=== PATIENT | female | born 1940 | race Caucasian/White ===

== ENCOUNTER 2023-09-29 16:45 | Observation (INO) ==
[2023-09-29 17:23] LABS: Basophils # (auto) 0.04 K/uL (0.00-0.20); Basophils % (auto) 0.4 %; Eosinophils # (auto) 0.04 K/uL (0.00-0.50); Eosinophils % (auto) 0.4 %; Hematocrit (blood only) 37.5 % (37.0-47.0); Hemoglobin 11.8 g/dl (12.0-16.0); Immature Granulocytes # (auto) 0.04 K/uL (0.01-0.20); Immature Granulocytes % (auto) 0.4 %; Lymphocytes % (auto) 6.5 %; Mean Corpuscular Hemoglobin 29.9 pg (25.0-34.0); Mean Corpuscular Hgb Conc 31.5 g/dL (32.0-36.0); Mean Corpuscular Volume 94.9 fL (80.0-100.0); Mean Platelet Volume 10.3 fL (9.4-12.4); Monocytes # (auto) 0.39 K/uL (0.11-0.59); Monocytes % (auto) 4.2 %; Neutrophils # (auto) 8.09 K/uL (1.40-6.50); Neutrophils % (auto) 88.1 %; Platelet Count 309 K/uL (130-400); RDW Coefficient of Variation 14.9 % (11.5-14.5); RDW Standard Deviation 50.9 fL (36.4-46.3); Red Blood Count 3.95 M/uL (4.20-5.40)
[2023-09-29 17:38] LABS: Alanine Aminotransferase 20 U/L (7-52); Albumin Globulin Ratio 0.7 (0.9-2); Albumin Level 3.3 gm/dl (3.4-5.0); Alkaline Phosphatase 75 U/L (34-104); Anion Gap 8 (3-11); Aspartate Aminotransferase 28 U/L (13-39); BUN Creatinine Ratio 29.2 (10-20); Bilirubin,Total 0.4 mg/dl (0.2-1.0); Blood Urea Nitrogen 14 mg/dl (6-23); Carbon Dioxide 27 mmol/L (21-32); Chloride 98 mmol/L (98-107); Est GFR (African American) 103.7 ml/min; Est GFR (Non-African American) 89.4 ml/min; Globulin 4.6 gm/dl (2.5-4.0); Glucose 123 mg/dl (70-99(Fasting)); Lipase 26 U/L (11-82); Sodium 133 mmol/L (136-145); Total Protein 7.9 gm/dl (6.0-8.3)
[2023-09-29 17:45] LABS: Troponin I High Sensitivity 8.4 pg/ml (0-14)
--- NOTE | 2023-09-29 18:19 | XRay Report ---
SINGLE VIEW CHEST CLINICAL HISTORY: Atypical chest pain. FINDINGS: A PA chest radiograph is compared to study dated 02/28/2019. The heart is top normal for proj ection noting atherosclerotic calcification of the thoracic aorta. Chronic interstitial/fibrotic lung disease is again noted. There are increasing airspace opacities at both lung bases. No large pleural effusion or pneumothorax is identified. The skeletal structures are osteopenic. The bony thorax is g rossly intact. Cholecystectomy clips are seen in the right upper quadrant. IMPRESSION: 1. Again seen are changes of chronic interstitial/fibrotic lung disease. 2. There are increasing airspace opacities at both lung bases. Correlate clinically for evidence of a superimposed pneumonia/aspiration pneumonitis. Radiographic follow-up to resolution is recommended. ACT 112: Negative or not required by law. Electronically signed by: Jamie Jacobs M.D. 09/29/2023 6:18 PM
[2023-09-29 19:47] LABS: Troponin I High Sensitivity 8.4 pg/ml (0-14)
--- NOTE | 2023-09-29 20:04 | CT Scan Report ---
Exam(s): CT HEAD Without Contrast EXAM: CT Head Without Intravenous Contrast CLINICAL HISTORY: Reason for exam: fall, hit back of head. TECHNIQUE: Axial computed tomography images of the head/brain without intravenous contrast. CTDI is 36.65 mGy and DLP is 624.41 mGy-cm. Automated exposure control was utilized for the study. A dose lowering technique was utilized adhering to the principles of ALARA. COMPARISON: Head CT September 17, 2022 FINDINGS: Brain: No intracranial hemorrhage. Atrophy and chronic microvascular ischemic changes. Ventricles: Unremarkable. Bones/joints: Unremarkable. No fracture. Soft tissues: Unremarkable. Sinuses: Secretions within the sphenoid sinuses. Mastoid air cells: Unremarkable as visualized. IMPRESSION: 1. No acute intracranial abnormality. Electronically signed by: Fabian Jennings MD 09/29/23 20:04 PM
[2023-09-29] MEDS: ASPIRIN CHEW 324 MG PO STA (21:29)
[2023-09-29 22:20] LABS: Partial Thromboplastin Ratio 0.9; Partial Thromboplastin Time 25 Seconds (21-31)
[2023-09-29 22:22] LABS: Magnesium 1.9 mg/dl (1.7-2.4)
--- NOTE | 2023-09-29 22:30 | Emergency Department Note ---
Impression & Plan Chest pain ED Provider Note Diagnosis: Chest pain Disposition: Admission CHIEF COMPLAINT: Chest pain HPI: Patient is an 83-year-old female presenting with complaint of chest pain. Patient states pain is substernal sharp in nature. Patient states the symptoms are intermittent in nature, go throughout the day. Patient states the pain is worse with exertion. Patient denies any associated shortness of breath. Patient states in the past 24 hours she had a mechanical fall in her garage trying to open up a cabinet that was stuck and when she pulled hard she fell backwards. Patient denies loss consciousness but did hit her head. PAST MEDICAL HISTORY: See Below PAST SURGICAL HISTORY: See Below SOCIAL HISTORY: See Below HOME MEDICATIONS: See Below ALLERGIES: See Below VITALS: See Below PHYSICAL EXAMINATION: GENERAL: Well appearing, well nourished, NAD, non-toxic. EYE EXAM: Normal conjunctiva. OROPHARYNX: Moist mucus membranes. Grossly normal dentition. NECK: Supple, nontender LUNGS: Clear to auscultation. Normal chest wall mechanics. HEART: NSR ABDOMEN: Abdomen soft, non-tender, normo-active bowel sounds, no masses, no rebound or guarding BACK: No CVA TTP. No tenderness of thoracic or lumbar spine SKIN: No rashes and no bruising. UPPER EXTREMITIES: Upper extremities are grossly normal LOWER EXTREMITIES: Grossly normal, no edema. NEURO EXAM: A&O x3,, normal speech, moves all 4 extremities PSYCH: Cooperative MEDICAL DECISION MAKING: History obtained from: Patient, daughter ER Course: Patient is an 83-year-old female presenting with complaint of intermittent episodes of chest pain. Patient states the pain is worse with exertion. Patient states a mechanical fall within the past [address] of head without intracranial hemorrhage. Once CT scan results were present aspirin was given. Patient's EKG without signs of ischemia. Patient has 2 negative troponins. Patient For chest pain observation with hospital service. Labs (independently interpreted) are significant for: Troponins negative x 2 Imaging results (independently interpreted): Chest x-ray clear EKG interpretation (independently interpreted): Normal sinus rhythm no ST segment elevation or depression Medications given: Aspirin Consultants: Hospitalist service, case discussed agree with admission to their service for further treatment evaluation Triage Nursing notes reviewed and agree them. Vital Signs: reviewed and remarkable for: no significant abnormalities Past Med/Surg History Medical History (Updated 09/29/23 @ 22:30 by Rob Matthews, DO) Rheumatoid lung disease Unintentional weight loss OVER THE PAST FEW MONTHS Age related osteoporosis Constipation REASON FOR UPCOMING PROCEDURE SOB (shortness of breath) on exertion ONGOING/NO CHANGE IN BASELINE History of recent fall LAST WEEK/[place] ED EVAL/ 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 R/T SOME CURRENT MEDICATION / EVAL CONTINUES FOR CAUSE Mitral regurgitation PT DENIES HEART MURMUR History of squamous cell carcinoma History of basal cell carcinoma Asthma WELL CONTROLLED GERD without esophagitis Hiatal hernia Hypothyroidism Surgical History History of left cataract surgery History of right cataract surgery History of colonoscopy History of endoscopy History of cholecystectomy History of cardiac catheterization PT DENIES Family History Unknown Hypertension Father Diabetes Denies family history of Ovarian cancer Breast cancer Colorectal cancer Social History Smoking Status: Never smoker Do You Dip or Chew Tobacco: No; Hx Alcohol Use: No Hx Substance Use: No Preferred Language: Turkmen Communication Ability: Effective [employer] Required: No Beliefs That Will Affect Care: None Current Living Situation: Spouse Feels Safe at Home: Yes Assistive Devices: Glasses Allergies Allergies Allergy/AdvReac Type Severity Reaction Status Date / Time No Known Allergies Allergy Verified 09/29/23 22:02 Home Meds Home Medications Medication Instructions Recorded Confirmed calcium carbonate 600 mg calcium 600 mg PO DAILY 06/15/19 09/29/23 (1,500 mg) tablet folic acid 1 mg tablet 1 mg PO QAM 06/15/19 09/29/23 hydroxychloroquine 200 mg tablet 300 mg PO QAM 06/15/19 09/29/23 levothyroxine 75 mcg tablet 75 mcg PO QAM 06/15/19 09/29/23 pantoprazole 40 mg tablet,delayed 40 mg PO QAM #90 tabs 06/15/19 09/29/23 release prednisone 5 mg tablet 5 mg PO QAM #135 tabs 01/18/20 09/29/23 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 sodium 2.5 mg tablet 20 mg PO WK #48 tabs 04/13/21 09/29/23 denosumab 60 mg/mL subcutaneous 60 mg subcut .EVERY 6 MONTHS PRN 09/24/22 09/29/23 syringe (Prolia) OSTEOPEROSIS fluticasone 100 mcg-salmeterol 50 1 inh inhalation BID 09/24/22 09/29/23 mcg/dose blistr powdr for inhalation (Wixela Inhub) atorvastatin 10 mg tablet 10 mg PO QAM 09/29/23 09/29/23 multivitamin with minerals-folic 1 tab PO DAILY 09/29/23 09/29/23 acid 0.4 mg tablet (One-A-Day Women's 50 Plus) trazodone 50 mg tablet 50 mg PO HS 09/29/23 09/29/23 Previous Rx's Medication Instructions Recorded fluocinonide 0.05 % topical 1 applic topical BID #30 grams 10/05/22 ointment aspirin 81 mg tablet,delayed 81 mg PO DAILY #90 tabs 11/08/22 release metoprolol succinate 25 mg 25 mg PO QAM #90 tabs 09/06/23 tablet,extended release 24 hr Results & Data (ED) Vital Signs Vital Signs - 24 hr 09/29/23 16:47 09/29/23 22:06 Temperature 36.6 C Temperature Source Temporal Artery Scan Pulse Rate 84 68 Respiratory Rate 18 Respiratory Effort / Characteristics Non-Labored Spontaneous Respiratory Depth Normal Respiratory Pattern Regular Blood Pressure 143/81 H Blood Pressure Mean 101 Blood Pressure Position Sitting Pulse Oximetry 95 Oxygen Delivery Method Room Air Sepsis Recent Fever Within 48 Hours No Sepsis New/Unexplained Change in Mental Status N/A Sepsis Action Taken by Nursing No Action Required Laboratory Data 09/29/23 17:02 09/29/23 17:02 Lab Results 09/29/23 09/29/23 Range/Units 17:02 19:13 WBC 9.20 (4.8-10.8) K/ul RBC 3.95 L (4.20-5.40) M/uL Hgb 11.8 L (12.0-16.0) g/dl Hct 37.5 (37.0-47.0) % MCV 94.9 (80.0-100.0) fL MCH 29.9 (25.0-34.0) pg MCHC 31.5 L (32.0-36.0) g/dL RDW Std Deviation 50.9 H (36.4-46.3) fL RDW Coeff of Chantel 14.9 H (11.5-14.5) % Plt Count 309 (130-400) K/uL MPV 10.3 (9.4-12.4) fL Immature Gran % (Auto) 0.4 % Neut % (Auto) 88.1 % Lymph % (Auto) 6.5 % [place] % (Auto) 4.2 % Eos % (Auto) 0.4 % Baso % (Auto) 0.4 % Neut # (Auto) 8.09 H (1.40-6.50) K/uL Lymph # (Auto) 0.60 L (1.20-3.40) K/uL [place] # (Auto) 0.39 (0.11-0.59) K/uL Eos # (Auto) 0.04 (0.00-0.50) K/uL Baso # (Auto) 0.04 (0.00-0.20) K/uL Immature Gran # (Auto) 0.04 (0.01-0.20) K/uL APTT 25 (21-31) Seconds PTT Ratio 0.9 Sodium 133 L (136-145) mmol/L Potassium 4.0 (3.5-5.1) mmol/L Chloride 98 (98-107) mmol/L Carbon Dioxide 27 (21-32) mmol/L Anion Gap 8 (3-11) BUN 14 (6-23) mg/dl Creatinine 0.48 L (0.6-1.2) mg/dl Est Cr Clr Drug Dosing Not Reportable Est GFR ( Amer) 103.7 ml/min Est GFR (Non-Af Amer) 89.4 ml/min BUN/Creatinine Ratio 29.2 H (10-20) Glucose 123 H (70-99(Fasting)) mg/dl Calcium 9.0 (8.6-10.3) mg/dl Magnesium 1.9 (1.7-2.4) mg/dl Total Bilirubin 0.4 (0.2-1.0) mg/dl AST 28 (13-39) U/L ALT 20 (7-52) U/L Alkaline Phosphatase 75 (34-104) U/L Troponin I High Sens 8.4 8.4 (0-14) pg/ml Total Protein 7.9 (6.0-8.3) gm/dl Albumin 3.3 L (3.4-5.0) gm/dl Globulin 4.6 H (2.5-4.0) gm/dl Albumin/Globulin Ratio 0.7 L (0.9-2) Lipase 26 (11-82) U/L Administered Medications Discontinued Medications Aspirin (Aspirin Chew 324 Mg) 324 mg PO NOW STA Stop: 09/29/23 21:18 Last Admin: 09/29/23 21:29 Dose: 324 mg Documented By: ALICIA Imaging Data Radiologist's Impression: Chest X-Ray 09/29/23 16:52 SINGLE VIEW CHEST CLINICAL HISTORY: Atypical chest pain. FINDINGS: A PA chest radiograph is compared to study dated 02/28/2019. The heart is top normal for projection noting atherosclerotic calcification of the thoracic aorta. Chronic interstitial/fibrotic lung disease is again noted. There are increasing airspace opacities at both lung bases. No large pleural effusion or pneumothorax is identified. The skeletal structures are osteopenic. The bony thorax is grossly intact. Cholecystectomy clips are seen in the right upper quadrant. IMPRESSION: 1. Again seen are changes of chronic interstitial/fibrotic lung disease. 2. There are increasing airspace opacities at both lung bases. Correlate clinically for evidence of a superimposed pneumonia/aspiration pneumonitis. Radiographic follow-up to resolution is recommended. ACT 112: Negative or not required by law. Electronically signed by: Jamie Jacobs M.D. 09/29/2023 6:[address] 09/29/23 19:12 Exam(s): CT HEAD Without Contrast EXAM: CT Head Without Intravenous Contrast CLINICAL HISTORY: Reason for exam: fall, hit back of head. TECHNIQUE: Axial computed tomography images of the head/brain without intravenous contrast. CTDI is 36.65 mGy and DLP is 624.41 mGy-cm. Automated exposure control was utilized for the study. A dose lowering technique was utilized adhering to the principles of ALARA. COMPARISON: Head CT September 17, 2022 FINDINGS: Brain: No intracranial hemorrhage. Atrophy and chronic microvascular ischemic changes. Ventricles: Unremarkable. Bones/joints: Unremarkable. No fracture. Soft tissues: Unremarkable. Sinuses: Secretions within the sphenoid sinuses. Mastoid air cells: Unremarkable as visualized. IMPRESSION: 1. No acute intracranial abnormality. Electronically signed by: Fabian Jennings MD 09/29/23 20:04 PM Discharge Plan Visit Data Chief Complaint: Chest Pain Stated Complaint: CHEST PAINS, FATIGUE ED Provider: Rob Matthews Discharge Problem: Chest pain Forms Stand Alone Forms: My [facility] [employer] Prescriptions Prescriptions: No Action metoprolol succinate 25 mg tablet extended release 24 hr 25 mg PO QAM Qty: 90 3RF fluocinonide 0.05 % ointment 1 applic topical BID Qty: 30 0RF Rx Instructions: Apply to areas of the arms twice daily x 2 weeks as needed for flaring. calcium carbonate 600 mg calcium (1,500 mg) tablet 600 mg PO DAILY folic acid 1 mg tablet 1 mg PO QAM Patient Comments: hydroxychloroquine 200 mg tablet 300 mg PO QAM levothyroxine 75 mcg tablet 75 mcg PO QAM pantoprazole 40 mg tablet,delayed release (DR/EC) 40 mg PO QAM Qty: 90 prednisone 5 mg tablet 5 mg PO QAM Qty: 135 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 sodium 2.5 mg tablet 20 mg PO WK Qty: 48 Patient Comments: on Mondays aspirin 81 mg tablet,delayed release (DR/EC) 81 mg PO DAILY Qty: 90 3RF fluticasone propion-salmeterol [Wixela Inhub] 100-50 mcg/dose Blister With Device 1 inh INHALATION BID Patient Comments: IF I REMEMBER AT NIGHT I TAKE IT Prolia 60 mg/mL Syringe 60 mg SUBCUT .EVERY 6 MONTHS PRN (Reason: OSTEOPEROSIS) Patient Comments: EVERY 6 MON/DUE SEPTEMBER 28 2022 Rx Instructions: due september trazodone 50 mg tablet 50 mg PO HS atorvastatin 10 mg tablet 10 mg PO QAM multivit with min-folic acid [One-A-Day Women's 50 Plus] 0.4 mg Tablet 1 tab PO DAILY Referrals Referrals: Troy Belle MD [Primary Care Provider] -
--- NOTE | 2023-09-29 23:14 | History & Physical Report ---
Date of Service September 29, 2023 Assessment & Plan (1) Chest pain: Plan: Atypical chest pain Rule out PE hx nonobstructive CAD HTN, stable mild MR from 2020 TTE RA interstitial lung disease, chronic cough symptoms, patient follows [facility] [place] rheumatoid arthritis on chronic steroid Rx hx Das's esophagus/GERD, stable on regimen hypothyroidism, euthyroid as of today's TSH mood disorder, patient denies suicidality New onset anemia, no overt bleed, FOBT done at the ER was negative OBS PCU CT chest PE study Follow troponin, check inflammatory markers TTE Re: Chest pain Anemia workup Further management contingent on workup results. DVT prophylaxis. Lovenox subcu DNR Patient requests for daughter to be given periodic updates regarding care. Ms. Kemi Lowe, contact #[phone]. Text document was generated using [employer] voice recognition software. It may contain grammatical or spelling errors. Kindly contact undersigned for clarification of any documentation item in question. History of Present Illness Chief Complaint: Right-sided chest pain Primary Care Provider: Troy Belle MD History obtained from patient, family, and records. Medical history significant for nonobstructive CAD, HTN, mild MR, RA interstitial lung disease, rheumatoid arthritis on chronic steroid Rx,Das's esophagus/GERD, hypothyroidism, mood disorder. Patient fell backwards in her garage yesterday while trying to open a cabinet resulting in head trauma. No LOC, no CP, no SOB. No consultations done. Patient had intermittent achy pleuritic right-sided chest pain today with some shortness of breath. No fever, no chills. Chronic cough symptoms. Denies aspiration. No abdominal pain, no black, no bloody stools. More than 15 pound involuntary weight loss since last year. PCP with depression concerns. Recent outpatient CT abdomen pelvis requested by PCP negative for abdominal pathology. Worsening constellation lung bases noted on imaging. Chest pain improved with aspirin administration at the ER. 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 Allergies Allergy/AdvReac Type Severity Reaction Status Date / Time No Known Allergies Allergy Verified 09/29/23 22:02 Home Medications Medication Instructions Recorded Confirmed Type calcium carbonate 600 mg calcium 600 mg PO QDL 06/15/19 09/29/23 History (1,500 mg) tablet folic acid 1 mg tablet 1 mg PO QAM 06/15/19 09/29/23 History hydroxychloroquine 200 mg tablet 300 mg PO QAM 06/15/19 09/29/23 History levothyroxine 75 mcg tablet 75 mcg PO QAM 06/15/19 09/29/23 History pantoprazole 40 mg tablet,delayed 40 mg PO QAM #90 tabs 06/15/19 09/29/23 History release prednisone 5 mg tablet 5 mg PO QAM #135 tabs 01/18/20 09/29/23 History 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 sodium 2.5 mg tablet 20 mg PO WK #48 tabs 04/13/21 09/29/23 History denosumab 60 mg/mL subcutaneous 60 mg subcut .EVERY 6 MONTHS PRN 09/24/22 09/29/23 History syringe (Prolia) OSTEOPEROSIS fluticasone 100 mcg-salmeterol 50 1 inh inhalation BID 09/24/22 09/29/23 History mcg/dose blistr powdr for inhalation (Wixela Inhub) fluocinonide 0.05 % topical 1 applic topical BID #30 grams 10/05/22 09/29/23 Rx ointment metoprolol succinate 25 mg 25 mg PO QAM #90 tabs 09/06/23 09/29/23 Rx tablet,extended release 24 hr aspirin 81 mg tablet,delayed 81 mg PO QDL 09/29/23 09/29/23 History release atorvastatin 10 mg tablet 10 mg PO QAM 09/29/23 09/29/23 History multivitamin with minerals-folic 1 tab PO QDL 09/29/23 09/29/23 History acid 0.4 mg tablet (One-A-Day Women's 50 Plus) trazodone 50 mg tablet 50 mg PO HS 09/29/23 09/29/23 History Past Med/Surg History Medical History (Updated 09/29/23 @ 22:30 by Rob Matthews DO) Rheumatoid lung disease Unintentional weight loss OVER THE PAST FEW MONTHS Age related osteoporosis Constipation REASON FOR UPCOMING PROCEDURE SOB (shortness of breath) on exertion ONGOING/NO CHANGE IN BASELINE History of recent fall LAST WEEK/[place] ED EVAL/ WHILE EVAL CRACKLING REPORTED TO BE HEARD...CT CHEST DONE FEB [place] (PT DOES NOT KNOW RESULTS) NO KNOWN INJURIES DENIES C/P , OCC SOB ON EXERTION (NO CHANGE IN BASELINE) History of tachycardia HX RAPID HEART BEAT YRS AGO/UNSURE FURTHER DETAILS/REASON FOR METOPROLOL/CONTROLS Hot flashes UNKNOWN ETIOLOGY / ? R/T SOME CURRENT MEDICATION / EVAL CONTINUES FOR CAUSE Mitral regurgitation PT DENIES HEART MURMUR History of squamous cell carcinoma History of basal cell carcinoma Asthma WELL CONTROLLED GERD without esophagitis Hiatal hernia Hypothyroidism Surgical History History of left cataract surgery History of right cataract surgery History of colonoscopy History of endoscopy History of cholecystectomy History of cardiac catheterization PT DENIES Family History Unknown Hypertension Father Diabetes Denies family history of Ovarian cancer Breast cancer Colorectal cancer Social History Smoking Status: Never smoker Do You Dip or Chew Tobacco: No; Hx Alcohol Use: No Hx Substance Use: No Preferred Language: Djiboutian Communication Ability: Effective Student Life Coordinator Required: No Beliefs That Will Affect Care: None Current Living Situation: Spouse Feels Safe at Home: Yes Assistive Devices: Glasses Review of Systems Review of Systems: As per HPI, all other systems reviewed and negative Physical Exam Physical Exam: GENERAL: Comfortable, slightly anxious, pleasant, no respiratory distress SKIN: Normal color, warm HEENT: Bespectacled, [place] palpebral conjunctivae, no ptosis, dry buccal mucosa NECK : Supple, no tenderness CHEST : CTA, no tenderness HEART : RRR, no obvious murmurs ABDOMEN: Some distention, nontender RECTAL : Intact sphincter, brown stool (FOBT negative) EXTREMITIES : Minimal LE swelling, no LE tenderness, no other conspicuous deformities noted NEUROLOGIC : Coherent, no facial asymmetry, no other gross focality Results & Data Results & Data Vital Signs (Past 12 Hours) Vital Signs Temp Pulse Pulse Resp BP BP Pulse Ox 09/29/23 22:52 69 18 96 09/29/23 22:52 96 09/29/23 22:06 68 09/29/23 22:00 68 16 134/63 96 09/29/23 21:00 76 18 136/69 96 09/29/23 20:00 69 18 145/85 H 97 09/29/23 19:00 79 16 146/73 H 98 09/29/23 16:47 36.6 C 84 18 143/81 H 95 O2 Del Method 09/29/23 22:52 Room Air 09/29/23 22:52 Room Air 09/29/23 22:06 09/29/23 22:00 09/29/23 21:00 Room Air 09/29/23 20:00 Room Air 09/29/23 19:00 Room Air 09/29/23 16:47 Room Air Laboratory Results Laboratory Results WBC 9.20 K/ul (4.8-10.8) 09/29/23 17:02 RBC 3.95 M/uL (4.20-5.40) L 09/29/23 17:02 Hgb 11.8 g/dl (12.0-16.0) L 09/29/23 17:02 Hct 37.5 % (37.0-47.0) 09/29/23 17:02 MCV 94.9 fL (80.0-100.0) 09/29/23 17:02 MCH 29.9 pg (25.0-34.0) 09/29/23 17:02 MCHC 31.5 g/dL (32.0-36.0) L 09/29/23 17:02 RDW Std Deviation 50.9 fL (36.4-46.3) H 09/29/23 17:02 RDW Coeff of Chantel 14.9 % (11.5-14.5) H 09/29/23 17:02 Plt Count 309 K/uL (130-400) 09/29/23 17:02 MPV 10.3 fL (9.4-12.4) 09/29/23 17:02 Immature Gran % (Auto) 0.4 % 09/29/23 17:02 Neut % (Auto) 88.1 % 09/29/23 17:02 Lymph % (Auto) 6.5 % 09/29/23 17:02 [place] % (Auto) 4.2 % 09/29/23 17:02 Eos % (Auto) 0.4 % 09/29/23 17:02 Baso % (Auto) 0.4 % 09/29/23 17:02 Neut # (Auto) 8.09 K/uL (1.40-6.50) H 09/29/23 17:02 Lymph # (Auto) 0.60 K/uL (1.20-3.40) L 09/29/23 17:02 [place] # (Auto) 0.39 K/uL (0.11-0.59) 09/29/23 17:02 Eos # (Auto) 0.04 K/uL (0.00-0.50) 09/29/23 17:02 Baso # (Auto) 0.04 K/uL (0.00-0.20) 09/29/23 17:02 Immature Gran # (Auto) 0.04 K/uL (0.01-0.20) 09/29/23 17:02 APTT 25 Seconds (21-31) 09/29/23 17:02 PTT Ratio 0.9 09/29/23 17:02 Sodium 133 mmol/L (136-145) L 09/29/23 17:02 Potassium 4.0 mmol/L (3.5-5.1) 09/29/23 17:02 Chloride 98 mmol/L (98-107) 09/29/23 17:02 Carbon Dioxide 27 mmol/L (21-32) 09/29/23 17:02 Anion Gap 8 (3-11) 09/29/23 17:02 BUN 14 mg/dl (6-23) 09/29/23 17:02 Creatinine 0.48 mg/dl (0.6-1.2) L 09/29/23 17:02 Est Cr Clr Drug Dosing Not Reportable 09/29/23 17:02 Est GFR ( Amer) 103.7 ml/min 09/29/23 17:02 Est GFR (Non-Af Amer) 89.4 ml/min 09/29/23 17:02 BUN/Creatinine Ratio 29.2 (10-20) H 09/29/23 17:02 Glucose 123 mg/dl (70-99(Fasting)) H 09/29/23 17:02 Calcium 9.0 mg/dl (8.6-10.3) 09/29/23 17:02 Magnesium 1.9 mg/dl (1.7-2.4) 09/29/23 19:13 Total Bilirubin 0.4 mg/dl (0.2-1.0) 09/29/23 17:02 AST 28 U/L (13-39) 09/29/23 17:02 ALT 20 U/L (7-52) 09/29/23 17:02 Alkaline Phosphatase 75 U/L (34-104) 09/29/23 17:02 Troponin I High Sens 8.4 pg/ml (0-14) 09/29/23 19:13 Total Protein 7.9 gm/dl (6.0-8.3) 09/29/23 17:02 Albumin 3.3 gm/dl (3.4-5.0) L 09/29/23 17:02 Globulin 4.6 gm/dl (2.5-4.0) H 09/29/23 17:02 Albumin/Globulin Ratio 0.7 (0.9-2) L 09/29/23 17:02 Lipase 26 U/L (11-82) 09/29/23 17:02 Impressions Chest X-Ray 09/29/23 16:52 SINGLE VIEW CHEST CLINICAL HISTORY: Atypical chest pain. FINDINGS: A PA chest radiograph is compared to study dated 02/28/2019. The heart is top normal for projection noting atherosclerotic calcification of the thoracic aorta. Chronic interstitial/fibrotic lung disease is again noted. There are increasing airspace opacities at both lung bases. No large pleural effusion or pneumothorax is identified. The skeletal structures are osteopenic. The bony thorax is grossly intact. Cholecystectomy clips are seen in the right upper quadrant. IMPRESSION: 1. Again seen are changes of chronic interstitial/fibrotic lung disease. 2. There are increasing airspace opacities at both lung bases. Correlate clin ically for evidence of a superimposed pneumonia/aspiration pneumonitis. Radiographic follow-up to resolution is recommended. ACT 112: Negative or not required by law. Electronically signed by: Jamie Jacobs M.D. 09/29/2023 6:[address] 09/29/23 19:12 Exam(s): CT HEAD Without Contrast EXAM: CT Head Without Intravenous Contrast CLINICAL HISTORY: Reason for exam: fall, hit back of head. TECHNIQUE: Axial computed tomography images of the head/brain without intravenous contrast. CTDI is 36.65 mGy and DLP is 624.41 mGy-cm. Automated exposure control was utilized for the study. A dose lowering technique was utilized adhering to the principles of ALARA. COMPARISON: Head CT September 17, 2022 FINDINGS: Brain: No intracranial hemorrhage. Atrophy and chronic microvascular ischemic changes. Ventricles: Unremarkable. Bones/joints: Unremarkable. No fracture. Soft tissues: Unremarkable. Sinuses: Secretions within the sphenoid sinuses. Mastoid air cells: Unremarkable as visualized. IMPRESSION: 1. No acute intracranial abnormality. Electronically signed by: Fabian Jennings MD 09/29/23 20:04 PM Diagnostic Findings EKG as per my interpretation : Rate 75, NSR, normal axis, septal infarct, no ischemia
[2023-09-29] MEDS: OPTIRAY 320 125ml IV ONE (23:25)
[2023-09-29] MEDS ORDERED: oxyCODONE HCL IR 5 MG TAB (IMMEDIATE RELEASE) PO PRN (23:35)
--- NOTE | 2023-09-30 00:14 | CT Scan Report ---
Exam(s): CTA CHEST IV Amt: 116 ml optiray 320 EXAM: CT Angiography Chest With Intravenous Contrast CLINICAL HISTORY: Reason for exam: r cp. TECHNIQUE: Axial computed tomographic angiography images of the chest with intravenous contrast. CTDI is 9.5 mGy and DLP is 154.9 mGy-cm. Automated exposure control was utilized for the study. A dose lowering technique was utilized adhering to the principles of ALARA. MIP reconstructed images were created and reviewed. COMPARISON: No relevant prior studies available. FINDINGS: Pulmonary arteries: No pulmonary embolism. Aorta: No acute findings. Normal caliber. No dissection. Lungs: Multifocal bilateral consolidative airspace opacities with areas of subpleural interstitial thickening and reticulation. Air bronchograms and peripheral bronchiectasis. Pleural space: Unremarkable. Heart: Unremarkable. Bones/joints: No acute fracture. Chronic compression deformity at T8. Soft tissues: Small hiatal hernia. Lymph nodes: Unremarkable. IMPRESSION: 1. No pulmonary embolism. 2. Findings suggestive of chronic interstitial lung disease with a possible component of multifocal pneumonia. Electronically signed by: Fabian Jennings MD 09/29/23 23:53 PM
[2023-09-30] MEDS: SODIUM CHLORIDE 0.9% 1,000 ML IV STA (00:20)
[2023-09-30 00:26] LABS: Reticulocyte % 1.26 % (0.50-2.00); Reticulocytes # 0.05 10^6/uL (0.020-0.100)
[2023-09-30 00:35] LABS: C Reactive Protein 8.36 mg/dl (0-0.5)
[2023-09-30 00:41] LABS: Troponin I High Sensitivity 10.1 pg/ml (0-14)
[2023-09-30 00:50] LABS: Thyroid Stimulating Hormone 2.236 uIu/ml (0.300-4.500)
[2023-09-30 01:00] LABS: Folate (Folic Acid),Ser orPlas > 22.30 ng/ml (>5.38)
[2023-09-30 01:01] LABS: Vitamin B12 661 pg/ml (180-914)
[2023-09-30] MEDS: traZODone HCL 50 MG TAB PO SCH (03:48)
[2023-09-30] MEDS: LEVOTHYROXINE SODIUM 75 MCG TABLET PO SCH (06:11)
[2023-09-30 07:03] LABS: Basophils # (auto) 0.04 K/uL (0.00-0.20); Basophils % (auto) 0.5 %; Eosinophils # (auto) 0.15 K/uL (0.00-0.50); Eosinophils % (auto) 1.7 %; Hematocrit (blood only) 35.1 % (37.0-47.0); Hemoglobin 11.2 g/dl (12.0-16.0); Immature Granulocytes # (auto) 0.04 K/uL (0.01-0.20); Immature Granulocytes % (auto) 0.5 %; Lymphocytes # (auto) 1.56 K/uL (1.20-3.40); Lymphocytes % (auto) 18.1 %; Mean Corpuscular Hemoglobin 29.6 pg (25.0-34.0); Mean Corpuscular Hgb Conc 31.9 g/dL (32.0-36.0); Mean Corpuscular Volume 92.9 fL (80.0-100.0); Mean Platelet Volume 10.5 fL (9.4-12.4); Monocytes # (auto) 0.51 K/uL (0.11-0.59); Monocytes % (auto) 5.9 %; Neutrophils % (auto) 73.3 %; Platelet Count 287 K/uL (130-400); RDW Coefficient of Variation 14.6 % (11.5-14.5); RDW Standard Deviation 49.2 fL (36.4-46.3); Red Blood Count 3.78 M/uL (4.20-5.40)
[2023-09-30 07:38] LABS: BUN Creatinine Ratio 26.3 (10-20); Calcium 8.4 mg/dl (8.6-10.3); Est GFR (Non-African American) 96.6 ml/min; Potassium 3.6 mmol/L (3.5-5.1)
[2023-09-30] MEDS: predniSONE 5 MG TAB PO SCH (08:08)
[2023-09-30] MEDS: ATORVASTATIN 10 MG TAB PO SCH (08:08)
[2023-09-30] MEDS: PANTOprazole 40 MG TAB PO SCH (08:08)
[2023-09-30] MEDS: FOLIC ACID 1 MG TAB PO SCH (08:09)
[2023-09-30] MEDS: METOPROLOL SUCC 25MG EXT REL TAB PO SCH (08:09)
[2023-09-30] MEDS: HYDROXYCHLOROQUINE SULFATE 200 MG TAB PO SCH (08:09)
[2023-09-30] MEDS: FLUTICASONE/VILANTEROL 100/25MCG 14 PUFFS/INHALER INH SCH (08:11)
[2023-09-30 09:06] LABS: Appearance Urine Clear (Clear); Bilirubin Urine Negative (Negative); Blood Urine Negative (Negative); Color Urine Yellow; Glucose Urine UA Negative (Negative); Ketones Urine Negative (Negative); Leukocyte Esterase Urine Negative (Negative); Nitrite Urine Negative (Negative); Protein Urine Negative (Negative); Specific Gravity Urine > 1.045 (1.000-1.030); Urobilinogen Urine Negative (Negative); pH Urine 6.5 (4.5-7.5)
--- NOTE | 2023-09-30 11:05 | Electrocardiogram Report ---
Test Reason : Blood Pressure : / mmHG Vent. Rate : 074 BPM Atrial Rate : 074 BPM P-R Int : 118 ms QRS Dur : 076 ms QT Int : 376 ms P-R-T Axes : 052 007 015 degrees QTc Int : 417 ms Sinus rhythm with Premature supraventricular complexes Poor R wave progression, consider anterior ID vs. lead placement vs. LVH Abnormal ECG No previous ECGs available Confirmed by Troy Faulkner ([id number]) on 09/30/2023 11:05:12 AM Referred By: Troy Belle Confirmed By:Troy Faulkner
--- NOTE | 2023-09-30 11:23 | XCELERA ---
[id number] \\[email or web address]\[id number]___[id number]
[2023-09-30] MEDS: ASPIRIN 81 MG ECTAB PO SCH (11:24)
[2023-09-30] MEDS ORDERED: MULTIVIT WITH MIN FOLIC ACID PO SCH (11:30)
[2023-09-30] MEDS ORDERED: [UNRECOGNIZED DRUG - OTHER] PO SCH (11:30)
--- OUTSIDE RECORDS SUMMARY | 2023-09-30 13:17 | External Medical Summary | Summary of Care ---
Author Name Unknown Organization [facility] Address [address] [place] [address] Phone [phone] Care Team Providers Care Tree Faller Name Role Phone Troy Belle MD Primary Care Provider [phone] Reason for Referral * Precert (Within 10 days (routine)) - Pending Review Specialty Diagnoses / Procedures Referred By Tae barton Referred To Contact Radiology Diagnoses Unexplained weight loss Procedures CT ABDOMEN WO IV/ORAL CONTRAST Troy Belle MD [address] [place] [id number] Referral ID Status Reason Start Date Expiration Date V isits Requested Visits Authorized [id number] Pending Review 09/13/2023 999 999 Reason for Visit * Reason Comments Nausea Loss of Appetite Pt states she feels like nothing tastes good Encounter Details Date Type Department Care Team (Late st Contact Info) Description 09/13/2023 11:40 AM EST Office Visit Family Practice [facility] [address] [place] [address] Troy Belle MD [address] [place] [id number] Unexplained weight loss* Allergies No known active allergiesdocumented as of this encounter (statuses as of 09/14/2023) Medications Medication Sig Dispensed Refills Start Date End Date Status Multiple Vitamins-Minerals (CENTRUM SILVER 50+WOMEN) TABS Take by mouth. 0 Active Calcium 600 MG Tablet Take 1 Tablet by mouth in the morning. 0 Active Denosumab 60 MG/ML Subcutaneous Solution Prefilled Syringe Inject 60 mg under the skin once. 1 Syringe 0 12/14/2018 Active metroNIDAZOLE 0.75 % External Cream (Metrocream) APPLY TOPICALLY TO THE FACE DAILY AT BEDTIME DIRECTED 0 12/28/2021 Active Fluocinonide 0.05 % External Ointment APPLY 1 APPLICATION TO AREAS OF THE ARMS TWICE DAILY X 2 WEEKS NEEDED FOR FLARING. 0 10/05/2022 Active Aspirin 81 MG Oral Tablet Chewable Take 1 Tablet by mouth in the morning. with food.. 100 Tablet 5 11/24/2022 Active Levothyroxine Sodium 75 MCG Oral Tablet (Levoxyl) TAKE 1 TABLET BY MOUTH DAILY AT LEAST 30 MINUTES PRIOR TO FIRST MEAL OF THE DAY OR OTHER MEDICATIONS 100 Tablet 3 11/30/2022 11/30/2023 Active Folic Acid 1 MG Oral Tablet Take 2 Tablets by mouth in the morning. 180 Tablet 4 04/12/2023 Active Hydroxychloroquine Sulfate 200 MG Oral Tablet (Plaquenil) TAKE ONE AND ONE HALF TABLETS BY MOUTH EVERY DAY 135 Tablet 3 06/10/2023 06/09/2024 Active Methotrexate Sodium 2.5 MG Oral TabletIndications:R heumatoid arthritis involving multiple sites with positive rheumatoid factor (HCC) TAKE 8 TABLETS BY MOUTH ONCE A WEEK 104 Tablet 1 06/29/2023 Active traZODone HCl 50 MG Oral Tablet (Desyrel) Take 1 Tablet by mouth at bedtime. 30 Tablet 5 07/01/2023 Active Atorvastatin Calcium 10 MG Oral Tablet (Lipitor) Take 1 Tablet by mouth in the morning. 0 Active Pantoprazole Sodium 40 MG Oral Tablet Delayed Release (Protonix) Take 1 tablet by mouth daily 90 Tablet 3 08/24/2023 Active predniSONE 5 MG Oral Tablet (Deltasone) TAKE ONE TABLET BY MOUTH EVERY DAY 90 Tablet 1 09/05/2023 09/04/2024 Active Atorvastatin Calcium 10 MG Oral Tablet (Lipitor) TAKE ONE TABLET BY MOUTH EVERY DAY 90 Tablet 3 09/05/2023 09/04/2024 Active Fluticasone-Salmete rol 100-50 MCG/ACT Inhalation Aerosol Powder Breath Activated (Advair Diskus)Indications: Mild persistent asthma without complication INHALE 1 PUFF BY MOUTH TWO TIMES A DAY 180 Each 1 09/06/2023 09/05/2024 Active Metoprolol Succinate ER 25 MG Oral Tablet Extended Release 24 Hour (toPROL XL) take one tablet by mouth daily in the morning 90 Tablet 3 09/06/2023 Active Hospital, Clinic, or Other Facility Administered Medication Ordered Dose Route Frequency Start Date End Date Status Albuterol Sulfate (Proventil) (2.5 MG/3ML) 0.083% inhalation solution 2.5 mgIndications:Rheumatoi d lung disease with rheumatoid arthritis (HCC) 2.5 mg NEBULIZER PRN 10/22/2022 10/22/2023 Active Albuterol Sulfate (Proventil) (5 MG/ML) 0.5% *conc* inhalation solution 2.5 mgIndications:Rheumatoi d lung disease with rheumatoid arthritis (HCC) 2.5 mg NEBULIZER PRN 10/22/2022 10/22/2023 Active documented as of this encounter (statuses as of 09/14/2023) Active Problems Problem Noted Date Diagnosed Date Irritable bowel syndrome with diarrhea Bronchiectasis 11/24/2022 Interstitial pulmonary disease 10/29/2022 HTN, goal below 140/90 08/26/2022 Gastroesophageal reflux disease without esophagi tis 08/26/2022 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 factor 07/06/2022 Senile osteoporosis 03/05/2020 Mild persistent asthma without complication 02/22 Acquired hypothyroidism documented as of this encounter (statuses as of 09/14/2023) Resolved Problems Problem Noted Date Diagnosed Date Resolved Date Atherosclerosis of aorta 11/24/202202/2023 Atherosclerosis of coronary artery of resighini heart without angina pectoris 11/24/2022 07/01/2023 Constipation 08/26/2022 07/01/2023 Encounter for long-term (cur rent) use of medications 09/08/2020 07/01/2023 COPD, severity to be determined 03/05/2020 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 10/24/2018 07/01/2023 Mild intermittent asthma with exacerbation 10/07/2017 12/14/2018 RA (rheumatoid arthritis) History of shingles 07/01/20 23 Overview: left upper chest/upper arm History of solitary pulmonary nodule 07/01/2023 Overview: CT scan 08/2106 documented as of this encounter (statuses as of 09/14/2023) Immunizations Name Administration Dates Next Due COVID-19 mRNA, LNP-s, No Pre serve, 2-Dose Series (Moderna) 03/24/2021,09/22/2020,08/25/2020 COVID-19, MRNA-LNP, 23-24, P F, 50 MCG/0.5 mL, 12 YRS AND ABOVE, IM (MODERNA-Spikevax) 04/29/2023 COVID-19, mRNA, LNP-s, PF, B ooster, 100mcg/0.5mg (Moderna) 11/11/2021 PPD 02/14/2018 Pneumococcal Conjugate Vacc, 13 Valent (Prevnar) 05/02/2015 Pneumococcal Polysaccharide PPV23 (Pneumovax) 05/10/2016,05/23/2002 Season Influenza, Quad, PF, Adjuvanted, 65+ Yrs, IM (FLUAD) 04/05/2020 Seasonal Influenza Virus Vac cine, Unspecified Formulation 05/01/2018 Seasonal Influenza, Quadriva lent Hd (Fluzone Hd) 04/21/2023,04/21/2021 Seasonal Influenza, Quadriva lent, No Preserve, IM 05/01/2018 Seasonal Influenza, Trivalen t, High Dose, No Preserve, IM 04/26/2022,05/07/2019,05/01/2018 TDAP (age 10 and older)(Boostrix) 03/16/2020 Zoster Vaccine Recombinant (Shingrix) 01/08/2020 ,08/28/2019 documented as of this encounter Social History Tobacco Use Types Packs/Day Years Used Date Smoking Tobacco: Never Smokeless Tobacco: Never Alcohol Use Standard Drinks/Week Comments Yes 0 (1 standard drink = 0.6 oz pure alcohol) Glass of wine every once in awhile PHQ-2 Answer Date Recorded PHQ Adult Total Score 0 11/03/2021 Hunger Vital Sign Answer Date Recorded Within the past 12 months, y ou worried that your food would run out before you got the money to buy more. Never true 06/17/20 23 Within the past 12 months, t he food you bought just didn't last and you didn't have money to get more. Never true 06/17/2023 Sex and Gender Information Value Date Recorded Sex Assigned at Female 03/14/2022 10:47 AM EDT Gender Identity Female 03/14/2022 10:47 AM EDT Sexual Orientation Straight 03/14/2022 10 :47 AM EDT Job Start Date Occupation Industry Not on file Not on file Not on file documented as of this encounter Last Filed Vital Signs Vital Sign Reading Time Taken Comments Blood Pressure 110/60 09/13/2023 11:40 AM EST Pulse 84 09/13/2023 11:40 AM EST Temperature 36.6 C (97.8 F) 09/13/2023 11:[address] Respiratory Rate 18 09/13/2023 11:40 AM EST Oxygen Saturation - - Inhaled Oxygen Concentration - - Weight 47.6 kg (105 lb) 09/13/2023 11:40 AM EST Height 157.5 cm (5' 2") 09/13/2023 11:40 AM EST Body Mass Index 19.2 09/13/2023 11:40 AM EST documented in this encounter Progress Notes * Troy Belle MD - 09/13/2023 11:57 PM EST SUBJECTIVE: Shanna Melgar is a 83 year old female. Chief Complaint Patient presents with Nausea Loss of Appetite Pt states she feels like nothing tastes good HPI: Loss of appetite. Not new. Has been following with GI. GI offered EGD and CT scan two months ago and patient declined. Neither daughter nor patient really even remember seeing GI. In any even lots ofconfusion and needs CT scan. Seems depressed to me as well. Normal colonoscopy last year. Patient Active Problem List Diagnosis Code Acquired hypothyroidism E03.9 Senile osteoporosis M81.0 Mild persistent asthma without complication J45.30 Rheumatoid arthritis involving multiple sites with positive rheumatoid factor (HCC) M05.79 HTN, goal below 140/90 I10 Gastroesophageal reflux disease without esophagitis K21.9 Interstitial pulmonary disease (HCC) J84.9 Bronchiectasis ([facility]) J47.9 Irritable bowel syndrome with diarrhea K58.0 Current Outpatient Medications Medication Sig Dispense Refill Multiple Vitamins-Minerals (CENTRUM SILVER 50+WOMEN) TABS Take by mouth. Calcium 600 MG Tablet Take 1 Tablet by mouth in the morning. metroNIDAZOLE 0.75 % External Cream (Metrocream) APPLY TOPICALLY TO THE FACE DAILY AT BEDTIME DIRECTED Aspirin 81 MG Oral Tablet Chewable Take 1 Tablet by mouth in the morning. with food.. 100 Tablet 5 Levothyroxine Sodium 75 MCG Oral Tablet (Levoxyl) TAKE 1 TABLET BY MOUTH DAILY AT LEAST 30 MINUTES PRIOR TO FIRST MEAL OF THE DAY OR OTHER MEDICATIONS 100 Tablet 3 Folic Acid 1 MG Oral Tablet Take 2 Tablets by mouth in the morning. 180 Tablet 4 Hydroxychloroquine Sulfate 200 MG Oral Tablet (Plaquenil) TAKE ONE AND ONE HALF TABLETS BY MOUTH EVERY DAY 135 Tablet 3 Methotrexate Sodium 2.5 MG Oral Tablet TAKE 8 TABLETS BY MOUTH ONCE A WEEK 104 Tablet 1 traZODone HCl 50 MG Oral Tablet (Desyrel) Take 1 Tablet by mouth at bedtime. 30 Tablet 5 Atorvastatin Calcium 10 MG Oral Tablet (Lipitor) Take 1 Tablet by mouth in the morning. Pantoprazole Sodium 40 MG Oral Tablet Delayed Release (Protonix) Take 1 tablet by mouth daily 90 Tablet 3 predniSONE 5 MG Oral Tablet (Deltasone) TAKE ONE TABLET BY MOUTH EVERY DAY 90 Tablet 1 Atorvastatin Calcium 10 MG Oral Tablet (Lipitor) TAKE ONE TABLET BY MOUTH EVERY DAY 90 Tablet 3 Fluticasone-Salmeterol 100-50 MCG/ACT Inhalation Aerosol Powder Breath Activated (Advair Diskus) INHALE 1 PUFF BY MOUTH TWO TIMES A DAY 180 Each 1 Metoprolol Succinate ER 25 MG Oral Tablet Extended Release 24 Hour (toPROL XL) take one tablet by mouth daily in the morning 90 Tablet 3 Denosumab 60 MG/ML Subcutaneous Solution Prefilled Syringe Inject 60 mg under the skin once. 1 Syringe 0 Fluocinonide 0.05 % External Ointment APPLY 1 APPLICATION TO AREAS OF THE ARMS TWICE DAILY X 2 WEEKS NEEDED FOR FLARING. Current Facility-Administered Medications Medication Dose Route Frequency Provider Last Rate Last Admin Albuterol Sulfate (Proventil) (2.5 MG/3ML) 0.083% inhalation solution 2.5 mg 2.5 mg Nebulizer PRN Javier Green MD Albuterol Sulfate (Proventil) (5 MG/ML) 0.5% *conc* inhalation solution 2.5 mg 2.5 mg Nebulizer Javier Gray MD 2.5 mg at 11/22/22 1250 Allergy: Review of patient's allergies indicates: No Known Allergies OBJECTIVE: BP 110/60 | Pulse 84 | Temp 36.6 C (97.8 F) (Tympanic) | Resp 18 | Ht 1.575 m (5' 2") | Wt 47.6kg (105 lb) | BMI 19.20 kg/m | BSA 1.44 m Gen: underweight but not cachectic ASSESSMENT AND PLAN: (R63.4) Unexplained weight loss (primary encounter diagnosis) Plan: CT ABDOMEN WO IV/ORAL CONTRAST Follow up as needed. No other complaints were offered at this time. Troy Belle MD documented in this encounter Nursing Notes * Lisa Garcia LPN - 09/13/2023 11:40 AM EST The patient has been properly identified by confirmation of name and date of . Chief Complaint Patient presents with Nausea Loss of Appetite Pt states she feels like nothing tastes good documented in this encounter Plan of Treatment Upcoming Encounters Date Type Department Care Team (Late st Contact Info) Description 09/26/2023 11:30 AM EST Imaging Radiology [facility]st [facility] [address] [facility] [place] [address] 10/04/2023 5:40 PM EDT Office Visit Family Practice [facility] [address] [place] [address] Troy Belle MD [address] [facility] [place] [address] 10/12/2023 1:30 PM EDT Nurse Only Rheumatology [address] [place] [address] [place] [address] Pf, Nurse Rheum [facility] [address] [place] [address] Scheduled Orders Name Type Priority Associated Diagnoses Orde r Schedule CT ABDOMEN WO IV/ORAL CONTRAST Medical Imaging Routine Unexplained weight loss Ordered: 09/13/2023 Health Maintenance Due Date Last Done Comments Depression Screening 11/03/2022 11/03/2021 TSH 07/26/2024 07/26/2023, 07/0 01/2023, 12/21/2022, Additional history exists DXA Scan 06/27/2025 06/27/2023, 0511/2020, 01/10/2018, Additional history exists Albumin/Creatinine Ratio 11/24/2025 11/24/2022 DTaP,Tdap,and Td Vaccines (2 - Td or Tdap) 03/16/2030 03/16/2020 Pneumococcal Vaccine: 65+ Years Completed 05/10/2016, 05/02/2015, 05/23/2002 Zoster Vaccines Completed 01/08/2020, 08/28/2019 Influenza Vaccine (FLU shot) Completed , 04/26/2022, 04/21/2021, Additional history exists COVID-19 Vaccine Completed 04/29/2023, , 03/24/2021, Additional history exists VITAMIN D LEVEL ONCE IN A LIFETIME-USE SMARTSET# [id number] Completed 07/26/2023, 12/30/2020, 12/21/2019 GARDASIL-HPV IMMUNIZATION SERIES Aged Out No longer eligible based on patient's age to complete this topic Hepatitis B Aged Out No longer eligi ble based on patient's age to complete this topic MENINGOCOCCAL (MENACTRA/MENVEO) Aged Out No longer eligible based on patient's age to complete this topic documented as of this encounter Medical Devices Not on filedocumented as of this encounter Visit Diagnoses Diagnosis Unexplained weight loss- Primary Loss of weight documented in this encounter Care Teams Tree Faller Relationship Specialty Start Date End Date Troy Belle MD [address] [place] [address] PCP - General Family Medicine 07/01/23 documented as of this encounter
--- OUTSIDE RECORDS SUMMARY | 2023-09-30 13:17 | External Medical Summary | Summary of Care ---
Author Name Unknown Organization [facility] Address [address] [place] [address] Phone [phone] Care Team Providers Care Construction Consultant Name Role Phone Brisa Del Valle MD Primary Care Provider [phone] Reason for Visit * Reason Comments Medication Refill Encounter Details Date Type Department Care Team (Late st Contact Info) Description 09/05/2023 Refill Family Practice [facility] [address] [place] [id number] Brisa Del Valle MD [address] [facility] [place] [id number] Mild persistent asthma without complication Allergies No known active allergiesdocumented as of this encounter (statuses as of 09/06/2023) Medications Medication Sig Dispensed Refills Start Date [...] OR OTHER MEDICATIONS 100 Tablet 3 11/30/2022 4 Active Metoprolol Succinate ER 25 MG Oral Tablet Extended Release 24 Hour (toPROL XL) TAKE ONE TABLET BY MOUTH IN THE MORNING 90 Tablet 3 10/26/2022 4 Active Folic Acid 1 MG Oral Tablet Take 2 Tablets by mouth in the morning. 180 Tablet 4 04/12/2023 Active Hydroxychloroquine Sulfate 200 MG Oral Tablet (Plaquenil) TAKE ONE AND ONE HALF TABLETS BY MOUTH EVERY DAY 135 Tablet 3 06/10/2023 4 Active Methotrexate Sodium 2.5 MG Oral TabletIndications: Rheumatoid arthritis involving multiple sites with positive [...] MOUTH EVERY DAY 90 Tablet 1 09/05/2023 5 Active Atorvastatin Calcium 10 MG Oral Tablet (Lipitor) TAKE ONE TABLET BY MOUTH EVERY DAY 90 Tablet 3 09/05/2023 5 Active Fluticasone-Salmet franck 100-50 MCG/ACT Inhalation Aerosol Powder Breath Activated (Advair Diskus)Indications :Mild persistent asthma without complication INHALE 1 PUFF BY MOUTH TWO TIMES A DAY 180 Each 1 09/06/2023 5 Active Fluticasone-Salmet franck 100-50 MCG/ACT Inhalation Aerosol Powder Breath Activated (Advair Diskus)Indications :Mild persistent asthma without complication INHALE 1 PUFF BY MOUTH TWO TIMES A DAY 180 Each 1 04/15/2023 4 Discontinue d(Refill) Hospital, Clinic, or Other Facility Administered Medication [...] as of this encounter (statuses as of 09/06/2023) Active Problems Problem Noted Date Diagnosed Date Irritable bowel syndrome with diarrhea Bronchiectasis 11/24/2022 Interstitial pulmonary disease 10/29/2022 HTN, goal below 140/90 08/26/2022 Gastroesophageal reflux disease without esophagi tis 08/26/2022 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 factor 07/06/2022 Senile osteoporosis 03/05/2020 Mild persistent asthma without complication 02/22 Acquired hypothyroidism documented as of this encounter (statuses as of 09/06/2023) Resolved Problems Problem Noted Date Diagnosed Date Resolved Date Atherosclerosis of aorta 11/24/202202/2023 Atherosclerosis of coronary artery of kn[place] heart without angina pectoris 11/24/2022 07/01/2023 Constipation 08/26/2022 07/01/2023 Encounter for long-term (cur rent) use of medications 09/08/2020 07/01/2023 COPD, severity to be determined 03/05/2020 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 10/24/2018 07/01/2023 Mild intermittent asthma with exacerbation 10/07/2017 12/14/2018 RA (rheumatoid arthritis) History of shingles 07/01/20 Overview: left upper chest/upper arm History of solitary pulmonary nodule 07/01/2023 Overview: CT scan 08/2106 documented as of this encounter (statuses as of 09/06/2023) Immunizations Name Administration Dates Next Due COVID-19 [...] on file documented as of this encounter Miscellaneous Notes * Telephone Encounter - Brisa Del Valle MD - 09/06/2023 12:24 PM ESTSigned Prescriptions: Disp Refills Fluticasone-Salmeterol 100-50 MCG/ACT Inha*180 Ea*1 Sig: INHALE 1 PUFF BY MOUTH TWO TIMES A DAY Authorizing Provider: BRISA DEL VALLE * Telephone Encounter - Byron Gillette [facility] - 09/06/2023 11:46 AM EST Pending Prescriptions: Disp Refills Fluticasone-Salmeterol 100-50 MCG/ACT Inha*180 Ea*1 Sig: INHALE 1 PUFF BY MOUTH TWO TIMES A DAY * Telephone Encounter - Byron Gillette [facility] - 09/06/2023 11:44 AM EST Unable to authorize medication refills for pended medication(s) at this time. Part of the protocol criteria used for refill authorization was not satisfied. Patient needs an active script for a ZANDRA rescue inhaler per refill protocol. Please approve if appropriate. Thanks, Byron Gillette Pharm.D. Clinical Pharmacist [facility] ([facility]Formerly Telepharm[facility]) [phone] 09/06/2023, 11:45 AM Did you pend patient's preferred pharmacy and medication before forwarding?yes Pharmacy: [facility] Pending Prescriptions: Disp Refills Fluticasone-Salmeterol 100-50 MCG/ACT Inh*180 Ea*1 Sig: INHALE 1 PUFF BY MOUTH TWO TIMES A DAY Last Visit: 04/20/2023 (in office), Visit date not found (telemedicine) Next Visit: Visit date not found If no future appointments scheduled, and last appointment is greater than a year ago, please schedule patient for a follow-up appointment Last date the medication was ordered: 04/15/2023 Is this request for a controlled substance?No Urine Drug Screen:No results found for this or any previous visit. Patient Phone Numbers Labs: Lab Results Component Value Date/Time CREAT 0.6 07/26/2023 11:32 AM CREAT 0.8 04/17/2020 12:33 PM POTASSIUM 4.0 07/26/2023 11:32 AM POTASSIUM 4.5 04/17/2020 12:33 PM TSH 0.77 07/26/2023 11:32 AM TSH 1.85 03/07/2020 10:09 AM LDLCALC 85 12/21/2022 12:11 PM LDLCALC 94 12/19/2018 12:00 AM LDLDIRECT 75 11/24/2022 04:12 PM ALT 26 07/26/2023 11:32 AM ALT 20 04/17/2020 12:33 PM documented in this encounter Plan of Treatment Upcoming Encounters Date Type Department Care Team (Late st Contact Info) Description 10/04/2023 5:40 PM EDT Office Visit Family Practice [facility] [address] [place] [address] Brisa Del Valle MD [address] [place] [address] 10/12/2023 1:30 PM EDT Nurse Only Rheumatology [address] [place] [address] Pf, Nurse Rheum [address] [place] [address] Health Maintenance Due Date Last Done Comments Depression Screening 11/03/2022 11/03/2021 TSH 07/26/2024 07/26/2023, 07/0 01/2023, 12/21/2022, Additional history exists DXA Scan 06/27/2025 06/27/2023, 11/23, 01/10/2018, Additional history exists Albumin/Creatinine Ratio 11/24/2025 11/24/2022 DTaP,Tdap,and Td Vaccines (2 - Td or Tdap) 03/16/2030 03/16/2020 Pneumococcal Vaccine: 65+ Years Completed 05/10/2016, 05/02/2015, 05/23/2002 Zoster Vaccines Completed 01/08/2020, 08/28/2019 Influenza Vaccine (FLU shot) Completed , 04/26/2022, 04/21/2021, Additional history exists COVID-19 Vaccine Completed 04/29/2023, , 03/24/2021, Additional history exists VITAMIN D LEVEL ONCE IN A LIFETIME-USE SMARTSET# [id number] Completed 07/26/2023, 12/30/2020, 12/21/2019 GARDASIL-HPV IMMUNIZATION SERIES [...] as of this encounter Visit Diagnoses Diagnosis Mild persistent asthma without complication Unspecified asthma documented in this encounter Care Teams Construction Consultant Relationship Specialty Start Date End Date Brisa Del Valle MD [address] [address] PCP - General Family Medicine 07/01/23 documented as of this encounter
--- OUTSIDE RECORDS SUMMARY | 2023-09-30 13:18 | External Medical Summary | Summary of Care ---
Author Name Unknown Organization [facility] Address [address] [place] [address] Phone [phone] Care Team Providers Care Receiving Manager Name Role Phone Troy Belle MD Primary Care Provider [phone] Reason for Visit * Reason Comments Skin Growth Has a lesion on her right upper arm. It started bothering her so she put a band aid over it and when she took it off, the lesion was bleeding and had pus coming out of it. Encounter Details Date Type Department Care Team (Late st Contact Info) Description 08/18/2023 6:40 PM EST Office Visit General Internal Medicine [facility] [place] [address] [place], [place] [id number] Melita Cordoba MD [address] [place] [address] Rash and nonspecific skin eruption*; HTN, goal below 140/90; Rheumatoid arthritis involving multiple sites with positive rheumatoid factor (HCC); Mild persistent asthma without complication Allergies No known active allergiesdocumented as of this encounter (statuses as of 09/04/2023) Medications Medication Sig Dispensed Refills Start Date [...] MEDICATIONS 100 Tablet 3 11/30/2022 11/30/2023 Active Metoprolol Succinate ER 25 MG Oral Tablet Extended Release 24 Hour (toPROL XL) TAKE ONE TABLET BY MOUTH IN THE MORNING 90 Tablet 3 10/26/2022 10/26/2023 Active predniSONE 5 MG Oral Tablet (Deltasone) TAKE ONE TABLET BY MOUTH EVERY DAY 90 Tablet 1 03/21/2023 03/20/2024 Active Folic Acid 1 MG Oral Tablet Take 2 Tablets by mouth in the morning. 180 Tablet 4 04/12/2023 Active Fluticasone-[place] rol 100-50 MCG/ACT Inhalation Aerosol Powder Breath Activated (Advair Diskus)Indications: Mild persistent asthma without complication INHALE 1 PUFF BY MOUTH TWO TIMES A DAY 180 Each 1 04/15/2023 04/14/2024 Active Hydroxychloroquine Sulfate 200 MG Oral Tablet [...] by mouth in the morning. 0 Active Hospital, Clinic, or Other Facility Administered [...] as of this encounter (statuses as of 09/04/2023) Active Problems Problem Noted Date Diagnosed Date Irritable bowel syndrome with diarrhea Bronchiectasis 11/24/2022 Interstitial pulmonary disease 10/29/2022 HTN, goal below 140/90 08/26/2022 Gastroesophageal reflux disease without esophagi tis 08/26/2022 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 factor 07/06/2022 Senile osteoporosis 03/05/2020 Mild persistent asthma without complication 02/22 Acquired hypothyroidism documented as of this encounter (statuses as of 09/04/2023) Resolved Problems Problem Noted Date Diagnosed Date Resolved Date Atherosclerosis of aorta 11/24/202202/2023 Atherosclerosis of coronary artery of [place] heart without angina pectoris 11/24/2022 07/01/2023 Constipation 08/26/2022 07/01/2023 Encounter for long-term (cur rent) use of medications 09/08/2020 07/01/2023 COPD, severity to be determined 03/05/2020 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/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 07/01/2023 Mild intermittent asthma with exacerbation 10/07/2017 12/14/2018 RA (rheumatoid arthritis) History of shingles 07/01/20 23 Overview: left upper chest/upper arm History of solitary pulmonary nodule 07/01/2023 Overview: CT scan 08/2106 documented as of this encounter (statuses as of 09/04/2023) Immunizations Name Administration Dates Next Due COVID-19 [...] Sign Reading Time Taken Comments Blood Pressure 120/62 08/18/2023 6:29 PM EST Pulse 85 08/18/2023 6:29 PM EST Temperature 36.9 C (98.4 F) 08/18/2023 6:29 PM ES T Respiratory Rate - - Oxygen Saturation 98% 08/18/2023 6:29 PM EST Inhaled Oxygen Concentration - - Weight 49.7 kg (109 lb 9.6 oz) 08/18/2023 6:29 P M EST Height - - Body Mass Index 20.05 07/01/2023 1:59 PM EST documented in this encounter Progress Notes * Melita Cordoba MD - 08/18/2023 6:35 PM EST Images from the original note were not included. History of Present Illness Shanna Melgar is a 83 year old female that presents for Skin Growth (Has a lesion on her right upper arm. It started bothering her so she put a band aid over it and when she took it off, the lesion was bleeding and had pus coming out of it.) 83 year old YOfemale with PMH as listed below presents here for evaluation of skin lesion . Duration of illness: 1 week Symptoms present : Has a lesion on her right upper arm. It started bothering her so she put a band aid over it and when she took it off, the lesion was bleeding and had pus coming out of it. Not sureit it was there before 1 week Symptoms not present: f/c, other lesion , trauma , bug bite Have same similar thing in past : no Since symptoms started things getting : better once pus came out Used anything for this illness: as above Other concerns or issues present : no Physical Exam Vitals: 08/18/23 1829 Temp: 36.9 C (98.4 F) Pulse: 85 SpO2: 98% BP: 120/62 Physical Exam Constitutional: Appearance: She is normal weight. Skin: Findings: Lesion (a small 6 mm lesion in Rt arm with open area but healing and resolving errythema around it) present. No erythema or rash. Neurological: Mental Status: She is alert. I have reviewed the following results: CMP Assessment and Plan Rash and nonspecific skin eruption Seems furuncle which is gettign frantz dayna drainage Apply OTC bacitracin twice a day and watch clinically HTN, goal below 140/90 Rheumatoid arthritis involving multiple sites with positive rheumatoid factor (HCC) Mild persistent asthma without complication Wrap-Up Time: I spent a total of 20-29 minutes (exact time 24 mins) on the date of service in preparation, delivery, and documentation of the care provided to Shanna Melgar excluding any time spent in the performance of separately billed services. documented in this encounter Nursing Notes * Elissa Alaniz LPN - 08/18/2023 6:28 PM EST Chief Complaint Patient presents with Skin Growth Has a lesion on her right upper arm. It started bothering her so she put a band aid over it and when she took it off, the lesion was bleeding and had pus coming out of it. documented in this encounter Plan of Treatment Upcoming Encounters Date Type Department Care Team (Late st Contact Info) Description 10/04/2023 5:40 PM EDT Office Visit Family Practice [facility] [address] [place] [address] Troy Belle MD [address] [place] [address] 10/12/2023 1:30 PM EDT Nurse Only Rheumatology [address] [place] [address] Pf, Nurse Rheum [address] [place] [address] [place] [address] Health Maintenance Due Date Last Done Comments [...] D LEVEL ONCE IN A LIFETIME-USE SMARTSET# [id number] Completed 07/26/2023, 12/30/2020, 12/21/2019 GARDASIL-HPV IMMUNIZATION SERIES [...] as of this encounter Visit Diagnoses Diagnosis Rash and nonspecific skin eruption- Primary Rash and other nonspecific skin eruption HTN, goal below 140/90 Unspecified essential hypertension Rheumatoid arthritis involving multiple sites with positive rheumatoid factor (HCC) Mild persistent asthma without complication Unspecified asthma documented in this encounter Care Teams Receiving Manager Relationship Specialty Start Date End Date Troy Belle MD [address] [facility] [place] [address] PCP - General Family Medicine 07/01/23 documented as of this encounter
--- OUTSIDE RECORDS SUMMARY | 2023-09-30 13:18 | External Medical Summary | Summary of Care ---
Author Name Unknown Organization [facility] Address [address] [place] [address] Phone [phone] Care Team Providers Care Assembler Motor Vehicle Name Role Phone Troy Belle MD Primary Care Provider [phone] Reason for Visit * Reason Comments Medication Refill Encounter Details Date Type Department Care Team (Late st Contact Info) Description 09/02/2023 Refill Rheumatology [facility] [address] [address] Aidan Masters MD [address] [place] [address] Allergies No known active allergiesdocumented as of this encounter (statuses as of 09/05/2023) Medications Medication Sig Dispensed Refills Start Date [...] the morning. 180 Tablet 4 04/12/2023 Active Fluticasone-Salmet franck 100-50 MCG/ACT Inhalation Aerosol Powder Breath Activated (Advair Diskus)Indications :Mild persistent asthma without complication INHALE 1 PUFF BY MOUTH TWO TIMES A DAY 180 Each 1 04/15/2023 4 Active Hydroxychloroquine Sulfate 200 MG Oral Tablet [...] DAY 90 Tablet 1 09/05/2023 5 Active predniSONE 5 MG Oral Tablet (Deltasone) TAKE ONE TABLET BY MOUTH EVERY DAY 90 Tablet 1 03/21/2023 4 Discontinue d(Refill) Hospital, Clinic, or Other [...] as of this encounter (statuses as of 09/05/2023) Active Problems Problem Noted Date Diagnosed Date Irritable bowel syndrome with diarrhea Bronchiectasis 11/24/2022 Interstitial pulmonary disease 10/29/2022 HTN, goal below 140/90 08/26/2022 Gastroesophageal reflux disease without esophagi tis 08/26/2022 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 factor 07/06/2022 Senile osteoporosis 03/05/2020 Mild persistent asthma without complication 02/22 Acquired hypothyroidism documented as of this encounter (statuses as of 09/05/2023) Resolved Problems Problem Noted Date Diagnosed Date Resolved Date Atherosclerosis of aorta 11/24/202202/2023 Atherosclerosis of coronary artery of [place] heart without angina pectoris 11/24/2022 07/01/2023 Constipation 08/26/2022 07/01/2023 Encounter for long-term (cur rent) use of medications 09/08/2020 07/01/2023 COPD, severity to be determined 03/05/2020 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 10/24/2018 07/01/2023 Mild intermittent asthma with exacerbation 10/07/2017 12/14/2018 RA (rheumatoid arthritis) History of shingles 07/01/20 23 Overview: left upper chest/upper arm History of solitary pulmonary nodule 07/01/2023 Overview: CT scan 08/2106 documented as of this encounter (statuses as of 09/05/2023) Immunizations Name Administration Dates Next Due COVID-19 [...] encounter Miscellaneous Notes * Telephone Encounter - Jelly Story [facility] - 09/05/2023 11:21 AM ESTSigned Prescriptions: Disp Refills predniSONE 5 MG Oral Tablet (Deltasone) 90 Tab*1 Sig: TAKE ONE TABLET BY MOUTH EVERY DAYAuthorizing Provider: AIDAN MASTERS User: JELLY STORY------- * Telephone Encounter - Jelly Story [facility] - 09/05/2023 11:20 AM EST Rheumatology: Refill Request(s) Per review of the refill parameters, Medication was refilled Jelly Story RPh [facility] Clinical Pharmacist Rheumatology Department 09/05/2023,11:20 AM * Telephone Encounter - Rachel Medel CPhT - 09/05/2023 10:32 AM ESTPending Prescriptions: Disp Refills predniSONE 5 MG Oral Tablet (Deltasone) 90 Tab*1 Sig: TAKE ONE TABLET BY MOUTH EVERY DAY * Telephone Encounter - Rachel Medel CPhT - 09/05/2023 10:28 AM EST Did you pend patient's preferred pharmacy and medication before forwarding?yes Pharmacy: [employer] [facility] [employer] [facility] Pending Prescriptions: Disp Refills predniSONE 5 MG Oral Tablet (Deltasone) 90 Tab*1 Sig: TAKE ONE TABLET BY MOUTH EVERY DAY Last Visit: 04/12/2023 (in office), 12/18/2019 (telemedicine) Next Visit: 10/12/2023 If no future appointments scheduled, and last appointment is greater than a year ago, please schedule patient for a follow-up appointment Last date the medication was ordered: 03.21.23 Is this request for a controlled substance?No [...] 5:40 PM EDT Office Visit Family Practice [facility] [address] [address] Troy Belle MD [address] [place] [address] 10/12/2023 1:30 PM EDT Nurse Only Rheumatology [place] [id number] [place] [address] Pf, Nurse Rheum [address] [place] [address] Health Maintenance Due Date Last Done Comments [...] D LEVEL ONCE IN A LIFETIME-USE SMARTSET# [id number] Completed 07/26/2023, 12/30/2020, 12/21/2019 GARDASIL-HPV IMMUNIZATION SERIES [...] Not on filedocumented as of this encounter Care Teams Assembler Motor Vehicle Relationship Specialty Start Date End Date Troy Belle MD [address] [facility] [place] [address] PCP - General Family Medicine 07/01/23 documented as of this encounter
--- OUTSIDE RECORDS SUMMARY | 2023-09-30 13:18 | External Medical Summary | Summary of Care ---
Author Name Unknown Organization [facility] Address [address] [place] [address] Phone [phone] Care Team Providers Care Territory Business Manager Name Role Phone Brisa Del Valle MD Primary Care Provider [phone] Reason for Visit * Reason Comments Medication Refill Encounter Details Date Type Department Care Team (Late st Contact Info) Description 09/05/2023 Refill Family Practice [facility] [address] [facility] [address] [place] [address] Brisa Del Valle MD [address] [place] [address] Allergies No known active allergiesdocumented as of [...] MORNING 90 Tablet 3 10/26/2022 10/26/2023 Active Folic Acid 1 MG Oral Tablet [...] mouth daily 90 Tablet 3 08/24/2023 Active Atorvastatin Calcium 10 MG Oral Tablet (Lipitor) TAKE ONE TABLET BY MOUTH EVERY DAY 90 Tablet 3 09/05/2023 09/04/2024 Active Hospital, Clinic, or Other Facility Administered [...] aorta 11/24/202202/2023 Atherosclerosis of coronary artery of [place] heart without angina pectoris 11/24/2022 07/01/2023 Constipation 08/26/2022 07/01/2023 Encounter for long-term (cur rent) use of medications 09/08/2020 07/01/2023 COPD, severity to be determined 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 07/01/2023 Mild intermittent asthma [...] Encounter - Brisa Del Valle MD - 09/05/2023 12:33 PM ESTSigned Prescriptions: Disp Refills Atorvastatin Calcium 10 MG Oral Tablet (Li*90 Tab*3 Sig: TAKE ONE TABLET BY MOUTH EVERY DAY Authorizing Provider: BRISA DEL VALLE * Telephone Encounter - Brisa Del Valle MD - 09/05/2023 12:33 PM ESTSigned Prescriptions: Disp Refills Atorvastatin Calcium 10 MG Oral Tablet (Li*90 Tab*3 Sig: TAKE ONE TABLET BY MOUTH EVERY DAY Authorizing Provider: BRISA DEL VALLE * Telephone Encounter - Anisa Lea OSA - 09/05/2023 10:47 AM EST Pt calling regarding this medication; please call her when sent to [facility] is aware, . documented in this encounter Plan of Treatment Upcoming Encounters Date Type Department Care Team (Late st Contact Info) Description 10/04/2023 5:40 PM EDT Office Visit Family Practice [facility] [address] [address] Brisa Del Valle MD [address] [place] [address] 10/12/2023 1:30 PM EDT Nurse Only Rheumatology [place] [address] [place] [address] Pf, Nurse Rheum [address] [place] [address] Health Maintenance Due Date Last Done Comments [...] D LEVEL ONCE IN A LIFETIME-USE SMARTSET# [id number] Completed 07/26/2023, 12/30/2020, 12/21/2019 GARDASIL-HPV IMMUNIZATION SERIES [...] filedocumented as of this encounter Care Teams Territory Business Manager Relationship Specialty Start Date End Date Brisa Del Valle MD [address] [place] [address] PCP - General Family Medicine 07/01/23 documented as of this encounter
--- OUTSIDE RECORDS SUMMARY | 2023-09-30 13:18 | External Medical Summary | Summary of Care ---
Author Name Unknown Organization [facility] Address [address] [place] [address] Phone [phone] Care Team Providers Care Cloth Cutting Inspector Name Role Phone Troy Belle MD Primary Care Provider [phone] Reason for Visit * Reason Comments Weakness, Generalized Had been feeling h ot, but no fever, no sweating, diarrhea, GILLIAM, nausea, using cane now which she doesn't do usually, in in hospital with e-coli, Also, L eye red/bloodshot Encounter Details Date Type Department Care Team (Late st Contact Info) Description 07/26/2023 10:00 AM EST Office Visit Family Practice [facility] [address] [facility] [place] [id number] Jessie Elliott, [address] [facility] [place] [address] Hot flashes*; Chronic diarrhea Allergies No known active allergiesdocumented as of this encounter (statuses as of 08/10/2023) Medications Medication Sig Dispensed Refills Start Date [...] MORNING 90 Tablet 3 10/26/2022 10/26/2023 Active Pantoprazole Sodium 40 MG Oral Tablet Delayed Release (Protonix) TAKE ONE TABLET BY MOUTH EVERY DAY 90 Tablet 3 08/17/2022 08/17/2023 Active predniSONE 5 MG Oral Tablet (Deltasone) [...] at bedtime. 30 Tablet 5 07/01/2023 Active Hospital, Clinic, or Other Facility Administered [...] as of this encounter (statuses as of 08/10/2023) Active Problems Problem Noted Date Diagnosed Date Irritable bowel syndrome with diarrhea Bronchiectasis 11/24/2022 Interstitial pulmonary disease 10/29/2022 HTN, goal below 140/90 08/26/2022 Gastroesophageal reflux disease without esophagi tis 08/26/2022 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 factor 07/06/2022 Senile osteoporosis 03/05/2020 Mild persistent asthma without complication 02/22 Acquired hypothyroidism documented as of this encounter (statuses as of 08/10/2023) Resolved Problems Problem Noted Date Diagnosed Date Resolved Date Atherosclerosis of aorta 11/24/202202/2023 Atherosclerosis of coronary artery of [place] heart without angina pectoris 11/24/2022 07/01/2023 Constipation 08/26/2022 07/01/2023 Encounter for long-term (cur rent) use of medications 09/08/2020 07/01/2023 COPD, severity to be determined 03/05/2020 11/03/2021 longterm 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 user 10/24/2018 07/01/2023 Mild intermittent asthma with exacerbation 10/07/2017 12/14/2018 RA (rheumatoid arthritis) History of shingles 07/01/20 Overview: left upper chest/upper arm History of solitary pulmonary nodule 07/01/2023 Overview: CT scan 08/2106 documented as of this encounter (statuses as of 08/10/2023) Immunizations Name Administration Dates Next Due COVID-19 [...] Sign Reading Time Taken Comments Blood Pressure 102/56 07/26/2023 10:07 AM EST Pulse 88 07/26/2023 10:07 AM EST Temperature 36.6 C (97.9 F) 07/26/2023 10:[address] Respiratory Rate 16 07/26/2023 10:07 AM EST Oxygen Saturation 94% 07/26/2023 10:07 AM EST Inhaled Oxygen Concentration - - Weight 49.9 kg (110 lb) 07/26/2023 10:07 AM EST Height - - Body Mass Index 20.12 07/01/2023 1:59 PM EST documented in this encounter Progress Notes * Meli Jesus, Medical Student - 07/26/2023 11:07 AM EST Subjective: Shanna Melgar is a 82 year old female. Chief Complaint Patient presents with Weakness, Generalized Had been feeling hot, but no fever, no sweating, diarrhea, GILLIAM, nausea, using cane now which she doesn't do usually, in in hospital with e-coli, Also, L eye red/bloodshot HPI: 82-yr-old female presenting with increased bouts of diarrhea over the past ~3 months with weight loss, poor sleep in the past few weeks, and weakness. Pertinent hx notable for rheumatoid arthritis, asthma and ILD, irritable bowel syndrome, and hyperthyroidism. She is accompanied by her daughter today who helps supply some of the history. Pt reports a long history of hot flashes mostly at night that have been attributed to 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.They are worse when she is sick or having diarrhea. Her IBS is also a long-standing diagnosis, withbouts of diarrhea lasting a few days at a time, and occasional constipation. However, she has noticed weight loss in the past few months. Her levothyroxine dose has been the same for many years. She last had 3 days of diarrhea around [place]; about a week ago. With this she experienced a hotfeeling throughout her whole body for one night, without sweats or fever. Denies palpitations, chest pain, shakiness, or abdominal pain with the hot flash. She had poor appetite while she was having diarrhea but has been eating better since then. Pt feels weaker than usual and is using a cane to ambulate, which she did not need before. More short of breath with activity than usual. She has had trouble sleeping for the past month. Trazodone was prescribed in June and helped for about a week, but this seems to have worn off. She slept very little in the past week and not at all last night. Pt's was hospitalized with infected kidney stones around [facility] and is currently hospitalized with E coli UTI. Family is under more stress than usual. ROS General: Positive for weight loss, poor sleep, weakness, unsteadiness. Episodes of feeling hot at night without sweats or true fever. Appetite was poor but now improving. Cardiovascular: No palpitations or angina. Pt reports a stabbing right-sided chest pain in a band-like distribution last night that has now completely resolved. Respiratory: Bouts of dry coughing mostly at night. Increased SOB with activity. Hematologic: No problems with bleeding or bruising GI: No abdominal pain. Last bout of diarrhea 3 days a week ago. No bloody or tarry stool. Does havesome nausea. Has not vomited. Neuro: No recent vision or hearing changes. Woke up a few days ago with dark red left sclera; no pain or swelling with this and vision in the eye is normal. Ambulates with cane (not normal.) Denies blurry vision or vertigo. PHM: Patient Active Problem List Diagnosis Code Acquired hypothyroidism E03.9 Senile osteoporosis M81.0 Mild persistent asthma without complication J45.30 Rheumatoid arthritis involving multiple sites with positive rheumatoid factor ([facility]) M05.79 HTN, goal below 140/90 I10 Gastroesophageal reflux disease without esophagitis K21.9 Interstitial pulmonary disease ([facility]) J84.9 Bronchiectasis ([facility]) J47.9 Irritable bowel syndrome with diarrhea K58.0 Current Outpatient Medications Medication Sig Dispense Refill Multiple Vitamins-Minerals (CENTRUM SILVER 50+WOMEN) TABS Take by mouth. Calcium 600 MG Tablet Take 1 Tablet by mouth in the morning. Denosumab 60 MG/ML Subcutaneous Solution Prefilled Syringe Inject 60 mg under the skin once. 1 Syringe 0 metroNIDAZOLE 0.75 % External Cream (Metrocream) APPLY TOPICALLY TO THE FACE DAILY AT BEDTIME DIRECTED Fluocinonide 0.05 % External Ointment APPLY 1 APPLICATION TO AREAS OF THE ARMS TWICE DAILY X 2 WEEKS NEEDED FOR FLARING. Aspirin 81 MG Oral Tablet Chewable Take 1 Tablet by mouth in the morning. with food.. 100 Tablet 5 Levothyroxine Sodium 75 MCG Oral Tablet (Levoxyl) TAKE 1 TABLET BY MOUTH DAILY AT LEAST 30 MINUTES PRIOR TO FIRST MEAL OF THE DAY OR OTHER MEDICATIONS 100 Tablet 3 Metoprolol Succinate ER 25 MG Oral Tablet Extended Release 24 Hour (toPROL XL) TAKE ONE TABLET BY MOUTH IN THE MORNING 90 Tablet 3 Pantoprazole Sodium 40 MG Oral Tablet Delayed Release (Protonix) TAKE ONE TABLET BY MOUTH EVERY DAY90 Tablet 3 predniSONE 5 MG Oral Tablet (Deltasone) TAKE ONE TABLET BY MOUTH EVERY DAY 90 Tablet 1 Folic Acid 1 MG Oral Tablet Take 2 Tablets by mouth in the morning. 180 Tablet 4 Fluticasone-Salmeterol 100-50 MCG/ACT Inhalation Aerosol Powder Breath Activated (Advair Diskus) INHALE 1 PUFF BY MOUTH TWO TIMES A DAY 180 Each 1 Hydroxychloroquine Sulfate 200 MG Oral Tablet (Plaquenil) TAKE ONE AND ONE HALF TABLETS BY MOUTH EVERY DAY 135 Tablet 3 Methotrexate Sodium 2.5 MG Oral Tablet TAKE 8 TABLETS BY MOUTH ONCE A WEEK 104 Tablet 1 traZODone HCl 50 MG Oral Tablet (Desyrel) Take 1 Tablet by mouth at bedtime. 30 Tablet 5 Current Facility-Administered Medications Medication Dose Route Frequency Provider Last Rate Last Admin Albuterol Sulfate (Proventil) (2.5 MG/3ML) 0.083% inhalation solution 2.5 mg 2.5 mg Nebulizer Javier Riojas MD Albuterol Sulfate (Proventil) (5 MG/ML) 0.5% *conc* inhalation solution 2.5 mg 2.5 mg Nebulizer Javier Gray MD 2.5 mg at 11/22/22 1250 Past Medical History: Diagnosis Date Fracture, radius and ulna, shaft early 40s, plate and screw- removed GERD (gastroesophageal reflux disease) Heart palpitations palpitations in early 2017- started on metoprolol then History of shingles left upper chest/upper arm History of solitary pulmonary nodule CT scan 08/2106 Hypothyroid ILD (interstitial lung disease) (HCC) Osteoporosis Pneumonia RA (rheumatoid arthritis) (HCC) Past Surgical History: Procedure Laterality Date RADIUS AND ULNA FX W/FIXATION age 38 REMOVE GALLBLADDER laproscopic Review of patient's allergies indicates: No Known Allergies Objective: BP 102/56 (BP Site: Left Arm, BP Position: Sitting, BP Cuff Size: Regular) | Pulse 88 | Temp 36.6 C (97.9 F) (Tympanic) | Resp 16 | Wt 49.9 kg (110 lb) | SpO2 94% | BMI 20.12 kg/m | BSA 1.48 m Physical Exam: General: alert elderly female in no distress Eye Exam: Extraocular movements intact. Sclera of the left eye is dark red on the medial side and surrounding the iris. The eyelid, cornea, and iris appear normal. Heart: regular rate & rhythm, no murmur, and no gallops Lungs: No chest deformities noted, no chest wall tenderness. Pt struggles to breathe in deeply. Soft crackles and low-pitched wheezes throughout both lungs loudest in lower [place]. Pulses: radial=2/4 and symmetric Abdomen: abdomen soft, non-tender, normal bowel sounds, and no masses or organomegaly Extremities: no edema Neuro Exam: alert & oriented x 3 with fluent speech, ambulates steadily with cane, mildly hard of hearing. Mild, fine tremor observed in both hands. Skin: no rashes or significant lesions, no bruising or injuries noted ASSESSMENT/PLAN: Hot flashes (Primary) - CBC WITH WBC DIFFERENTIAL AND ANEMIA REFLEX WORKUP; Future; Expected date: 07/26/2023 - COMPREHENSIVE METABOLIC PANEL; Future; Expected date: 07/26/2023 - TSH WITH FREE T4 IF INDICATED; Future; Expected date: 07/26/2023 - URINALYSIS, REFLEX TO CULTURE (NOT FOR NEUTROPENIC PATIENTS); Future; Expected date: 07/26/2023 - XR CHEST 2 VIEWS Chronic diarrhea - GASTROINTESTINAL PATHOGEN PANEL, STOOL; Future; Expected date: 07/26/2023 - CLOSTRIDIUM DIFFICILE, PCR; Future; Expected date: 07/26/2023 We discussed causes of tiredness and weakness including dehydration, anemia, stress, and common infections like UTIs or URIs. Workup can start with the basic labs above to check for infection, anemia, and hyper/hypothyroidism. Chest X-ray to evaluate for pneumonia. Pt was provided with container for stool sample in case there is higher suspicion for infectious diarrhea after these initial labs. Encouraged her to drink 50-60 oz of water daily. Meli Jesus, Medical Student * Lexi Jessie Barrett, DO - 07/26/2023 10:33 AM EST Subjective: Shanna Melgar is a 82 year old female. Chief Complaint Patient presents with Weakness, Generalized Had been feeling hot, but no fever, no sweating, diarrhea, GILLIAM, nausea, using cane now which she doesn't do usually, in in hospital with e-coli, Also, L eye red/bloodshot HPI: Pt presents c/o feeling hot and generalized weakness. Denies fever. Describes sx as "hot flash" at night that occurs every few nights. Denies sweating. + SOB w/activity. Feels unsteady when walking - now using a cane. + R sided chest pain yesterday that has since resolved. Sleep is disturbed over the past few weeks. Was prescribed trazodone which worked for the first week but is no longer helpful. Notes increased frequency of diarrhea over the past few months - hx of IBS. Last episode was about 1 week ago. Has had weight loss. Denies abd pain. Has increased stress. is hospitalized with e.coli infection 2/2 kidney stones. PHM: Patient Active Problem List Diagnosis Code Acquired hypothyroidism E03.9 Senile osteoporosis M81.0 Mild persistent asthma without complication J45.30 Rheumatoid arthritis involving multiple sites with positive rheumatoid factor ([facility]) M05.79 HTN, goal below 140/90 I10 Gastroesophageal reflux disease without esophagitis K21.9 Interstitial pulmonary disease ([facility]) J84.9 Bronchiectasis ([facility]) J47.9 Irritable bowel syndrome with diarrhea K58.0 Current Outpatient Medications Medication Sig Dispense Refill Multiple Vitamins-Minerals (CENTRUM SILVER 50+WOMEN) TABS Take by mouth. Calcium 600 MG Tablet Take 1 Tablet by mouth in the morning. Denosumab 60 MG/ML Subcutaneous Solution Prefilled Syringe Inject 60 mg under the skin once. 1 Syringe 0 metroNIDAZOLE 0.75 % External Cream (Metrocream) APPLY TOPICALLY TO THE FACE DAILY AT BEDTIME DIRECTED Fluocinonide 0.05 % External Ointment APPLY 1 APPLICATION TO AREAS OF THE ARMS TWICE DAILY X 2 WEEKS NEEDED FOR FLARING. Aspirin 81 MG Oral Tablet Chewable Take 1 Tablet by mouth in the morning. with food.. 100 Tablet 5 Levothyroxine Sodium 75 MCG Oral Tablet (Levoxyl) TAKE 1 TABLET BY MOUTH DAILY AT LEAST 30 MINUTES PRIOR TO FIRST MEAL OF THE DAY OR OTHER MEDICATIONS 100 Tablet 3 Metoprolol Succinate ER 25 MG Oral Tablet Extended Release 24 Hour (toPROL XL) TAKE ONE TABLET BY MOUTH IN THE MORNING 90 Tablet 3 Pantoprazole Sodium 40 MG Oral Tablet Delayed Release (Protonix) TAKE ONE TABLET BY MOUTH EVERY DAY90 Tablet 3 predniSONE 5 MG Oral Tablet (Deltasone) TAKE ONE TABLET BY MOUTH EVERY DAY 90 Tablet 1 Folic Acid 1 MG Oral Tablet Take 2 Tablets by mouth in the morning. 180 Tablet 4 Fluticasone-Salmeterol 100-50 MCG/ACT Inhalation Aerosol Powder Breath Activated (Advair Diskus) INHALE 1 PUFF BY MOUTH TWO TIMES A DAY 180 Each 1 Hydroxychloroquine Sulfate 200 MG Oral Tablet (Plaquenil) TAKE ONE AND ONE HALF TABLETS BY MOUTH EVERY DAY 135 Tablet 3 Methotrexate Sodium 2.5 MG Oral Tablet TAKE 8 TABLETS BY MOUTH ONCE A WEEK 104 Tablet 1 traZODone HCl 50 MG Oral Tablet (Desyrel) Take 1 Tablet by mouth at bedtime. 30 Tablet 5 Current Facility-Administered Medications Medication Dose Route Frequency Provider Last Rate Last Admin Albuterol Sulfate (Proventil) (2.5 MG/3ML) 0.083% inhalation solution 2.5 mg 2.5 mg Nebulizer Javier Riojas MD Albuterol Sulfate (Proventil) (5 MG/ML) 0.5% *conc* inhalation solution 2.5 mg 2.5 mg Nebulizer Javier Gray MD 2.5 mg at 11/22/22 1250 Past Medical History: Diagnosis Date Fracture, radius and ulna, shaft early 40s, plate and screw- removed GERD (gastroesophageal reflux disease) Heart palpitations palpitations in early 2017- started on metoprolol then History of shingles left upper chest/upper arm History of solitary pulmonary nodule CT scan 08/2106 Hypothyroid ILD (interstitial lung disease) ([facility]) Osteoporosis Pneumonia RA (rheumatoid arthritis) ([facility]) Past Surgical History: Procedure Laterality Date RADIUS AND ULNA FX W/FIXATION age 38 REMOVE GALLBLADDER laproscopic Review of patient's allergies indicates: No Known Allergies Objective: BP 102/56 (BP Site: Left Arm, BP Position: Sitting, BP Cuff Size: Regular) | Pulse 88 | Temp 36.6 C (97.9 F) (Tympanic) | Resp 16 | Wt 49.9 kg (110 lb) | SpO2 94% | BMI 20.12 kg/m | BSA 1.48 m Review of Systems: As per HPI, all other ROS neg. Physical Exam: General: alert, healthy and no distress Heart: regular rate & rhythm, no murmurs and no gallops Lungs: chest symmetric with normal AP diameter, no chest deformities noted, lungs clear to auscultation Extremities: no joint deformities, effusion, or inflammation, no edema Hot flashes (Primary) - CBC WITH WBC DIFFERENTIAL AND ANEMIA REFLEX WORKUP; Future; Expected date: 07/26/2023 - COMPREHENSIVE METABOLIC PANEL; Future; Expected date: 07/26/2023 - TSH WITH FREE T4 IF INDICATED; Future; Expected date: 07/26/2023 - URINALYSIS, REFLEX TO CULTURE (NOT FOR NEUTROPENIC PATIENTS); Future; Expected date: 07/26/2023 - XR CHEST 2 VIEWS Chronic diarrhea - GASTROINTESTINAL PATHOGEN PANEL, STOOL; Future; Expected date: 07/26/2023 - CLOSTRIDIUM DIFFICILE, PCR; Future; Expected date: 07/26/2023 Follow up: as needed. Jessie Elliott DO documented in this encounter Plan of Treatment Upcoming Encounters Date Type Department Care Team (Late st Contact Info) Description 10/04/2023 5:40 PM EDT Office Visit Family Practice [facility] [address] [place] [address] Troy Belle MD [address] [place] [address] 10/12/2023 1:30 PM EDT Nurse Only Rheumatology [place] [address] [address] [place] [address] Pf, Nurse Rheum [facility] [place] [address] Scheduled Orders Name Type Priority Associated Diagnoses Orde r Schedule GASTROINTESTINAL PATHOGEN PANEL, STOOL Lab Routine Chronic diarrhea Expected: 07/26/2023 (Approximate), Expires: 07/25/2024 CLOSTRIDIUM DIFFICILE, PCR Lab Routine Chronic diarrhea Expected: 07/26/2023 (Approximate), Expires: 07/25/2024 Health Maintenance Due Date Last Done Comments [...] D LEVEL ONCE IN A LIFETIME-USE SMARTSET# [id number] Completed 07/26/2023, 12/30/2020, 12/21/2019 GARDASIL-HPV IMMUNIZATION SERIES [...] Not on filedocumented as of this encounter Procedures Procedure Name Priority Date/Time Associated Diagnosis Comments XR CHEST 2 VIEWS Routine 07/26/2023 11:1 6 AM EST Hot flashes documented in this encounter Results * TSH WITH FREE T4 IF INDICATED (07/26/2023 11:32 AM EST) TSH 0.77 0.27 - 4.20 uIU/mL 07/26/2023 8:24 PM EST LABORATORY [facility] Blood Venous blood specimen / Unknown Venipuncture / Unknown 07/26/2023 11:32 AM EST 07/26/2023 11:32 AM EST Jessie Elliott DO LAB BLOOD ORDERABLE S LABORATORY [facility] [place] [address] [place] [address] * XR CHEST 2 VIEWS (07/26/2023 11:16 AM EST) Anatomical Region Laterality Modality Chest Computed Radiogr aphy 07/27/2023 1:51 PM EST Impressions 07/27/2023 1:49 PM EST IMPRESSION No significant change in chronic interstitial fibrosis. Narrative 07/27/2023 1:49 PM EST EXAM XR CHEST 2 VIEWS-07/26/2023 11:16 am HISTORY cough, weakness COMPARISON Chest CT 12/28/2022 TECHNIQUE Frontal and lateral radiographs of the chest were obtained. FINDINGS LINES/DEVICES: None LUNGS/PLEURA: The interstitial fibrotic changes throughout the lungs appears similar to prior chest CT. There is no new consolidation. There is no pleural effusion or pneumothorax. CARDIOVASCULAR/MEDIASTINUM: The cardiomediastinal silhouette is within normal limits. OTHER: The upper abdomen is unremarkable. Unchanged chronic compression fracture in the midthoracic spine. Procedure Note Flaquito White MD - 07/27/2023 EXAM XR CHEST 2 VIEWS-07/26/2023 11:16 am HISTORY cough, weakness COMPARISON Chest CT 12/28/2022 TECHNIQUE Frontal and lateral radiographs of the chest were obtained. FINDINGS LINES/DEVICES: None LUNGS/PLEURA: The interstitial fibrotic changes throughout the lungsappears similar to prior chest CT. There is no new consolidation. Thereis no pleural effusion or pneumothorax. CARDIOVASCULAR/MEDIASTINUM: The cardiomediastinal silhouette is withinnormal limits. OTHER: The upper abdomen is unremarkable. Unchanged chronic compressionfracture in the midthoracic spine. IMPRESSION IMPRESSION No significant change in chronic interstitial fibrosis. Jessie Elliott DO RADIOLOGY (RAD [facility]) documented in this encounter Visit Diagnoses Diagnosis Hot flashes- Primary Symptomatic menopausal or female climacteric states Chronic diarrhea Diarrhea documented in this encounter Care Teams Cloth Cutting Inspector Relationship Specialty Start Date End Date Troy Belle MD [address] [place] [address] PCP - General Family Medicine 07/01/23 documented as of this encounter
--- OUTSIDE RECORDS SUMMARY | 2023-09-30 13:18 | External Medical Summary | Summary of Care ---
Author Name Unknown Organization [facility] Address [address] [place] [address] Phone [phone] Care Team Providers Care Screen Room Operator Name Role Phone Troy Belle MD Primary Care Provider [phone] Reason for Visit * Reason Comments Outpatient Testing Encounter Details Date Type Department Care Team (Late st Contact Info) Description 07/26/2023 12:20 PM EST Laboratory Laboratory, [facility] [address] [place] [address] [facility] [address] [place] [address] Senile osteoporosis; Rheumatoid arthritis involving multiple sites with positive rheumatoid factor (HCC); Hot flashes Allergies No known active allergiesdocumented as of this encounter (statuses as of 07/26/2023) Medications Medication Sig Dispensed Refills Start Date [...] as of this encounter (statuses as of 07/26/2023) Active Problems Problem Noted Date Diagnosed Date Irritable bowel syndrome with diarrhea Bronchiectasis 11/24/2022 Interstitial pulmonary disease 10/29/2022 HTN, goal below 140/90 08/26/2022 Gastroesophageal reflux disease without esophagi tis 08/26/2022 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 factor 07/06/2022 Senile osteoporosis 03/05/2020 Mild persistent asthma without complication 02/22 Acquired hypothyroidism documented as of this encounter (statuses as of 07/26/2023) Resolved Problems Problem Noted Date Diagnosed Date Resolved Date Atherosclerosis of aorta 11/24/202202/2023 Atherosclerosis of coronary artery of [place] heart without angina pectoris 11/24/2022 07/01/2023 Constipation 08/26/2022 07/01/2023 Encounter for long-term (cur rent) use of medications 09/08/2020 07/01/2023 COPD, severity to be determined 03/05/2020 11/03/2021 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 10/24/2018 07/01/2023 Mild intermittent asthma with exacerbation 10/07/2017 12/14/2018 RA (rheumatoid arthritis) History of shingles 07/01/20 23 Overview: left upper chest/upper arm History of solitary pulmonary nodule 07/01/2023 Overview: CT scan 08/2106 documented as of this encounter (statuses as of 07/26/2023) Immunizations Name Administration Dates Next Due COVID-19 [...] on file documented as of this encounter Plan of Treatment Upcoming Encounters Date Type Department Care Team (Late st Contact Info) Description 10/04/2023 5:40 PM EDT Office Visit Family [facility] [address] [place] [address] Troy Belle MD [address] [place] [address] 10/12/2023 1:30 PM EDT Nurse Only Rheumatology [address] [place] [address] Pf, Nurse Rheum [address] [place] [address] [place] [address] Pending Results Name Type Priority Associated Diagnoses Date /Time 25-HYDROXY VITAMIN D Lab Routine Senile osteoporosis 07/26/2023 11:32 AM EST COMPREHENSIVE METABOLIC PANEL Lab Routine Rheumatoid arthritis involving multiple sites with positive rheumatoid factor (HCC) 07/26/2023 11:32 AM EST CBC WITH WBC DIFFERENTIAL AND ANEMIA REFLEX WORKUP Lab Routine Hot flashes 07/26/2023 11:32 AM EST TSH WITH FREE T4 IF INDICATED Lab Routine Hot flashes 07/26/2023 11:32 AM EST ANEMIA CBC Lab Routine Hot flashes 07/26/2023 11:32 AM EST DIFFERENTIAL, AUTOMATED Lab Routine Hot flashes 07/26/2023 11:32 AM EST ANEMIA REFLEX CHEMISTRY HOLD Lab Routine Hot flashes 07/26/2023 11:32 AM EST URINALYSIS, REFLEX TO CULTURE (NOT FOR NEUTROPENIC PATIENTS) Lab Routine Hot flashes 07/26/2023 11:38 AM EST URINALYSIS, REFLEX TO CULTURE (CUP ONLY) Lab Routine Hot flashes 07/26/2023 11:38 AM EST URINALYSIS, REFLEX TO CULTURE Lab Routine Hot flashes 07/26/2023 11:38 AM EST Health Maintenance Due Date Last Done Comments Depression Screening 11/03/2022 11/03/2021 GFR 01/29/2024 01/28/2023, 11/24, 08/26/2022, Additional history exists TSH 01/29/2024 01/28/2023, 11/24, 08/26/2022, Additional history exists DXA Scan 06/27/2025 06/27/2023, 11/23, 01/10/2018, Additional history exists Albumin/Creatinine Ratio 11/24/2025 11/24/2022 DTaP,Tdap,and Td Vaccines (2 - Td or Tdap) 03/16/2030 03/16/2020 Pneumococcal Vaccine: 65+ Years Completed 05/10/2016, 05/02/2015, 05/23/2002 Zoster Vaccines Completed 01/08/2020, 08/28/2019 VITAMIN D LEVEL ONCE IN A LIFETIME-USE SMARTSET# [id number] Completed 12/30/2020, 12/21/2019 Influenza Vaccine (FLU shot) Completed , 04/26/2022, 04/21/2021, Additional history exists COVID-19 Vaccine Completed 04/29/2023, , 03/24/2021, Additional history exists GARDASIL-HPV IMMUNIZATION SERIES Aged Out No longer [...] as of this encounter Visit Diagnoses Diagnosis Senile osteoporosis Rheumatoid arthritis involving multiple sites with positive rheumatoid factor (HCC) Hot flashes Symptomatic menopausal or female climacteric states documented in this encounter Care Teams Screen Room Operator Relationship Specialty Start Date End Date Tryo Belle MD [address] [facility] [place] [address] PCP - General Family Medicine 07/01/23 documented as of this encounter
--- OUTSIDE RECORDS SUMMARY | 2023-09-30 13:18 | External Medical Summary | Summary of Care ---
Author Name Unknown Organization [facility] Address [address] [place] [address] Phone [phone] Care Team Providers Care Machine Inker Name Role Phone Troy Belle MD Primary Care Provider [phone] Encounter Details Date Type Department Care Team (Late st Contact Info) Description 07/27/2023 Telephone Family Practice [facility] [address] [place] [place] [address] Troy Belle MD [address] [facility] [place] [id number] Allergies No known active allergiesdocumented as of this encounter (statuses as of 07/27/2023) Medications Medication Sig Dispensed Refills Start Date [...] as of this encounter (statuses as of 07/27/2023) Active Problems Problem Noted Date Diagnosed Date Irritable bowel syndrome with diarrhea Bronchiectasis 11/24/2022 Interstitial pulmonary disease 10/29/2022 HTN, goal below 140/90 08/26/2022 Gastroesophageal reflux disease without esophagi tis 08/26/2022 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 factor 07/06/2022 Senile osteoporosis 03/05/2020 Mild persistent asthma without complication 02/22 Acquired hypothyroidism documented as of this encounter (statuses as of 07/27/2023) Resolved Problems Problem Noted Date Diagnosed Date Resolved Date Atherosclerosis of aorta 11/24/202202/2023 Atherosclerosis of coronary artery of [place] heart without angina pectoris 11/24/2022 07/01/2023 Constipation 08/26/2022 07/01/2023 Encounter for long-term (cur rent) use of medications 09/08/2020 07/01/2023 COPD, severity to be determined 03/05/2020 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 10/24/2018 07/01/2023 Mild intermittent asthma with exacerbation 10/07/2017 12/14/2018 RA (rheumatoid arthritis) History of shingles 07/01/20 23 Overview: left upper chest/upper arm History of solitary pulmonary nodule 07/01/2023 Overview: CT scan 08/2106 documented as of this encounter (statuses as of 07/27/2023) Immunizations Name Administration Dates Next Due COVID-19 [...] 5:40 PM EDT Office Visit Family Practice [facility] [address] [place] [address] Troy Belle MD [address] [place] [address] 10/12/2023 1:30 PM EDT Nurse Only Rheumatology [address] [place] [address] Pf, Nurse Rheum [address] [place] [address] [place] [address] Health Maintenance Due Date Last Done Comments Depression Screening 11/03/2022 11/03/2021 GFR 07/26/2024 07/26/2023, 070 01/2023, 12/21/2022, Additional history exists TSH 07/26/2024 07/26/2023, 070 01/2023, 12/21/2022, Additional history exists DXA Scan [...] D LEVEL ONCE IN A LIFETIME-USE SMARTSET# [id number] Completed 07/26/2023, 12/30/2020, 12/21/2019 GARDASIL-HPV IMMUNIZATION SERIES [...] filedocumented as of this encounter Care Teams Machine Inker Relationship Specialty Start Date End Date Troy Belle MD [address] [place] [address] PCP - General Family Medicine 07/01/23 documented as of this encounter
--- OUTSIDE RECORDS SUMMARY | 2023-09-30 13:18 | External Medical Summary ---
Author Name Unknown Address Unknown Organization [facility] [address] [place] [address] Laboratory Report Ordering Provider Test Date Status ARTURO JUTSIN 07/26/2023 11:38:20 Final Observation Date Value Abnormality Reference (Units ) Status Color of Urine by Auto 07/26/2023 11:38:20 Yellow Light Yellow, Yellow, Dark Yellow Final Clarity, Urine 07/26/2023 11:38:20 Clear Clear Final Glucose [Mass/volume] in Urine by Automated test strip 07/26/2023 11:38:20 Negative Negative (mg/dL) Final Bilirubin.total [Presence] in Urine by Automated test strip 07/26/2023 11:38:20 Negative Negative Final Ketones [Mass/volume] in Urine by Automated test strip 07/26/2023 11:38:20 Negative Negative (mg/dL) Final Specific gravity, Urine 07/26/2023 11:38:20 >=1.030 1.003-1.030 Final Hemoglobin [Presence] in Urine by Automated test strip 07/26/2023 11:38:20 Negative Negative Final pH, Urine 07/26/2023 11:38:20 6.0 5.0-7.5 (Units) Final Protein [Mass/volume] in Urine by Automated test strip 07/26/2023 11:38:20 Trace Abnormal Negative (mg/dL) Final Urobilinogen [Mass/volume] in Urine by Automated test strip 07/26/2023 11:38:20 0.2 0.2, 1.0 (mg/dL) Final Nitrite [Presence] in Urine by Automated test strip 07/26/2023 11:38:20 Negative Negative Final Leukocyte esterase [Presence] in Urine by Automated test strip 07/26/2023 11:38:20 Negative Negative Final RBC, Urine 07/26/2023 11:38:20 0-2 0-2 (/HPF) Final WBC, Urine 07/26/2023 11:38:20 0-2 0-2 (/HPF) Final Bacteria [#/area] in Urine sediment by Microscopy high power field 07/26/2023 11:38:20 0-25 0-25 (/HPF) Final Mucus, Urine 07/26/2023 11:38:20 Many Abnormal None (/HPF) Final Hyaline casts, Urine 07/26/2023 11:38:20 1-4 Abnormal None (/LPF) Final CULTURE, URINE - [facility] 07/26/2023 11:38:20 Final Culture not indicated by uri nalysis results\[id number]\ Performing Location [facility] [address] [place] [facility] [address]
--- OUTSIDE RECORDS SUMMARY | 2023-09-30 13:19 | External Medical Summary | Summary of Care ---
Author Name Unknown Organization [facility] Address [address] [place] [address] Phone [phone] Care Team Providers Care Microfilm Technician Name Role Phone Radha SERRA MD, Scottie Villegas Primary Care Provider [phone] Reason for Visit * Reason Onset Date Comments Advice 04/18/2023 information Encounter Details Date Type Department Care Team Description 04/18/2023 Telephone Rheumatology [facility] [address] [place] [address] Aidan Finn MD [address] [place] [address] Advice (information) Allergies No known active allergiesdocumented as of this encounter (statuses as of 04/18/2023) Medications Medication Sig Dispensed Refills Start Date [...] DAILY AT BEDTIME DIRECTED 0 12/28/2021 Active Linzess 145 MCG Oral Capsule every other day. 0 03/04/2022 Active Fluocinonide 0.05 % External Ointment APPLY 1 APPLICATION TO AREAS OF THE ARMS TWICE DAILY X 2 WEEKS NEEDED FOR FLARING. 0 10/05/2022 Active Aspirin 81 MG Oral Tablet Chewable Take 1 Tablet by mouth in the morning. with food.. 100 Tablet 5 11/24/2022 Active Methotrexate Sodium 2.5 MG Oral TabletIndications:R heumatoid arthritis involving multiple sites with positive rheumatoid factor (HCC) TAKE 8 TABLETS BY MOUTH ONCE A WEEK 104 Tablet 1 12/22/2022 12/22/2023 Active Atorvastatin Calcium 10 MG Oral Tablet (Lipitor) TAKE ONE TABLET BY MOUTH EVERY DAY 90 Tablet 3 12/14/2022 12/14/2023 Active Levothyroxine Sodium 75 MCG Oral Tablet [...] DAY 90 Tablet 3 08/17/2022 08/17/2023 Active Hydroxychloroquine Sulfate 200 MG Oral Tablet (Plaquenil) TAKE ONE AND ONE HALF TABLETS BY MOUTH EVERY DAY 135 Tablet 3 06/08/2022 06/13/2023 Active predniSONE 5 MG Oral Tablet (Deltasone) [...] DAY 180 Each 1 04/15/2023 04/14/2024 Active Hospital, Clinic, or Other Facility Administered [...] as of this encounter (statuses as of 04/18/2023) Active Problems Problem Noted Date Atherosclerosis of aorta 11/24/2022 Bronchiectasis 11/24/2022 Atherosclerosis of coronary artery of na tive heart without angina pectoris 11/24/2022 Interstitial pulmonary disease 3 Hypertension 08/26/2022 Constipation 08/26/2022 Gastroesophageal reflux disease 08/26/19 23 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 factor 07/06/2022 Encounter for long-term (current) use of medications 09/08/2020 Senile osteoporosis 03/05/2020 Mild persistent asthma without complicat ion 03/05/2020 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 10/24/2018 Hypothyroid History of shingles Overview: left upper chest/upper arm History of solitary pulmonary nodule Overview: CT scan 08/2106 documented as of this encounter (statuses as of 04/18/2023) Resolved Problems Problem Noted Date Resolved Date COPD, severity to be determined 03/05/2020 11/03/2021 Mild intermittent asthma with exacerbation 10/0712/14/2018 RA (rheumatoid arthritis) 2022 documented as of this encounter (statuses as of 04/18/2023) Immunizations Name Administration Dates Next Due COVID-19 mRNA, LNP-s, No Pre serve, 2-Dose Series (Moderna) 03/24/2021,09/22/2020,08/25/2020 COVID-19, mRNA, LNP-s, PF, B ooster, 100mcg/0.5mg (Moderna) 11/11/2021 PPD 02/14/2018 Pneumococcal Conjugate Vacc, 13 Valent (Prevnar) 05/02/2015 Pneumococcal Polysaccharide PPV23 (Pneumovax) 05/10/2016,05/23/2002 Season Influenza, Quad, PF, Adjuvanted, 65+ Yrs, IM (FLUAD) 04/05/2020 Seasonal Influenza Virus Vac cine, Unspecified Formulation 05/01/2018 Seasonal Influenza, Quadriva lent Hd (Fluzone Hd) 04/21/2021 Seasonal Influenza, Quadriva lent, No Preserve, IM [...] Glass of wine every once in awhile Sex Assigned at Date Recorded Female 03/14/2022 10:47 AM EDT Job Start Date Occupation Industry Not on file Not on file Not on file documented as of this encounter Miscellaneous Notes * Telephone Encounter - ABAD Lamb - 04/18/2023 12:45 PM EDT Pt calling about doing injections instead of the pills for one of her medications. Pt is not interested at the moment for the injections and wants to stay with the pills. Dr. Finn told her to call either way to let him know. She is sticking with the pills and will let him know if she changes her mind. documented in this encounter Plan of Treatment Upcoming Encounters Date Type Specialty Care Team Description 04/20/2023 Immunization Ancillary Sp, Flu Shot Clinic [address] [facility] [place] [address] 04/20/2023 Office Visit Family Medicine Radha III, Scottie Villegas MD [address] [facility] [place] [address] 06/27/2023 Imaging Radiology 10/12/2023 Nurse Only Rheumatology Pf, Nurse Rheum [address] [facility] [place] [address] Health Maintenance Due Date Last Done Comments COVID-19 Vaccine (5 - Moderna risk series) 01/06/2022 11/11/2021, 03/24/2021, 09/22/2020, Additional history exists Depression Screening 11/03/2022 11/03/2021 DXA Scan 12/16/2022 12/16/2020, 12/23, 06/20/2015 Influenza Vaccine (FLU shot) (#1) 2023 04/26/2022, 04/21/2021, 04/05/2020, Additional history exists GFR 01/29/2024 01/28/2023, 11/24, 08/26/2022, Additional history exists TSH 01/29/2024 01/28/2023, 11/24, 08/26/2022, Additional history exists Albumin/Creatinine Ratio 11/24/2025 11/24/2022 DTaP,Tdap,and Td Vaccines (2 - Td or Tdap) 03/16/2030 03/16/2020 Pneumococcal Vaccine: 65+ Years Completed 05/10/2016, 05/02/2015, 05/23/2002 Zoster Vaccines Completed 01/08/2020, 08/28/2019 VITAMIN D LEVEL ONCE IN A LIFETIME-USE SMARTSET# [id number] Completed 12/30/2020, 12/21/2019 GARDASIL-HPV IMMUNIZATION SERIES Aged Out [...] filedocumented as of this encounter Care Teams Microfilm Technician Relationship Specialty Start Date End Date Scottie Garcia III, MD [facility] [address] [place], [place] [address] PCP - General Family Medicine 10/14/17 documented as of this encounter
--- OUTSIDE RECORDS SUMMARY | 2023-09-30 13:19 | External Medical Summary | Summary of Care ---
Author Name Unknown Organization [facility] Address [address] [place] [address] Phone [phone] Care Team Providers Care [place] Name Role Phone Radha SERRA MD, Scottie Villegas Primary Care Provider [phone] Reason for Visit * Reason Comments Medication Refill Encounter Details Date Type Department Care Team (Late st Contact Info) Description 06/27/2023 Refill Rheumatology [facility] [address] [place] [address] Aidan Masters MD [address] [place] [address] Rheumatoid arthritis involving multiple sites with positive rheumatoid factor (HCC) Allergies No known active allergiesdocumented as of this encounter (statuses as of 06/29/2023) Medications Medication Sig Dispensed Refills Start Date [...] with food.. 100 Tablet 5 11/24/2022 Active Atorvastatin Calcium 10 MG Oral Tablet (Lipitor) TAKE ONE TABLET BY MOUTH EVERY DAY 90 Tablet 3 12/14/2022 4 Active Levothyroxine Sodium 75 MCG Oral Tablet (Levoxyl) TAKE 1 TABLET BY MOUTH DAILY AT LEAST 30 MINUTES PRIOR TO FIRST MEAL OF THE DAY OR OTHER MEDICATIONS 100 Tablet 3 11/30/2022 4 Active Metoprolol Succinate ER 25 MG Oral Tablet Extended Release 24 Hour (toPROL XL) TAKE ONE TABLET BY MOUTH IN THE MORNING 90 Tablet 3 10/26/2022 4 Active Pantoprazole Sodium 40 MG Oral Tablet Delayed Release (Protonix) TAKE ONE TABLET BY MOUTH EVERY DAY 90 Tablet 3 08/17/2022 4 Active predniSONE 5 MG Oral Tablet (Deltasone) TAKE ONE TABLET BY MOUTH EVERY DAY 90 Tablet 1 03/21/2023 4 Active Folic Acid 1 MG Oral Tablet Take 2 Tablets by mouth in the morning. 180 Tablet 4 04/12/2023 Active Fluticasone-Salmet franck 100-50 MCG/ACT Inhalation Aerosol Powder Breath Activated (Advair Diskus)Indications :Mild persistent asthma without complication INHALE 1 PUFF BY MOUTH TWO TIMES A DAY 180 Each 1 04/15/2023 4 Active Venlafaxine HCl ER 37.5 MG Oral Capsule Extended Release 24 Hour (Effexor XR) Take 1 Capsule by mouth in the morning. Do not cut, crush or chew. 90 Capsule 5 04/20/2023 Active Linzess 145 MCG Oral Capsule Take one capsule by mouth daily for 2 days, then skip a day. Repeat pattern. 60 Capsule 3 04/20/2023 Active Hydroxychloroquine Sulfate 200 MG Oral Tablet (Plaquenil) TAKE ONE AND ONE HALF TABLETS BY MOUTH EVERY DAY 135 Tablet 3 06/10/2023 4 Active Methotrexate Sodium 2.5 MG Oral TabletIndications: Rheumatoid arthritis involving multiple sites with positive rheumatoid factor (HCC) TAKE 8 TABLETS BY MOUTH ONCE A WEEK 104 Tablet 1 06/29/2023 Active Methotrexate Sodium 2.5 MG Oral TabletIndications: Rheumatoid arthritis involving multiple sites with positive rheumatoid factor (HCC) TAKE 8 TABLETS BY MOUTH ONCE A WEEK 104 Tablet 1 12/22/2022 Discontinue d(Refill) Hospital, Clinic, or Other Facility [...] as of this encounter (statuses as of 06/29/2023) Active Problems Problem Noted Date Diagnosed Date Atherosclerosis of aorta 11/24/2022 Bronchiectasis 11/24/2022 Atherosclerosis of coronary artery of [place] heart without angina pectoris 11/24/2022 Interstitial pulmonary disease 10/29/2022 Hypertension 08/26/2022 Constipation 08/26/2022 Gastroesophageal reflux disease 08/26/2022 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 factor 07/06/2022 Encounter for long-term (current) use of medicat ions 09/08/2020 Senile osteoporosis 03/05/2020 Mild persistent asthma without complication 02/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 10/24/2018 Hypothyroid History of shingles Overview: left upper chest/upper arm History of solitary pulmonary nodule Overview: CT scan 08/2106 documented as of this encounter (statuses as of 06/29/2023) Resolved Problems Problem Noted Date Diagnosed Date Resolved Date COPD, severity to be determined 03/05/2020 11/03/2021 Mild intermittent asthma with exacerbation 10/07/2017 12/14/2018 RA (rheumatoid arthritis) documented as of this encounter (statuses as of 06/29/2023) Immunizations Name Administration Dates Next Due COVID-19 [...] encounter Miscellaneous Notes * Telephone Encounter - Aidan Masters MD - 06/29/2023 12:38 PM ESTSigned Prescriptions: Disp Refills Methotrexate Sodium 2.5 MG Oral Tablet 104 Ta*1 Sig: TAKE 8 TABLETS BY MOUTH ONCE A WEEK Authorizing Provider: AIDAN MASTERS * Telephone Encounter - Aidan Masters MD - 06/29/2023 12:36 PM EST Ok to do labs every 6 months given stability. Will refill and email patient to get labs in July * Telephone Encounter - [facility] - 06/28/2023 2:29 PM ESTPending Prescriptions: Disp Refills Methotrexate Sodium 2.5 MG Oral Tablet 104 Ta*0 Sig: TAKE 8 TABLETS BY MOUTH ONCE A WEEK * Telephone Encounter - [facility] - 06/28/2023 2:24 PM EST Rheumatology: Refill Request(s) Per review of the refill parameters, Medication was NOT refilled d/t following concern: Last labs completed greater than protocol allows. Last labs completed 01/28/23. Please advise if you would like held until labs completed. Lab work previously ordered and pended 90 day supply. Please route back and will advise pt of labs if appropriate. [facility] Clinical Pharmacist Rheumatology Department 06/28/2023,2:24 PM * Telephone Encounter - Hira Bell - 06/27/2023 5:17 PM ESTPending Prescriptions: Disp Refills Methotrexate Sodium 2.5 MG Oral Tablet 104 Ta*1 Sig: TAKE 8 TABLETS BY MOUTH ONCE A WEEK * Telephone Encounter - Hira Bell - 06/27/2023 5:15 PM EST Did you pend patient's preferred pharmacy and medication before forwarding?yes Pharmacy: [facility] Pending Prescriptions: Disp Refills Methotrexate Sodium 2.5 MG Oral Tablet 104 Ta*1 Sig: TAKE 8 TABLETS BY MOUTH ONCE A WEEK Last Visit: 04/12/2023 (in office), 12/18/2019 (telemedicine) Next Visit: 10/12/2023 If no future appointments scheduled, and last appointment is greater than a year ago, please schedule patient for a follow-up appointment Last date the medication was ordered: 02/04/2023 Is this request for a controlled substance?No Urine Drug Screen:No results found for this or any previous visit. Patient Phone Numbers Labs: Lab Results Component Value Date/Time CREAT 0.7 01/28/2023 10:18 AM CREAT 0.8 04/17/2020 12:33 PM POTASSIUM 4.1 01/28/2023 10:18 AM POTASSIUM 4.5 04/17/2020 12:33 PM TSH 1.71 01/28/2023 10:18 AM TSH 1.85 03/07/2020 10:09 AM LDLCALC 85 12/21/2022 12:11 PM LDLCALC 94 12/19/2018 12:00 AM LDLDIRECT 75 11/24/2022 04:12 PM ALT 20 01/28/2023 10:18 AM ALT 20 04/17/2020 12:33 PM documented in this encounter Plan of Treatment Upcoming Encounters Date Type Department Care Team (Late st Contact Info) Description 07/01/2023 2:00 PM EST Office Visit Family Practice [facility] [address] [place] [address] Troy Belle MD [address] [place] [address] 10/12/2023 1:30 PM EDT Nurse Only Rheumatology [address] [place] [address] Pf, Nurse Rheum [address] [place] [address] [place] [address] Scheduled Orders Name Type Priority Associated Diagnoses Orde r Schedule CBC WITH WBC DIFFERENTIAL Lab Routine Rheumatoid arthritis involving multiple sites with positive rheumatoid factor (HCC) Every 6 Months for 2 Occurrences starting 06/29/2023 until 06/30/2024 COMPREHENSIVE METABOLIC PANEL Lab Routine Rheumatoid arthritis involving multiple sites with positive rheumatoid factor (HCC) Every 6 Months for 2 Occurrences starting 06/29/2023 until 06/30/2024 Health Maintenance Due Date Last Done Comments Depression Screening 11/03/2022 11/03/2021 COVID-19 Vaccine ( season) 2023 11/11/2021, 03/24/2021, 09/22/2020, Additional history exists GFR 01/29/2024 01/28/2023, 11/24, 08/26/2022, Additional history exists TSH 01/29/2024 01/28/2023, 11/24, 08/26/2022, Additional history exists DXA Scan 06/27/2025 06/27/2023, 11/23, 01/10/2018, Additional history exists Albumin/Creatinine Ratio 11/24/2025 11/24/2022 DTaP,Tdap,and Td Vaccines (2 - Td or Tdap) 03/16/2030 03/16/2020 Pneumococcal Vaccine: 65+ Years Completed 05/10/2016, 05/02/2015, 05/23/2002 Zoster Vaccines Completed 01/08/2020, 08/28/2019 VITAMIN D LEVEL ONCE IN A LIFETIME-USE SMARTSET# [id number] Completed 12/30/2020, 12/21/2019 Influenza Vaccine (FLU shot) Completed , 04/26/2022, 04/21/2021, Additional history exists GARDASIL-HPV IMMUNIZATION SERIES Aged [...] as of this encounter Visit Diagnoses Diagnosis Rheumatoid arthritis involving multiple sites with positive rheumatoid factor (HCC) documented in this encounter Care Teams [place] Relationship Specialty Start Date End Date Scottie Garcia III, MD [address] [place] [address] PCP - General Family Medicine 10/14/17 documented as of this encounter
--- OUTSIDE RECORDS SUMMARY | 2023-09-30 13:19 | External Medical Summary | Summary of Care ---
Author Name Unknown Organization [facility] Address [address] [place] [address] Phone [phone] Care Team Providers Care Container Finisher Name Role Phone Radha SERRA MD, Scottie Villegas Primary Care Provider [phone] Reason for Visit * Reason Onset Date Comments Re-Check Medication Administration 04/20/2023 Flu an d/or Pneumo Inj Encounter Details Date Type Department Care Team Description 04/20/2023 Office Visit Family Practice [facility] [address] [facility] [place] [address] Scottie Garcia III, MD [address] [facility] [place] [address] Need for prophylactic vaccination and inoculation against influenza*; Gastroesophageal reflux disease, unspecified whether esophagitis present; Irritable bowel syndrome with diarrhea Allergies No known active allergiesdocumented as of this encounter (statuses as of 04/23/2023) Medications Medication Sig Dispensed Refills Start Date [...] 11/24/2022 Active Methotrexate Sodium 2.5 MG Oral TabletIndications: Rheumatoid arthritis involving multiple sites with positive rheumatoid factor (HCC) TAKE 8 TABLETS BY MOUTH ONCE A WEEK 104 Tablet 1 12/22/2022 4 Active Atorvastatin Calcium 10 MG Oral Tablet [...] DAY 90 Tablet 3 08/17/2022 4 Active Hydroxychloroquine Sulfate 200 MG Oral Tablet (Plaquenil) TAKE ONE AND ONE HALF TABLETS BY MOUTH EVERY DAY 135 Tablet 3 06/08/2022 3 Active predniSONE 5 MG Oral Tablet (Deltasone) [...] Repeat pattern. 60 Capsule 3 04/20/2023 Active Linzess 145 MCG Oral Capsule every other day. 0 03/04/2022 3 Discontinue d(Refill) Hospital, Clinic, or Other Facility [...] as of this encounter (statuses as of 04/23/2023) Active Problems Problem Noted Date Atherosclerosis of [...] Mild persistent asthma without complicat ion 03/05/2020 care home 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 user 10/24/2018 Hypothyroid History of shingles Overview: left upper chest/upper arm History of solitary pulmonary nodule Overview: CT scan 08/2106 documented as of this encounter (statuses as of 04/23/2023) Resolved Problems Problem Noted Date Resolved Date COPD, severity to be determined 03/05/2020 11/03/2021 Mild intermittent asthma with exacerbation 10/0712/14/2018 RA (rheumatoid arthritis) 2022 documented as of this encounter (statuses as of 04/23/2023) Immunizations Name Administration Dates Next Due COVID-19 [...] Sign Reading Time Taken Comments Blood Pressure 104/59 04/20/2023 4:56 PM EDT Pulse 72 04/20/2023 4:56 PM EDT Temperature 37.2 C (99 F) 04/20/2023 4:56 PM EDT Respiratory Rate 16 04/20/2023 4:56 PM EDT Oxygen Saturation - - Inhaled Oxygen Concentration - - Weight 52.2 kg (115 lb) 04/20/2023 4:56 PM EDT Height - - Body Mass Index 21.03 02/23/2023 2:15 PM EDT documented in this encounter Progress Notes * Scottie Garcia III, MD - 04/20/2023 5:51 PM EDT Subjective: Shanna Melgar is a 82 year old female. Chief Complaint Patient presents with Re-Check Medication Administration Flu and/or Pneumo Inj HPI: Follow-up rheumatoid arthritis irritable bowel syndrome with diarrhea currently on Linzess hotflashes persist had been on escitalopram but cause bad dreams and discontinued her weight has been stable no bleeding urine or bowels had been on Linzess 1 full tablet daily cut back because of constipation but gets occasional diarrheal episodes now pain shortness of breath no exertional chest painor shortness a breath no swelling of her ankles no dysuria or hematuria no blood in her stools no blood in her stools PMH: Patient Active Problem List Diagnosis Code Hypothyroid E03.9 History of shingles Z86.19 History of solitary pulmonary nodule Z87.898 Senile osteoporosis M81.0 Mild persistent asthma without complication J45.30 Encounter for long-term (current) use of medications Z79.899 Rheumatoid arthritis involving multiple sites with positive rheumatoid factor (HCC) M05.79 salvage determiner 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 user Z79.631 Hypertension I10 Constipation K59.00 Gastroesophageal reflux disease K21.9 Interstitial pulmonary disease ([facility]) J84.9 Atherosclerosis of aorta ([facility]) I70.0 Bronchiectasis ([facility]) J47.9 Atherosclerosis of coronary artery of [place] heart without angina pectoris I25.10 Current Outpatient Medications Medication Sig Dispense Refill Venlafaxine HCl ER 37.5 MG Oral Capsule Extended Release 24 Hour (Effexor XR) Take 1 Capsule by mouth in the morning. Do not cut, crush or chew. 90 Capsule 5 Linzess 145 MCG Oral Capsule Dailly x2 then skip a day then daily x 2 and skip a day... 60 Capsule 3 Multiple Vitamins-Minerals (CENTRUM SILVER 50+WOMEN) TABS Take [...] the morning. with food.. 100 Tablet 5 Methotrexate Sodium 2.5 MG Oral Tablet TAKE 8 TABLETS BY MOUTH ONCE A WEEK 104 Tablet 1 Atorvastatin Calcium 10 MG Oral Tablet (Lipitor) TAKE ONE TABLET BY MOUTH EVERY DAY 90 Tablet 3 Levothyroxine Sodium 75 MCG Oral Tablet (Levoxyl) [...] TABLET BY MOUTH EVERY DAY90 Tablet 3 Hydroxychloroquine Sulfate 200 MG Oral Tablet (Plaquenil) TAKE ONE AND ONE HALF TABLETS BY MOUTH EVERY DAY 135 Tablet 3 predniSONE 5 MG Oral Tablet (Deltasone) TAKE ONE TABLET BY MOUTH EVERY DAY 90 Tablet 1 Folic Acid 1 MG Oral Tablet Take 2 Tablets by mouth in the morning. 180 Tablet 4 Fluticasone-Salmeterol 100-50 MCG/ACT Inhalation Aerosol Powder Breath Activated (Advair Diskus) INHALE 1 PUFF BY MOUTH TWO TIMES A DAY 180 Each 1 Current Facility-Administered Medications Medication Dose Route Frequency Provider Last Rate Last Admin Albuterol Sulfate (Proventil) (2.5 MG/3ML) 0.083% inhalation solution 2.5 mg 2.5 mg Nebulizer PRJeaneth Green MD Albuterol Sulfate (Proventil) (5 MG/ML) 0.5% *conc* inhalation solution 2.5 mg 2.5 mg Nebulizer PRLeanna Green MD 2.5 mg at 11/22/22 1250 Review of patient's allergies indicates: No Known Allergies Past Medical History: Diagnosis Date Fracture, radius and ulna, shaft early 40s, plate and screw- removed GERD (gastroesophageal reflux disease) Heart palpitations palpitations in early 2017- started on metoprolol then History of shingles left upper chest/upper arm History of solitary pulmonary nodule CT scan 08/2106 Hypothyroid ILD (interstitial lung disease) ([facility]) Osteoporosis Pneumonia RA (rheumatoid arthritis) ([facility]) Past Surgical History: Procedure Laterality Date RADIUS AND ULNA FX W/FIXATION age 38 REMOVE GALLBLADDER laproscopic Objective: The patient is a 82 year old female BP 104/59 | Pulse 72 | Temp 37.2 C (99 F) | Resp 16 | Wt 52.2 kg (115 lb) | BMI 21.03 kg/m | BSA 1.51 m General: alert, healthy, and no distress Eye Exam: PERRLA, extraocular movements intact, conjunctiva are pink and non- injected, sclera clear Oropharynx: no exudate, no erythema, lips, buccal mucosa, and tongue normal, and mucous membranes are moist Heart: regular rate & rhythm, no murmur, and no gallops Lungs: lungs clear to auscultation Extremities: no edema, no clubbing, no cyanosis ASSESSMENT: Z23 Need for prophylactic vaccination and inoculation against influenza (primary encounter diagnosis) K21.9 Gastroesophageal reflux disease, unspecified whether esophagitis present K58.0 Irritable bowel syndrome with diarrhea Total time 33 minutes PLAN: Discussed will give a trial of Effexor XR see if this makes a difference in regards to hot flashes let us know in a couple of weeks will increase Linzess a bit take daily x2 then skip a day... Flu vaccine given discussed RSV vaccine and COVID vaccine would recommend Follow up in 3 month(s). Scottie Garcia III, MD documented in this encounter Plan of Treatment Upcoming Encounters Date Type Specialty Care Team Description 06/27/2023 Imaging Radiology 08/24/2023 Office Visit Family Medicine Scottie Garcia III, MD [address] [place] [address] 10/12/2023 Nurse Only Rheumatology Pf, Nurse Rheum [address] [facility] [place] [address] Health Maintenance Due Date Last Done Comments COVID-19 Vaccine (5 - Moderna risk series) 01/06/2022 11/11/2021, 03/24/2021, 09/22/2020, Additional history exists Depression Screening 11/03/2022 11/03/2021 DXA Scan 12/16/2022 12/16/2020, 12/23, 06/20/2015 GFR 01/29/2024 01/28/2023, 11/24, 08/26/2022, Additional history exists TSH 01/29/2024 01/28/2023, 11/24, 08/26/2022, Additional history exists Albumin/Creatinine Ratio 11/24/2025 11/24/2022 DTaP,Tdap,and Td Vaccines (2 - Td or Tdap) 03/16/2030 03/16/2020 Pneumococcal Vaccine: 65+ Years Completed 05/10/2016, 05/02/2015, 05/23/2002 Zoster Vaccines Completed 01/08/2020, 08/28/2019 VITAMIN D LEVEL ONCE IN A LIFETIME-USE SMARTSET# [id number] Completed 12/30/2020, 12/21/2019 Influenza Vaccine (FLU shot) [...] as of this encounter Visit Diagnoses Diagnosis Need for prophylactic vaccination and inoculation against influenza- Primary Gastroesophageal reflux disease, unspecified whether esophagitis present Irritable bowel syndrome with diarrhea Irritable bowel syndrome documented in this encounter Care Teams Container Finisher Relationship Specialty Start Date End Date Scottie Garcia III, MD [address] [place] [id number] PCP - General Family Medicine 10/14/17 documented as of this encounter"
--- OUTSIDE RECORDS SUMMARY | 2023-09-30 13:19 | External Medical Summary ---
Author Name Unknown Address Unknown Organization [id number]:[facility] [place] [address] [facility] [address] Laboratory Report Ordering Provider Test Date Status ARTURO JUSTIN 07/26/2023 11:32:45 Final Observation Date Value Abnormality Reference (Units ) Status WBC, Total 07/26/2023 11:32:45 10.51 4.00-10.8 0 (K/uL) Final RBC 07/26/2023 11:32:45 4.04 3.85-5.15 (M/uL) Final Hemoglobin 07/26/2023 11:32:45 12.8 12.0-15.3 (g/dL) Final Anemia reflex testing trigge rs on a HGB < 12.0 for Females and HGB < 13.0 for Males in accordance with the WHO Anemia Guidelines
Anemia reflex testing triggers on a HGB < 12.0 for Females and HGB < 13.0 for Males in accordance with the WHO Anemia Guidelines HCT 07/26/2023 11:32:45 40.5 36.0-45.2 (%) Final MCV 07/26/2023 11:32:45 100.2 81.5-97.5 (fL) Final MCH 07/26/2023 11:32:45 31.7 27.0-34.0 (pg) Final MCHC 07/26/2023 11:32:45 31.6 32.0-36.0 (g/dL) Final RDW 07/26/2023 11:32:45 14.6 11.5-15.5 (%) Final Platelets 07/26/2023 11:32:45 328 140-400 (K /uL) Final MPV 07/26/2023 11:32:45 11.4 6.6-11.1 ( fL) Final Nucleated erythrocytes/100 leukocytes [Ratio] in Blood by Automated count 07/26/2023 11:32:45 0 <=0 (/100 WBCs) Fi nal Performing Location [facility] [address] [facility] [address]
--- OUTSIDE RECORDS SUMMARY | 2023-09-30 13:19 | External Medical Summary | Summary of Care ---
Author Name Unknown Organization [facility] Address [address] [place] [address] Phone [phone] Care Team Providers Care Campaign Developer Name Role Phone Troy Belle MD Primary Care Provider [phone] Reason for Visit * Reason Comments NEW PATIENT Pt here to establish care, states recently she has had increased stress with husbands health. Pt here with daughter. Pt currently c/o dizziness and weight loss Encounter Details Date Type Department Care Team (Late st Contact Info) Description 07/01/2023 2:00 PM EST Office Visit Family Practice [facility] [address] [facility] [place] [id number] Troy Belle MD [address] [place] [address] Acquired hypothyroidism*; Mild persistent asthma without complication; Interstitial pulmonary disease (HCC); HTN, goal below 140/90; Irritable bowel syndrome with diarrhea; Senile osteoporosis; Rheumatoid arthritis involving multiple sites with positive rheumatoid factor (HCC) Allergies No known active allergiesdocumented as of this encounter (statuses as of 07/01/2023) Medications Medication Sig Dispensed Refills Start Date End Date Status Multiple Vitamins-Mineral s (CENTRUM SILVER 50+WOMEN) TABS Take by mouth. 0 Active Calcium 600 MG Tablet Take 1 Tablet by mouth in the morning. 0 Active Denosumab 60 MG/ML Subcutaneous Solution Prefilled Syringe Inject 60 mg under the skin once. 1 Syringe 0 9 Active metroNIDAZOLE 0.75 % External Cream (Metrocream) APPLY TOPICALLY TO THE FACE DAILY AT BEDTIME DIRECTED 0 2 Active Fluocinonide 0.05 % External Ointment APPLY 1 APPLICATION TO AREAS OF THE ARMS TWICE DAILY X 2 WEEKS NEEDED FOR FLARING. 0 3 Active Aspirin 81 MG Oral Tablet Chewable Take 1 Tablet by mouth in the morning. with food.. 100 Tablet 5 3 Active Levothyroxine Sodium 75 MCG Oral Tablet (Levoxyl) TAKE 1 TABLET BY MOUTH DAILY AT LEAST 30 MINUTES PRIOR TO FIRST MEAL OF THE DAY OR OTHER MEDICATIONS 100 Tablet 3 3 11/30/19 24 Active Metoprolol Succinate ER 25 MG Oral Tablet Extended Release 24 Hour (toPROL XL) TAKE ONE TABLET BY MOUTH IN THE MORNING 90 Tablet 3 3 10/26/19 24 Active Pantoprazole Sodium 40 MG Oral Tablet Delayed Release (Protonix) TAKE ONE TABLET BY MOUTH EVERY DAY 90 Tablet 3 3 08/17/19 24 Active predniSONE 5 MG Oral Tablet (Deltasone) TAKE ONE TABLET BY MOUTH EVERY DAY 90 Tablet 1 3 03/20/20 24 Active Folic Acid 1 MG Oral Tablet Take 2 Tablets by mouth in the morning. 180 Tablet 4 3 Active Fluticasone-Salm eterol 100-50 MCG/ACT Inhalation Aerosol Powder Breath Activated (Advair Diskus)Indicatio ns:Mild persistent asthma without complication INHALE 1 PUFF BY MOUTH TWO TIMES A DAY 180 Each 1 3 04/14/20 24 Active Hydroxychloroqui ne Sulfate 200 MG Oral Tablet (Plaquenil) TAKE ONE AND ONE HALF TABLETS BY MOUTH EVERY DAY 135 Tablet 3 3 06/09/20 24 Active Methotrexate Sodium 2.5 MG Oral TabletIndication s:Rheumatoid arthritis involving multiple sites with positive rheumatoid factor (HCC) TAKE 8 TABLETS BY MOUTH ONCE A WEEK 104 Tablet 1 3 Active traZODone HCl 50 MG Oral Tablet (Desyrel) Take 1 Tablet by mouth at bedtime. 30 Tablet 5 3 Active Atorvastatin Calcium 10 MG Oral Tablet (Lipitor) TAKE ONE TABLET BY MOUTH EVERY DAY 90 Tablet 3 3 07/01/20 23 Discontinued(Dis charged) Venlafaxine HCl ER 37.5 MG Oral Capsule Extended Release 24 Hour (Effexor XR) Take 1 Capsule by mouth in the morning. Do not cut, crush or chew. 90 Capsule 5 3 07/01/20 23 Discontinued(Dis charged) Linzess 145 MCG Oral Capsule Take one capsule by mouth daily for 2 days, then skip a day. Repeat pattern. 60 Capsule 3 3 07/01/20 23 Discontinued Hospital, Clinic, or Other Facility Administered Medication [...] as of this encounter (statuses as of 07/01/2023) Active Problems Problem Noted Date Diagnosed Date Irritable bowel syndrome with diarrhea Bronchiectasis 11/24/2022 Interstitial pulmonary disease 10/29/2022 HTN, goal below 140/90 08/26/2022 Gastroesophageal reflux disease without esophagi tis 08/26/2022 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 factor 07/06/2022 Senile osteoporosis 03/05/2020 Mild persistent asthma without complication 02/22 Acquired hypothyroidism documented as of this encounter (statuses as of 07/01/2023) Resolved Problems Problem Noted Date Diagnosed Date Resolved Date Atherosclerosis of aorta 11/24/202202/2023 Atherosclerosis of coronary artery of [place] heart without angina pectoris 11/24/2022 07/01/2023 Constipation 08/26/2022 07/01/2023 Encounter for long-term (cur rent) use of medications 09/08/2020 07/01/2023 COPD, severity to be determined 03/05/2020 11/03/2021 salvage determiner 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 user 10/24/2018 07/01/2023 Mild intermittent asthma with exacerbation 10/07/2017 12/14/2018 RA (rheumatoid arthritis) History of shingles 07/01/20 Overview: left upper chest/upper arm History of solitary pulmonary nodule 07/01/2023 Overview: CT scan 08/2106 documented as of this encounter (statuses as of 07/01/2023) Immunizations Name Administration Dates Next Due COVID-19 [...] Sign Reading Time Taken Comments Blood Pressure 118/58 07/01/2023 1:59 PM EST Pulse 72 07/01/2023 1:59 PM EST Temperature 36.2 C (97.2 F) 07/01/2023 1:59 PM ES T Respiratory Rate 18 07/01/2023 1:59 PM EST Oxygen Saturation - - Inhaled Oxygen Concentration - - Weight 50.3 kg (111 lb) 07/01/2023 1:59 PM EST Height 157.5 cm (5' 2") 07/01/2023 1:59 PM EST Body Mass Index 20.3 07/01/2023 1:59 PM EST documented in this encounter Progress Notes * Troy Belle MD - 07/01/2023 10:19 PM EST SUBJECTIVE: Shanna Melgar is a 82 year old female. Chief Complaint Patient presents with NEW PATIENT Pt here to establish care, states recently she has had increased stress with husbands health. Pt here with daughter. Pt currently c/o dizziness and weight loss HPI: Here with daughter. Transferring care to me from Dr. Garcia. Lengthy discussion re: overall health. Main issues are depression and lack of sleep due to declining health of her . Was prescribed Effexor for "hot flashes" but read side effects and never picked it up. We extensively reviewed her history today. Rx given for sleep. Overall stable/healthy for an 82 year old female. Patient Active Problem List Diagnosis Code Acquired hypothyroidism E03.9 Senile osteoporosis M81.0 Mild persistent asthma without complication J45.30 Rheumatoid arthritis involving multiple sites with positive rheumatoid factor (HCC) M05.79 HTN, goal below 140/90 I10 Gastroesophageal reflux disease without esophagitis K21.9 Interstitial pulmonary disease (HCC) J84.9 Bronchiectasis (HCC) J47.9 Irritable bowel syndrome with diarrhea K58.0 [...] by mouth at bedtime. 30 Tablet 5 Denosumab 60 MG/ML Subcutaneous Solution Prefilled Syringe Inject 60 mg under the skin once. 1 Syringe 0 Current Facility-Administered Medications Medication Dose Route Frequency Provider Last Rate Last Admin Albuterol Sulfate (Proventil) (2.5 MG/3ML) 0.083% inhalation solution 2.5 mg 2.5 mg Nebulizer PRN Javier Green MD Albuterol Sulfate (Proventil) (5 MG/ML) 0.5% *conc* inhalation solution 2.5 mg 2.5 mg Nebulizer Javier Gray MD 2.5 mg at 11/22/22 1250 Allergy: Review of patient's allergies indicates: No Known Allergies OBJECTIVE: BP 118/58 | Pulse 72 | Temp 36.2 C (97.2 F) (Tympanic) | Resp 18 | Ht 1.575 m (5' 2") | Wt 50.3kg (111 lb) | BMI 20.30 kg/m | BSA 1.48 m Gen: thin, nad Lungs: ctab Heart: very soft systolic murmur Ext: no c/c/e Psych: somewhat depressed ASSESSMENT AND PLAN: (E03.9) Acquired hypothyroidism (primary encounter diagnosis) Plan: euthyroid (J45.30) Mild persistent asthma without complication Plan: stable (J84.9) Interstitial pulmonary disease (HCC) Plan: stable (I10) HTN, goal below 140/90 Plan: @ goal (K58.0) Irritable bowel syndrome with diarrhea Plan: quiescent (M81.0) Senile osteoporosis Plan: stable (M05.79) Rheumatoid arthritis involving multiple sites with positive rheumatoid factor (HCC) Plan: continue rx per rheum Follow up in 3 month(s). No other complaints were offered at this time. Troy Belle MD documented in this encounter Nursing Notes * Lisa Garcia LPN - 07/01/2023 1:59 PM EST The patient has been properly identified by confirmation of name and date of . Chief Complaint Patient presents with NEW PATIENT Pt here to establish care, states recently she has had increased stress with husbands health. Pt here with daughter. Pt currently c/o dizziness and weight loss documented in this encounter Plan of Treatment Upcoming Encounters Date Type Department Care Team (Late st Contact Info) Description 10/04/2023 5:40 PM EDT Office Visit [address] [place] [address] Troy Belle MD [address] [place] [address] 10/12/2023 1:30 PM EDT Nurse Only Rheumatology [address] [place] [address] Pf, Nurse Rheum [facility] [place] [address] Health Maintenance Due Date Last Done Comments [...] D LEVEL ONCE IN A LIFETIME-USE SMARTSET# 13459 Completed 12/30/2020, 12/21/2019 Influenza Vaccine (FLU shot) [...] as of this encounter Visit Diagnoses Diagnosis Acquired hypothyroidism- Primary Unspecified hypothyroidism Mild persistent asthma without complication Unspecified asthma Interstitial pulmonary disease (HCC) Postinflammatory pulmonary fibrosis HTN, goal below 140/90 Unspecified essential hypertension Irritable bowel syndrome with diarrhea Irritable bowel syndrome Senile osteoporosis Rheumatoid arthritis involving multiple sites with positive rheumatoid factor (HCC) documented in this encounter Care Teams Campaign Developer Relationship Specialty Start Date End Date Troy Belle MD [address] [facility] [place] [address] PCP - General Family Medicine 07/01/23 documented as of this encounter
--- OUTSIDE RECORDS SUMMARY | 2023-09-30 13:19 | External Medical Summary ---
Author Name Unknown Address Unknown Organization K01:[facility]ORY [facility] [place] - [address] [place] [address] Laboratory Report Ordering Provider Test Date Status ARTURO JUSTIN 07/26/2023 11:32:45 Final Observation Date Value Abnormality Reference (Units ) Status TSH 07/26/2023 11:32:45 0.77 0.27-4.20 (uIU/mL) Final Performing Location LABORATORY [facility] - [address] [place] [address]
--- OUTSIDE RECORDS SUMMARY | 2023-09-30 13:19 | External Medical Summary ---
Author Name Unknown Address Unknown Organization K01:LABORATORY [facility] [place] - [address] [place] [address] Laboratory Report Ordering Provider Test Date Status SONAM LEMONS 07/26/2023 11:32:45 Final Deficient: <20 ng/mL
Ins ufficient: 20-29 ng/mL
Recommended/Optimum:30-50 ng/mL

Vitamin D intoxication is rare. If suspicious of Vitamin D toxicity, evaluation of serum Calcium and PTH is recommended. Observation Date Value Abnormality Reference (Units ) Status 25-OH Vitamin D total 07/26/2023 11:32:45 40 >19 (ng/mL) Final Performing Location LABORATORY [facility] - [address] [place] [address]
--- OUTSIDE RECORDS SUMMARY | 2023-09-30 13:19 | External Medical Summary | Summary of Care ---
Author Name Unknown Organization [facility] Address [address] [place] [address] Phone [phone] Care Team Providers Care National Park Ranger Name Role Phone Radha SERRA MD, Scottie Villegas Primary Care Provider [phone] Reason for Visit * Reason Comments Medication Refill Encounter Details Date Type Department Care Team (Late st Contact Info) Description 06/08/2023 Refill Rheumatology [facility] [address] [place] [address] Aidan Masters MD [address] [place] [address] Allergies No known active allergiesdocumented as of this encounter (statuses as of 06/10/2023) Medications Medication Sig Dispensed Refills Start Date [...] DAY 135 Tablet 3 06/10/2023 4 Active Hydroxychloroquine Sulfate 200 MG Oral Tablet (Plaquenil) TAKE ONE AND ONE HALF TABLETS BY MOUTH EVERY DAY 135 Tablet 3 06/08/2022 3 Discontinue d(Refill) Hospital, Clinic, or Other [...] as of this encounter (statuses as of 06/10/2023) Active Problems Problem Noted Date Diagnosed Date Atherosclerosis of aorta 11/24/2022 Bronchiectasis 11/24/2022 Atherosclerosis of coronary artery of [place] heart without angina pectoris 11/24/2022 Interstitial pulmonary disease 10/29/2022 Hypertension 08/26/2022 Constipation 08/26/2022 Gastroesophageal reflux disease 08/26/2022 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 factor 07/06/2022 Encounter for long-term (current) use of medicat ions 09/08/2020 Senile osteoporosis 03/05/2020 Mild persistent asthma without complication 02/22 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 10/24/2018 Hypothyroid History of shingles Overview: left upper chest/upper arm History of solitary pulmonary nodule Overview: CT scan 08/2106 documented as of this encounter (statuses as of 06/10/2023) Resolved Problems Problem Noted Date Diagnosed Date Resolved Date COPD, severity to be determined 03/05/2020 11/03/2021 Mild intermittent asthma with exacerbation 10/07/2017 12/14/2018 RA (rheumatoid arthritis) documented as of this encounter (statuses as of 06/10/2023) Immunizations Name Administration Dates Next Due COVID-19 [...] Recorded PHQ Adult Total Score 0 11/03/2021 Sex and Gender Information Value Date Recorded Sex Assigned at Female 03/14/2022 10:47 AM EDT Gender Identity Female 03/14/2022 10:47 AM EDT Sexual Orientation Straight 03/14/2022 10 :47 AM EDT Job Start Date Occupation Industry Not on file Not on file Not on file documented as of this encounter Miscellaneous Notes * Telephone Encounter - Jelly Story [facility] - 06/10/2023 2:06 PM ESTSigned Prescriptions: Disp Refills Hydroxychloroquine Sulfate 200 MG Oral Tab*135 Ta*3 Sig: TAKE ONE AND ONE HALF TABLETS BY MOUTH EVERY DAY Authorizing Provider: AIDAN MASTERS Ordering User: JELLY STORY * Telephone Encounter - Jelly Story RPh - 06/10/2023 2:05 PM EST Rheumatology: Refill Request(s) Per review of the refill parameters, Medication was refilled Jelly Story RPh [facility] Clinical Pharmacist Rheumatology Department 06/10/2023,2:05 PM * Telephone Encounter - Brenda Cox analysis intern - 06/10/2023 9:42 AM EST Pending Prescriptions: Disp Refills Hydroxychloroquine Sulfate 200 MG Oral Tab*135 Ta*3 Sig: TAKE ONE AND ONE HALF TABLETS BY MOUTH EVERY DAY * Telephone Encounter - Brenda Cox analysis intern - 06/10/2023 9:41 AM EST Patient is up to date for office visits. Pending Prescriptions: Disp Refills Hydroxychloroquine Sulfate 200 MG Oral Ta*135 Ta*3 Sig: TAKE ONE AND ONE HALF TABLETS BY MOUTH EVERY DAY Last Visit: 04/12/2023 (in office), 12/18/2019 (telemedicine) Next Visit: 10/12/2023 If no future appointments scheduled, and last appointment is greater than a year ago, please schedule patient for a follow-up appointment Last date the medication was ordered: 06/08 Pharmacy: [facility] Is this request for a controlled substance?No it is not controlled. Urine Drug Screen:No results found for this [...] Team (Late st Contact Info) Description 06/27/2023 2:00 PM EST Imaging Radiology, [place] [address] [place] [address] 07/01/2023 2:00 PM EST Office Visit Family Practice [facility] [address] [facility] [place] [address] Troy Belle MD [address] [facility] [place] [address] 10/12/2023 1:30 PM EDT Nurse Only Rheumatology [place] [address] [place] [address] Pf, Nurse Rheum [facility] [place] [address] Health Maintenance Due Date Last Done Comments Depression Screening 11/03/2022 11/03/2021 DXA Scan 12/16/2022 12/16/2020, 12/23, 06/20/2015 COVID-19 Vaccine ( season) 2023 11/11/2021, 03/24/2021, 09/22/2020, Additional history exists GFR 01/29/2024 01/28/2023, 11/24, 08/26/2022, Additional history exists TSH 01/29/2024 01/28/2023, 11/24, 08/26/2022, Additional history exists Albumin/Creatinine Ratio 11/24/2025 11/24/2022 DTaP,Tdap,and Td Vaccines (2 - Td or Tdap) 03/16/2030 03/16/2020 Pneumococcal Vaccine: 65+ Years Completed 05/10/2016, 05/02/2015, 05/23/2002 Zoster Vaccines Completed 01/08/2020, 08/28/2019 VITAMIN D LEVEL ONCE IN A LIFETIME-USE SMARTSET# 11176 Completed 12/30/2020, 12/21/2019 Influenza Vaccine (FLU shot) [...] filedocumented as of this encounter Care Teams National Park Ranger Relationship Specialty Start Date End Date Scottie Garcia III, MD [address] [place] [address] PCP - General Family Medicine 10/14/17 documented as of this encounter
--- OUTSIDE RECORDS SUMMARY | 2023-09-30 13:19 | External Medical Summary | Summary of Care ---
Author Name Unknown Organization [facility] Address [address] [place] [address] Phone [phone] Care Team Providers Care Charcoal Burner [employer]ive Kiln Name Role Phone Radha SERRA MD, Scottie Villegas Primary Care Provider [phone] Reason for Visit * Reason Onset Date Comments Appointment 06/06/2023 Encounter Details Date Type Department Care Team (Late st Contact Info) Description 06/06/2023 Telephone Family Practice [facility] [address] [facility] [place] [address] Scottie Garcia III, MD [address] [place] [address] Appointment Allergies No known active allergiesdocumented as of this encounter (statuses as of 06/06/2023) Medications Medication Sig Dispensed Refills Start Date [...] DAY 180 Each 1 04/15/2023 04/14/2024 Active Venlafaxine HCl ER 37.5 MG Oral Capsule Extended Release 24 Hour (Effexor XR) Take 1 Capsule by mouth in the morning. Do not cut, crush or chew. 90 Capsule 5 04/20/2023 Active Linzess 145 MCG Oral Capsule Take one capsule by mouth daily for 2 days, then skip a day. Repeat pattern. 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 factor 07/06/2022 Encounter for long-term (current) use of medicat ions 09/08/2020 Senile osteoporosis 03/05/2020 Mild persistent asthma without complication 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 10/24/2018 Hypothyroid History of shingles Overview: left upper chest/upper arm History of solitary pulmonary nodule Overview: CT scan 08/2106 documented as of this encounter (statuses as of 06/06/2023) Resolved Problems Problem Noted Date Diagnosed Date Resolved Date COPD, severity to be determined 03/05/2020 11/03/2021 Mild intermittent asthma with exacerbation 10/07/2017 12/14/2018 RA (rheumatoid arthritis) documented as of this encounter (statuses as of 06/06/2023) Immunizations Name Administration Dates Next Due COVID-19 [...] encounter Miscellaneous Notes * Telephone Encounter - Cris Melgar - 06/06/2023 11:16 AM EST appts switched with pt * Telephone Encounter - Leonardo Deluca OSA - 06/06/2023 11:07 AM EST Pt would like a call back about switching the visit she has on 06/24/23 with the one her hason 07/01/23 documented in this encounter Plan of Treatment Upcoming Encounters Date Type Department Care Team (Late st Contact Info) Description 06/27/2023 2:00 PM EST Imaging Radiology, [address] [place] [address] 07/01/2023 2:00 PM EST Office Visit Family [facility] [address] [place] [address] Troy Belle MD [address] [place] [address] 10/12/2023 1:30 PM EDT Nurse Only Rheumatology [address] [place] [address] Pf, Nurse Rheum [address] [place] [address] [place] [address] Health Maintenance Due Date Last Done Comments [...] D LEVEL ONCE IN A LIFETIME-USE SMARTSET# [id number] Completed 12/30/2020, 12/21/2019 Influenza Vaccine (FLU shot) [...] filedocumented as of this encounter Care Teams Charcoal Burner [employer] Kiln Relationship Specialty Start Date End Date Scottie Garcia III, MD [address] [place] [address] PCP - General Family Medicine 10/14/17 documented as of this encounter
--- OUTSIDE RECORDS SUMMARY | 2023-09-30 13:19 | External Medical Summary | Summary of Care ---
Author Name Unknown Organization [facility] Address [address] [place] [address] Phone [phone] Care Team Providers Care Clinic Office Manager Name Role Phone Radha SERRA MD, Scottie Villegas Primary Care Provider [phone] Reason for Visit * Reason Onset Date Comments Advice 04/18/2023 information Encounter Details Date Type Department Care Team Description 04/18/2023 Telephone Rheumatology [facility] [address] [place] [address] Aidan Finn MD [address] [place] [address] Advice (information) Allergies No known active allergiesdocumented [...] Mild persistent asthma without complicat ion 03/05/2020 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 10/24/2018 Hypothyroid History of shingles [...] Immunization Ancillary Sp, Flu Shot Clinic [address] [facility] [place] [address] 04/20/2023 Office Visit Family Medicine Radha III, Scottie Villegas MD [address] [facility] [place] [address] 06/27/2023 Imaging Radiology 10/12/2023 Nurse Only Rheumatology Pf, Nurse Rheum [address] [facility] [place] [address] Health Maintenance Due Date Last Done Comments [...] D LEVEL ONCE IN A LIFETIME-USE SMARTSET# [id number] Completed 12/30/2020, 12/21/2019 GARDASIL-HPV IMMUNIZATION SERIES Aged [...] filedocumented as of this encounter Care Teams Clinic Office Manager Relationship Specialty Start Date End Date Scottie Gracia III, MD [facility] [address] [place], [place] [address] PCP - General Family Medicine 10/14/17 documented as of this encounter
--- OUTSIDE RECORDS SUMMARY | 2023-09-30 13:19 | External Medical Summary ---
Author Name Unknown Address Unknown Organization K0G:[facility]ORY [place] [address] - [address] [place] [address] Laboratory Report Ordering Provider Test Date Status SONAM LEMONS 07/26/2023 11:32:45 Final Observation Date Value Abnormality Reference (Units ) Status BUN 07/26/2023 11:32:45 18 6-20 (mg/dL) Final Creatinine 07/26/2023 11:32:45 0.6 0.5-1.0 (mg/dL) Final Glomerular filtration rate/1.73 sq M.predicted [Volume Rate/Area] in Serum, Plasma or Blood by Creatinine-based formula (CKD-EPI) 07/26/2023 11:32:45 88 >=60 (mL/min) Final eGFR is calculated based on the CKD-EPI 2020 equation SODIUM 07/26/2023 11:32:45 135 135-146 (m mol/L) Final Potassium 07/26/2023 11:32:45 4.0 3.5-5.1 (m mol/L) Final Cl 07/26/2023 11:32:45 95 Below low normal 98- 107 (mmol/L) Final CO2 07/26/2023 11:32:45 26 22-32 (mmo l/L) Final Anion gap 07/26/2023 11:32:45 14 7-15 (mmol /L) Final Glucose 07/26/2023 11:32:45 112 70-120 (mg /dL) Final Albumin 07/26/2023 11:32:45 3.4 Below low normal 3.8 -5.0 (g/dL) Final AST (Aspartate aminotransferase) 07/26/2023 11:32:45 29 10-35 (U/L) Fin al Alk Phos 07/26/2023 11:32:45 83 35-130 (U/ L) Final Bilirubin, Total 07/26/2023 11:32:45 0.5 <=1 .2 (mg/dL) Final Calcium 07/26/2023 11:32:45 9.4 8.4-10.2 ( mg/dL) Final Protein 07/26/2023 11:32:45 6.9 6.0-8.3 (g /dL) Final ALT (Alanine aminotransferase) 07/26/2023 11:32:45 26 10-35 (U/L) Mka hope Performing Location LABORATORY [place] [address] [facility] [address]
--- OUTSIDE RECORDS SUMMARY | 2023-09-30 13:19 | External Medical Summary ---
Author Name Unknown Address Unknown Organization [id number]:LAB[facility]ORY [facility] - [address] [facility] [address] Laboratory Report Ordering Provider Test Date Status ARTURO JUSTIN 07/26/2023 11:32:45 Final Observation Date Value Abnormality Reference (Units ) Status SYNC LEUKOCYTES IN BLOOD BY AUTOMATED COUNT 07/26/2023 11:32:45 10.51 4.00-10.80 (K/uL) Final Segs 07/26/2023 11:32:45 86.2 Above high normal 40.0-75.0 (%) Final Lymphs % 07/26/2023 11:32:45 6.2 Below low normal 18.0-42.0 (%) Final Monos 07/26/2023 11:32:45 6.5 1.0-11.0 (%) Final Eosinophils 07/26/2023 11:32:45 0.2 0.0-6.0 (%) Final Basos 07/26/2023 11:32:45 0.5 0.0-2.0 (%) Final Immature Granulocyte, Percent 07/26/2023 11:32:45 0.4 0.0-2.0 (%) Final Absolute Segs 07/26/2023 11:32:45 9.07 Above high normal 1.80-7.70 (K/uL) Final Lymphs, absolute 07/26/2023 11:32:45 0.65 Below low normal 1.00-4.80 (K/ul) Final Monos, Abs 07/26/2023 11:32:45 0.68 0.00-1.10 (K/uL) Final Eos, Abs 07/26/2023 11:32:45 0.02 0.00-0.70 (K/uL) Final Basos, Abs 07/26/2023 11:32:45 0.05 0.00-0.20 (K/uL) Final Immature Granulocytes, Number 07/26/2023 11:32:45 0.04 0.00-0.20 (K/uL) Final Performing Location [facility] - [facility] [address]. [facility] [address]
--- OUTSIDE RECORDS SUMMARY | 2023-09-30 13:19 | External Medical Summary | Continuity of Care Document ---
Author Name Unknown Organization [place] [id number] [facility] Address [address] [place], [place] [id number] Care Team Providers Care Bonbon Cream Warmer Name Role Phone Scottie Garcia Primary Care Physician [phone] [id number] Date(s): 05/20/23 - 05/20/[address] [address] [phone] Encounter Diagnosis Unintentional weight loss(Discharge Diagnosis) - 05/20/23 Constipation(Discharge Diagnosis) - 05/20/23 Diarrhea due to drug(Discharge Diagnosis) - 05/20/23 GERD (gastroesophageal reflux disease)(Discharge Diagnosis) - 05/20/23 Long-term current use of proton pump inhibitor therapy(Discharge Diagnosis) - 05/20/23 Discharge Disposition: Home or Self Care Attending Physician: AWAIS Castaneda Kelli Jo Allergies, Adverse Reactions, Alerts No Known Allergies Assessment and Plan Extracted from: Title:Office Visit Note Author:AWAIS Castaneda Kell i Jo Date:05/20/23 1.Unintentional weight los s 2.Diarrhea due to drug 3.Constipation Patient reportsdiarrhea on her Linzess. This has been occurring twice weekly over the last 2 months; however, was also noted in prior visitdating August 2022. [facility] were negativefor entericand parasitic pathogensas well as for C. difficile. Patient is down 17.16 pounds since February 02, 2022. Long discussion with patientregardingdifferential diagnosis. As patient also complains of unexplained weight loss; we discussed EGD and CT. At this time she would like to discontinue her Linzess focus on lifestyle modificationsand reevaluate at follow-up appointment. She declinesaggressiveevaluationat this time. Would ask that PCP considerRemeron or similarfor appetite stimulantshould patient not wish to evaluate further. Patient is changing to see Dr. Troy Belle at [facility];will share my note with him today. Appointment 06/24/2023 4.Long-term current use of proton pump inhibitor therapy 5.GERD (gastroesophageal reflux disease) Patient is currently taking 40 mg pantoprazoleafter dinner. We did discuss proper dosingon an empty stomach. If patient'sbowel regimen is successful between now and next appointment, we will discussreducing to 20 mgdaily. Giventhat patient isosteoporoticon Proliaas well as on long-term PPI use. She will need her vitamin D checked, I have checked [employer] system and this is currently ordered. However, she will also need B12 and magnesium. We will fax these orders to [facility] have completed with her upcominglab appointment. GI follow up in6 weeks, sooner if needed. I have spent 45 minutes in evaluation, education and documentation of this pt in both face to face and non-face to face activities. Medications Advair Diskus 100 mcg-50 mcg Start: 01/19/18 13:34:00 EDT, 1 puff, PO, bid, Disp# 1 inhaler Start Date: 01/19/18 Stop Date: 02/18/18 Status: Ordered aspirin 81 mg oral delayed release tablet Start: 05/20/23 13:37:00 EDT, 1 tab, PO, Daily Start Date: 05/20/23 Status: Ordered atorvastatin 10 mg oral tablet Start: 05/20/23 13:37:00 EDT, 1 tab, PO, Daily Start Date: 05/20/23 Status: Ordered Benefiber Start: 12/14/21 11:23:00 EDT, Daily, at bedtime Start Date: 12/14/21 Status: Ordered Caltrate 600 + D oral tablet Start: 01/19/18 13:36:00 EDT, 1 tab, bid Start Date: 01/19/18 Status: Ordered Efudex 5% topical cream Start: 10/20/18 11:19:00 EDT, 1 appl, topical, bid, Disp# 40 g, Refills: 0, apply to red areas on left shoulder for 3 weeks and then stop, Pharmacy: [facility]/pharmacy #[id number] Start Date: 10/20/18 Status: Ordered FD Gaurd Start: 01/19/18 13:37:00 EDT, FD Gaurd, 2 after dinner Start Date: 01/19/18 Status: Ordered folic acid Start: 01/19/18 13:33:00 EDT, 2 mg =, Daily Start Date: 01/19/18 Status: Ordered levothyroxine 75 mcg (0.075 mg) oral tablet Start: 01/19/18 13:33:00 EDT, 1 tab, PO, Daily Start Date: 01/19/18 Status: Ordered Linzess 145 mcg oral capsule Start: 04/05/22 14:27:00 EDT, 1 cap, PO, Daily, Disp# 30 cap, Refills: 0, Pharmacy: [facility]/pharmacy #[id number] Start Date: 04/05/22 Stop Date: 05/05/22 Status: Ordered 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 2.5 mg oral tablet Start: 01/19/18 13:33:00 EDT, 8 tab, PO, q7days Start Date: 01/19/18 Status: Ordered Metoprolol Succinate ER 25 mg oral tablet, extended release Start: 01/19/18 13:33:00 EDT, 1 tab, PO, Daily Start Date: 01/19/18 Status: Ordered MiraLax oral powder for reconstitution Start: 12/14/21 11:49:00 EDT, 17 g =, PO, Daily, Disp# 527 g, Refills: 5, start with 0.5 capfuls daily and increase dose weekly by 0.5 capful until optimal bowel movements are obtained, Pharmacy: [facility]/pharmacy #[id number] Start Date: 12/14/21 Status: Ordered Multiple Vitamins oral capsule Start: 01/19/18 13:36:00 EDT, 1 cap, PO, Daily Start Date: 01/19/18 Status: Ordered pantoprazole 40 mg oral delayed release tablet Start: 08/17/22 10:53:00 EST, See Instructions, Disp# 90 tab, Refills: 3, TAKE ONE TABLET BY MOUTH EVERY DAY, Pharmacy: [facility] [place] [facility] Start Date: 08/17/22 Status: Ordered Plaquenil Sulfate 200 mg oral tablet Start: 05/02/19 11:42:00 EDT, See Instructions, 1.5 tabs po daily Start Date: 05/02/19 Status: Ordered predniSONE 5 mg oral tablet Start: 05/02/19 11:43:00 EDT, 1 tab, PO, Daily Start Date: 05/02/19 Status: Ordered Prolia Start: 10/20/18 10:56:00 EDT, 2 times a year Start Date: 10/20/18 Status: Ordered Mental Status 05/20/23 Barriers to Learning one year None evide nt Mandatory Health Literacy Documentation Yes Health Literacy Communication Barriers N ever Primary Language Micronesian Problem List Condition Confirmation Course Effective Dates Status H ealth Status Informant Arthritis Confirmed Active Basal cell carcinoma of skin 1 Confirmed Active Constipation Confirmed Active Diarrhea due to drug Confirmed Active Excessive gas Confirmed Active GERD (gastroesophageal reflux disease) Confirmed Active Hypertension Confirmed Active Hypothyroid Confirmed Active Long-term current use of proton pump inhibitor therapy Confirmed Active Rheumatoid arthritis Confirmed Active Unintentional weight loss Confirmed Active 1left shoulder Diagnosis Diagnosis Type Effective Dates Health Status Clinical Service Informant Constipation Discharge Diagnosis 05/20/23 GERD (gastroesophageal reflux disease) Discharge Diagnosis 05/20/23 Unintentional weight loss Discharge Diagnosis 05/20/23 Long-term current use of proton pump inhibitor therapy Discharge Diagnosis 05/20/23 Diarrhea due to drug Discharge Diagnosis 05/20/23 Procedures Procedure Date Related Diagnosis Body Site Status Colonoscopy 1, 2 10/01/22 Complete d Laboratory findings data interpretation 3 06/30/21 Completed Laboratory findings data interpretation 4 05/05/21 Completed Shave biopsy of skin w/ED&C 01/19/18 Completed Medical records review 5 03/2017 Completed MRI of abdomen 6 02/16/16 Complete d Ultrasound--abdomen 7 12/29/15 Com pleted Upper GI endoscopy 8 11/14/15 Comp leted Colonoscopy 9 06/26/10 Completed Gallbladder 2006 Completed Cataract 2005 Completed Procedure 10 Completed 1Pathology results: Colon, "random colon biposy": Lymphoid hyperplasia is seen. Glandular architecture is maintained and a significant inflammatory infiltrate is not seen. The clinical Hx of constipation is noted. 2The rectum, sigmoid colon, descending colon, splenic flexure, transverse colon, hepatic flexure, ascending colon, cecum and recto-sigmoid colon are normal. Biopsied 3COLOGARD negative 4Mg 2.3 nl, Vitamin B12 756 nl. 5Records from GI in [place] reviwed. MRCP, u/s, EGD, and hydrogen breath test reviewed 11/17/18 GI consult. Noted in these papers OVs from 10/2015 to 03/2017 for belching, CP. Various PPI and H2 dennis combinations tried. 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 71) Prior cholecystectomy 2) Ectasia and dilation of the extrahepatic bile duct without intrahepatic ductal dilatation, 8Pathology results: A) Stomach, pre-pyloric, biopsy: -antral type gastric mucosa with mild inactive chronic gastritis. -No H. Pylori-like organisms are seen with immunostain. -No intestinal metaplasia seen with PAS/AB stain. B) Esophagus, EG junction biopsy -Benign squamous and columnar mucosa with mild chronic inflammation. -No intestinal metaplasia seen with PAS/AB stain. ythematous mucosa in the antrum and prepyloric region. Z-line irregular, biopsied. Medium-sized hiatus hernia. Erythematous mucosa in the antrum and prepyloric region of the stomach, biopsied. Normal examined duodenum, 9[facility] in [place], Impression not the full report is mild diverticulosis in sigmoid with repeat colo 5 years recommended. 10left arm Vital Signs Most recent to oldest [Reference Range]: 1 Patient Weight 51.6 kg (05/20/23 1:37 PM) Heart Rate 76 bpm (05/20/23 1:37 PM) Respiratory Rate 16 br/min (05/20/23 1:37 PM) Blood Pressure 122/60mmHg (05/20/23 1:37 PM) Social History Social History Type Response Smoking Status Never smoked cigaret brenda Sex Female Gastroenterology Outpatient Note * AWAIS Castaneda, Roro Avina: PERFORM Event Display: Gastroenterology Outpt Note Authored Date: [id number] Chief Complaint Concerns with increased diarrhea. History of Present Illness The patient is a pleasant 43-mkvb-[id number] presents today forfollow-up evaluation ofreflux and bowel issues. [facility],and past medical historyreviewed. Abdominal surgical history: Cholecystectomy Prior records: 06/26/2010: [facility] in [place], Impression not the full report is mild diverticulosis in sigmoid with repeatcolo 5 years recommended. 11/14/2015: EGD Z-line irregular, biopsied. Medium-sized hiatus hernia. Erythematous mucosa in the antrum and prepyloric region of the stomach, biopsied. Normal examined duodenum. Pathology results: A) Stomach, pre-pyloric, biopsy: -antral type gastric mucosa with mild inactive chronic gastritis. -No H. Pylori-like organisms are seen with immunostain. -No intestinal metaplasia seen with PAS/AB stain. B) Esophagus, EG junction biopsy -Benign squamous and columnar mucosa with mild chronic inflammation. -No intestinal metaplasia seen with PAS/AB stain. Erythematous mucosa in the antrum and prepyloric region. 12/29/2015: US abdomen 1) Prior cholecystectomy 2) Ectasia and dilation of the extrahepatic bile ductwithout intrahepatic ductal dilatation, 02/16/2016: MRI abdomen 1) Pancreatic divisum 2) Normal MRCP postcholecystectomy 3) Small sliding hiatal hernia. 06/24/2021: GI OV notes are reviewed from Dr. Padilla. Patientwith changes in bowels including both diarrhea and constipation are improved on Metamucil. Discussed colonoscopy. Patient would like Cologuard to rule out serious pathology. GERDwith Protonix well controlling symptoms with normal B12 and mag 04/2020. For gas continue FD guard and trial dairyavoidancetrial. Bloating discussed pelvic ultrasound with patient has refused in the past. CRC screening with last [facility] in 2009 so patient is due the patient has asked for Cologuard. She was to follow-up in 1 month. 06/30/2021: Fit stool test was negative. 04/05/2022 GI OV: the patient presents today for follow-up of acid reflux and constipation. In regards to her constipation, she was started on Linzess 145 mcgand has been doing very well with thisregimen. She reports she is now havingbowel movements daily which are typically a [place] type IV. About once a week she is averaging some diarrheathat are [place] type VII. She states thatshe is not experiencingfecal incontinence with these episodes. She does still note some abdominal bloating and gasbut feels the symptoms are manageable. Acid reflux is significantly improved as constipation was resolved. She does continue pantoprazoleeach evening. No melena or hematochezia. 08/30/2022 GI OV:The patient presents today for follow-up of constipation. She initially hadmarked improvementwith use of Linzess, daily bowel movementswith only intermittent abdominal bloating and gas. About a week and a half ago, she developedloose to liquid stools for 3 days in a rowand stopped her Linzess.She contacted the office and was advised to hold it over the weekend. Diarrhea resolved and she was advised to resume every other day useand come into the office for evaluation. Note she has had some fecal urgency with use of Linzess. Now since restarting medication stools are [place] type Iwith loose stool later in the day. She does experience incomplete evacuation at times. She is now having a bowel movement most days. She is takingher fiber supplementsporadically. Her medication list was reviewed for triggers for diarrheawith causes includingprednisone andpantoprazole. 10/01/2022 EGD: Pathology results: Colon, "random colon biopsy": Lymphoid hyperplasia is seen. Glandular architecture is maintained and a significant inflammatory infiltrate is not seen. The clinical Hx of constipation is noted. 01/2023 [facility] labs: D bili 0.2, WBC 10.25, H&H 12.1/38.2, PLT 192 BUN/CR 16/0.7, wapmsxc73, AST 25, T. bili 0.4, ALT 20, ESR 45, TSH 1.71, stool studies enteric pathogen negative, parasite antigen negative, C. difficile negative 05/20/2023 OV ([place]): Patient returns today for routinefollow-upon Linzess for constipation.Upon reviewing last GI note patientdid report this is not a new symptom. As she has previously discontinued her Linzessdue to liquid stools 3 days in a rowand her symptoms resolved. Patientreports that this is beginning to affecther quality of lifeas she will not go out. Currently s he states thatthe liquid stools are happening at least twice weekly over the last 2 months. Sheremains on 1Linzess daily. Patient has also been followed in the past for her heartburn. She states for the most part this has been very goodas long as she does not snack at night. She doesreport approximately 2 weeks agohaving arather bad case over the night. She uses Maaloxduring thisand it helps. Of note patient also complains of weight loss. She has seen a second cutter for this who recommendedyogurtsand protein sources. She is currentlyeating the yogurtsanda generic version of Ensure protein shake with 20 g of protein. However, even with daily snackin gshe has not increased her weight. She feels fine otherwiseno fatigue, abdominal pain, nauseaor vomiting. Social history: The patient is a lifetime non-smoker. She reports she consumes wine only on holidays. Denies her use of recreational drugs including marijuana. 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 After that she was a wlkl-ol-xxgb mom. She is and has 2adult children with multiple grandchildren. No further complaints or concerns today. Physical Exam Vitals & Measurements HR:76(Monitored) RR:16 BP:122/60 SpO2:98% WT:51.600kg(Dosing) WT:51.6kg General:Alert and oriented, No acute distress, appears stated age HENT:Normocephalic, normal hearing Respiratory: Respiration are non-labored, pt speaking in complete sentences,and no evidence of respiratory distress is noted Integumentary:Exposed skin viewable is dry and intact Psychiatric:Cooperative, appropriate mood & affect, Normal judgement Assessment/Plan 1.Unintentional weight loss 2.Diarrhea due to drug 3.Constipation Patient reportsdiarrhea on her Linzess. This has been occurring twice weekly over the last 2 months; however, was also noted in prior visitdating August 2022. [facility] symptomsand were negativefor entericand parasitic pathogensas well as for C. difficile. Patient is down 17.16 pounds since February 02, 2022. Long discussion with patientregardingdifferential diagnosis. As patient also complains of unexplained weight loss; we discussed EGD and CT. At this time she would like to discontinue her Linzess focus on lifestyle modificationsand reevaluate at follow-up appointment. She declinesaggres siveevaluationat this time. Would ask that PCP considerRemeron or similarfor appetite stimulantshould patient not wishto evaluate further. Patient is changing to see Dr. Troy Belle at [facility];will share my note with him today. Appointment 06/24/2023 4.Long-term current use of proton pump inhibitor therapy 5.GERD (gastroesophageal reflux disease) Patient is currently taking 40 mg pantoprazoleafter dinner. We did discuss proper dosingon anempty stomach. If patient'sbowel regimen is successful between now and next appointment, we will discussreducing to 20 mgdaily. Giventhat patient isosteoporoticon Proliaas well as on long-term PPI use. She will need her vitamin D checked, I have checked [employer] system and this is currently ordered. However, she will also need B12 and magnesium. We will fax these orders to [facility] have completed with her upcominglab appointment. GI follow up in6 weeks, sooner if needed. I have spent 45 minutes in evaluation, education and documentation of this pt in both face to face and non-face to face activities. Problem List/Past Medical History Ongoing Arthritis Basal cell carcinoma of skin Constipation Diarrhea due to drug Excessive gas GERD (gastroesophageal reflux disease) Hypertension Hypothyroid Long-term current use of proton pump inhibitor therapy Rheumatoid arthritis Unintentional weight loss Procedure/Surgical History Colonoscopy (10/01/2022)Laboratory findings data interpretation (06/30/2021)Laboratory findings data interpretation (05/05/2021) Shave biopsy of skin w/ED&C (01/19/2018) Medical records review (03/2017)MRI of abdomen (02/16/2016)Ultrasound--abdomen (12/29/2015)Upper GI endoscopy (11/14/2015)Colonoscopy (06/26/2010)Gallbladder (2005)Cataract (2004)Procedure Medications aspirin(aspirin 81 mg oral delayed release tablet), 81 mg= 1 tab, PO, Daily atorvastatin(atorvastatin 10 mg oral tablet), 10 mg= 1 tab, PO, Daily calcium-vitamin D(Caltrate 600 + D oral tablet), 1 tab, bid denosumab(Prolia) fluorouracil topical(Efudex 5% topical cream), 1 appl, topical, bid fluticasone-salmeterol(Advair Diskus 100 mcg-50 mcg), 1 puff, PO, bid folic acid, 2 mg, Daily hydroxychloroquine(Plaquenil Sulfate 200 mg oral tablet), See Instructions levothyroxine(levothyroxine 75 mcg (0.075 mg) oral tablet), 75 mcg= 1 tab, PO, Daily linaclotide(Linzess 145 mcg oral capsule), 145 mcg= 1 cap, PO, Daily 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(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 2.5 mg oral tablet), 20 mg= 8 tab, PO, q7days metoprolol(Metoprolol Succinate ER 25 mg oral tablet, extended release), 25 mg= 1 tab, PO, Daily multivitamin(Multiple Vitamins oral capsule), 1 cap, PO, Daily pantoprazole(pantoprazole 40 mg oral delayed release tablet), See Instructions polyethylene glycol 3350(MiraLax oral powder for reconstitution), 17 g, PO, Daily, 5 refills predniSONE(predniSONE 5 mg oral tablet), 5 mg= 1 tab, PO, Daily unknown medication(FD Gaurd) wheat dextrin(Benefiber), Daily Allergies NKA Social History Smoking Status Never smoked cigarettes Alcohol - Denies Alcohol Use Substance Abuse - Denies Substance Abuse Tobacco - Denies Tobacco Use Family History Heart failure: Mother and Father. Type II diabetes mellitus: Father. Health Status Family Member(s) Recommendations Health Maintenance Pending(in the next year) OverDue Adult Influenza Vaccine due01/22/23and every 1year Due Adult COVID-19 Vaccination due05/20/23Unknown Frequency Adult Tdap/Td Vaccine due05/20/23Unknown Frequency Lipid Screening due05/20/23Unknown Frequency Medicare Annual Wellness Visit due05/20/23and every 1year Osteoporosis Screening due05/20/23One-time only Pneumococcal Vaccine Older Adults due05/20/23One-time only Shingles Vaccine due05/20/23One-time only Due In Future Body Mass Index not due until05/19/24and every 1year Satisfied(in the past 1 year) Satisfied Body Mass Index on08/30/22.Satisfied by NKECHI Capone Debra Electronic Signature on File CC: Troy Belle MD [address] [place] [id number] * Electronically Reviewed/Signed by: Roro Castaneda PA-C Author Signature Dt/Tm:05/20/2023 03:03 PM Division of Gastroenterology Electronically Reviewed/Signed by: Aidan Padilla MD Cosigner Signature Dt/Tm: 05/20/2023 04:19 PM Division of Gastroenterology [facility] Patient Care team information Care Team Personnel Name: MD Garcia John E Position: Referring DIRECT Member Role: Primary Care Provider Address: Address: [address] [place] [address] [place] [address] [place] Care Team Related Persons Name: RUDY COYLE
--- OUTSIDE RECORDS SUMMARY | 2023-09-30 13:19 | External Medical Summary | Summary of Care ---
Author Name Unknown Organization [facility] Address [address] [place] [address] Phone [phone] Care Team Providers Care Seeing Eye Dog Trainer Name Role Phone Radha SERRA MD, Yamileth Villegas Primary Care Provider [phone] Reason for Visit * Reason Comments Medication Refill Encounter Details Date Type Department Care Team Description 04/13/2023 Refill Family Practice [facility] [address] [place] [address] Yamileth Lerner III, MD [address] [place] [address] Mild persistent asthma without complication Allergies No known active allergiesdocumented as of this encounter (statuses as of 04/15/2023) Medications Medication Sig Dispensed Refills Start Date [...] as of this encounter (statuses as of 04/15/2023) Active Problems Problem Noted Date Atherosclerosis of aorta 11/24/2022 Bronchiectasis 11/24/2022 Atherosclerosis of coronary artery of na tive heart without angina pectoris 11/24/2022 Interstitial pulmonary disease 3 Hypertension 08/26/2022 Constipation 08/26/2022 Gastroesophageal reflux disease 08/26/19 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 factor 07/06/2022 Encounter for long-term (current) use of medications 09/08/2020 Senile osteoporosis 03/05/2020 Mild persistent asthma without complicat ion 03/05/2020 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 10/24/2018 Hypothyroid History of shingles Overview: left upper chest/upper arm History of solitary pulmonary nodule Overview: CT scan 08/2106 documented as of this encounter (statuses as of 04/15/2023) Resolved Problems Problem Noted Date Resolved Date COPD, severity to be determined 03/05/2020 11/03/2021 Mild intermittent asthma with exacerbation 10/0712/14/2018 RA (rheumatoid arthritis) 2022 documented as of this encounter (statuses as of 04/15/2023) Immunizations Name Administration Dates Next Due COVID-19 [...] encounter Miscellaneous Notes * Telephone Encounter - Mary Schumacher RPh - 04/15/2023 5:14 AM EDTSigned Prescriptions: Disp Refills Fluticasone-Salmeterol 100-50 MCG/ACT Inha*180 Ea*1 Sig: INHALE 1 PUFF BY MOUTH TWO TIMES A DAYAuthorizing Provider: YAMILETH LERNER III User: MARY SCHUMACHER- documented in this encounter Plan of Treatment Upcoming Encounters Date Type Specialty Care Team Description 04/20/2023 Immunization Ancillary Sp, Flu Shot Clinic [address] [place] [address] 04/20/2023 Office Visit Family Medicine Yamileth Lerner III, MD [address] [place] [address] 06/27/2023 Imaging Radiology 10/12/2023 Nurse Only Rheumatology Pf, Nurse Rheum [address] [place] [address] Health Maintenance Due Date Last Done Comments [...] D LEVEL ONCE IN A LIFETIME-USE SMARTSET# [id number] Completed 12/30/2020, 12/21/2019 GARDASIL-HPV IMMUNIZATION SERIES Aged [...] asthma documented in this encounter Care Teams Seeing Eye Dog Trainer Relationship Specialty Start Date End Date [place] III, Yamileth Villegas MD [address] [facility] [facility] [address] PCP - General Family Medicine 10/14/17 documented as of this encounter
--- OUTSIDE RECORDS SUMMARY | 2023-09-30 13:19 | External Medical Summary | Continuity of Care Document ---
Author Name Unknown Organization [address] Address [address] [place], [place] [id number] Care Team Providers Care Office Clerk Assistant Name Role Phone Scottie Garcia Primary Care Physician [phone] [id number] Date(s): 06/30/23 - 06/30/[address] [address] [phone] Discharge Disposition: Home or Self Care Attending Physician: AWAIS Castaneda Kelli Jo Referring Physician: AWAIS Castaneda Kelli Jo Allergies, Adverse Reactions, Alerts No Known Allergies Medications Advair Diskus 100 mcg-50 mcg Start: [...] for 3 weeks and then stop, Pharmacy: [facility]/pharmacy #[id number] Start Date: 10/20/18 Status: Ordered FD Gaurd Start: 01/19/18 13:37:00 EDT, FD Gaurd, 2 after dinner Start Date: 01/19/18 Status: Ordered folic acid Start: 01/19/18 13:33:00 EDT, 2 mg =, Daily Start Date: 01/19/18 Status: Ordered levothyroxine 75 mcg (0.075 mg) oral tablet Start: 01/19/18 13:33:00 EDT, 1 tab, PO, Daily Start Date: 01/19/18 Status: Ordered 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 2.5 mg oral tablet [...] until optimal bowel movements are obtained, Pharmacy: [facility]/pharmacy #[id number] Start Date: 12/14/21 Status: Ordered Multiple Vitamins oral capsule Start: 01/19/18 13:36:00 EDT, 1 cap, PO, Daily Start Date: 01/19/18 Status: Ordered pantoprazole 40 mg oral delayed release tablet Start: 08/17/22 10:53:00 EST, See Instructions, Disp# 90 tab, Refills: 3, TAKE ONE TABLET BY MOUTH EVERY DAY, Pharmacy: [facility] Start Date: 08/17/22 Status: Ordered Plaquenil Sulfate 200 mg oral tablet Start: 05/02/19 11:42:00 EDT, See Instructions, 1.5 tabs po daily Start Date: 05/02/19 Status: Ordered predniSONE 5 mg oral tablet Start: 05/02/19 11:43:00 EDT, 1 tab, PO, Daily Start Date: 05/02/19 Status: Ordered Prolia Start: 10/20/18 10:56:00 EDT, 2 times a year Start Date: 10/20/18 Status: Ordered Mental Status 06/30/23 Barriers to Learning one year None evide nt Mandatory Health Literacy Documentation Yes Health Literacy Communication Barriers N ever Primary Language Angolan Problem List Condition Confirmation Course Effective Dates [...] Unintentional weight loss Confirmed Active 1left shoulder Procedures Procedure Date Related Diagnosis Body Site [...] Comp leted Colonoscopy 9 06/26/10 Completed Gallbladder 2005 Completed Cataract 2004 Completed Procedure 10 Completed 1Pathology results: Colon, [...] B12 756 nl. 5Records from GI in [place] reviwed. MRCP, u/s, EGD, and hydrogen breath [...] stomach, biopsied. Normal examined duodenum, 9[facility] in [place], Impression not the full report is mild diverticulosis in sigmoid with repeat colo 5 years recommended. 10left arm Vital Signs Most recent to oldest [Reference Range]: 1 Patient Weight 51.3 kg (06/30/23 3:28 PM) Heart Rate 70 bpm (06/30/23 3:28 PM) Respiratory Rate 16 br/min (06/30/23 3:28 PM) Blood Pressure 116/60mmHg (06/30/23 3:28 PM) Social History Social History Type Response Smoking Status Never smoked cigaret brenda Sex Female Patient Care team information Care Team Personnel Name: MD Radha, Scottie Villegas Position: Referring DIRECT Member Role: Primary Care Provider Address: Address: [address] [place] [address] [place] Care Team Related Persons Name: RUDY COYLE
--- OUTSIDE RECORDS SUMMARY | 2023-09-30 13:19 | External Medical Summary | Summary of Care ---
Author Name Unknown Organization [facility] Address [address] [place] [address] Phone [phone] Care Team Providers Care Blue Leather Sorter Name Role Phone Radha SERRA MD, Scottie Villegas Primary Care Provider [phone] Reason for Visit * Reason Onset Date Comments Advice 04/18/2023 information Encounter Details Date Type Department Care Team Description 04/18/2023 Telephone Rheumatology [facility] [address] [place] [address] Aidan Finn MD [address] [place] [address] Advice (information) Allergies No known active allergiesdocumented [...] Mild persistent asthma without complicat ion 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 Will keep with oral pills for 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. * Telephone Encounter - ABAD Lamb - [...] Immunization Ancillary Sp, Flu Shot Clinic [address] [place] [address] 04/20/2023 Office Visit Family Medicine Scottie Garcia III, MD [address] [place] [address] 06/27/2023 Imaging Radiology 10/12/2023 Nurse Only Rheumatology Pf, Nurse Rheum [address] [place], [place] [address] Health Maintenance Due Date Last Done Comments [...] D LEVEL ONCE IN A LIFETIME-USE SMARTSET# 09889 Completed 12/30/2020, 12/21/2019 GARDASIL-HPV IMMUNIZATION SERIES Aged [...] filedocumented as of this encounter Care Teams Blue Leather Sorter Relationship Specialty Start Date End Date Scottie Garcia III, MD [address] [place] [address], [place] [address] PCP - General Family Medicine 10/14/17 documented as of this encounter
[2023-09-30] MEDS: AMOXICILLIN/CLAVULANATE 875 MG TAB PO SCH (16:59)
[2023-09-30] MEDS: ACETAMINOPHEN 325 MG TAB PO PRN (17:10)
--- NOTE | 2023-09-30 20:24 | Hospitalist Progress Note ---
Date of Service September 30, 2023 Assessment & Plan (1) Chest pain: Plan: Atypical chest pain Likely musculoskeletal secondary to fall Possible bronchitis H/O interstitial lung disease --CTA:No pulmonary embolism. Findings suggestive of chronic interstitial lung disease with a possible component of multifocal pneumonia. --ECHO: Compared to prior echo from 2020, mild RV dilatation and mild pulmonary hypertension now seen, otherwise no significant change. EF 65 to 70%. No left ventricular wall motion abnormality. Mild mitral regurgitation. Normal procalcitonin Troponin x 3 negative Chest pain resolved Saturating well on room air Empirically started on Augmentin PT OT, fall precautions Normocytic anemia Anemia workup reviewed Will start on iron supplements Further workup as outpatient Currently no acute bleeding issues Other chronic conditions: Nonobstructive CAD HTN RA interstitial lung disease-follows with [facility] pulmonology as outpatient--continue home inhalers Rheumatoid arthritis on chronic steroid--continue prednisone, hydroxychloroquine H/O Das's esophagus/GERD--continue PPI Hypothyroidism--continue levothyroxine Mood disorder--continue home medications DVT Px: Heparin SQ CODE STATUS DNR/DNI Admission and Anticipated Discharge Date Admission Date: September 29, 2023 Subjective Patient is seen and examined at bedside Right-sided chest discomfort resolved Denies any nausea, vomiting, abdominal pain, dyspnea Reports ongoing cough with intermittent expectoration No other complaints Family at bedside Review of Systems Review of Systems: All systems reviewed & are unremarkable except as noted in Subjective Physical Exam Physical Exam: Physical Exam: Vitals signs as noted above General Appearance: Thin, frail, elderly, no apparent distress Head: normocephalic, Atraumatic Eyes: normal inspection, EOMI Neck: supple, Trachea midline Respiratory/Chest: Normal breath sounds, CTA, No accessory muscle use Cardiovascular: S1, S2, No murmur Abdomen/GI:Soft, Non tender, Bowel sounds present Extremities/Musculoskeletal:normal inspection, 1+ pedal edema Neurologic/Psych:AAOX3, grossly no focal neurological deficits, decreased hearing Skin: normal color, warm Results & Data Results & Data Vital Signs (Past 12 Hours) Vital Signs Temp Pulse Resp BP Pulse Ox O2 Del Method 09/30/23 19:54 Room Air 09/30/23 19:51 36.9 C 80 18 119/63 94 Room Air 09/30/23 17:00 36.7 C 82 16 123/56 L 97 Room Air 09/30/23 16:48 Room Air Laboratory Results Short CBC 09/30/23 Range/Units 06:34 WBC 8.60 (4.8-10.8) K/ul Hgb 11.2 L (12.0-16.0) g/dl Hct 35.1 L (37.0-47.0) % Plt Count 287 (130-400) K/uL BMP 09/30/23 06:34 Sodium 136 Potassium 3.6 Chloride 102 Carbon Dioxide 29 BUN 10 Creatinine 0.38 L Glucose 85 Calcium 8.4 L Urine 09/30/23 Range/Units 08:50 Urine Color Yellow Urine Appearance Clear (Clear) Urine pH 6.5 (4.5-7.5) Ur Specific [place] > 1.045 H (1.000-1.030) Urine Protein Negative (Negative) Urine Glucose (UA) Negative (Negative)
[2023-09-30] MEDS: HEPARIN SOD 5,000 UNIT/0.5 ML VIAL SQ SCH (21:32)
[2023-10-01 06:26] LABS: BUN Creatinine Ratio 17.6 (10-20); Calcium 8.4 mg/dl (8.6-10.3); Creatinine Clr Calc Pharmacy 60.5 ml/min; Est GFR (African American) 101.6 ml/min; Est GFR (Non-African American) 87.7 ml/min; Potassium 3.9 mmol/L (3.5-5.1)
[2023-10-01 06:30] LABS: Hematocrit (blood only) 32.5 % (37.0-47.0); Hemoglobin 10.8 g/dl (12.0-16.0); Mean Corpuscular Hemoglobin 30.7 pg (25.0-34.0); Mean Corpuscular Hgb Conc 33.2 g/dL (32.0-36.0); Mean Corpuscular Volume 92.3 fL (80.0-100.0); Mean Platelet Volume 10.8 fL (9.4-12.4); Platelet Count 288 K/uL (130-400); RDW Coefficient of Variation 14.8 % (11.5-14.5); RDW Standard Deviation 49.1 fL (36.4-46.3); Red Blood Count 3.52 M/uL (4.20-5.40)
[2023-10-01] MEDS: FERROUS SULFATE 325 MG TAB PO SCH (08:17)
--- NOTE | 2023-10-01 12:36 | Hospitalist Progress Note ---
Date of Service October 01, 2023 Assessment & Plan (1) Chest pain: Plan: Atypical chest pain Likely musculoskeletal secondary to fall Possible bronchitis H/O interstitial lung disease --CTA:No pulmonary embolism. Findings suggestive of chronic interstitial lung disease with a possible component of multifocal pneumonia. --ECHO: Compared to prior echo from 2020, mild RV dilatation and mild pulmonary hypertension now seen, otherwise no significant change. EF 65 to 70%. No left ventricular wall motion abnormality. Mild mitral regurgitation. Normal procalcitonin Troponin x 3 negative Chest pain resolved Saturating well on room air Empirically started on Augmentin--will continue the course PT OT eval Fall precautions Plan to discharge home today Normocytic anemia Anemia workup reviewed Will start on iron supplements Further workup as outpatient Currently no acute bleeding issues Other chronic conditions: Nonobstructive CAD HTN RA interstitial lung disease-follows with [facility] pulmonology as outpatient--continue home inhalers Rheumatoid arthritis on chronic steroid--continue prednisone, hydroxychloroquine H/O Das's esophagus/GERD--continue PPI Hypothyroidism--continue levothyroxine Mood disorder--continue home medications DVT Px: Heparin SQ CODE STATUS DNR/DNI Disposition Home Admission and Anticipated Discharge Date Admission Date: September 29, 2023 Subjective Patient is seen and examined at bedside States feeling tired but otherwise feels well Cough much improved Denies any dyspnea, dizziness, nausea, vomiting, abdominal pain Prefers to be discharged home. No other complaints Review of Systems Review of Systems: All systems reviewed & are unremarkable except as noted in Subjective Physical Exam Physical Exam: Physical Exam: Vitals signs as noted above General Appearance: Thin, frail, elderly, no apparent distress Head: normocephalic, Atraumatic Eyes: normal inspection, EOMI Neck: supple, Trachea midline Respiratory/Chest: Normal breath sounds, CTA, No accessory muscle use Cardiovascular: S1, S2, No murmur Abdomen/GI:Soft, Non tender, Bowel sounds present Extremities/Musculoskeletal:normal inspection, 1+ pedal edema Neurologic/Psych:AAOX3, grossly no focal neurological deficits, decreased hearing Skin: normal color, warm Results & Data Results & Data Vital Signs (Past 12 Hours) Vital Signs Temp Pulse Pulse Resp BP Pulse Ox O2 Del Method 10/01/23 11:00 36.6 C 81 19 115/75 96 Room Air 10/01/23 08:13 Room Air 10/01/23 07:00 37.1 C 73 19 117/63 96 Room Air 10/01/23 05:47 79 10/01/23 02:45 37.1 C 80 17 112/64 96 Room Air Laboratory Results Short CBC 10/01/23 Range/Units 05:34 WBC 8.00 (4.8-10.8) K/ul Hgb 10.8 L (12.0-16.0) g/dl Hct 32.5 L (37.0-47.0) % Plt Count 288 (130-400) K/uL BMP 10/01/23 05:34 Sodium 137 Potassium 3.9 Chloride 103 Carbon Dioxide 30 BUN 9 Creatinine 0.51 L Glucose 83 Calcium 8.4 L
--- NOTE | 2023-10-01 12:46 | Discharge Summary ---
Date of Service October 01, 2023 Admission HPI Per Admitting Provider History obtained from patient, family, and records. Medical history significant for nonobstructive CAD, HTN, mild MR, RA interstitial lung disease, rheumatoid arthritis on chronic steroid Rx,Das's esophagus/GERD, hypothyroidism, mood disorder. Patient fell backwards in her garage yesterday while trying to open a cabinet resulting in head trauma. No LOC, no CP, no SOB. No consultations done. Patient had intermittent achy pleuritic right-sided chest pain today with some shortness of breath. No fever, no chills. Chronic cough symptoms. Denies aspiration. No abdominal pain, no black, no bloody stools. More than 15 pound involuntary weight loss since last year. PCP with depression concerns. Recent outpatient CT abdomen pelvis requested by PCP negative for abdominal pathology. Worsening constellation lung bases noted on imaging. Chest pain improved with aspirin administration at the ER. 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 Admission Exam Per Admitting Provider GENERAL: Comfortable, slightly anxious, pleasant, no respiratory distress SKIN: Normal color, warm HEENT: Bespectacled, [place] palpebral conjunctivae, no ptosis, dry buccal mucosa NECK : Supple, no tenderness CHEST : CTA, no tenderness HEART : RRR, no obvious murmurs ABDOMEN: Some distention, nontender RECTAL : Intact sphincter, brown stool (FOBT negative) EXTREMITIES : Minimal LE swelling, no LE tenderness, no other conspicuous deformities noted NEUROLOGIC : Coherent, no facial asymmetry, no other gross focality Principal Diagnosis Atypical chest pain Mechanical fall Possible bronchitis Discharge Data Allergies Allergy/AdvReac Type Severity Reaction Status Date / Time No Known Allergies Allergy Verified 09/29/23 22:02 Consultations 09/29/23 21:38 ED Decision to Admit Stat Procedures Performed Laboratory Results WBC 8.00 K/ul (4.8-10.8) 10/01/23 05:34 RBC 3.52 M/uL (4.20-5.40) L 10/01/23 05:34 Hgb 10.8 g/dl (12.0-16.0) L 10/01/23 05:34 Hct 32.5 % (37.0-47.0) L 10/01/23 05:34 MCV 92.3 fL (80.0-100.0) 10/01/23 05:34 MCH 30.7 pg (25.0-34.0) 10/01/23 05:34 MCHC 33.2 g/dL (32.0-36.0) 10/01/23 05:34 RDW Std Deviation 49.1 fL (36.4-46.3) H 10/01/23 05:34 RDW Coeff of Chantel 14.8 % (11.5-14.5) H 10/01/23 05:34 Plt Count 288 K/uL (130-400) 10/01/23 05:34 MPV 10.8 fL (9.4-12.4) 10/01/23 05:34 Immature Gran % (Auto) 0.5 % 09/30/23 06:34 Neut % (Auto) 73.3 % 09/30/23 06:34 Lymph % (Auto) 18.1 % 09/30/23 06:34 [place] % (Auto) 5.9 % 09/30/23 06:34 Eos % (Auto) 1.7 % 09/30/23 06:34 Baso % (Auto) 0.5 % 09/30/23 06:34 Reticulocyte % (Auto) 1.26 % (0.50-2.00) 09/29/23 23:59 Neut # (Auto) 6.30 K/uL (1.40-6.50) 09/30/23 06:34 Lymph # (Auto) 1.56 K/uL (1.20-3.40) 09/30/23 06:34 [place] # (Auto) 0.51 K/uL (0.11-0.59) 09/30/23 06:34 Eos # (Auto) 0.15 K/uL (0.00-0.50) 09/30/23 06:34 Baso # (Auto) 0.04 K/uL (0.00-0.20) 09/30/23 06:34 Reticulocyte # 0.050 10^6/uL (0.020-0.100) 09/29/23 23:59 Immature Gran # (Auto) 0.04 K/uL (0.01-0.20) 09/30/23 06:34 ESR 116 mm/hr (0-30) H 09/29/23 23:59 APTT 25 Seconds (21-31) 09/29/23 17:02 PTT Ratio 0.9 09/29/23 17:02 Sodium 137 mmol/L (136-145) 10/01/23 05:34 Potassium 3.9 mmol/L (3.5-5.1) 10/01/23 05:34 Chloride 103 mmol/L (98-107) 10/01/23 05:34 Carbon Dioxide 30 mmol/L (21-32) 10/01/23 05:34 Anion Gap 4 (3-11) 10/01/23 05:34 BUN 9 mg/dl (6-23) 10/01/23 05:34 Creatinine 0.51 mg/dl (0.6-1.2) L 10/01/23 05:34 Est Cr Clr Drug Dosing 60.5 ml/min 10/01/23 05:34 Est GFR ( Amer) 101.6 ml/min 10/01/23 05:34 Est GFR (Non-Af Amer) 87.7 ml/min 10/01/23 05:34 BUN/Creatinine Ratio 17.6 (10-20) 10/01/23 05:34 Glucose 83 mg/dl (70-99(Fasting)) 10/01/23 05:34 Calcium 8.4 mg/dl (8.6-10.3) L 10/01/23 05:34 Magnesium 1.9 mg/dl (1.7-2.4) 09/29/23 19:13 Iron 23 mcg/dl (35-150) L 09/29/23 23:59 Transferrin 149 mg/dl (200-360) L 09/29/23 23:59 Ferritin 204.0 ng/ml (8-388) 09/29/23 23:59 Total Bilirubin 0.4 mg/dl (0.2-1.0) 09/29/23 17:02 AST 28 U/L (13-39) 09/29/23 17:02 ALT 20 U/L (7-52) 09/29/23 17:02 Alkaline Phosphatase 75 U/L (34-104) 09/29/23 17:02 Troponin I High Sens 10.1 pg/ml (0-14) 09/29/23 23:59 C-Reactive Protein 8.36 mg/dl (0-0.5) H 09/29/23 23:59 Total Protein 7.9 gm/dl (6.0-8.3) 09/29/23 17:02 Albumin 3.3 gm/dl (3.4-5.0) L 09/29/23 17:02 Globulin 4.6 gm/dl (2.5-4.0) H 09/29/23 17:02 Albumin/Globulin Ratio 0.7 (0.9-2) L 09/29/23 17:02 Lipase 26 U/L (11-82) 09/29/23 17:02 Vitamin B12 661 pg/ml (180-914) 09/29/23 23:59 Folate > 22.30 ng/ml (>5.38) 09/29/23 23:59 Procalcitonin 0.02 ng/ml (0-0.5) 09/29/23 23:59 TSH 2.236 uIu/ml (0.300-4.500) 09/29/23 23:59 Urine Color Yellow 09/30/23 08:50 Urine Appearance Clear (Clear) 09/30/23 08:50 Urine pH 6.5 (4.5-7.5) 09/30/23 08:50 Ur Specific [place] > 1.045 (1.000-1.030) H 09/30/23 08:50 Urine Protein Negative (Negative) 09/30/23 08:50 Urine Glucose (UA) Negative (Negative) 09/30/23 08:50 Urine Ketones Negative (Negative) 09/30/23 08:50 Urine Blood Negative (Negative) 09/30/23 08:50 Urine Nitrite Negative (Negative) 09/30/23 08:50 Urine Bilirubin Negative (Negative) 09/30/23 08:50 Urine Urobilinogen Negative (Negative) 09/30/23 08:50 Ur Leukocyte Esterase Negative (Negative) 09/30/23 08:50 Lyme Disease Screen Negative (Negative) 09/29/23 23:59 Impressions Chest X-Ray 09/29/23 16:52 SINGLE VIEW CHEST CLINICAL HISTORY: Atypical chest pain. FINDINGS: A PA chest radiograph is compared to study dated 02/28/2019. The heart is top normal for projection noting atherosclerotic calcification of the thoracic aorta. Chronic interstitial/fibrotic lung disease is again noted. There are increasing airspace opacities at both lung bases. No large pleural effusion or pneumothorax is identified. The skeletal structures are osteopenic. The bony thorax is grossly intact. Cholecystectomy clips are seen in the right upper quadrant. IMPRESSION: 1. Again seen are changes of chronic interstitial/fibrotic lung disease. 2. There are increasing airspace opacities at both lung bases. Correlate clinically for evidence of a superimposed pneumonia/aspiration pneumonitis. Radiographic follow-up to resolution is recommended. ACT 112: Negative or not required by law. Electronically signed by: Jamie Jacobs M.D. 09/29/2023 6:[address] 09/29/23 19:12 Exam(s): CT HEAD Without Contrast EXAM: CT Head Without Intravenous Contrast CLINICAL HISTORY: Reason for exam: fall, hit back of head. TECHNIQUE: Axial computed tomography images of the head/brain without intravenous contrast. CTDI is 36.65 mGy and DLP is 624.41 mGy-cm. Automated exposure control was utilized for the study. A dose lowering technique was utilized adhering to the principles of ALARA. COMPARISON: Head CT September 17, 2022 FINDINGS: Brain: No intracranial hemorrhage. Atrophy and chronic microvascular ischemic changes. Ventricles: Unremarkable. Bones/joints: Unremarkable. No fracture. Soft tissues: Unremarkable. Sinuses: Secretions within the sphenoid sinuses. Mastoid air cells: Unremarkable as visualized. IMPRESSION: 1. No acute intracranial abnormality. Electronically signed by: Fabian Jennings MD 09/29/23 20:04 PM Chest CTA 09/29/23 22:13 Exam(s): CTA CHEST IV Amt: 116 ml optiray 320 EXAM: CT Angiography Chest With Intravenous Contrast CLINICAL HISTORY: Reason for exam: r cp. TECHNIQUE: Axial computed tomographic angiography images of the chest with intravenous contrast. CTDI is 9.5 mGy and DLP is 154.9 mGy-cm. Automated exposure control was utilized for the study. A dose lowering technique was utilized adhering to the principles of ALARA. MIP reconstructed images were created and reviewed. COMPARISON: No relevant prior studies available. FINDINGS: Pulmonary arteries: No pulmonary embolism. Aorta: No acute findings. Normal caliber. No dissection. Lungs: Multifocal bilateral consolidative airspace opacities with areas of subpleural interstitial thickening and reticulation. Air bronchograms and peripheral bronchiectasis. Pleural space: Unremarkable. Heart: Unremarkable. Bones/joints: No acute fracture. Chronic compression deformity at T8. Soft tissues: Small hiatal hernia. Lymph nodes: Unremarkable. IMPRESSION: 1. No pulmonary embolism. 2. Findings suggestive of chronic interstitial lung disease with a possible component of multifocal pneumonia. Electronically signed by: Fabian Jennings MD 09/29/23 23:53 PM Ordered Studies 09/29/23 19:12 CT head/brain wo con Stat 09/29/23 22:13 CT angio chest PE protocol Stat Hospital Course (1) Chest pain: Atypical chest pain Likely musculoskeletal secondary to fall Possible bronchitis H/O interstitial lung disease --CTA:No pulmonary embolism. Findings suggestive of chronic interstitial lung disease with a possible component of multifocal pneumonia. --ECHO: Compared to prior echo from 2020, mild RV dilatation and mild pulmonary hypertension now seen, otherwise no significant change. EF 65 to 70%. No left ventricular wall motion abnormality. Mild mitral regurgitation. Normal procalcitonin Troponin x 3 negative Chest pain resolved Saturating well on room air Empirically started on Augmentin--will continue the course PT OT eval Fall precautions Plan to discharge home today Normocytic anemia Anemia workup reviewed Will start on iron supplements Further workup as outpatient Currently no acute bleeding issues Other chronic conditions: Nonobstructive CAD HTN RA interstitial lung disease-follows with [facility] pulmonology as outpatient--continue home inhalers Rheumatoid arthritis on chronic steroid--continue prednisone, hydroxychloroquine H/O Das's esophagus/GERD--continue PPI Hypothyroidism--continue levothyroxine Mood disorder--continue home medications DVT Px: Heparin SQ CODE STATUS DNR/DNI Disposition Home Total Time Total Time Spent Total Time Spent (In Minutes): 56 minutes Discharge Plan Discharge Items Patient Disposition: Home - Self-Care Reason For Visit: CP Discharge Diagnosis: Atypical chest pain Mechanical fall Possible bronchitis Activity: Per Instructions section Exercise/Sports: Gradually increase as tolerated Non-emergency contact: Primary Care Provider Call non-emergency contact if: you have any medication questions, your symptoms worsen, your pain is concerning for you and you have a fever Follow-up/Referrals: Troy Belle MD [Primary Care Provider] - Diet: Heart Healthy Addtl Attending Provider Instructions: Follow-up with your primary care physician Dr. Belle in 1 week -- Complete the antibiotic course Augmentin for 4 more days and stop as p rescribed Seek immediate medical attention if your symptoms reoccur or worsen Please take all medications as instructed on discharge list below. Please call if you have any questions or problems. You can reach a [facility] hospitalist on duty at [facility] 24 hours a day by calling [phone] Pending Studies at Discharge: No Stand-Alone Forms: My [facility], Smoking Cessation Medications and DC Order Prescriptions: New ferrous sulfate 325 mg (65 mg iron) Tablet,Delayed Release (Dr/Ec) 325 mg PO QAM Qty: 30 0RF amoxicillin-pot clavulanate 875-125 mg Tablet 1 tab PO BIDM Qty: 8 0RF Continued metoprolol succinate 25 mg tablet extended release 24 hr 25 mg PO QAM Qty: 90 3RF fluocinonide 0.05 % ointment 1 applic topical BID Qty: 30 0RF Rx Instructions: Apply to areas of the arms twice daily x 2 weeks as needed for flaring. calcium carbonate 600 mg calcium (1,500 mg) tablet 600 mg PO QDL folic acid 1 mg tablet 1 mg PO QAM Patient Comments: hydroxychloroquine 200 mg tablet 300 mg PO QAM levothyroxine 75 mcg tablet 75 mcg PO QAM pantoprazole 40 mg tablet,delayed release (DR/EC) 40 mg PO QAM Qty: 90 prednisone 5 mg tablet 5 mg PO QAM Qty: 135 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 sodium 2.5 mg tablet 20 mg PO WK Qty: 48 Patient Comments: on Mondays fluticasone propion-salmeterol [Wixela Inhub] 100-50 mcg/dose Blister With Device 1 inh INHALATION BID Patient Comments: IF I REMEMBER AT NIGHT I TAKE IT Prolia 60 mg/mL Syringe 60 mg SUBCUT .EVERY 6 MONTHS PRN (Reason: OSTEOPEROSIS) Patient Comments: EVERY 6 MON/DUE SEPTEMBER 28 2022 Rx Instructions: due september trazodone 50 mg tablet 50 mg PO HS atorvastatin 10 mg tablet 10 mg PO QAM multivit with min-folic acid [One-A-Day Women's 50 Plus] 0.4 mg Tablet 1 tab PO QDL aspirin 81 mg tablet,delayed release (DR/EC) 81 mg PO QDL Discharge Orders: Discharge Order (Routine); Ordered 10/01/23 Ordered By: Kenan Teixeira Admission Data Admit Date/Time: 09/29/23 23:16 Attending Provider: Kenan Teixeira Admit Provider: Nuno Roper Primary Care Provider: Troy Belle Other Providers: Nuno Roper
== END 2023-10-01 13:44 | disposition home or self-care (01) ==
LOC: EDINP 16:45 → ED 16:45 → 2S 09-30 16:06

== ENCOUNTER 2024-02-06 10:55 | Inpatient (IN) ==
--- NOTE | 2024-02-06 12:23 | Emergency Department Note ---
Impression & Plan Facial numbness, Acute ear pain ED Provider Note NAME: JERI COYLE AGE: 83 SEX: F : 1940 ARRIVES VIA: Walk-In INFORMANT: Patient, ED PROVIDER(S): Vilma Mc MD CHIEF COMPLAINT: Left-sided ear pain HPI: This is a an 83-year-old female presenting for left-sided ear pain and numbness. Patient notes that she will this morning with excruciating left ear pain. She notes also hurts to swallow. She notes that her left side of her face is currently numb as well from below her left eye. She notes no fevers or chills. She notes no significant change in her routine. She has never had chickenpox or the shingles before. She is vaccinated for shingles. ROS: See above HPI for pertinent positives & negatives. A total of 10 systems reviewed and were otherwise negative. PHYSICAL EXAMINATION: General: resting comfortably in no acute distress Head: Normocephalic and atraumatic Eyes: Normal inspection, extraocular muscles intact, TM obscured by wax Ear, nose, throat: Normal external exam Neck: Normal range of motion Respiratory: lungs clear to auscultation bilaterally Cardiovascular: Regular rate/rhythm, no murmur GI: soft, nontender, no guarding or rebound Extremities: nontender, moves all extremities Neuro: The patient awake and alert, appropriately conversive, no focal deficits, symmetric faces, no motor deficits, slight numbness to lower one third of face on the left, Skin: Warm, dry, and intact MEDICAL DECISION MAKING: This is a 83-year-old female sent for left-sided ear pain/numbness. Consider otitis media, to otitis externa, shingles, intracranial hemorrhage, stroke, ACS. -Blood work is reviewed showing no significant abnormalities. -COVID/flu test negative -CT imaging reveals no acute cranial process -There is significant earwax however after cleaning, able to visualize TM without signs of otitis media. There did appear to be a small vesicle in the ear which could be contributing pain. Overall the ear canals do not appear consistent with otitis externa. -Patient does mention she has continued facial numbness to the left side, now accompanying her entire face. Will admit for further stroke rule out at this time. -Discussed with Dr. Diana, for admission. Differential diagnosis: See above ER treatment provided: See below Diagnostics interpreted by me: ECG: ECG independently interpreted by me with normal sinus rhythm, rate of 79, normal IL, normal QRS, normal QTc, no ST segment elevations consistent with STEMI criteria Cardiac Monitoring: An order was placed for continuous cardiac monitoring. The monitor shows a rate of 72 with sinus rhythm. Laboratory studies: As stated above and show below. Imaging studies: See below. Past Med/Surg History Problem List (Updated 02/06/24 @ 18:49 by Vilma Mc MD) Acute ear pain (Acute) Facial numbness (Acute) Coronary artery calcification Encounter for pre-operative examination Vitamin D deficiency, unspecified (Acute) Pulmonary hypertension (Acute) Palpitations Chest pain PVCs (premature ventricular contractions) Dyspnea on exertion Medical History (Updated 02/06/24 @ 18:49 by iVlma Mc MD) Rheumatoid lung disease Unintentional weight loss OVER THE PAST FEW MONTHS Age related osteoporosis Constipation REASON FOR UPCOMING PROCEDURE SOB (shortness of breath) on exertion ONGOING/NO CHANGE IN BASELINE History of recent fall LAST WEEK/[facility] ED EVAL/ 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 R/T SOME CURRENT MEDICATION / EVAL CONTINUES FOR CAUSE Mitral regurgitation PT DENIES HEART MURMUR History of squamous cell carcinoma History of basal cell carcinoma Asthma WELL CONTROLLED GERD without esophagitis Hiatal hernia Hypothyroidism Surgical History History of left cataract surgery History of right cataract surgery History of colonoscopy History of endoscopy History of cholecystectomy History of cardiac catheterization PT DENIES Family History Unknown Hypertension Father Diabetes Denies family history of Ovarian cancer Breast cancer Colorectal cancer Social History Smoking Status: Never smoker Do You Dip or Chew Tobacco: No; Hx Alcohol Use: Yes Alcohol type: wine Hx Substance Use: No Preferred Language: Iraqi Communication Ability: Effective Environmental Educator Required: No Beliefs That Will Affect Care: None Current Living Situation: Alone and Spouse Feels Safe at Home: Yes Assistive Devices: Cane Allergies Allergies Allergy/AdvReac Type Severity Reaction Status Date / Time No Known Allergies Allergy Verified 02/06/24 14:22 Home Meds Home Medications Medication Instructions Recorded Confirmed folic acid 1 mg tablet 1 mg PO QAM 06/15/19 02/06/24 hydroxychloroquine 200 mg tablet 300 mg PO QAM 06/15/19 02/06/24 levothyroxine 75 mcg tablet 75 mcg PO QAM 06/15/19 02/06/24 pantoprazole 40 mg tablet,delayed 40 mg PO QAM #90 tabs 06/15/19 02/06/24 release prednisone 5 mg tablet 5 mg PO QAM #135 tabs 01/18/20 02/06/24 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 sodium 2.5 mg tablet 20 mg PO WK #48 tabs 04/13/21 02/06/24 denosumab 60 mg/mL subcutaneous 60 mg subcut UD PRN OSTEOPEROSIS 09/24/22 02/06/24 syringe (Prolia) atorvastatin 10 mg tablet 10 mg PO QAM 09/29/23 02/06/24 trazodone 50 mg tablet 50 mg PO HS 09/29/23 02/06/24 albuterol sulfate 2.5 mg/3 mL 2.5 mg continuous nebulization Q4H 02/06/24 02/06/24 (0.083 %) solution for nebulization PRN Wheezing budesonide 1 mg/2 mL suspension 1 mg inhalation QAM 02/06/24 02/06/24 for nebulization Previous Rx's Medication Instructions Recorded fluocinonide 0.05 % topical 1 applic topical BID #30 grams 10/05/22 ointment metoprolol succinate 25 mg 25 mg PO QAM #90 tabs 09/06/23 tablet,extended release 24 hr Results & Data (ED) Vital Signs Vital Signs - 24 hr 02/06/24 10:58 02/06/24 11:54 02/06/24 14:05 Temperature 37 C Temperature Source Temporal Artery Scan Pulse Rate 82 79 Pulse Rate [Apical] 78 Pulse Rate from SpO2 Sensor Respiratory Rate 18 18 Respiratory Effort / Characteristics Non-Labored Non-Labored Spontaneous Respiratory Depth Normal Normal Respiratory Pattern Regular Regular Blood Pressure 122/67 Blood Pressure [Left Arm] Blood Pressure [Right Arm] 135/78 Blood Pressure Mean 85 Blood Pressure Mean [Left Arm] Blood Pressure Mean [Right Arm] 97 Pulse Oximetry 93 98 Oxygen Delivery Method Room Air Room Air Oxygen Flow Rate Sepsis Recent Fever Within 48 Hours No Sepsis New/Unexplained Change in Mental Status N/A Sepsis Action Taken by Nursing No Action Required Oxygen Flow Rate - Titration Pulse Oximetry Post Tiitration 02/06/24 15:54 02/06/24 16:22 02/06/24 16:22 Temperature Temperature Source Pulse Rate 78 Pulse Rate [Apical] 74 Pulse Rate from SpO2 Sensor Respiratory Rate 18 Respiratory Effort / Characteristics Non-Labored Labored Respiratory Depth Normal Respiratory Pattern Regular Blood Pressure Blood Pressure [Left Arm] 133/72 Blood Pressure [Right Arm] Blood Pressure Mean Blood Pressure Mean [Left Arm] 92 Blood Pressure Mean [Right Arm] Pulse Oximetry 93 85 L Oxygen Delivery Method Nasal Cannula Nasal Cannula Oxygen Flow Rate 2 0 Sepsis Recent Fever Within 48 Hours Sepsis New/Unexplained Change in Mental Status Sepsis Action Taken by Nursing Oxygen Flow Rate - Titration 2 Pulse Oximetry Post Tiitration 97 02/06/24 16:30 02/06/24 16:51 02/06/24 17:30 Temperature Temperature Source Pulse Rate 72 78 Pulse Rate [Apical] Pulse Rate from SpO2 Sensor 78 Respiratory Rate 12 15 Respiratory Effort / Characteristics Respiratory Depth Respiratory Pattern Blood Pressure 121/65 Blood Pressure [Left Arm] Blood Pressure [Right Arm] Blood Pressure Mean 81 Blood Pressure Mean [Left Arm] Blood Pressure Mean [Right Arm] Pulse Oximetry 100 100 Oxygen Delivery Method Nasal Cannula Nasal Cannula Oxygen Flow Rate 2 2 Sepsis Recent Fever Within 48 Hours Sepsis New/Unexplained Change in Mental Status Sepsis Action Taken by Nursing Oxygen Flow Rate - Titration Pulse Oximetry Post Tiitration 02/06/24 18:00 02/06/24 18:00 Temperature Temperature Source Pulse Rate 72 Pulse Rate [Apical] Pulse Rate from SpO2 Sensor Respiratory Rate Respiratory Effort / Characteristics Respiratory Depth Respiratory Pattern Blood Pressure 122/61 Blood Pressure [Left Arm] Blood Pressure [Right Arm] Blood Pressure Mean 91 Blood Pressure Mean [Left Arm] Blood Pressure Mean [Right Arm] Pulse Oximetry 100 Oxygen Delivery Method Nasal Cannula Oxygen Flow Rate 2 Sepsis Recent Fever Within 48 Hours Sepsis New/Unexplained Change in Mental Status Sepsis Action Taken by Nursing Oxygen Flow Rate - Titration Pulse Oximetry Post Tiitration Laboratory Data 02/06/24 11:52 07/15/24 11:52 Lab Results 02/06/24 02/06/24 Range/Units 11:52 11:59 WBC 8.46 (4.8-10.8) K/ul RBC 4.24 (4.20-5.40) M/uL Hgb 12.1 (12.0-16.0) g/dl Hct 38.6 (37.0-47.0) % MCV 91.0 (80.0-100.0) fL MCH 28.5 (25.0-34.0) pg MCHC 31.3 L (32.0-36.0) g/dL RDW Std Deviation 55.7 H (36.4-46.3) fL RDW Coeff of Chantel 17.1 H (11.5-14.5) % Plt Count 283 (130-400) K/uL MPV 10.6 (9.4-12.4) fL Immature Gran % (Auto) 0.4 % Neut % (Auto) 74.6 % Lymph % (Auto) 16.2 % [place] % (Auto) 6.5 % Eos % (Auto) 1.7 % Baso % (Auto) 0.6 % Neut # (Auto) 6.32 (1.40-6.50) K/uL Lymph # (Auto) 1.37 (1.20-3.40) K/uL [place] # (Auto) 0.55 (0.11-0.59) K/uL Eos # (Auto) 0.14 (0.00-0.50) K/uL Baso # (Auto) 0.05 (0.00-0.20) K/uL Immature Gran # (Auto) 0.03 (0.01-0.20) K/uL Sodium 134 L (136-145) mmol/L Potassium 3.7 (3.5-5.1) mmol/L Chloride 98 (98-107) mmol/L Carbon Dioxide 30 (21-32) mmol/L Anion Gap 6 (3-11) BUN 19 (6-23) mg/dl Creatinine 0.43 L (0.6-1.2) mg/dl Est Cr Clr Drug Dosing Not Reportable Est GFR ( Amer) 107.5 ml/min Est GFR (Non-Af Amer) 92.7 ml/min BUN/Creatinine Ratio 44.2 H (10-20) Glucose 92 (70-99(Fasting)) mg/dl Calcium 9.1 (8.6-10.3) mg/dl Troponin I High Sens 7.8 (0-14) pg/ml Adenovirus (PCR) Not Detected (NotDetected) B. pertussis DNA (PCR) Not Detected (NotDetected) B.parapertussis DNA PCR Not Detected (NotDetected) C. pneumoniae DNA (PCR) Not Detected (NotDetected) Coronavirus OC43 (PCR) Not Detected (NotDetected) Coronavirus HKU1 (PCR) Not Detected (NotDetected) Coronavirus 229E (PCR) Not Detected (NotDetected) SARS-CoV-2 (PCR) Not Detected (NotDetected) Coronavirus NL63 (PCR) Not Detected (NotDetected) Human Metapneumovir PCR Not Detected (NotDetected) Influenza Type A (PCR) Not Detected (NotDetected) Influenza Type B (PCR) Not Detected (NotDetected) M. pneumoniae (PCR) Not Detected (NotDetected) Parainfluenza 1 (PCR) Not Detected (NotDetected) Parainfluenza 2 (PCR) Not Detected (NotDetected) Parainfluenza 3 (PCR) Not Detected (NotDetected) Parainfluenza 4 (PCR) Not Detected (NotDetected) RSV (PCR) Not Detected (NotDetected) Entero/Rhino (PCR) Not Detected (NotDetected) Group A Strep (PCR) NOT DETECTED (NotDetected) Administered Medications Discontinued Medications Ketorolac Tromethamine (Ketorolac Tromethamine 15 Mg/Ml Vial) 15 mg IV NOW ONE Stop: 02/06/24 14:27 Last Admin: 02/06/24 14:39 Dose: 15 mg Documented By: CHERYL Imaging Data Radiologist's Impression: Head CT 02/06/24 12:23 CT head/brain wo con CLINICAL HISTORY: L facial pain w/ numbness Technique: Contiguous axial CT images of the head were acquired from the base of the skull to the vertex without intravenous contrast administration. Images were viewed in brain, subdural and bone windows. Automated dose lowering techniques and/or adjustment according to patient size were utilized for this exam. Comparison: Comparison is made to CT head 09/29/2023 Findings: Areas of decreased attenuation are present in the periventricular and subcortical white matter bilaterally consistent with small vessel ischemic disease. Generalized cerebral atrophy with commensurate enlargement of the ventricles, sulci, and cisterns is also present. There is no acute intracranial hemorrhage or evidence of acute territorial infarction. No shift of the midline structures, mass effect, or extra-axial abnormalities are shown. Atherosclerotic calcifications are present in the intracranial segments of the internal carotid arteries. Bilateral sphenoid sinus thickening is seen. The orbits appear normal. There are no acute fractures of the calvaria or scalp swelling. Impression: No acute intracranial hemorrhage, no evidence of acute territorial infarction or other acute intracranial disease process. ACT 112: Negative or not required by law. Electronically signed by: Tavo Nelson M.D. 02/06/2024 1:29 PM Chest X-Ray 02/06/24 16:26 SINGLE VIEW CHEST CLINICAL HISTORY: Hypoxia. Crackles on physical examination FINDINGS: An AP, portable, upright chest radiograph is compared to chest x-ray and chest CT dated 09/29/2023. The examination is degraded by portable technique and patient rotation. The heart is enlarged noting atherosclerotic calcification of the thoracic aorta. There is pulmonary vascular congestion. Again seen are findings of chronic interstitial/fibrotic lung disease. There are small pleural effusions with dependent consolidation. No pneumothorax is identified. The skeletal structures are osteopenic. The bony thorax is grossly intact. IMPRESSION: 1. Cardiomegaly with pulmonary vascular congestion. 2. Layering pleural effusions with dependent consolidation. This is superimposed upon changes of chronic interstitial/fibrotic lung disease. Correlate clinically for evidence of a superimposed infectious/inflammatory pneumonitis. Radiographic follow-up to resolution is recommended. ACT 112: Negative or not required by law. Electronically signed by: Jamie Jacobs M.D. 02/06/2024 5:08 PM Discharge Plan Visit Data Chief Complaint: Head Pain Stated Complaint: HEAD/EAR PAIN AND NUMBNESS ED Provider: Vilma Mc Discharge Problem: Facial numbness, Acute ear pain Patient Disposition: Admitted As Inpatient Discharge Instructions Interventions: ED Discharge Assessment Last Done: 02/06/24 18:09 Forms Stand Alone Forms: [employer] Prescriptions Prescriptions: No Action metoprolol succinate 25 mg tablet extended release 24 hr 25 mg PO QAM Qty: 90 3RF fluocinonide 0.05 % ointment 1 applic topical BID Qty: 30 0RF Rx Instructions: Apply to areas of the arms twice daily x 2 weeks as needed for flaring. folic acid 1 mg tablet 1 mg PO QAM Patient Comments: hydroxychloroquine 200 mg tablet 300 mg PO QAM levothyroxine 75 mcg tablet 75 mcg PO QAM pantoprazole 40 mg tablet,delayed release (DR/EC) 40 mg PO QAM Qty: 90 prednisone 5 mg tablet 5 mg PO QAM Qty: 135 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 sodium 2.5 mg tablet 20 mg PO WK Qty: 48 Patient Comments: on Mondays Rx Instructions: Tuesday Prolia 60 mg/mL Syringe 60 mg SUBCUT UD PRN (Reason: OSTEOPEROSIS) Patient Comments: EVERY 6 TUE/DUE SEPTEMBER 28 2022 Rx Instructions: Every 6 months - Pt has not had it for the year 2023 yet. albuterol sulfate 2.5 mg /3 mL (0.083 %) solution for nebulization 2.5 mg continuous nebulization Q4H PRN (Reason: Wheezing) budesonide 1 mg/2 mL suspension for nebulization 1 mg inhalation QAM trazodone 50 mg tablet 50 mg PO HS atorvastatin 10 mg tablet 10 mg PO QAM Referrals Referrals: Troy Belle MD [Primary Care Provider] -
[2024-02-06 12:29] LABS: Basophils # (auto) 0.05 K/uL (0.00-0.20); Basophils % (auto) 0.6 %; Eosinophils # (auto) 0.14 K/uL (0.00-0.50); Eosinophils % (auto) 1.7 %; Hematocrit (blood only) 38.6 % (37.0-47.0); Hemoglobin 12.1 g/dl (12.0-16.0); Immature Granulocytes # (auto) 0.03 K/uL (0.01-0.20); Immature Granulocytes % (auto) 0.4 %; Lymphocytes # (auto) 1.37 K/uL (1.20-3.40); Lymphocytes % (auto) 16.2 %; Mean Corpuscular Hemoglobin 28.5 pg (25.0-34.0); Mean Corpuscular Hgb Conc 31.3 g/dL (32.0-36.0); Mean Platelet Volume 10.6 fL (9.4-12.4); Monocytes # (auto) 0.55 K/uL (0.11-0.59); Monocytes % (auto) 6.5 %; Neutrophils # (auto) 6.32 K/uL (1.40-6.50); Neutrophils % (auto) 74.6 %; Platelet Count 283 K/uL (130-400); RDW Coefficient of Variation 17.1 % (11.5-14.5); RDW Standard Deviation 55.7 fL (36.4-46.3); Red Blood Count 4.24 M/uL (4.20-5.40); White Blood Count 8.46 K/ul (4.8-10.8)
[2024-02-06 12:58] LABS: Anion Gap 6 (3-11); Calcium 9.1 mg/dl (8.6-10.3); Carbon Dioxide 30 mmol/L (21-32); Chloride 98 mmol/L (98-107); Potassium 3.7 mmol/L (3.5-5.1); Sodium 134 mmol/L (136-145)
[2024-02-06 12:59] LABS: Troponin I High Sensitivity 7.8 pg/ml (0-14)
[2024-02-06 13:03] LABS: BUN Creatinine Ratio 44.2 (10-20); Blood Urea Nitrogen 19 mg/dl (6-23); Est GFR (African American) 107.5 ml/min; Est GFR (Non-African American) 92.7 ml/min; Glucose 92 mg/dl (70-99(Fasting))
--- NOTE | 2024-02-06 13:09 | Electrocardiogram Report ---
Test Reason : Blood Pressure : / mmHG Vent. Rate : 079 BPM Atrial Rate : 079 BPM P-R Int : 120 ms QRS Dur : 090 ms QT Int : 374 ms P-R-T Axes : 063 024 016 degrees QTc Int : 428 ms Sinus rhythm with Premature atrial complexes Otherwise normal ECG When compared with ECG of 29-SEP-2023 17:02, No significant change was found Confirmed by Piotr Schafer ([id number]) on 02/06/2024 1:08:40 PM Referred By: REFERRED SELF Confirmed By:Piotr Schafer
--- NOTE | 2024-02-06 13:31 | CT Scan Report ---
CT head/brain wo con CLINICAL HISTORY: L facial pain w/ numbness Technique: Contiguous axial CT images of the head were acquired from the base of the skull to the cam thu without intravenous contrast administration. Images were viewed in brain, subdural and bone [facility] Automated dose lowering techniques and/or adjustment according to patient size were utilized for this exam. Comparison: Comparison is made to CT head 09/29/2023 Findings: Areas of decreased attenuation are present in the periventricular and subcortical white matter bilate rally consistent with small vessel ischemic disease. Generalized cerebral atrophy with commensurate e nlargement of the ventricles, sulci, and cisterns is also present. There is no acute intracranial hem orrhage or evidence of acute territorial infarction. No shift of the midline structures, mass effect, or extra-axial abnormalities are shown. Atherosclerotic calcifications are present in the intracran ial segments of the internal carotid arteries. Bilateral sphenoid sinus thickening is seen. The orbits appear normal. There are no acute fractures o f the calvaria or scalp swelling. Impression: No acute intracranial hemorrhage, no evidence of acute territorial infarction or other acute intracra nial disease process. ACT 112: Negative or not required by law. Electronically signed by: Tavo Nelson M.D. 02/06/2024 1:29 PM
[2024-02-06 14:31] LABS: Adenovirus PCR Not Detected (NotDetected); Bordetella parapertussis PCR Not Detected (NotDetected); Bordetella pertussis PCR Not Detected (NotDetected); Chlamydia pneumoniae PCR Not Detected (NotDetected); Coronavirus 229E PCR Not Detected (NotDetected); Coronavirus CoV-2 (COVID19)PCR Not Detected (NotDetected); Coronavirus HKU1 PCR Not Detected (NotDetected); Coronavirus NL63 PCR Not Detected (NotDetected); Coronavirus OC43PCR Not Detected (NotDetected); Human Metapneumovirus PCR Not Detected (NotDetected); Influenza A PCR Not Detected (NotDetected); Influenza B PCR Not Detected (NotDetected); Mycoplasma pneumoniae PCR Not Detected (NotDetected); Parainfluenza Virus 1 PCR Not Detected (NotDetected); Parainfluenza Virus 2 PCR Not Detected (NotDetected); Parainfluenza Virus 3 PCR Not Detected (NotDetected); Parainfluenza Virus 4 PCR Not Detected (NotDetected); Respiratory Syncytial VirusPCR Not Detected (NotDetected); Rhinovirus/Enterovirus PCR Not Detected (NotDetected)
[2024-02-06] MEDS: KETOROLAC TROMETHAMINE 15 MG/ML VIAL IV ONE (14:39)
--- NOTE | 2024-02-06 15:56 | History & Physical Report ---
Date of Service February 06, 2024 Assessment & Plan (1) Acute ear pain: (2) Herpes zoster oticus: (3) Parotitis: (4) Bronchiectasis: (5) Rheumatoid arthritis: (6) History of IBS: (7) Ulcerative colitis: Plan: 83-year-old female with history of rheumatoid arthritis, IBS/ulcerative colitis on 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, prednisone, Plaquenil, Interstitial pulmonary disease/bronchiectasis/asthma, hypertension, hypothyroidism presenting with left ear pain, left facial numbness with dysphagia this morning. Left ear pain likely secondary to herpes zoster oticus, parotitis Immunocompromised patient on 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, chronic prednisone for RA, ulcerative colitis Initially reporting left lower facial numbness, CT head negative Patient clarified with me that she did not have facial numbness but did have burning sensation on her left methodist, and rest of her lower face Severe left ear pain, burning sensation over the left lower face consistent with possible herpes zoster oticus Physical exam revealed mild edema and tenderness to palpation on the parotid gland area Start IV acyclovir 150 mg every 12 hours, IV Unasyn 3g Every 12 hours History of bronchiectasis, interstitial pulmonary disease, bronchial asthma Denies respiratory symptoms Positive crackles on exam Reported by RN at the ER that patient's O2 sats dropped to 88% while moving, placed on 2 L of oxygen Chest x-ray: The heart is enlarged noting atherosclerotic calcification of the thoracic aorta. There is pulmonary vascular congestion. Again seen are findings of chronic interstitial/fibrotic lung disease. There are small pleural effusions with dependent consolidation. No pneumothorax is identified. The skeletal structures are osteopenic. The bony thorax is grossly intact. 1. Cardiomegaly with pulmonary vascular congestion. 2. Layering pleural effusions with dependent consolidation. This is superimposed upon changes of chronic interstitial/fibrotic lung disease. Correlate clinically for evidence of a superimposed infectious/inflammatory pneumonitis. Radiographic follow-up to resolution is recommended. BioFire negative Will order pulmonology consult will need Aspirin, Lipitor daily for atherosclerosis of the thoracic aorta Hypertension Continue metoprolol History of rheumatoid arthritis Continue prednisone Hold Plaquenil and 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 in light of ongoing infection History of ulcerative colitis, IBS No GI symptoms Hypothyroidism Continue levothyroxine DVT prophylaxis Heparin subcu twice a day Full code as per patient Disposition Admit to [facility] at home plan of care discussed with patient and her daughter in detail and at length all questions answered they are understanding, agreeable, comfortable with the plan of care History of Present Illness Chief Complaint: Left ear pain, left facial numbness, dysphagia which started this morning Primary Care Provider: Troy Belle MD 83-year-old female with history of rheumatoid arthritis, IBS/ulcerative colitis on 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, prednisone, Plaquenil, institutional pulmonary disease/bronchiectasis/asthma, hypertension, hypothyroidism presenting with left ear pain, left facial numbness with dysphagia this morning. Patient was at her usual state of health, until this morning when she woke up with severe left ear pain, associated with left facial numbness and difficulty swallowing. At the ER, patient afebrile, stable vital signs CT head no acute process On exam, patient seen resting bed, sitting up, comfortable, not in distress Reports left ear pain, but no associated hearing loss, tinnitus, discharge. No fevers or chills During my interview, patient clarifies that she did not have numbness over the left side of her face but more of burning sensation in the methodist area and lower side of her face. Had intermittent dysphagia as well No cough, chest pain, shortness of breath, sputum production Allergies Allergy/AdvReac Type Severity Reaction Status Date / Time No Known Allergies Allergy Verified 02/06/24 14:22 Home Medications Medication Instructions Recorded Confirmed Type folic acid 1 mg tablet 1 mg PO QAM 06/15/19 02/06/24 History hydroxychloroquine 200 mg tablet 300 mg PO QAM 06/15/19 02/06/24 History levothyroxine 75 mcg tablet 75 mcg PO QAM 06/15/19 02/06/24 History pantoprazole 40 mg tablet,delayed 40 mg PO QAM #90 tabs 06/15/19 02/06/24 History release prednisone 5 mg tablet 5 mg PO QAM #135 tabs 01/18/20 02/06/24 History 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 sodium 2.5 mg tablet 20 mg PO WK #48 tabs 04/13/21 02/06/24 History denosumab 60 mg/mL subcutaneous 60 mg subcut UD PRN OSTEOPEROSIS 09/24/22 02/06/24 History syringe (Prolia) fluocinonide 0.05 % topical 1 applic topical BID #30 grams 10/05/22 02/06/24 Rx ointment metoprolol succinate 25 mg 25 mg PO QAM #90 tabs 09/06/23 02/06/24 Rx tablet,extended release 24 hr atorvastatin 10 mg tablet 10 mg PO QAM 09/29/23 02/06/24 History trazodone 50 mg tablet 50 mg PO HS 09/29/23 02/06/24 History albuterol sulfate 2.5 mg/3 mL 2.5 mg continuous nebulization Q4H 02/06/24 02/06/24 History (0.083 %) solution for nebulization PRN Wheezing budesonide 1 mg/2 mL suspension 1 mg inhalation QAM 02/06/24 02/06/24 History for nebulization Past Med/Surg History Problem List (Updated 02/06/24 @ 20:46 by Hema Diana MD) Ulcerative colitis History of IBS Rheumatoid arthritis Bronchiectasis Parotitis Herpes zoster oticus Acute ear pain (Acute) Facial numbness (Acute) Coronary artery calcification Encounter for pre-operative examination Vitamin D deficiency, unspecified (Acute) Pulmonary hypertension (Acute) Palpitations Chest pain PVCs (premature ventricular contractions) Dyspnea on exertion Medical History (Updated 02/06/24 @ 20:46 by Hema Diana MD) Rheumatoid lung disease Unintentional weight loss OVER THE PAST FEW MONTHS Age related osteoporosis Constipation REASON FOR UPCOMING PROCEDURE SOB (shortness of breath) on exertion ONGOING/NO CHANGE IN BASELINE History of recent fall LAST WEEK/[place] ED EVAL/ 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 R/T SOME CURRENT MEDICATION / EVAL CONTINUES FOR CAUSE Mitral regurgitation PT DENIES HEART MURMUR History of squamous cell carcinoma History of basal cell carcinoma Asthma WELL CONTROLLED GERD without esophagitis Hiatal hernia Hypothyroidism Surgical History History of left cataract surgery History of right cataract surgery History of colonoscopy History of endoscopy History of cholecystectomy History of cardiac catheterization PT DENIES Family History Unknown Hypertension Father Diabetes Denies family history of Ovarian cancer Breast cancer Colorectal cancer Social History Smoking Status: Never smoker Second Hand Exposure: No; Do You Dip or Chew Tobacco: No; Tobacco Cessation Education Requested by Patient: No Hx Alcohol Use: No Hx Substance Use: No Preferred Language: Iranian Communication Ability: Effective Box Stapler Required: No Beliefs That Will Affect Care: None Current Living Situation: Spouse Current Living Situation Comment: Lives at home with Other Information That Helps Us Care for You: No Feels Safe at Home: Yes Safety Concerns: Feels Safe At This Time Assistive Devices: Cane and Walker Review of Systems Review of Systems: all noted and negative except for above Physical Exam Physical Exam: General- oriented x 3, not in distress, speaks in sentences with no effort or accessory muscle use Head- atraumatic Eyes- PERRL, EOMI, anicteric ENT- oropharynx clear Left ear: No auricular erythema/edema/tenderness Positive for cerumen, no discharge No facial erythema/edema/tenderness/rashes Left parotid gland area: Mild edema, mild tenderness Neck- supple, no JVD, no adenopathy, no thyromegaly; carotids +2/2, no bruits appreciated Lungs- Positive crackles at the bases, no wheezing Heart- normal rate, regular rhythm; no murmur, no gallop, no rub appreciated Abdomen- normal bowel sounds, nondistended, soft, nontender, no masses or hepatosplenomegaly Extremities- no pretibial edema, no calf tenderness; peripheral pulses intact Neuro- alert, oriented x 3; CN 2-12 grossly intact; motor 5/5 bilaterally;sensation 100% on all extremities; no other gross focal neurologic deficits Skin- warm & dry Results & Data Results & Data Vital Signs (Past 12 Hours) Vital Signs Temp Pulse Pulse Resp BP BP Pulse Ox 02/06/24 15:54 78 02/06/24 14:05 78 18 135/78 98 02/06/24 11:54 79 02/06/24 10:58 37 C 82 18 122/67 93 O2 Del Method 02/06/24 15:54 02/06/24 14:05 Room Air 02/06/24 11:54 02/06/24 10:58 Room Air all noted and reviewed including below Code Status & VTE Plan VTE Prophylaxis Plan VTE Prophylaxis will be ordered: Yes
--- NOTE | 2024-02-06 17:10 | XRay Report ---
SINGLE VIEW CHEST CLINICAL HISTORY: Hypoxia. Crackles on physical examination FINDINGS: An AP, portable, upright chest radiograph is compared to chest x-ray and chest CT dated 09/28. The examination is degraded by portable technique and patient rotation. The heart is enlarged noting atherosclerotic calcification of the thoracic aorta. There is pulmonary vascular congestion. A gain seen are findings of chronic interstitial/fibrotic lung disease. There are small pleural effusio ns with dependent consolidation. No pneumothorax is identified. The skeletal structures are osteopeni c. The bony thorax is grossly intact. IMPRESSION: 1. Cardiomegaly with pulmonary vascular congestion. 2. Layering pleural effusions with dependent consolidation. 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 Correlate clinically for evidence of a superimposed infectiou s/inflammatory pneumonitis. Radiographic follow-up to resolution is recommended. ACT 112: Negative or not required by law. Electronically signed by: Jamie Jacobs M.D. 02/06/2024 5:08 PM
--- OUTSIDE RECORDS SUMMARY | 2024-02-06 18:36 | External Medical Summary | Summary of Care ---
Author Name Unknown Organization [facility] Address [address] [place] [address] Phone [phone] Care Team Providers Care Baker Paint Name Role Phone Troy Belle MD Primary Care Provider [phone] Reason for Referral * Medication Prior Authorization - Closed Specialty Diagnoses / Procedures Referred By Tae barton Referred To Contact Diagnoses Bronchiectasis with (acute) exacerbation (HCC) Rj Jamison, [facility] [address] [place] [address] Referral ID Status Reason Start Date Expiration Date Visits Re quested Visits Authorized [id number] Closed [phone] Reason for Visit * Reason Onset Date Comments Medication Refill 01/24/2024 Encounter Details Date Type Department Care Team (Late st Contact Info) Description 01/24/2024 Refill [facility] [address] [facility] [place] [address] [place] CRNP [address] [place] [id number] Bronchiectasis with (acute) exacerbation (HCC) Allergies No known active allergiesdocumented as of this encounter (statuses as of 01/24/2024) Medications Medication Sig Dispensed Refills Start Date End Date Status Multiple Vitamins-Minerals (CENTRUM SILVER 50+WOMEN) TABS Take by mouth. Active Calcium 600 MG Tablet Take 1 Tablet by mouth in the morning. Active Denosumab 60 MG/ML Subcutaneous Solution Prefilled Syringe Inject 60 mg under the skin once. 1 Syringe 12/14/2018 Active metroNIDAZOLE 0.75 % External Cream (Metrocream) APPLY TOPICALLY TO THE FACE DAILY AT BEDTIME DIRECTED 12/28/2021 Active Fluocinonide 0.05 % External Ointment APPLY 1 APPLICATION TO AREAS OF THE ARMS TWICE DAILY X 2 WEEKS NEEDED FOR FLARING. 10/05/2022 Active Aspirin 81 MG Oral Tablet Chewable Take 1 Tablet by mouth in the morning. with food.. 100 Tablet 5 11/24/2022 Active Folic Acid 1 MG Oral Tablet Take 2 Tablets by mouth in the morning. 180 Tablet 4 04/12/2023 Active Hydroxychloroquine Sulfate 200 MG Oral Tablet (Plaquenil) TAKE ONE AND ONE HALF TABLETS BY MOUTH EVERY DAY 135 Tablet 3 06/10/2023 4 Active Pantoprazole Sodium 40 MG Oral Tablet Delayed Release (Protonix) Take 1 tablet by mouth daily 90 Tablet 3 08/24/2023 Active predniSONE 5 MG Oral Tablet (Deltasone) TAKE ONE TABLET BY MOUTH EVERY DAY 90 Tablet 1 09/05/2023 5 Active Atorvastatin Calcium 10 MG Oral Tablet (Lipitor) TAKE ONE TABLET BY MOUTH EVERY DAY 90 Tablet 3 09/05/2023 5 Active Metoprolol Succinate ER 25 MG Oral Tablet Extended Release 24 Hour (toPROL XL) take one tablet by mouth daily in the morning 90 Tablet 3 09/06/2023 Active Ferrous Sulfate 325 (65 Fe) MG Oral Tablet Delayed Release 325 mg orally daily in the morning 30 Tablet 10/01/2023 Active Methotrexate Sodium 2.5 MG Oral TabletIndications: Rheumatoid arthritis involving multiple sites with positive rheumatoid factor (HCC) TAKE 8 TABLETS BY MOUTH ONCE A WEEK 104 Tablet 12/12/2023 Active traZODone HCl 50 MG Oral Tablet (Desyrel) Take 1 Tablet by mouth at bedtime. 30 Tablet 11 12/30/2023 Active Levothyroxine Sodium 75 MCG Oral Tablet (Levoxyl) TAKE 1 TABLET BY MOUTH DAILY AT LEAST 30 MINUTES PRIOR TO FIRST MEAL OF THE DAY OR OTHER MEDICATIONS 100 Tablet 2 12/31/2023 5 Active predniSONE 20 MG Oral Tablet (Deltasone)Indicat ions:Bronchiectasi s with (acute) exacerbation (HCC) Take 1 Tablet by mouth daily for 5 days, THEN 0.5 Tablets daily for 5 days. 8 Tablet 01/18/2024 4 Active Budesonide 1 MG/2ML Inhalation Suspension (Pulmicort)Indicat ions:Bronchiectasi s with (acute) exacerbation (HCC) Inhale 1 mg via nebulizer in the morning. 60 mL 12 01/18/2024 Active Compressor NebulizerIndicatio ns:Bronchiectasis with (acute) exacerbation (HCC) Inhale via nebulizer. Use as directed. 1 Each 1 01/18/2024 Active Azithromycin 250 MG Oral Tablet (Zithromax) Take 2 tabs by mouth on the first day, then 1 tab daily on days two through five 6 Tablet 01/19/2024 4 Active Amoxicillin 500 MG Oral Capsule (Amoxil) Take 1 Capsule by mouth in the morning and 1 Capsule before bedtime. Do all this for 10 days. 20 Capsule 01/19/2024 4 Active Albuterol Sulfate (2.5 MG/3ML) 0.083% Inhalation Nebulization Solution (Proventil)Indicat ions:Bronchiectasi s with (acute) exacerbation (HCC) Inhale 1 Vial via nebulizer every 4 hours as needed for Wheezing. 120 mL 1 01/24/2024 Active Albuterol Sulfate (2.5 MG/3ML) 0.083% Inhalation Nebulization Solution (Proventil)Indicat ions:Bronchiectasi s with (acute) exacerbation (HCC) Inhale 1 Vial via nebulizer every 4 hours as needed for Wheezing. 120 mL 1 01/18/2024 4 Discontinue d(Refill) documented as of this encounter (statuses as of 01/24/2024) Active Problems Problem Noted Date Diagnosed Date Loss of weight 01/18/2024 Ulcerative colitis without complications 024 Irritable bowel syndrome with diarrhea Bronchiectasis with (acute) exacerbation 023 Interstitial pulmonary disease 10/29/2022 HTN, goal below 140/90 08/26/2022 Gastroesophageal reflux disease without esophagi tis 08/26/2022 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 factor 07/06/2022 Senile osteoporosis 03/05/2020 Mild persistent asthma without complication 02/22 Acquired hypothyroidism documented as of this encounter (statuses as of 01/24/2024) Resolved Problems Problem Noted Date Diagnosed Date Resolved Date Atherosclerosis of aorta 11/24/202202/2023 Atherosclerosis of coronary artery of [place] heart without angina pectoris 11/24/2022 07/01/2023 Constipation 08/26/2022 07/01/2023 Encounter for long-term (cur rent) use of medications 09/08/2020 07/01/2023 COPD, severity to be determined 03/05/2020 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 Never true 06/17/2023 Childcare Answer Date Recorded Do you feel overwhelmed with taking care of a child, family member or friend? No 06/17/2023 Does your family need help f inding childcare? (Household - for ages 0-17 years) Not on file 06/17/2023 Clothing Answer Date Recorded Have you been unable to get clothing when it was really needed? No 06/17/2023 Is your family able to get c lothes or diapers when needed? (Household - for ages 0-17 years) Not on file 06/17/2023 Personal Safety Answer Date Recorded Do you feel unsafe or have concerns for your saf ety? No 06/17/2023 Do you have concerns for you r family's safety? (Household - for ages 0-17 years) Not on file 06/17/2023 Utilities Answer Date Recorded Do you have trouble paying y our heating, water, or electric bill? No 06/17/2023 Is your family able to pay t he heat, water, or electric bill? (Household - for ages 0-17 years) Not on file 06/17/2023 Does your family have access to good internet? (Household - for ages 0-17 years) Not on file 06/17/2023 Employment Status Answer Date Recorded Are you unemployed or without regular income? No 06/17/2023 Does the household have a re gular source of income? (Household - for ages 0-17 years) Not on file 06/17/2023 Social Connections Answer Date Recorded How often do you feel lonely or isolated from th ose around you? Rarely 06/17/2023 Financial Resource Strain Answer Date R ecorded Do you have any trouble payi ng for your medications, or do you think you might in the future? No 06/17/2023 Does your family have troubl e paying for medicine? (Household - for ages 0-17 years) Not on file 06/17/2023 Transportation Needs Answer Date Record ed READ ONLY Do you have troubl e getting a ride to medical visits or work? Never True 06/17/2023 Does your family have a hard time getting a ride to doctors visits? (Household - for ages 0-17 years) Not on file 06/17/2023 Has lack of transportation k ept you from medical appointments, meetings, work, or from getting things needed for daily living? Check all that apply. (Adult - for ages 18 years and over) Not on file 06/17/2023 Do you (or your family) have trouble finding or paying for a ride (transportation)? (Household - for ages 0-17 years) Not on file 06/17/2023 Housing Stability Answer Date Recorded Do you currently live in a s helter or have no steady place to sleep at night? No 06/17/2023 READ ONLY Do you think you a re at risk of becoming homeless? No 06/17/2023 Does your family worry about paying for your home or becoming homeless? (Household - for ages 0-17 years) Not on file 1 08/17/2022 Are you homeless or worried that you might be in the future? (Adult - for ages 18 years and over) Not on file Are you (or your family) meghan eless or worried that you might be in the future? (Household - for ages 0-17 years) Not on file Food Insecurity Answer Date Recorded Do you need food for this week? No 06/17/2023 Are you able to get enough f ood for your family? (Household - for ages 0-17 years) Not on file 06/17/2023 Does your family need food t his week? (Household - for ages 0-17 years) Not on file 06/17/2023 Do you always have enough fo od for your family? (Household - for ages 0-17 years) Not on file 06/17/2023 Sex and Gender Information Value Date Recorded Sex Assigned at Female 03/14/2022 10:47 AM EDT Gender Identity Female 03/14/2022 10:47 AM EDT Sexual Orientation Straight 03/14/2022 10 :47 AM EDT Job Start Date Occupation Industry Not on file Not on file Not on file documented as of this encounter Miscellaneous Notes * Telephone Encounter - Rj Jamison [facility] - 01/24/2024 3:01 PM EDTSigned Prescriptions: Disp Refills Albuterol Sulfate (2.5 MG/3ML) 0.083% Inha*120 mL 1 Sig: Inhale 1 Vial via nebulizer every 4 hours as needed for Wheezing.Authorizing Provider: CAITLIN PARK User: RJ WALDEN documented in this encounter Plan of Treatment Health Maintenance Due Date Last Done Comments Depression Screening 11/03/2022 11/03/2021 COVID-19 Vaccine (2022- season) 2023 04/29/2023, 11/11/2021, 03/24/2021, Additional history exists Influenza Vaccine (FLU shot) (#1) 2024 04/21/2023, 04/26/2022, 04/21/2021, Additional history exists TSH 07/26/2024 07/26/2023, 07/0 01/2023, 12/21/2022, Additional history exists DXA Scan 06/27/2025 06/27/2023, 12/10/2022, 12/16/2020, Additional history exists Albumin/Creatinine Ratio 11/24/2025 11/24/2022 DTaP,Tdap,and Td Vaccines (2 - Td or Tdap) 03/16/2030 03/16/2020 Pneumococcal Vaccine: 65+ Years Completed 05/10/2016, 05/02/2015, 05/23/2002 Zoster Vaccines Completed 01/08/2020, 08/28/2019 VITAMIN D LEVEL ONCE IN A LIFETIME-USE SMARTSET# [id number] Completed 07/26/2023, 12/30/2020, 12/21/2019 GARDASIL-HPV IMMUNIZATION SERIES [...] as of this encounter Visit Diagnoses Diagnosis Bronchiectasis with (acute) exacerbation (HCC) documented in this encounter Care Teams Baker Paint Relationship Specialty Start Date End Date Troy Belle MD [address] [place] [address] PCP - General Family Medicine 07/01/23 documented as of this encounter
--- OUTSIDE RECORDS SUMMARY | 2024-02-06 18:36 | External Medical Summary | Summary of Care ---
Author Name Unknown Organization [facility] Address [address] [place] [address] Phone [phone] Care Team Providers Care Student Outreach Coordinator Name Role Phone Troy Belle MD Primary Care Provider [phone] Reason for Visit * Reason Onset Date Comments Test Results 01/18/2024 XR CHEST 2 VIEWS Encounter Details Date Type Department Care Team (Late st Contact Info) Description 01/18/2024 Telephone Family Practice [facility] [address] [place] [address] Caitlin Ash CRNP [address] [place] [address] Test Results (XR CHEST 2 VIEWS) Allergies No known active allergiesdocumented as of this encounter (statuses as of 01/19/2024) Medications Medication Sig Dispensed Refills Start Date [...] DAY 135 Tablet 3 06/10/2023 06/09/2024 Active Pantoprazole Sodium 40 MG Oral Tablet Delayed Release (Protonix) Take 1 tablet by mouth daily 90 Tablet 3 08/24/2023 Active predniSONE 5 MG Oral Tablet (Deltasone) TAKE ONE TABLET BY MOUTH EVERY DAY 90 Tablet 1 09/05/2023 09/04/2024 Active Atorvastatin Calcium 10 MG Oral Tablet (Lipitor) TAKE ONE TABLET BY MOUTH EVERY DAY 90 Tablet 3 09/05/2023 09/04/2024 Active Metoprolol Succinate ER 25 MG Oral Tablet Extended Release 24 Hour (toPROL XL) take one tablet by mouth daily in the morning 90 Tablet 3 09/06/2023 Active Ferrous Sulfate 325 (65 Fe) MG Oral Tablet Delayed Release 325 mg orally daily in the morning 30 Tablet 10/01/2023 Active Methotrexate Sodium 2.5 MG Oral TabletIndications:R [...] OR OTHER MEDICATIONS 100 Tablet 2 12/31/2023 12/30/2024 Active predniSONE 20 MG Oral Tablet (Deltasone)Indicati ons:Bronchiectasis with (acute) exacerbation (HCC) Take 1 Tablet by mouth daily for 5 days, THEN 0.5 Tablets daily for 5 days. 8 Tablet 01/18/2024 01/28/2024 Active Albuterol Sulfate (2.5 MG/3ML) 0.083% Inhalation Nebulization Solution (Proventil)Indicati ons:Bronchiectasis with (acute) exacerbation (HCC) Inhale 1 Vial via nebulizer every 4 hours as needed for Wheezing. 120 mL 1 01/18/2024 Active Budesonide 1 MG/2ML Inhalation Suspension (Pulmicort)Indicati ons:Bronchiectasis with (acute) exacerbation (HCC) Inhale 1 mg via nebulizer in the morning. 60 mL 12 01/18/2024 Active Compressor NebulizerIndication s:Bronchiectasis with (acute) exacerbation (HCC) Inhale via nebulizer. Use as directed. 1 Each 1 01/18/2024 Active Azithromycin 250 MG Oral Tablet (Zithromax) Take 2 tabs by mouth on the first day, then 1 tab daily on days two through five 6 Tablet 01/19/2024 01/24/2024 Active Amoxicillin 500 MG Oral Capsule (Amoxil) Take 1 Capsule by mouth in the morning and 1 Capsule before bedtime. Do all this for 10 days. 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 (Household - for ages [...] encounter Miscellaneous Notes * Telephone Encounter - Stephanie Cuadra, MED ASSIST - 01/19/2024 2:10 PM EDT Faxed order again. * Telephone Encounter - Rebeca Bui PHARM Tech - 01/19/2024 1:38 PM EDT Pt's ec called stating that [facility]'s power was out early and they did not receive the order for the nebulizer, asking if it can be resent sent, they are currently at [facility] right now, please advise Thank you, Rebeca Bui,[facility] [employer] Glass Technician [facility] 01/19/2024, 1:39 PM * Telephone Encounter - Kelly Pearl LPN - 01/19/2024 12:53 PM EDT Order faxed to [facility]. Waiting for return call from pt. * Telephone Encounter - Stephanie Cuadra MED ASSIST - 01/19/2024 7:50 AM EDT message left for patient to call back. * Telephone Encounter - Caitlin Ash CRNP - 01/19/2024 6:59 AM EDT X ray confirms that scarring of lungs is progressed with possible pneumonia. Recommend starting antibiotics. Patient family requested an antibiotic that will not make her sick. There is no guarantee.Recommend that she take azithromycin and amoxicillin. I sent to pharmacy this am Please fax order for nebulizer to [facility]. Da, AMBER, TRACI [facility] * Telephone Encounter - Doris Almendarez TECH - 01/18/2024 8:46 PM EDT Aury- The radiologist discovered an unexpected or indeterminate finding on Shanna Melgar ([id number]) and asks that you review the following report. Study Type:XR CHEST 2 VIEWS Date of Study: 01/18/2024 IMPRESSION Chronic interstitial lung disease, increased. Mild ground-glass opacities could reflect a superimposed acute process. Please respond to this encounter to acknowledge receipt of this message and take responsibility to ensure this report is reviewed. Thank you, VAHE Chanel Client Service Rep [facility] [place] documented in this encounter Plan of Treatment Health Maintenance Due Date Last Done Comments Depression Screening 11/03/2022 11/03/2021 COVID-19 Vaccine ( season) 2023 04/29/2023, 11/11/2021, 03/24/2021, Additional history exists TSH 07/26/2024 07/26/2023, 0701/2023, 12/21/2022, Additional history exists DXA Scan 06/27/2025 06/27/2023, 10/2022, 12/16/2020, Additional history exists Albumin/Creatinine Ratio 11/24/2025 11/24/2022 DTaP,Tdap,and Td Vaccines (2 - Td or Tdap) 03/16/2030 03/16/2020 Pneumococcal Vaccine: 65+ Years Completed 05/10/2016, 05/02/2015, 05/23/2002 Zoster Vaccines Completed 01/08/2020, 08/28/2019 Influenza Vaccine (FLU shot) Completed , 04/26/2022, 04/21/2021, Additional history exists VITAMIN D LEVEL ONCE IN A LIFETIME-USE SMARTSET# [id number] Completed 07/26/2023, 12/30/2020, 12/21/2019 GARDASIL-HPV IMMUNIZATION SERIES [...] filedocumented as of this encounter Care Teams Student Outreach Coordinator Relationship Specialty Start Date End Date Troy Belle MD [address] [place] [address] PCP - General Family Medicine 07/01/23 documented as of this encounter
--- OUTSIDE RECORDS SUMMARY | 2024-02-06 18:36 | External Medical Summary | Summary of Care ---
Author Name Unknown Organization [facility] Address [address] [place] [address] Phone [phone] Care Team Providers Care Bobbin Loose End Finder Name Role Phone Troy Belle MD Primary Care Provider [phone] Reason for Referral * Medication Prior Authorization - Pending Review Specialty Diagnoses / Procedures Referred By Tae barton Referred To Contact Diagnoses Bronchiectasis with (acute) exacerbation (HCC) Caitlin Ash CRNP [address] [place] [address] Referral ID Status Reason Start Date Expiration Date V isits Requested Visits Authorized [id number] Pending Review [phone] Reason for Visit * Reason Comments Acute Rattling cough over 1 mo, worse at night and when waking up. Encounter Details Date Type Department Care Team (Latest Contact Info) Description 01/18/2024 4:00 PM EDT Office Visit Family Practice [facility] [address] [place] [address] Caitlin Ash CRNP [address] [place] [address] Bronchiectasis with (acute) exacerbation (HCC)*; Interstitial pulmonary disease (HCC); Loss of weight; HTN, goal below 140/90; Ulcerative colitis without complications, unspecified location (HCC); Senile osteoporosis Allergies No known active allergiesdocumented as of this encounter (statuses as of 01/18/2024) Medications Medication Sig Dispensed Refills Start Date [...] the morning. 180 Tablet 4 04/12/2023 Active Hydroxychloroquin e Sulfate 200 MG Oral Tablet (Plaquenil) TAKE ONE AND ONE HALF TABLETS BY MOUTH EVERY DAY 135 Tablet 3 06/10/2023 06/09/20 24 Active Pantoprazole Sodium 40 MG Oral Tablet Delayed Release (Protonix) Take 1 tablet by mouth daily 90 Tablet 3 08/24/2023 Active predniSONE 5 MG Oral Tablet (Deltasone) TAKE ONE TABLET BY MOUTH EVERY DAY 90 Tablet 1 09/05/2023 09/04/19 25 Active Atorvastatin Calcium 10 MG Oral Tablet (Lipitor) TAKE ONE TABLET BY MOUTH EVERY DAY 90 Tablet 3 09/05/2023 09/04/19 25 Active Metoprolol Succinate ER 25 MG Oral Tablet Extended Release 24 Hour (toPROL XL) take one tablet by mouth daily in the morning 90 Tablet 3 09/06/2023 Active Ferrous Sulfate 325 (65 Fe) MG Oral Tablet Delayed Release 325 mg orally daily in the morning 30 Tablet 10/01/2023 Active Methotrexate Sodium 2.5 MG Oral TabletIndications :Rheumatoid arthritis involving multiple sites with positive rheumatoid [...] OR OTHER MEDICATIONS 100 Tablet 2 12/31/2023 12/31/19 25 Active predniSONE 20 MG Oral Tablet (Deltasone)Indica tions:Bronchiecta sis with (acute) exacerbation (HCC) Take 1 Tablet by mouth daily for 5 days, THEN 0.5 Tablets daily for 5 days. 8 Tablet 01/18/2024 01/28/20 24 Active Albuterol Sulfate (2.5 MG/3ML) 0.083% Inhalation Nebulization Solution (Proventil)Indica tions:Bronchiecta sis with (acute) exacerbation (HCC) Inhale 1 Vial via nebulizer every 4 hours as needed for Wheezing. 120 mL 1 01/18/2024 Active Budesonide 1 MG/2ML Inhalation Suspension (Pulmicort)Indica tions:Bronchiecta sis with (acute) exacerbation (HCC) Inhale 1 mg via nebulizer in the morning. 60 mL 12 01/18/2024 Active Compressor NebulizerIndicati ons:Bronchiectasi s with (acute) exacerbation (HCC) Inhale via nebulizer. Use as directed. 1 Each 1 01/18/2024 Active Fluticasone-Salme terol 100-50 MCG/ACT Inhalation Aerosol Powder Breath Activated (Advair Diskus)Indication s:Mild persistent asthma without complication INHALE 1 PUFF BY MOUTH TWO TIMES A DAY 180 Each 1 09/06/2023 01/18/20 24 Discontinued Amoxicillin-Pot Clavulanate 875-125 MG Oral Tablet (Augmentin) 1 tab orally twice daily with meals 8 Tablet 10/01/2023 01/18/20 24 Discontinued Hospital, Clinic, or Other Facility Administered Medication Ordered Dose Route Frequency Start Date End Date Status Albuterol Sulfate (Proventil) (2.5 MG/3ML) 0.083% inhalation solution 2.5 mgIndications:Bronchiec tasis with (acute) exacerbation (HCC) 2.5 mg NEBULIZER ONCE 01/18/2024 01/18/2024 Ended documented as of this encounter (statuses as of 01/18/2024) Active Problems Problem Noted Date Diagnosed Date [...] as of this encounter (statuses as of 01/18/2024) Resolved Problems Problem Noted Date Diagnosed Date Resolved Date Atherosclerosis of aorta 11/24/202202/2023 Atherosclerosis of coronary artery of [place] heart without angina pectoris 11/24/2022 07/01/2023 Constipation 08/26/2022 07/01/2023 Encounter for long-term (cur rent) use of medications 09/08/2020 07/01/2023 COPD, severity to be determined 03/05/2020 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 10/24/2018 07/01/2023 Mild intermittent asthma with exacerbation 10/07/2017 12/14/2018 RA (rheumatoid arthritis) History of shingles 07/01/20 Overview: left upper chest/upper arm History of solitary pulmonary nodule 07/01/2023 Overview: CT scan 08/2106 documented as of this encounter (statuses as of 01/18/2024) Immunizations Name Administration Dates Next Due COVID-19 [...] Sign Reading Time Taken Comments Blood Pressure 118/70 01/18/2024 3:49 PM EDT Pulse 84 01/18/2024 3:49 PM EDT Temperature 37.1 C (98.7 F) 01/18/2024 3:49 PM ED T Respiratory Rate - - Oxygen Saturation 97% 01/18/2024 3:49 PM EDT Inhaled Oxygen Concentration - - Weight 40.2 kg (88 lb 11.2 oz) 01/18/2024 3:49 P M EDT Height - - Body Mass Index 16.22 09/13/2023 11:40 AM EST documented in this encounter Progress Notes * Caitlin Ash CRNP - 01/18/2024 3:42 PM EDT Acute Family Medicine Visit CC: Chief Complaint Patient presents with Acute Rattling cough over 1 mo, worse at night and when waking up. History of Present Illness: Shanna Melgar is a 83 year old female presenting with rattling cough for over 1 month. Worse at night and when waking up. This started 1 month ago with no apparent trigger. -fever, t max - -chills -sweats +decreased appetite +tolerating fluids -congestion -loss of taste or smell -runny nose --PND -ear pain -sore throat -blurred vision -eye discharge +cough +productive of mucous +sob +wheezing -nausea -diarrhea -constipation -vomiting -body aches -Rash -Sleep disruption Tries to use advair but feels like she can not use it very well. Social History Socioeconomic History Marital status: Spouse name: Not on file Number of children: Not on file Years of education: Not on file Highest education level: Not on file Occupational History Not on file Tobacco Use Smoking status: Never Smokeless tobacco: Never Vaping Use Vaping status: Never Used Substance and Sexual Activity Alcohol use: Yes Comment: Glass of wine every once in awhile Drug use: No Sexual activity: Not on file Other Topics Concern Not on file Social History Narrative Not on file Social Determinants of Health Financial Resource Strain: Low Risk (06/17/2023) Financial Resource Strain Do you have any trouble paying for your medications, or do you think you might in the future? (Adult - for ages 18 years and over): No Does your family have trouble paying for medicine? (Household - for ages 0-17 years): Not on file Food Insecurity: No Food Insecurity (06/17/2023) Food Insecurity Do you need food for this week? (Adult - for ages 18 years and over): No Are you able to get enough food for your family? (Household - for ages 0-17 years): Not on file Does your family need food this week? (Household - for ages 0-17 years): Not on file Do you always have enough food for your family? (Household - for ages 0-17 years): Not on file Transportation Needs: No Transportation Needs (06/17/2023) Transportation Needs Do you have trouble getting a ride to medical visits or work? (Adult - for ages 18 years and over):Never True Does your family have a hard time getting a ride to doctors visits? (Household - for ages 0-17 years): Not on file Has lack of transportation kept you from medical appointments, meetings, work, or from getting things needed for daily living? Check all that apply. (Adult - for ages 18 years and over): Not on file Do you (or your family) have trouble finding or paying for a ride (transportation)? (Household - for ages 0-17 years): Not on file Social Connections: Socially Integrated (06/17/2023) Social Connections How often do you feel lonely or isolated from those around you? (Adult - for ages 18 years and over): Rarely Housing Stability: Low Risk (06/17/2023) Housing Stability Do you currently live in a retirement or have no steady place to sleep at night? (Adult - for ages 18 years and over): No Do you think you are at risk of becoming homeless? (Adult - for ages 18 years and over): No Does your family worry about paying for your home or becoming homeless? (Household - for ages 0-17 years): Not on file Are you homeless or worried that you might be in the future? (Adult - for ages 18 years and over): Not on file Are you (or your family) homeless or worried that you might be in the future? (Household - for ages0-17 years): Not on file PMH: Past Medical History: Diagnosis Date Fracture, radius [...] FX W/FIXATION age 38 REMOVE GALLBLADDER laproscopic Current Outpatient Medications Medication Sig Dispense Refill Levothyroxine Sodium 75 MCG Oral Tablet (Levoxyl) TAKE 1 TABLET BY MOUTH DAILY AT LEAST 30 MINUTES PRIOR TO FIRST MEAL OF THE DAY OR OTHER MEDICATIONS 100 Tablet 2 Methotrexate Sodium 2.5 MG Oral Tablet TAKE 8 TABLETS BY MOUTH ONCE A WEEK 104 Tablet 0 Metoprolol Succinate ER 25 MG Oral Tablet Extended Release 24 Hour (toPROL XL) take one tablet by mouth daily in the morning 90 Tablet 3 Fluticasone-Salmeterol 100-50 MCG/ACT Inhalation Aerosol Powder Breath Activated (Advair Diskus) INHALE 1 PUFF BY MOUTH TWO TIMES A DAY 180 Each 1 Atorvastatin Calcium 10 MG Oral Tablet (Lipitor) TAKE ONE TABLET BY MOUTH EVERY DAY 90 Tablet 3 Hydroxychloroquine Sulfate 200 MG Oral Tablet (Plaquenil) TAKE ONE AND ONE HALF TABLETS BY MOUTH EVERY DAY 135 Tablet 3 Folic Acid 1 MG Oral Tablet Take 2 Tablets by mouth in the morning. 180 Tablet 4 traZODone HCl 50 MG Oral Tablet (Desyrel) Take 1 Tablet by mouth at bedtime. 30 Tablet 11 Ferrous Sulfate 325 (65 Fe) MG Oral Tablet Delayed Release 325 mg orally daily in the morning 30 Tablet 0 predniSONE 5 MG Oral Tablet (Deltasone) TAKE ONE TABLET BY MOUTH EVERY DAY 90 Tablet 1 Pantoprazole Sodium 40 MG Oral Tablet Delayed Release (Protonix) Take 1 tablet by mouth daily 90 Tablet 3 Aspirin 81 MG Oral Tablet Chewable Take 1 Tablet by mouth in the morning. with food.. 100 Tablet 5 Fluocinonide 0.05 % External Ointment APPLY 1 APPLICATION TO AREAS OF THE ARMS TWICE DAILY X 2 WEEKS NEEDED FOR FLARING. metroNIDAZOLE 0.75 % External Cream (Metrocream) APPLY TOPICALLY TO THE FACE DAILY AT BEDTIME DIRECTED Denosumab 60 MG/ML Subcutaneous Solution Prefilled Syringe Inject 60 mg under the skin once. 1 Syringe 0 Calcium 600 MG Tablet Take 1 Tablet by mouth in the morning. Multiple Vitamins-Minerals (CENTRUM SILVER 50+WOMEN) TABS Take by mouth. No current facility-administered medications for this visit. Review of patient's allergies indicates: No Known Allergies Most Recent Immunizations Administered Date(s) Administered COVID-19 mRNA, LNP-s, No Preserve, 2-Dose Series (Moderna) 03/24/2021 COVID-19, MRNA-LNP, 23-24, PF, 50 MCG/0.5 mL, 12 YRS AND ABOVE, IM (MODERNA- Spikevax) 04/29/2023 COVID-19, mRNA, LNP-s, PF, Booster, 100mcg/0.5mg (Moderna) 11/11/2021 PPD 02/14/2018 Pneumococcal Conjugate Vacc, 13 Valent (Prevnar) 05/02/2015 Pneumococcal Polysaccharide PPV23 (Pneumovax) 05/10/2016 Season Influenza, Quad, PF, Adjuvanted, 65+ Yrs, IM (FLUAD) 04/05/2020 Seasonal Influenza Virus Vaccine, Unspecified Formulation 05/01/2018 Seasonal Influenza, Quadrivalent Hd (Fluzone Hd) 04/21/2023 Seasonal Influenza, Quadrivalent, No Preserve, IM 05/01/2018 Seasonal Influenza, Trivalent, High Dose, No Preserve, IM 04/26/2022 TDAP (age 10 and older)(Boostrix) 03/16/2020 Zoster Vaccine Recombinant (Shingrix) 01/08/2020 Physical Exam: Filed Vitals: 01/18/24 1549 BP: 118/70 Pulse: 84 Temp: 37.1 C (98.7 F) SpO2: 97% Weight: 40.2 kg (88 lb 11.2 oz) Physical Exam Constitutional: Comments: cachectic HENT: Head: Normocephalic. Cardiovascular: Rate and Rhythm: Normal rate and regular rhythm. Pulmonary: Effort: Pulmonary effort is normal. Breath sounds: Examination of the right-upper field reveals rhonchi. Examination of the left-upper field reveals rhonchi. Examination of the right-middle field reveals rhonchi. Examination of the right-lower field reveals rhonchi. Examination of the left-lower field reveals rhonchi. Decreased breath sounds and rhonchi present. Comments: Inspiratory crackles bll Neurological: Mental Status: She is alert and oriented to person, place, and time. Assessment and Plan: 1. Bronchiectasis with (acute) exacerbation (HCC) With cough x 1 month Difficulty inhaling advair Stop advair Add prednisone taper Add albuterol neb tid Add budesonide once daily Add nebulizer Aeration exchange improved with albuterol neb in room - predniSONE 20 MG Oral Tablet (Deltasone); Take 1 Tablet by mouth daily for 5 days, THEN 0.5 Tablets daily for 5 days. Dispense: 8 Tablet; Refill: 0 - Albuterol Sulfate (Proventil) (2.5 MG/3ML) 0.083% inhalation solution 2.5 mg - Albuterol Sulfate (2.5 MG/3ML) 0.083% Inhalation Nebulization Solution (Proventil); Inhale 1 Vialvia nebulizer every 4 hours as needed for Wheezing. Dispense: 120 mL; Refill: 1 - Budesonide 1 MG/2ML Inhalation Suspension (Pulmicort); Inhale 1 mg via nebulizer in the morning. Dispense: 60 mL; Refill: 12 - XR CHEST 2 VIEWS 2. Interstitial pulmonary disease (HCC) Secondary to RA 3. Loss of weight 88 lbs Add ensure bid Suspected related to pulmonary disease 4. HTN, goal below 140/90 stable I have advised the patient to call our office incase of any worsening or new symptoms. I spent a total of 40-54 minutes (exact time 55 mins) on the date of service in preparation, delivery, and documentation of the care provided to Shanna Melgar excluding any time spent in the performance of separately billed services. Da, AMBER, TRACI [facility] documented in this encounter Nursing Notes * Demario Chilel MED ASSIST - 01/18/2024 3:48 PM EDT The patient has been properly identified by confirmation of name and date of . Chief Complaint Patient presents with Acute Rattling cough over 1 mo, worse at night and when waking up. documented in this encounter Plan of Treatment Pending Results Name Type Priority Associated Diagnoses Date /Time XR CHEST 2 VIEWS Medical Imaging STAT Bronchiectasis with (acute) exacerbation (HCC) 01/18/2024 4:55 PM EDT Health Maintenance Due Date Last Done Comments Depression Screening 11/03/2022 11/03/2021 COVID-19 Vaccine (2022- season) 2023 04/29/2023, 11/11/2021, 03/24/2021, Additional history exists TSH 07/26/2024 07/26/2023, 07/0 01/2023, 12/21/2022, Additional history exists DXA Scan 06/27/2025 06/27/2023, 1210/2022, 12/16/2020, Additional history exists Albumin/Creatinine Ratio 11/24/2025 11/24/2022 DTaP,Tdap,and Td Vaccines (2 - Td or Tdap) 03/16/2030 03/16/2020 Pneumococcal Vaccine: 65+ Years Completed 05/10/2016, 05/02/2015, 05/23/2002 Zoster Vaccines Completed 01/08/2020, 08/28/2019 Influenza Vaccine (FLU shot) Completed , 04/26/2022, 04/21/2021, Additional history exists VITAMIN D LEVEL ONCE IN A LIFETIME-USE SMARTSET# [id number] Completed 07/26/2023, 12/30/2020, 12/21/2019 GARDASIL-HPV IMMUNIZATION SERIES [...] Visit Diagnoses Diagnosis Bronchiectasis with (acute) exacerbation (HCC)- Primary Interstitial pulmonary disease (HCC) Postinflammatory pulmonary fibrosis Loss of weight HTN, goal below 140/90 Unspecified essential hypertension Ulcerative colitis without complications, unspecified location (HCC) Senile osteoporosis documented in this encounter Administered Medications Inactive Administered Medications - up to 3 most recent administrations Medication Order MAR Action Action Date Dose Rate Site Albuterol Sulfate (Proventil) (2.5 MG/3ML) 0.083% inhalation solution 2.5 mg 2.5 mg, Nebulizer, ONCE, On Tue01/18/24 at 1645, For 1 dose Given 01/18/2024 4:33 PM EDT 2.5 mg documented in this encounter Care Teams Bobbin Loose End Finder Relationship Specialty Start Date End Date Troy Belle MD [address] [place] [address] PCP - General Family Medicine 07/01/23 documented as of this encounter
--- OUTSIDE RECORDS SUMMARY | 2024-02-06 18:36 | External Medical Summary | Summary of Care ---
Author Name Unknown Organization [facility] Address [address] [place] [address] Phone [phone] Care Team Providers Care Email Production Specialist Name Role Phone Troy Belle MD Primary Care Provider [phone] [phone] Reason for Visit * Reason Onset Date Comments Medication Pre-auth 01/19/2024 COMPRESSOR N EBULIZER SYSTEM Encounter Details Date Type Department Care Team (Late st Contact Info) Description 01/19/2024 Telephone Family Practice [facility] [address] [place] [address] Caitlin Ash CRNP [address] [place] [address] Medication Pre-auth (COMPRESSOR NEBULIZER ... Allergies No known active allergiesdocumented as of [...] aorta 11/24/202202/2023 Atherosclerosis of coronary artery of [place] heart without angina pectoris 11/24/2022 07/01/2023 Constipation [...] - Stephanie Cuadra, MED ASSIST - 01/19/2024 8:31 AM EDT Faxed. * Telephone Encounter - Catalino Cabezas CPhT - 01/19/2024 8:13 AM EDT Patients insurance would like to inform the office that COMPRESSOR NEBULIZER SYSTEM is pending Request would need to be submitted to [employer] as DME [employer] Phone: Fax: Online: [employer]/categories Thank you, Ulises Cabezas (gasoline tractor operator) Financial Project Manager III [facility] 01/19/2024, 8:13 AM documented in this encounter Plan of Treatment [...] D LEVEL ONCE IN A LIFETIME-USE SMARTSET# [id number] Completed 07/26/2023, 12/30/2020, 12/21/2019 GARDASIL-HPV IMMUNIZATION SERIES [...] filedocumented as of this encounter Care Teams Email Production Specialist Relationship Specialty Start Date End Date Troy Belle MD [address] [place] [address] PCP - General Family Medicine 07/01/23 documented as of this encounter
--- OUTSIDE RECORDS SUMMARY | 2024-02-06 18:36 | External Medical Summary | Summary of Care ---
Author Name Unknown Organization [facility] Address [address] [place] [address] Phone [phone] Care Team Providers Care Hard Rock Miner Blasting Name Role Phone Troy Belle MD Primary Care Provider [phone] [phone] Reason for Visit * Reason Onset Date Comments Appointment 01/18/2024 Encounter Details Date Type Department Care Team (Late st Contact Info) Description 01/18/2024 Telephone Family Practice [facility] [address] [place] [address] Caitlin Ash CRNP [address] [place] [address] Appointment Allergies No known active allergiesdocumented as [...] the morning 90 Tablet 3 09/06/2023 Active Amoxicillin-Pot Clavulanate 875-125 MG Oral Tablet (Augmentin) 1 tab orally twice daily with meals 8 Tablet 10/01/2023 Active Ferrous Sulfate 325 (65 Fe) MG [...] MEDICATIONS 100 Tablet 2 12/31/2023 12/30/2024 Active documented as of this encounter (statuses [...] aorta 11/24/202202/2023 Atherosclerosis of coronary artery of [place] heart without angina pectoris 11/24/2022 07/01/2023 Constipation 08/26/2022 07/01/2023 Encounter for long-term (cur rent) use of medications 09/08/2020 07/01/2023 COPD, severity to be determined 03/05/2020 11/03/2021 long-term 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 user 10/24/2018 07/01/2023 Mild intermittent asthma [...] encounter Miscellaneous Notes * Telephone Encounter - Gabbi Escalera MED ASSIST - 01/18/2024 10:44 AM EDT Called patient, unable to reach left message to return call, or look at MyG messages. Patient is scheduled today with Migel Ash at 4 PM. We were reaching out to see if she was able to come in any earlier (around 12- 2PM, or any earlier than her appt time) If she can, great! If not, we will see at her original scheduled time. Please DO NOT cancel her 4 PM appt, we are just asking if she is able to come in earlier. MyG message sent as well. documented in this encounter Plan of Treatment Upcoming Encounters Date Type Department Care Team (Late st Contact Info) Description 01/18/2024 4:00 PM EDT Office Visit Family Practice [facility] [address] [place] [address] Caitlin Ash CRNP [address] [place] [address] Health Maintenance Due Date Last Done Comments [...] D LEVEL ONCE IN A LIFETIME-USE SMARTSET# [id number] Completed 07/26/2023, 12/30/2020, 12/21/2019 GARDASIL-HPV IMMUNIZATION SERIES [...] filedocumented as of this encounter Care Teams Hard Rock Miner Blasting Relationship Specialty Start Date End Date Troy Belle MD [address] [place] [address] PCP - General Family Medicine 07/01/23 documented as of this encounter
--- OUTSIDE RECORDS SUMMARY | 2024-02-06 18:36 | External Medical Summary | Summary of Care ---
Author Name Unknown Organization [facility] Address [address] [place] [address] Phone [phone] Care Team Providers Care Infant Nanny Name Role Phone Troy Belle MD Primary Care Provider [phone] [phone] Reason for Visit * Reason Onset Date Comments Medication Pre-auth 01/19/2024 COMPRESSOR N EBULIZER SYSTEM Encounter Details Date Type Department Care Team (Late st Contact Info) Description 01/19/2024 Telephone Family Practice [facility] [address] [place] [address] Caitlin Ash CRNP [address] [place] [address] Medication Pre-auth (COMPRESSOR NEBULIZER ... [...] aorta 11/24/202202/2023 Atherosclerosis of coronary artery of [place] heart without angina pectoris 11/24/2022 07/01/2023 Constipation 08/26/2022 07/01/2023 Encounter for long-term (cur rent) use of medications 09/08/2020 07/01/2023 COPD, severity to be determined 03/05/2020 11/03/2021 nursing home 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 user 10/24/2018 07/01/2023 Mild intermittent [...] Miscellaneous Notes * Telephone Encounter - Gabbi Pelayo OSA - 01/19/2024 2:14 PM EDT [facility] called regarding an order received for pt's nebulizer. They stated due to pt's insurance, order must be sent through by our facility first. Informed her the clinic is aware and faxed order to today. * Telephone Encounter - Stephanie Cuadra MED ASSIST - 01/19/2024 8:31 AM EDT Faxed. * Telephone Encounter - Catlaino Cabezas CPhT - 01/19/2024 8:13 AM EDT Patients insurance would like to inform the office that COMPRESSOR NEBULIZER SYSTEM is pending Request would need to be submitted to [employer] as DME [employer] Phone: Fax: Online: [employer]/categories Thank you, Ulises Cabezas (Brissa) Assault Amphibious Vehicle Officer III [facility] 01/19/2024, 8:13 AM documented in this encounter Plan of Treatment Health Maintenance Due Date Last Done Comments Depression Screening 11/03/2022 11/03/2021 COVID-19 Vaccine ( season) 2023 04/29/2023, 11/11/2021, 03/24/2021, Additional history exists TSH 07/26/2024 07/26/2023, 01/2023, 12/21/2022, Additional history exists DXA Scan 06/27/2025 06/27/2023, 10/2022, 12/16/2020, Additional history exists Albumin/Creatinine Ratio 11/24/2025 11/24/2022 DTaP,Tdap,and Td Vaccines (2 - Td or Tdap) 03/16/2030 03/16/2020 Pneumococcal Vaccine: 65+ Years Completed 05/10/2016, 05/02/2015, 05/23/2002 Zoster Vaccines Completed 01/08/2020, 08/28/2019 Influenza Vaccine (FLU shot) Completed , 04/26/2022, 04/21/2021, Additional history exists VITAMIN D LEVEL ONCE IN A LIFETIME-USE SMARTSET# [id number] Completed 07/26/2023, 12/30/2020, 12/21/2019 GARDASIL-HPV IMMUNIZATION SERIES [...] filedocumented as of this encounter Care Teams Infant Nanny Relationship Specialty Start Date End Date Troy Belle MD [address] [place] [address] PCP - General Family Medicine 07/01/23 documented as of this encounter
--- OUTSIDE RECORDS SUMMARY | 2024-02-06 18:37 | External Medical Summary | Summary of Care ---
Author Name Unknown Organization [facility] Address [address] [place] [address] Phone [phone] Care Team Providers Care Leather Etcher Name Role Phone Troy Belle MD Primary Care Provider [phone] Reason for Visit * Reason Comments Medication Refill Encounter Details Date Type Department Care Team (Late st Contact Info) Description 01/03/2024 Refill Rheumatology [facility] [address] [place] [address] Aidan Finn MD [address] [place] [place] [address] Rheumatoid arthritis involving multiple sites with positive rheumatoid factor (HCC) Allergies No known active allergiesdocumented as of this encounter (statuses as of 01/04/2024) Medications Medication Sig Dispensed Refills Start Date [...] as of this encounter (statuses as of 01/04/2024) Active Problems Problem Noted Date Diagnosed Date Irritable bowel syndrome with diarrhea Bronchiectasis 11/24/2022 Interstitial pulmonary disease 10/29/2022 HTN, goal below 140/90 08/26/2022 Gastroesophageal reflux disease without esophagi tis 08/26/2022 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 factor 07/06/2022 Senile osteoporosis 03/05/2020 Mild persistent asthma without complication 02/22 Acquired hypothyroidism documented as of this encounter (statuses as of 01/04/2024) Resolved Problems Problem Noted Date Diagnosed Date Resolved Date Atherosclerosis of aorta 11/24/202202/2023 Atherosclerosis of coronary artery of [place] heart without angina pectoris 11/24/2022 07/01/2023 Constipation [...] as of this encounter (statuses as of 01/04/2024) Immunizations Name Administration Dates Next Due COVID-19 [...] encounter Miscellaneous Notes * Telephone Encounter - Hira Bell two - 01/04/2024 9:08 AM EDTRefused Prescriptions: Disp Refills Methotrexate Sodium 2.5 MG Oral Tablet 104 Ta*0 Sig: TAKE 8 TABLETS BY MOUTH ONCE A WEEKRefused By: HIRA BELLReason for Refusal: Duplicate Request documented in this encounter Plan of Treatment Health Maintenance Due Date Last Done Comments Depression Screening 11/03/2022 11/03/2021 COVID-19 Vaccine ( - 2022-24 season) 2023 04/29/2023, 11/11/2021, 03/24/2021, Additional history [...] D LEVEL ONCE IN A LIFETIME-USE SMARTSET# [id number] Completed 07/26/2023, 12/30/2020, 12/21/2019 GARDASIL-HPV IMMUNIZATION SERIES [...] (HCC) documented in this encounter Care Teams Leather Etcher Relationship Specialty Start Date End Date Troy Belle MD [address] [place] [address] PCP - General Family Medicine 07/01/23 documented as of this encounter
--- OUTSIDE RECORDS SUMMARY | 2024-02-06 18:37 | External Medical Summary | Summary of Care ---
Author Name Unknown Organization [facility] Address [address] [place] [address] Phone [phone] Care Team Providers Care Detail Manager Name Role Phone Brisa Del Valle MD Primary Care Provider [phone] Reason for Visit * Reason Comments Medication Refill Encounter Details Date Type Department Care Team (Late st Contact Info) Description 12/30/2023 Refill Family Practice [facility] [address] [facility] [place] [id number] Brisa Del Valle MD [address] [facility] [place] [id number] Allergies No known active allergiesdocumented as of this encounter (statuses as of 12/31/2023) Medications Medication Sig Dispensed Refills Start Date [...] DAY 180 Each 1 09/06/2023 5 Active Metoprolol Succinate ER 25 MG [...] MEDICATIONS 100 Tablet 2 12/31/2023 5 Active Levothyroxine Sodium 75 MCG Oral Tablet (Levoxyl) TAKE 1 TABLET BY MOUTH DAILY AT LEAST 30 MINUTES PRIOR TO FIRST MEAL OF THE DAY OR OTHER MEDICATIONS 100 Tablet 3 11/30/2022 4 Discontinue d(Refill) documented as of this encounter (statuses as of 12/31/2023) Active Problems Problem Noted Date Diagnosed Date Irritable bowel syndrome with diarrhea 3 Bronchiectasis 11/24/2022 Interstitial pulmonary disease 10/29/2022 HTN, goal below 140/90 08/26/2022 Gastroesophageal reflux disease without esophagi tis 08/26/2022 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 factor 07/06/2022 Senile osteoporosis 03/05/2020 Mild persistent asthma without complication 02/22 Acquired hypothyroidism documented as of this encounter (statuses as of 12/31/2023) Resolved Problems Problem Noted Date Diagnosed Date Resolved Date Atherosclerosis of aorta 11/24/202202/2023 Atherosclerosis of coronary artery of [place] heart without angina pectoris 11/24/2022 07/01/2023 Constipation 08/26/2022 07/01/2023 Encounter for long-term (cur rent) use of medications 09/08/2020 07/01/2023 COPD, severity to be determined 03/05/2020 11/03/2021 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 user 10/24/2018 07/01/2023 Mild intermittent asthma with exacerbation 10/07/2017 12/14/2018 RA (rheumatoid arthritis) History of shingles 07/01/20 23 Overview: left upper chest/upper arm History of solitary pulmonary nodule 07/01/2023 Overview: CT scan 08/2106 documented as of this encounter (statuses as of 12/31/2023) Immunizations Name Administration Dates Next Due COVID-19 [...] encounter Miscellaneous Notes * Telephone Encounter - Karolina Lui, [facility] - 12/31/2023 8:29 AM EDTSigned Prescriptions: Disp Refills Levothyroxine Sodium 75 MCG Oral Tablet (L*100 Ta*2 Sig: TAKE 1TABLET BY MOUTH DAILY AT LEAST 30 MINUTES PRIOR TO FIRST MEAL OF THE DAY OR OTHER MEDICATIONSAuthorizing Provider: BRISA DEL VALLE User: KAROLINA LUI documented in this encounter Plan of Treatment Health Maintenance Due Date Last Done Comments Depression Screening 11/03/2022 11/03/2021 COVID-19 Vaccine (2022- season) 2023 04/29/2023, 11/11/2021, 03/24/2021, Additional history exists TSH 07/26/2024 07/26/2023, 0 01/2023, 12/21/2022, Additional history exists DXA Scan 06/27/2025 06/27/2023, 10/2022, 12/16/2020, Additional history exists Albumin/Creatinine Ratio 11/24/2025 11/24/2022 DTaP,Tdap,and Td Vaccines (2 - Td or Tdap) 03/16/2030 03/16/2020 Pneumococcal Vaccine: 65+ Years Completed 05/10/2016, 05/02/2015, 05/23/2002 Zoster Vaccines Completed 01/08/2020, 08/28/2019 Influenza Vaccine (FLU shot) Completed , 04/26/2022, 04/21/2021, Additional history exists VITAMIN D LEVEL ONCE IN A LIFETIME-USE SMARTSET# [id number] Completed 07/26/2023, 12/30/2020, 12/21/2019 GARDASIL-HPV IMMUNIZATION SERIES [...] filedocumented as of this encounter Care Teams Detail Manager Relationship Specialty Start Date End Date Brisa Del Valle MD [address] [place] [address] PCP - General Family Medicine 07/01/23 documented as of this encounter
--- OUTSIDE RECORDS SUMMARY | 2024-02-06 18:37 | External Medical Summary | Summary of Care ---
Author Name Unknown Organization [facility] Address [address] [place] [address] Phone [phone] Care Team Providers Care Grease Man Name Role Phone Troy Belle MD Primary Care Provider [phone] [phone] Reason for Visit * Reason Onset Date Comments Advice 01/06/2024 Encounter Details Date Type Department Care Team (Late st Contact Info) Description 01/06/[address] [facility] [address] [facility] [address] Troy Belle MD [address] [facility] [place] [address] Advice Allergies No known active allergiesdocumented as of this encounter (statuses as of 01/06/2024) Medications Medication Sig Dispensed Refills Start Date [...] as of this encounter (statuses as of 01/06/2024) Active Problems Problem Noted Date Diagnosed Date Irritable bowel syndrome with diarrhea Bronchiectasis 11/24/2022 Interstitial pulmonary disease 10/29/2022 HTN, goal below 140/90 08/26/2022 Gastroesophageal reflux disease without esophagi tis 08/26/2022 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 factor 07/06/2022 Senile osteoporosis 03/05/2020 Mild persistent asthma without complication 02/22 Acquired hypothyroidism documented as of this encounter (statuses as of 01/06/2024) Resolved Problems Problem Noted Date Diagnosed Date Resolved Date Atherosclerosis of aorta 11/24/202202/2023 Atherosclerosis of coronary artery of [place] heart without angina pectoris 11/24/2022 07/01/2023 Constipation 08/26/2022 07/01/2023 Encounter for long-term (cur rent) use of medications 09/08/2020 07/01/2023 COPD, severity to be determined 03/05/2020 11/03/2021 halfway 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 user 10/24/2018 07/01/2023 Mild intermittent asthma with exacerbation 10/07/2017 12/14/2018 RA (rheumatoid arthritis) History of shingles 07/01/20 Overview: left upper chest/upper arm History of solitary pulmonary nodule 07/01/2023 Overview: CT scan 08/2106 documented as of this encounter (statuses as of 01/06/2024) Immunizations Name Administration Dates Next Due COVID-19 [...] encounter Miscellaneous Notes * Telephone Encounter - Lisa Garcia LPN - 01/06/2024 4:40 PM EDT Myg documented in this encounter Plan of Treatment Upcoming Encounters Date Type Department Care Team (Late st Contact Info) Description 01/09/2024 2:00 PM EDT Office Visit Rheumatology [address] [place] [address] Tyson Crowell PA-C [address] [place] [address] Health Maintenance Due Date Last Done Comments [...] D LEVEL ONCE IN A LIFETIME-USE SMARTSET# [id number] Completed 07/26/2023, 12/30/2020, 12/21/2019 GARDASIL-HPV IMMUNIZATION SERIES [...] filedocumented as of this encounter Care Teams Grease Man Relationship Specialty Start Date End Date Troy Belle MD [address] [place] [address] PCP - General Family Medicine 07/01/23 documented as of this encounter
--- OUTSIDE RECORDS SUMMARY | 2024-02-06 18:37 | External Medical Summary | Summary of Care ---
Author Name Unknown Organization [facility] Address [address] [place] [address] Phone [phone] Care Team Providers Care Armature Varnisher Name Role Phone Troy Belle MD Primary Care Provider [phone] Reason for Visit * Reason Comments Medication Refill Encounter Details Date Type Department Care Team (Late st Contact Info) Description 01/02/2024 Refill Rheumatology [facility] [address] [facility] [address] Aidan Finn MD [address] [place] [address] Rheumatoid arthritis involving multiple sites with positive rheumatoid factor (HCC) Allergies No known active allergiesdocumented as of this encounter (statuses as of 01/03/2024) Medications Medication Sig Dispensed Refills Start Date [...] as of this encounter (statuses as of 01/03/2024) Active Problems Problem Noted Date Diagnosed Date Irritable bowel syndrome with diarrhea Bronchiectasis 11/24/2022 Interstitial pulmonary disease 10/29/2022 HTN, goal below 140/90 08/26/2022 Gastroesophageal reflux disease without esophagi tis 08/26/2022 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 factor 07/06/2022 Senile osteoporosis 03/05/2020 Mild persistent asthma without complication 02/22 Acquired hypothyroidism documented as of this encounter (statuses as of 01/03/2024) Resolved Problems Problem Noted Date Diagnosed Date Resolved Date Atherosclerosis of aorta 11/24/202202/2023 Atherosclerosis of coronary artery of [place] heart without angina pectoris 11/24/2022 07/01/2023 Constipation 08/26/2022 07/01/2023 Encounter for long-term (cur rent) use of medications 09/08/2020 07/01/2023 COPD, severity to be determined 03/05/2020 11/03/2021 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 10/24/2018 07/01/2023 Mild intermittent asthma with exacerbation 10/07/2017 12/14/2018 RA (rheumatoid arthritis) History of shingles 07/01/20 Overview: left upper chest/upper arm History of solitary pulmonary nodule 07/01/2023 Overview: CT scan 08/2106 documented as of this encounter (statuses as of 01/03/2024) Immunizations Name Administration Dates Next Due COVID-19 [...] Miscellaneous Notes * Telephone Encounter - Jelly Story, [facility] - 01/03/2024 10:25 AM EDTRefused Prescriptions: Disp Refills Methotrexate Sodium 2.5 MG Oral Tablet 104 Ta*0 Sig: TAKE 8 TABLETS BY MOUTH ONCE A WEEK Refused By: JELLY STORY Reason for Refusal: Too soon Reason for Refusal Comment: 3 month supply sent last month. pt needs appt * Telephone Encounter - Hira Bell stefano - 01/02/2024 4:55 PM EDTPending Prescriptions: Disp Refills Methotrexate Sodium 2.5 MG Oral Tablet 104 Ta*0 Sig: TAKE 8 TABLETS BY MOUTH ONCE A WEEK * Telephone Encounter - Hira Bell [facility] - 01/02/2024 4:54 PM EDT Did you pend patient's preferred pharmacy and medication before forwarding?yes Pharmacy: [facility] Pending Prescriptions: Disp Refills Methotrexate Sodium 2.5 MG Oral Tablet 104 Ta*0 Sig: TAKE 8 TABLETS BY MOUTH ONCE A WEEK Last Visit: 04/12/2023 (in office), 12/18/2019 (telemedicine) Next Visit: Visit date not found [...] D LEVEL ONCE IN A LIFETIME-USE SMARTSET# [id number] Completed 07/26/2023, 12/30/2020, 12/21/2019 GARDASIL-HPV IMMUNIZATION SERIES [...] (HCC) documented in this encounter Care Teams Armature Varnisher Relationship Specialty Start Date End Date Troy Belle MD [address] [place] [address] PCP - General Family Medicine 07/01/23 documented as of this encounter
--- OUTSIDE RECORDS SUMMARY | 2024-02-06 18:37 | External Medical Summary | Summary of Care ---
Author Name Unknown Organization [facility] Address [address] [place] [address] Phone [phone] Care Team Providers Care Needlemaker Name Role Phone Brisa Del Valle MD Primary Care Provider [phone] [phone] Reason for Visit * Reason Comments Medication Refill Encounter Details Date Type Department Care Team (Late st Contact Info) Description 12/29/[address] [facility] [address] [facility] [place] [id number] Brisa Del Valle MD [address] [facility] [place] [id number] Allergies No known active allergiesdocumented as of this encounter (statuses as of 12/30/2023) Medications Medication Sig Dispensed Refills Start Date [...] MEDICATIONS 100 Tablet 3 11/30/2022 4 Active Folic Acid 1 MG Oral [...] at bedtime. 30 Tablet 11 12/30/2023 Active traZODone HCl 50 MG Oral Tablet (Desyrel) Take 1 Tablet by mouth at bedtime. 30 Tablet 5 07/01/2023 4 Discontinue d(Refill) documented as of this encounter (statuses as of 12/30/2023) Active Problems Problem Noted Date Diagnosed Date Irritable bowel syndrome with diarrhea 3 Bronchiectasis 11/24/2022 Interstitial pulmonary disease 10/29/2022 HTN, goal below 140/90 08/26/2022 Gastroesophageal reflux disease without esophagi tis 08/26/2022 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 factor 07/06/2022 Senile osteoporosis 03/05/2020 Mild persistent asthma without complication 02/22 Acquired hypothyroidism documented as of this encounter (statuses as of 12/30/2023) Resolved Problems Problem Noted Date Diagnosed Date Resolved Date Atherosclerosis of aorta 11/24/202202/2023 Atherosclerosis of coronary artery of [place] heart without angina pectoris 11/24/2022 07/01/2023 Constipation 08/26/2022 07/01/2023 Encounter for long-term (cur rent) use of medications 09/08/2020 07/01/2023 COPD, severity to be determined 03/05/2020 11/03/2021 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 10/24/2018 07/01/2023 Mild intermittent asthma with exacerbation 10/07/2017 12/14/2018 RA (rheumatoid arthritis) History of shingles 07/01/20 23 Overview: left upper chest/upper arm History of solitary pulmonary nodule 07/01/2023 Overview: CT scan 08/2106 documented as of this encounter (statuses as of 12/30/2023) Immunizations Name Administration Dates Next Due COVID-19 [...] encounter Miscellaneous Notes * Telephone Encounter - Ariana Peña [facility] - 12/30/2023 7:28 AM EDT Signed Prescriptions: Disp Refills traZODone HCl 50 MG Oral Tablet (Desyrel) 30 Tab*11 Sig: Take 1 Tablet by mouth at bedtime.Authorizing Provider: BRISA DEL VALLE User: ARIANA PEÑA documented in this encounter Plan of Treatment [...] D LEVEL ONCE IN A LIFETIME-USE SMARTSET# [id number] Completed 07/26/2023, 12/30/2020, 12/21/2019 GARDASIL-HPV IMMUNIZATION SERIES [...] filedocumented as of this encounter Care Teams Needlemaker Relationship Specialty Start Date End Date Brisa Del Valle MD [address] [place] [address] PCP - General Family Medicine 07/01/23 documented as of this encounter
--- OUTSIDE RECORDS SUMMARY | 2024-02-06 18:37 | External Medical Summary | Summary of Care ---
Author Name Unknown Organization [facility] Address [address] [place] [address] Phone [phone] Care Team Providers Care Machine Rigger Name Role Phone Troy Belle MD Primary Care Provider [phone] Reason for Visit * Reason Comments Medication Refill Encounter Details Date Type Department Care Team (Late st Contact Info) Description 01/03/2024 Refill Rheumatology [facility] [address] [place] [address] Aidan Finn MD [address] [facility] [place] [address] Rheumatoid arthritis involving multiple sites with [...] aorta 11/24/202202/2023 Atherosclerosis of coronary artery of [place] heart without angina pectoris 11/24/2022 07/01/2023 Constipation 08/26/2022 07/01/2023 Encounter for long-term (cur rent) use of medications 09/08/2020 07/01/2023 COPD, severity to be determined 03/05/2020 11/03/2021 emt intermediate 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 user 10/24/2018 07/01/2023 Mild intermittent asthma [...] WEEKRefused By: HIRA BELLReason for Refusal: Duplicate Request--------- documented in this encounter Plan of Treatment [...] D LEVEL ONCE IN A LIFETIME-USE SMARTSET# [id number] Completed 07/26/2023, 12/30/2020, 12/21/2019 GARDASIL-HPV IMMUNIZATION SERIES [...] (HCC) documented in this encounter Care Teams Machine Rigger Relationship Specialty Start Date End Date Troy Belle MD [address] [place] [address] PCP - General Family Medicine 07/01/23 documented as of this encounter
[2024-02-06] MEDS ORDERED: ONDANSETRON INJ 2 MG/ML 2 ML VIAL IV PRN (19:07)
[2024-02-06] MEDS ORDERED: AMPICILLIN SOD/SULBACTAM SOD 3 GM VIAL IV SCH (19:07)
[2024-02-06] MEDS: AMPICILLIN/SULBACTAM SOD 3,000 MG in SODIUM CHLOR 0.9% MINI-B 100 ML IV SCH (19:48)
[2024-02-06] MEDS: SODIUM CHLORIDE 0.9% 1,000 ML IV SCH (19:48)
[2024-02-06] MEDS: ACYCLOVIR SOD 450 MG in DEXTROSE 5% 100 ML IV SCH (20:51)
[2024-02-06] MEDS: traZODone HCL 50 MG TAB PO SCH (20:51)
--- NOTE | 2024-02-07 01:06 | CT Scan Report ---
Exam(s): CT CHEST Without Contrast EXAM: CT Chest Without Intravenous Contrast CLINICAL HISTORY: Reason for exam: pleural effusion, bronchiectasis. TECHNIQUE: Axial computed tomography images of the chest without intravenous contrast. CTDI is 7.79 mGy and DLP is 240.93 mGy-cm. Automated exposure control was utilized for the study. A dose lowering technique was utilized adhering to the principles of ALARA. COMPARISON: No relevant prior studies available. FINDINGS: Trachea: Calcified tracheobronchial tree. Lungs: Peripheral bilateral airspace consolidations, consistent with multilobar pneumonia. Pleural space: Unremarkable. No pneumothorax. No significant effusion. Heart: Unremarkable. No cardiomegaly. No significant pericardial effusion. No significant coronary artery calcifications. Bones/joints: Degenerative changes of the spine. No acute fracture. No dislocation. Soft tissues: Unremarkable. Vasculature: Atherosclerotic changes of the aorta. No thoracic aortic aneurysm. Lymph nodes: Unremarkable. No enlarged lymph nodes. IMPRESSION: Peripheral bilateral airspace consolidations, consistent with multilobar pneumonia. Electronically signed by: Mikal Chaparro MD 02/07/24 01:04 AM
[2024-02-07] MEDS: LEVOTHYROXINE SODIUM 75 MCG TABLET PO SCH (05:28)
[2024-02-07] MEDS: ACETAMINOPHEN 325 MG TAB PO PRN (05:28)
--- OUTSIDE RECORDS SUMMARY | 2024-02-07 06:33 | External Medical Summary | Summary of Care ---
Author Name Unknown Organization [facility] Address [address] [place] [address] Phone [phone] Care Team Providers Care Aircraft Electronics Technical Officer Name Role Phone Troy Belle MD Primary Care Provider [phone] Reason for Visit * Reason Onset Date Comments Medication Refill 02/05/2024 Encounter Details Date Type Department Care Team (Late st Contact Info) Description 02/05/2024 Refill Family Practice [facility] [address] [facility] [place] [address] Enrique Butcher MD [address] [facility] [address] Allergies No known active allergiesdocumented as of this encounter (statuses as of 02/06/2024) Medications Medication Sig Dispensed Refills Start Date [...] MEDICATIONS 100 Tablet 2 12/31/2023 12/30/2024 Active Budesonide 1 MG/2ML Inhalation Suspension (Pulmicort)Indicati ons:Bronchiectasis with (acute) exacerbation (HCC) Inhale 1 mg via nebulizer in the morning. 60 mL 12 01/18/2024 Active Compressor NebulizerIndication s:Bronchiectasis with (acute) exacerbation (HCC) Inhale via nebulizer. Use as directed. 1 Each 1 01/18/2024 Active Albuterol Sulfate (2.5 MG/3ML) 0.083% Inhalation Nebulization Solution (Proventil)Indicati ons:Bronchiectasis with (acute) exacerbation (HCC) Inhale 1 Vial via nebulizer every 4 hours as needed for Wheezing. 120 mL 1 01/24/2024 Active Albuterol Sulfate (2.5 MG/3ML) 0.083% Inhalation Nebulization Solution (Proventil) Inhale 1 Vial via nebulizer every 4 hours as needed for Wheezing. 120 mL 11 01/27/2024 Active documented as of this encounter (statuses as of 02/06/2024) Active Problems Problem Noted Date Diagnosed Date [...] as of this encounter (statuses as of 02/06/2024) Resolved Problems Problem Noted Date Diagnosed Date Resolved Date Atherosclerosis of aorta 11/24/202202/2023 Atherosclerosis of coronary artery of [place] heart without angina pectoris 11/24/2022 07/01/2023 Constipation [...] as of this encounter (statuses as of 02/06/2024) Immunizations Name Administration Dates Next Due COVID-19 [...] No 06/17/2023 Does the household have a [facility] source of income? (Household - for ages [...] Notes * Telephone Encounter - Hira Bell - 02/06/2024 11:03 AM EDTRefused Prescriptions: Disp Refills Albuterol Sulfate (2.5 MG/3ML) 0.083% Inha*120 mL 11 Sig: Inhale 1 Vial via nebulizer every 4 hours as needed for Wheezing.Refused By: Emmanuel BELL for Refusal: Duplicate Request documented in this encounter Plan of Treatment Health Maintenance Due Date Last Done Comments Depression Screening 11/03/2022 11/03/2021 COVID-19 Vaccine ( - 2022-24 season) 2023 04/29/2023, 11/11/2021, 03/24/2021, Additional history exists *SPIROMETRY ONCE FOR ASTHMA-ADULT 02/05/2024 Influenza Vaccine (FLU shot) (#1) 2024 04/21/2023, 04/26/2022, 04/21/2021, Additional history exists TSH 07/26/2024 07/26/2023, 01/2023, 12/21/2022, Additional history exists DXA Scan 06/27/2025 06/27/2023, 10/2022, 12/16/2020, Additional history exists Albumin/Creatinine Ratio 11/24/2025 11/24/2022 DTaP,Tdap,and Td Vaccines (2 - Td or Tdap) 03/16/2030 03/16/2020 Pneumococcal Vaccine: 65+ Years Completed 05/10/2016, 05/02/2015, 05/23/2002 Zoster Vaccines Completed 01/08/2020, 08/28/2019 VITAMIN D LEVEL ONCE IN A LIFETIME-USE SMARTSET# [id number] Completed 07/26/2023, 12/30/2020, 12/21/2019 HPV (Gardasil) Vaccine Aged Out No lo nger eligible based on patient's age to complete this topic Hepatitis B Vaccine Aged Out No longe r eligible based on patient's age to complete this topic MENINGOCOCCAL (MENACTRA/MENVEO) Aged Out No longer eligible based on patient's age to complete this topic documented as of this encounter Medical Devices Not on filedocumented as of this encounter Care Teams Aircraft Electronics Technical Officer Relationship Specialty Start Date End Date Troy Belle MD [address] [place] [address] PCP - General Family Medicine 07/01/23 documented as of this encounter
[2024-02-07] MEDS: BUDESONIDE 0.5 MG/2 ML VIAL (PULMICORT) INH SCH (07:35)
[2024-02-07 08:03] LABS: BUN Creatinine Ratio 43.6 (10-20); Calcium 8.4 mg/dl (8.6-10.3); Creatinine Clr Calc Pharmacy 66.6 ml/min; Est GFR (Non-African American) 95.8 ml/min
[2024-02-07 08:26] LABS: Basophils # (auto) 0.05 K/uL (0.00-0.20); Basophils % (auto) 0.5 %; Eosinophils # (auto) 0.06 K/uL (0.00-0.50); Eosinophils % (auto) 0.6 %; Hematocrit (blood only) 34.3 % (37.0-47.0); Immature Granulocytes # (auto) 0.04 K/uL (0.01-0.20); Immature Granulocytes % (auto) 0.4 %; Lymphocytes # (auto) 1.22 K/uL (1.20-3.40); Lymphocytes % (auto) 11.8 %; Mean Corpuscular Hemoglobin 29.1 pg (25.0-34.0); Mean Corpuscular Hgb Conc 32.1 g/dL (32.0-36.0); Mean Corpuscular Volume 90.7 fL (80.0-100.0); Mean Platelet Volume 10.2 fL (9.4-12.4); Monocytes % (auto) 7.7 %; Platelet Count 272 K/uL (130-400); RDW Coefficient of Variation 16.8 % (11.5-14.5); RDW Standard Deviation 54.4 fL (36.4-46.3); Red Blood Count 3.78 M/uL (4.20-5.40); White Blood Count 10.37 K/ul (4.8-10.8)
[2024-02-07] MEDS: AMPICILLIN/SULBACTAM SOD 3,000 MG in SODIUM CHLOR 0.9% MINI-B 100 ML IV SCH ×2 (08:26→13:42)
[2024-02-07] MEDS: FOLIC ACID 1 MG TAB PO SCH (08:30)
[2024-02-07] MEDS: predniSONE 5 MG TAB PO SCH (08:30)
[2024-02-07] MEDS: ADVANCED PROBIOTIC 625 MG CAPSULE PO SCH (08:30)
[2024-02-07] MEDS: ATORVASTATIN 10 MG TAB PO SCH (08:30)
--- NOTE | 2024-02-07 08:30 | Ultrasound Report ---
ULTRASOUND OF THE LEFT PAROTID GLAND CLINICAL HISTORY: Parotitis. COMPARISON STUDY: No priors. FINDINGS: Real-time grayscale and color-flow sonography of the left parotid gland is performed. The p arotid gland is normal in size and homogeneous in echotexture. No hyperemia is shown on color imaging . No shadowing sialoliths are identified. The left sublingual gland is normal as imaged. No regional lymphadenopathy is seen. IMPRESSION: Normal sonographic examination of the left parotid gland. Dictated: 02/07/2024 8:05 AM Transcribed: 02/07/2024 8:23 AM Nuno [id number] [facility] Electronically signed by: Jamie Jacobs M.D. 02/07/2024 8:29 AM
[2024-02-07] MEDS: METOPROLOL SUCC 25MG EXT REL TAB PO SCH (08:31)
[2024-02-07] MEDS: PANTOprazole 40 MG TAB PO SCH (08:31)
--- NOTE | 2024-02-07 09:35 | Hospitalist Progress Note ---
Date of Service February 07, 2024 Assessment & Plan (1) Acute ear pain: (2) Herpes zoster oticus: (3) Parotitis: (4) Bronchiectasis: (5) Rheumatoid arthritis: (6) History of IBS: (7) Ulcerative colitis: Plan Pt is an 83-year-old female with PMhx significant for rheumatoid arthritis, IBS/ulcerative colitis on 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, prednisone, Plaquenil, Interstitial pulmonary disease/bronchiectasis/asthma, hypertension, hypothyroidism presenting with left ear pain, left facial numbness with dysphagia on day of admission. Community Acquired Pneumonia Immunocompromised Status Pt presenting with ear and facial pain Coarse breath sounds on exam Chest XRAY with concern for infectious or inflammatory pneumonitis, radiographic f/u recommended CT chest noting multilobar pneumonia Biofire negative Legionella pending History of bronchiectasis, interstitial pulmonary disease, bronchial asthma Continue IV Unasyn with azithromycin Oxygen supplementation as needed Pulmonology consulted, appreciate further recs Left ear pain Immunocompromised patient on 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, chronic prednisone for RA, ulcerative colitis Initially reporting left lower facial numbness, CT head negative Patient advised admitting provider that she did not have facial numbness but did have burning sensation on her left pentecostalism, and rest of her lower face Concern for possible herpes zoster oticus on admission Was started on IV acyclovir 150 mg every 12 hours, IV Unasyn 3g Every 12 hours Consider ENT consult Atherosclerotic changes of the aorta Noted on CT imaging Continue Lipitor daily for atherosclerosis of the thoracic aorta Consider addition of aspirin 81mg daily Anemia hgb 10-11 Continue to monitor Continue folate supplement Weight Loss Per son, pt has lost lots of weight over the past few months Dietary consult Hypertension Continue metoprolol History of rheumatoid arthritis Continue prednisone Hold Plaquenil and 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 in light of ongoing infection History of ulcerative colitis, IBS No GI symptoms Hypothyroidism Continue levothyroxine DVT prophylaxis Heparin subcu twice a day Diet: Clears DVT prophylaxis: Heparin SQ q12 Dispo: PT/OT ordered Admission and Anticipated Discharge Date Admission Date: February 06, 2024 Subjective Pt was seen with son at bedside. he notes chronic cough and that she has been worked up in the past for her lungs, unsure of an official dx. He states she does not use oxygen at baseline. He notes concerning weight loss since August. Pt states that facial pain is improved, notes no rash. Denies chest pain, cough, SOB. Review of Systems Review of Systems: All systems reviewed & are unremarkable except as noted in Subjective Physical Exam Physical Exam: General: Alert, oriented. No acute distress Skin: No noted rashes or bruises especially on face Psych: Appropriate mood and affect Neuro:difficulty with movements in the bed HEENT: NC/AT, no visible rash on face or in hair. face nontender to palaption on both sides CV: RRR Resp: Breath sounds coarse bilaterally, no increased effort of breathing. Abdomen: Soft, nontender, nondistended Extremities: Trace edema in lower extremities bilaterally. Results & Data Results & Data Vital Signs (Past 12 Hours) Vital Signs Temp Pulse Pulse Resp BP BP Pulse Ox 02/07/24 08:02 37.1 C 89 14 106/55 L 95 02/07/24 07:54 02/07/24 07:43 36.4 C L 75 18 109/58 L 98 02/07/24 07:36 72 18 96 O2 Del Method 02/07/24 08:02 Room Air 02/07/24 07:54 Room Air 02/07/24 07:43 Room Air 02/07/24 07:36 Room Air Diagnostic Findings Head CT 02/06/24 12:23 CT head/brain wo con CLINICAL HISTORY: L facial pain w/ numbness Technique: Contiguous axial CT images of the head were acquired from the base of the skull to the vertex without intravenous contrast administration. Images were viewed in brain, subdural and bone windows. Automated dose lowering techniques and/or adjustment according to patient size were utilized for this exam. Comparison: Comparison is made to CT head 09/29/2023 Findings: Areas of decreased attenuation are present in the periventricular and subcortical white matter bilaterally consistent with small vessel ischemic disease. Generalized cerebral atrophy with commensurate enlargement of the ventricles, sulci, and cisterns is also present. There is no acute intracranial hemorrhage or evidence of acute territorial infarction. No shift of the midline structures, mass effect, or extra-axial abnormalities are shown. Atherosclerotic calcifications are present in the intracranial segments of the internal carotid arteries. Bilateral sphenoid sinus thickening is seen. The orbits appear normal. There are no acute fractures of the calvaria or scalp swelling. Impression: No acute intracranial hemorrhage, no evidence of acute territorial infarction or other acute intracranial disease process. ACT 112: Negative or not required by law. Electronically signed by: Tavo Nelson M.D. 02/06/2024 1:29 PM Chest X-Ray 02/06/24 16:26 SINGLE VIEW CHEST CLINICAL HISTORY: Hypoxia. Crackles on physical examination FINDINGS: An AP, portable, upright chest radiograph is compared to chest x-ray and chest CT dated 09/29/2023. The examination is degraded by portable technique and patient rotation. The heart is enlarged noting atherosclerotic calcification of the thoracic aorta. There is pulmonary vascular congestion. Again seen are findings of chronic interstitial/fibrotic lung disease. There are small pleural effusions with dependent consolidation. No pneumothorax is identified. The skeletal structures are osteopenic. The bony thorax is grossly intact. IMPRESSION: 1. Cardiomegaly with pulmonary vascular congestion. 2. Layering pleural effusions with dependent consolidation. This is superimposed upon changes of chronic interstitial/fibrotic lung disease. Correlate clinically for evidence of a superimposed infectious/inflammatory pneumonitis. Radiographic follow-up to resolution is recommended. ACT 112: Negative or not required by law. Electronically signed by: Jamie Jacobs M.D. 02/06/2024 5:[address] 02/06/24 22:08 Exam(s): CT CHEST Without Contrast EXAM: CT Chest Without Intravenous Contrast CLINICAL HISTORY: Reason for exam: pleural effusion, bronchiectasis. TECHNIQUE: Axial computed tomography images of the chest without intravenous contrast. CTDI is 7.79 mGy and DLP is 240.93 mGy-cm. Automated exposure control was utilized for the study. A dose lowering technique was utilized adhering to the principles of ALARA. COMPARISON: No relevant prior studies available. FINDINGS: Trachea: Calcified tracheobronchial tree. Lungs: Peripheral bilateral airspace consolidations, consistent with multilobar pneumonia. Pleural space: Unremarkable. No pneumothorax. No significant effusion. Heart: Unremarkable. No cardiomegaly. No significant pericardial effusion. No significant coronary artery calcifications. Bones/joints: Degenerative changes of the spine. No acute fracture. No dislocation. Soft tissues: Unremarkable. Vasculature: Atherosclerotic changes of the aorta. No thoracic aortic aneurysm. Lymph nodes: Unremarkable. No enlarged lymph nodes. IMPRESSION: Peripheral bilateral airspace consolidations, consistent with multilobar pneumonia. Electronically signed by: Mikal Chaparro MD 02/07/24 01:04 AM Head/Neck Ultrasound 02/06/24 22:08 ULTRASOUND OF THE LEFT PAROTID GLAND CLINICAL HISTORY: Parotitis. COMPARISON STUDY: No priors. FINDINGS: Real-time grayscale and color-flow sonography of the left parotid gland is performed. The parotid gland is normal in size and homogeneous in echotexture. No hyperemia is shown on color imaging. No shadowing sialoliths are identified. The left sublingual gland is normal as imaged. No regional lymphadenopathy is seen. IMPRESSION: Normal sonographic examination of the left parotid gland. Dictated: 02/07/2024 8:05 AM Transcribed: 02/07/2024 8:23 AM Nuno [id number] [facility] Electronically signed by: Jamie Jacobs M.D. 02/07/2024 8:29 AM
[2024-02-07] MEDS: AZITHROMYCIN 250 MG TAB PO SCH (11:27)
--- NOTE | 2024-02-07 13:53 | Pulmonary Consultation ---
Date of Consultation February 07, 2024 Assessment & Plan (1) Fibrotic lung diseases: Her fibrotic lung disease is likely secondary to rheumatoid arthritis and ulcerative colitis. Other possibilities include chronic nontuberculous Mycobacterium infection. Can consider sending AFB sputum to evaluate for nontuberculous Mycobacterium organisms, but she is unlikely to tolerate the long-term treatment for such an infection. She is relatively asymptomatic and thus I would not recommend any particular interventions at this time. I would encourage holding 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 and considering a different immunosuppressive agent as 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 could further induce pulmonary toxicity. I do not think further antibiotics are warranted at this time. Will defer discontinuation to the hospitalist service. I think the patient is stable for discharge from a pulmonary perspective from the hospital. History of Present Illness Reason for Consultation: Bronchiectasis and pleural effusions Attending Physician: Sera Glasgow MD History of Present Illness 83-year-old female with a history of rheumatoid arthritis on 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 therapy who presented to the hospital with herpes zoster-like rash on the left side of her face. She was found to be mildly hypoxemic in the ER and placed on supplemental oxygen. A CT of her chest was obtained completed 02/06/2024 revealed multifocal subpleural reticulation, multifocal consolidations and traction bronchiectasis. There are also small bilateral effusions noted. Patient was started on broad-spectrum antibiotics. She denies any respiratory symptoms. She does note occasional shortness of breath with exertion which is essentially stable today. She denies any major cough symptoms. She denies any history of pulmonary disease. She is a non-smoker. 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 She was exposed to some secondhand tobacco use. Allergies Allergy/AdvReac Type Severity Reaction Status Date / Time No Known Allergies Allergy Verified 02/06/24 14:22 Home Medications Medication Instructions Recorded Confirmed Type folic acid 1 mg tablet 1 mg PO QAM 06/15/19 02/06/24 History hydroxychloroquine 200 mg tablet 300 mg PO QAM 06/15/19 02/06/24 History levothyroxine 75 mcg tablet 75 mcg PO QAM 06/15/19 02/06/24 History pantoprazole 40 mg tablet,delayed 40 mg PO QAM #90 tabs 06/15/19 02/06/24 History release prednisone 5 mg tablet 5 mg PO QAM #135 tabs 01/18/20 02/06/24 History 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 sodium 2.5 mg tablet 20 mg PO WK #48 tabs 04/13/21 02/06/24 History denosumab 60 mg/mL subcutaneous 60 mg subcut UD PRN OSTEOPEROSIS 09/24/22 02/06/24 History syringe (Prolia) fluocinonide 0.05 % topical 1 applic topical BID #30 grams 10/05/22 02/06/24 Rx ointment metoprolol succinate 25 mg 25 mg PO QAM #90 tabs 09/06/23 02/06/24 Rx tablet,extended release 24 hr atorvastatin 10 mg tablet 10 mg PO QAM 09/29/23 02/06/24 History trazodone 50 mg tablet 50 mg PO HS 09/29/23 02/06/24 History albuterol sulfate 2.5 mg/3 mL 2.5 mg continuous nebulization Q4H 02/06/24 02/06/24 History (0.083 %) solution for nebulization PRN Wheezing budesonide 1 mg/2 mL suspension 1 mg inhalation QAM 02/06/24 02/06/24 History for nebulization Patient History Medical History (Updated 02/07/24 @ 13:50 by Mayank Del Rosario MD) Rheumatoid lung disease Unintentional weight loss OVER THE PAST FEW MONTHS Age related osteoporosis Constipation REASON FOR UPCOMING PROCEDURE SOB (shortness of breath) on exertion ONGOING/NO CHANGE IN BASELINE History of recent fall LAST WEEK/[place] ED EVAL/ WHILE EVAL CRACKLING REPORTED TO BE HEARD...CT CHEST DONE FEB 27 [place] (PT DOES NOT KNOW RESULTS) NO KNOWN INJURIES DENIES C/P , OCC SOB ON EXERTION (NO CHANGE IN BASELINE) History of tachycardia HX RAPID HEART BEAT YRS AGO/UNSURE FURTHER DETAILS/REASON FOR METOPROLOL/CONTROLS Hot flashes UNKNOWN ETIOLOGY / ? R/T SOME CURRENT MEDICATION / EVAL CONTINUES FOR CAUSE Mitral regurgitation PT DENIES HEART MURMUR History of squamous cell carcinoma History of basal cell carcinoma Asthma WELL CONTROLLED GERD without esophagitis Hiatal hernia Hypothyroidism Surgical History History of left cataract surgery History of right cataract surgery History of colonoscopy History of endoscopy History of cholecystectomy History of cardiac catheterization PT DENIES Family History Unknown Hypertension Father Diabetes Denies family history of Ovarian cancer Breast cancer Colorectal cancer Social History Smoking Status: Never smoker Second Hand Exposure: No; Do You Dip or Chew Tobacco: No; Tobacco Cessation Education Requested by Patient: No Hx Alcohol Use: No Hx Substance Use: No Preferred Language: Mohawk Communication Ability: Effective Secondary Teacher Required: No Beliefs That Will Affect Care: None Current Living Situation: Spouse Current Living Situation Comment: Lives at home with Other Information That Helps Us Care for You: No Feels Safe at Home: Yes Safety Concerns: Feels Safe At This Time Assistive Devices: Walker Review of Systems Review of Systems: All systems reviewed & are unremarkable except as noted in HPI & below Physical Exam Physical Exam: Constitutional: Patient appears to be of their stated age. Elderly appearing female in no apparent distress. Eyes: Pupils are equal round and reactive to light. Conjunctivae are normal. Anicteric sclera. Ears nose, mouth and throat: Mallampati class 1. Normal posterior oropharynx. Uvula is midline. Neck: Trachea is midline. Visual inspection is normal. Respiratory: Diffuse expiratory crackles noted bilaterally. No wheezes. No increased work of breathing. Cardiovascular: Regular rate and rhythm. No murmurs. No edema. Gastrointestinal: Normal bowel sounds, soft, nontender and nondistended. No hepatosplenomegaly noted. Musculoskeletal: No cyanosis. Patient is able to move all extremities. S trength is 5 out of 5 in the upper and lower extremities. Skin: No rashes, warm dry and intact. Neurologic: No obvious focal neurological deficits seen. Psychiatric: Alert and oriented x3 with a euthymic affect. Results & Data Results & Data Vital Signs (Past 12 Hours) Vital Signs Temp Pulse Pulse Resp BP BP Pulse Ox 02/07/24 08:02 37.1 C 89 14 106/55 L 95 02/07/24 07:54 02/07/24 07:43 36.4 C L 75 18 109/58 L 98 02/07/24 07:36 72 18 96 O2 Del Method 02/07/24 08:02 Room Air 02/07/24 07:54 Room Air 02/07/24 07:43 Room Air 02/07/24 07:36 Room Air PG Care Time/CCT Total # of Minutes Spent Total Time Spent with Patient: Total time spent is greater than 50% in coordination of care (as documented) at patient's floor/unit and/or counseling patient: Coding Level of Care Code 41595 INT INP/OBS CARE MIN Diagnoses Fibrotic lung diseases J84.10
[2024-02-07] MEDS: ACYCLOVIR SOD IV SCH (16:58)
[2024-02-07] MEDS: DEXTROSE 5% IV SCH (16:58)
[2024-02-07] MEDS: HEPARIN SOD 5,000 UNIT/0.5 ML VIAL SQ SCH (20:25)
[2024-02-08 07:40] LABS: Basophils # (auto) 0.04 K/uL (0.00-0.20); Basophils % (auto) 0.6 %; Eosinophils # (auto) 0.13 K/uL (0.00-0.50); Eosinophils % (auto) 1.8 %; Hematocrit (blood only) 30.9 % (37.0-47.0); Immature Granulocytes # (auto) 0.02 K/uL (0.01-0.20); Immature Granulocytes % (auto) 0.3 %; Lymphocytes # (auto) 1.45 K/uL (1.20-3.40); Lymphocytes % (auto) 20.3 %; Mean Corpuscular Hemoglobin 29.3 pg (25.0-34.0); Mean Corpuscular Hgb Conc 32.4 g/dL (32.0-36.0); Mean Corpuscular Volume 90.6 fL (80.0-100.0); Mean Platelet Volume 10.1 fL (9.4-12.4); Monocytes # (auto) 0.59 K/uL (0.11-0.59); Monocytes % (auto) 8.3 %; Neutrophils # (auto) 4.92 K/uL (1.40-6.50); Neutrophils % (auto) 68.7 %; Platelet Count 246 K/uL (130-400); RDW Coefficient of Variation 16.6 % (11.5-14.5); RDW Standard Deviation 54.4 fL (36.4-46.3); Red Blood Count 3.41 M/uL (4.20-5.40); White Blood Count 7.15 K/ul (4.8-10.8)
[2024-02-08 08:01] LABS: Albumin Globulin Ratio 0.6 (0.9-2); Albumin Level 2.2 gm/dl (3.4-5.0); BUN Creatinine Ratio 28.9 (10-20); Bilirubin,Total 0.4 mg/dl (0.2-1.0); Calcium 8.1 mg/dl (8.6-10.3); Creatinine Clr Calc Pharmacy 68.7 ml/min; Est GFR (Non-African American) 96.6 ml/min; Globulin 3.8 gm/dl (2.5-4.0); Magnesium 1.8 mg/dl (1.7-2.4); Phosphorus 3.2 mg/dl (2.5-4.9); Potassium 3.5 mmol/L (3.5-5.1)
--- NOTE | 2024-02-08 16:47 | Hospitalist Progress Note ---
Date of Service February 08, 2024 Assessment & Plan (1) Acute ear pain: (2) Herpes zoster oticus: (3) Parotitis: (4) Bronchiectasis: (5) Rheumatoid arthritis: (6) History of IBS: (7) Ulcerative colitis: Plan Pt is an 83-year-old female with PMhx significant for rheumatoid arthritis, IBS/ulcerative colitis on 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, prednisone, Plaquenil, Interstitial pulmonary disease/bronchiectasis/asthma, hypertension, hypothyroidism presenting with left ear pain, left facial numbness with dysphagia on day of admission. #Fibrotic lung disease #Community acquired pneumonia, r/o #Immunocompromised Status History of bronchiectasis, interstitial pulmonary disease, bronchial asthma Pt presenting with ear and facial pain Coarse breath sounds on exam Chest XRAY with concern for infectious or inflammatory pneumonitis, radiographic f/u recommended CT chest noting multilobar pneumonia Biofire negative Legionella pending Discontinue abx Oxygen supplementation as needed 2 step in am Pulmonology consulted, appreciate further recs -" fibrotic lung disease is likely secondary to rheumatoid arthritis and ulcerative colitis. Other possibilities include chronic nontuberculous Mycobacterium infection. Can consider sending AFB sputum to evaluate for nontuberculous Mycobacterium organisms, but she is unlikely to tolerate the long-term treatment for such an infection. She is relatively asymptomatic and thus I would not recommend any particular interventions at this time. I would encourage holding 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 and considering a different immunosuppressive agent as 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 could further induce pulmonary toxicity." -OP rheumatology follow up -Hold MTX #Left ear pain, c/f herpes zoster oticus Immunocompromised patient on 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, chronic prednisone for RA, ulcerative colitis Initially reporting left lower facial numbness, CT head negative Patient advised admitting provider that she did not have facial numbness but did have burning sensation on her left advent, and rest of her lower face Continue IV acyclovir 150 mg every 12 hours US negative for inflammation of parotid gland Continue IV acyclovir, transition to 10 day course for dispo contact/droplet precautions #Atherosclerotic changes of the aorta Noted on CT imaging Continue Lipitor daily for atherosclerosis of the thoracic aorta Consider addition of aspirin 81mg daily #Chronic normocytic Anemia hgb 10-11 Continue to monitor Continue folate supplement #Weight Loss #Moderate Protein calorie malnutrition Per son, pt has lost lots of weight over the past few months Dietary consult #Hypertension Continue metoprolol #rheumatoid arthritis Continue prednisone Hold Plaquenil and 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 in light of ongoing infection follow up with rheum op #History of ulcerative colitis, IBS No GI symptoms #Hypothyroidism Continue levothyroxine DVT prophylaxis Heparin subcu twice a day Diet: regyular DVT prophylaxis: Heparin SQ q12 Dispo: PT/OT ordered Admission and Anticipated Discharge Date Admission Date: February 06, 2024 Subjective NAEO Reports improvement in left face swelling and resolution of pain Physical Exam Constitutional: WD/WN, vitals as above Respiratory: normal respiratory effort, lungs clear to auscultation Cardiovascular: RRR, no murmur, no edema Gastrointestinal (Abdomen): normal bowel sounds, soft, nontender, no hepatosplenomegaly Skin: no rashes, warm and dry Results & Data Results & Data Vital Signs (Past 12 Hours) Vital Signs Temp Pulse Pulse Resp BP Pulse Ox O2 Del Method 02/08/24 16:07 36.6 C 75 16 115/56 L 90 Room Air 02/08/24 13:50 72 02/08/24 11:42 36.6 C 78 16 109/62 94 Room Air 02/08/24 07:57 36.7 C 90 16 98/54 L 90 Room Air 02/08/24 07:00 73 Laboratory Results Short CBC 02/08/24 Range/Units 07:04 WBC 7.15 (4.8-10.8) K/ul Hgb 10.0 L (12.0-16.0) g/dl Hct 30.9 L (37.0-47.0) % Plt Count 246 (130-400) K/uL BMP 02/08/24 07:04 Sodium 134 L Potassium 3.5 Chloride 101 Carbon Dioxide 30 BUN 11 Creatinine 0.38 L Glucose 91 Calcium 8.1 L Liver Function 02/08/24 Range/Units 07:04 Total Bilirubin 0.4 (0.2-1.0) mg/dl AST 20 (13-39) U/L ALT 16 (7-52) U/L Alkaline Phosphatase 55 (34-104) U/L Albumin 2.2 L (3.4-5.0) gm/dl Medications Administered Home Medications Medication Instructions Recorded Confirmed Last Taken folic acid 1 mg tablet 1 mg PO QAM 06/15/19 02/06/24 02/06/24 hydroxychloroquine 200 mg tablet 300 mg PO QAM 06/15/19 02/06/24 02/06/24 levothyroxine 75 mcg tablet 75 mcg PO QAM 06/15/19 02/06/24 02/06/24 pantoprazole 40 mg tablet,delayed 40 mg PO QAM #90 tabs 06/15/19 02/06/24 02/06/24 release prednisone 5 mg tablet 5 mg PO QAM #135 tabs 01/18/20 02/06/24 02/06/24 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 sodium 2.5 mg tablet 20 mg PO WK #48 tabs 04/13/21 02/06/24 02/06/24 denosumab 60 mg/mL subcutaneous 60 mg subcut UD PRN OSTEOPEROSIS 09/24/22 02/06/24 09/24/22 syringe (Prolia) fluocinonide 0.05 % topical 1 applic topical BID #30 grams 10/05/22 02/06/24 02/06/24 ointment metoprolol succinate 25 mg 25 mg PO QAM #90 tabs 09/06/23 02/06/24 02/06/24 tablet,extended release 24 hr atorvastatin 10 mg tablet 10 mg PO QAM 09/29/23 02/06/24 02/06/24 trazodone 50 mg tablet 50 mg PO HS 09/29/23 02/06/24 02/05/24 albuterol sulfate 2.5 mg/3 mL 2.5 mg continuous nebulization Q4H 02/06/24 02/06/24 02/05/24 (0.083 %) solution for nebulization PRN Wheezing budesonide 1 mg/2 mL suspension 1 mg inhalation QAM 02/06/24 02/06/24 02/06/24 for nebulization Active Medications Generic Name Dose Route Start Last Admin Trade Name Freq PRN Reason Stop Dose Admin Acetaminophen 650 mg 02/06/24 19:07 02/07/24 05:28 Acetaminophen 325 Mg Tab PO 03/07/24 19:06 650 mg Q4H PRN Administration Pain or Fever Atorvastatin Calcium 10 mg 02/07/24 09:00 02/08/24 08:05 Atorvastatin 10 Mg Tab PO 03/08/24 08:59 10 mg QAM LANEY Administration Azithromycin 500 mg 02/07/24 10:45 02/08/24 08:03 Azithromycin 250 Mg Tab PO 02/09/24 09:01 500 mg QAM LANEY Administration Folic Acid 1 mg 02/07/24 09:00 02/08/24 08:04 Folic Acid 1 Mg Tab PO 03/08/24 08:59 1 mg QAM LANEY Administration Heparin Sodium (Porcine) 5,000 units 02/07/24 21:00 02/08/24 08:06 Heparin Sod 5,000 Unit/0.5 Ml Vial SQ 03/08/24 20:59 5,000 units Q12 LANEY Administration Acyclovir Sodium 400 mg/ 108 mls @ 100 mls/hr 02/07/24 16:00 02/08/24 15:50 Dextrose IV 02/14/24 15:59 100 mls/hr Q8H LANEY Administration Protocol Ampicillin Sodium/Sulbactam 100 mls @ 200 mls/hr 02/07/24 14:00 02/08/24 13:20 Sodium 3,000 mg/ Sodium IV 02/17/24 13:59 Infused Chloride Q6H LANEY Infusion Lactobacillus Acidophilus 1,250 mg 02/07/24 09:00 02/08/24 08:04 Advanced Probiotic 625 Mg Capsule PO 03/08/24 08:59 1,250 mg DAILY LANEY Administration Levothyroxine Sodium 75 mcg 02/07/24 06:30 02/08/24 06:07 Levothyroxine Sodium 75 Mcg Tablet PO 03/08/24 06:29 75 mcg DAILYBB LANEY Administration Metoprolol Succinate 25 mg 02/07/24 09:00 02/08/24 08:05 Metoprolol Succ 25mg Ext Rel Tab PO 03/08/24 08:59 25 mg QAM LNAEY Administration Pantoprazole Sodium 40 mg 02/07/24 09:00 02/08/24 08:05 Pantoprazole 40 Mg Tab PO 03/08/24 08:59 40 mg QAM LANEY Administration Prednisone 5 mg 02/07/24 09:00 02/08/24 08:04 Prednisone 5 Mg Tab PO 03/08/24 08:59 5 mg QAM LANEY Administration Trazodone HCl 50 mg 02/06/24 21:00 02/07/24 20:25 Trazodone Hcl 50 Mg Tab PO 03/07/24 20:59 50 mg HS LANEY Administration
[2024-02-09 08:13] LABS: Hematocrit (blood only) 34.3 % (37.0-47.0); Hemoglobin 11.1 g/dl (12.0-16.0); Mean Corpuscular Hemoglobin 29.1 pg (25.0-34.0); Mean Corpuscular Hgb Conc 32.4 g/dL (32.0-36.0); Mean Corpuscular Volume 89.8 fL (80.0-100.0); Mean Platelet Volume 10.1 fL (9.4-12.4); Platelet Count 264 K/uL (130-400); RDW Coefficient of Variation 16.4 % (11.5-14.5); RDW Standard Deviation 53.7 fL (36.4-46.3); Red Blood Count 3.82 M/uL (4.20-5.40)
[2024-02-09 08:38] LABS: BUN Creatinine Ratio 27.5 (10-20); Calcium 8.4 mg/dl (8.6-10.3); Creatinine Clr Calc Pharmacy 65.7 ml/min; Est GFR (African American) 110.1 ml/min; Magnesium 1.8 mg/dl (1.7-2.4); Phosphorus 3.4 mg/dl (2.5-4.9); Potassium 3.5 mmol/L (3.5-5.1)
[2024-02-09] MEDS: valACYclovir HCL 500 MG TABLET PO SCH (08:49)
[2024-02-09 09:48] LABS: C Reactive Protein 13.09 mg/dl (0-0.5)
[2024-02-09] MEDS: OPTIRAY 320 100ml IV ONE (10:36)
--- NOTE | 2024-02-09 11:16 | CT Scan Report ---
CT SCAN OF THE NECK WITH IV CONTRAST CLINICAL HISTORY: Bilateral facial/parotid pain. COMPARISON STUDY: Ultrasound of the left parotid gland dated 02/06/2024. TECHNIQUE: Following the IV administration of 93 cc of Optiray 320, CT scan of the soft tissues of th e neck was performed from the skull base to the upper chest. Images are reviewed in the axial, sagitt al, and coronal planes. IV contrast was administered without complication. A dose lowering techniqu e was utilized adhering to the principles of ALARA. FINDINGS: Pharynx: The nasopharynx, oropharynx, and laryngeal pharynx are normal in appearance. The pharyngeal airway is widely patent. There is no evidence of mass lesion. The vocal cords are symmetric. The para pharyngeal fat is well maintained. The prevertebral/retropharyngeal soft tissues are within normal li mits. Lymphadenopathy: No cervical lymphadenopathy is seen Thyroid: Normal in size and attenuation. Salivary glands: The parotid and submandibular glands are within normal limits. Brain parenchyma: The visualized brain parenchyma at the skull base is normal in appearance noting ag e-related involutional change. Vascular structures: The carotid arteries and jugular veins are patent. Skeletal structures: The skeletal structures are osteopenic. Imaged portions of the calvarium at the skull base are within normal limits. The cervical spine appears intact noting multilevel spondylosis. Arthritic change is seen in the temporomandibular joints. Orbits: The bony pelvis are intact. Orbital contents are normal as visualized noting bilateral ocular lens implants. Sinuses and mastoids: There is mucosal thickening and fluid within the sphenoid sinuses. The remainin g paranasal sinuses are clear. There is a left mastoid effusion. The right mastoid air cells are well pneumatized. Lung apices: Fibrotic change is seen throughout the upper lobes. This is better chest on the [address] IMPRESSION: 1. No acute abnormality is seen involving the neck. 2. Fibrotic change is present in the upper lungs. Correlate clinically for evidence of a superimposed pneumonia. ACT 112: Negative or not required by law. Electronically signed by: Jamie Jacobs M.D. 02/09/2024 11:13 AM
--- NOTE | 2024-02-09 11:22 | Hospitalist Progress Note ---
Date of Service February 09, 2024 Assessment & Plan (1) Acute ear pain: (2) Herpes zoster oticus: (3) Parotitis: (4) Bronchiectasis: (5) Rheumatoid arthritis: (6) History of IBS: (7) Ulcerative colitis: Plan Pt is an 83-year-old female with PMhx significant for rheumatoid arthritis, IBS/ulcerative colitis on 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, prednisone, Plaquenil, Interstitial pulmonary disease/bronchiectasis/asthma, hypertension, hypothyroidism presenting with left ear pain, left facial numbness/burning with dysphagia on day of admission. #Fibrotic lung disease #Community acquired pneumonia, r/o #Immunocompromised Status History of bronchiectasis, interstitial pulmonary disease, bronchial asthma Pt presenting with ear and facial pain Coarse breath sounds on exam Chest XRAY with concern for infectious or inflammatory pneumonitis CT chest noting multilobar pneumonia Biofire negative Legionella pending Discontinue abx Oxygen supplementation as needed 2 step in am Pulmonology consulted, appreciate further recs -" fibrotic lung disease is likely secondary to rheumatoid arthritis and ulcerative colitis. Other possibilities include chronic nontuberculous Mycobacterium infection. Can consider sending AFB sputum to evaluate for nontuberculous Mycobacterium organisms, but she is unlikely to tolerate the long-term treatment for such an infection. She is relatively asymptomatic and thus I would not recommend any particular interventions at this time. I would encourage holding 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 and considering a different immunosuppressive agent as 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 could further induce pulmonary toxicity." -OP rheumatology follow up -Hold MTX #Right facial pain #Left ear pain, c/f herpes zoster oticus Immunocompromised patient on 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, chronic prednisone for RA, ulcerative colitis Initially reporting left lower facial numbness, CT head negative Patient advised admitting provider that she did not have facial numbness but did have burning sensation on her left gnosticist, and rest of her lower face Continue IV acyclovir 150 mg every 12 hours US negative for inflammation of parotid gland Transition from IV acyclovir, to 10 day course for PO dispo -Valacyclovir 1000mg q8 hours PO VZV antibodies pending contact/droplet precautions Elevated CRP/ESR, -Will order CT Soft tissues with contrast given reported ongoing pain IF + will reach out to ENT and discuss further #Atherosclerotic changes of the aorta Noted on CT imaging Continue Lipitor daily for atherosclerosis of the thoracic aorta Consider addition of aspirin 81mg daily #Chronic normocytic Anemia hgb 10-11 Continue to monitor Continue folate supplement #Weight Loss #Moderate Protein calorie malnutrition Per son, pt has lost lots of weight over the past few months Dietary consult #Hypertension Continue metoprolol #rheumatoid arthritis Continue prednisone Hold Plaquenil and 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 in light of ongoing infection follow up with rheum op #History of ulcerative colitis, IBS No GI symptoms #Hypothyroidism Continue levothyroxine Diet: regular DVT prophylaxis: Heparin SQ q12 Dispo: PT/OT ordered Admission and Anticipated Discharge Date Admission Date: February 06, 2024 Subjective Reports now severe right sided pain in jaw Denies any rash or lesions Denies fevers, chill, chest pain or sob still able to eat breakfast Physical Exam Constitutional: WD/WN, vitals as above Respiratory: fine crackles, no resp distress noted Cardiovascular: RRR, no murmur, no edema Gastrointestinal (Abdomen): normal bowel sounds, soft, nontender, no hepatosplenomegaly Results & Data Results & Data Vital Signs (Past 12 Hours) Vital Signs Temp Pulse Pulse Resp BP Pulse Ox O2 Del Method 02/09/24 08:59 Room Air 02/09/24 07:40 36.9 C 84 20 121/67 92 Room Air 02/09/24 07:13 72 02/09/24 02:39 36.9 C 76 18 102/44 L 91 Room Air 02/09/24 02:08 71 02/08/24 23:24 Room Air 02/08/24 23:15 36.8 C 77 16 122/63 91 Room Air Laboratory Results Short CBC 02/09/24 Range/Units 07:43 WBC 8.20 (4.8-10.8) K/ul Hgb 11.1 L (12.0-16.0) g/dl Hct 34.3 L (37.0-47.0) % Plt Count 264 (130-400) K/uL [facility] 02/09/24 07:43 Sodium 136 Potassium 3.5 Chloride 101 Carbon Dioxide 30 BUN 11 Creatinine 0.40 L Glucose 99 Calcium 8.4 L Medications Administered Home Medications Medication Instructions Recorded Confirmed Last Taken folic acid 1 mg tablet 1 mg PO QAM 06/15/19 02/06/24 02/06/24 hydroxychloroquine 200 mg tablet 300 mg PO QAM 06/15/19 02/06/24 02/06/24 levothyroxine 75 mcg tablet 75 mcg PO QAM 06/15/19 02/06/24 02/06/24 pantoprazole 40 mg tablet,delayed 40 mg PO QAM #90 tabs 06/15/19 02/06/24 02/06/24 release prednisone 5 mg tablet 5 mg PO QAM #135 tabs 01/18/20 02/06/24 02/06/24 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 sodium 2.5 mg tablet 20 mg PO WK #48 tabs 04/13/21 02/06/24 02/06/24 denosumab 60 mg/mL subcutaneous 60 mg subcut UD PRN OSTEOPEROSIS 09/24/22 02/06/24 09/24/22 syringe (Prolia) fluocinonide 0.05 % topical 1 applic topical BID #30 grams 10/05/22 02/06/24 02/06/24 ointment metoprolol succinate 25 mg 25 mg PO QAM #90 tabs 09/06/23 02/06/24 02/06/24 tablet,extended release 24 hr atorvastatin 10 mg tablet 10 mg PO QAM 09/29/23 02/06/24 02/06/24 trazodone 50 mg tablet 50 mg PO HS 09/29/23 02/06/24 02/05/24 albuterol sulfate 2.5 mg/3 mL 2.5 mg continuous nebulization Q4H 02/06/24 02/06/24 02/05/24 (0.083 %) solution for nebulization PRN Wheezing budesonide 1 mg/2 mL suspension 1 mg inhalation QAM 02/06/24 02/06/24 02/06/24 for nebulization Active Medications Generic Name Dose Route Start Last Admin Trade Name Freq PRN Reason Stop Dose Admin Acetaminophen 650 mg 02/06/24 19:07 02/09/24 07:52 Acetaminophen 325 Mg Tab PO 03/07/24 19:06 650 mg Q4H PRN Administration Pain or Fever Atorvastatin Calcium 10 mg 02/07/24 09:00 02/09/24 07:53 Atorvastatin 10 Mg Tab PO 03/08/24 08:59 10 mg QAM LANEY Administration Folic Acid 1 mg 02/07/24 09:00 02/09/24 07:54 Folic Acid 1 Mg Tab PO 03/08/24 08:59 1 mg QAM LANEY Administration Heparin Sodium (Porcine) 5,000 units 02/07/24 21:00 02/09/24 07:55 Heparin Sod 5,000 Unit/0.5 Ml Vial SQ 03/08/24 20:59 5,000 units Q12 LANEY Administration Lactobacillus Acidophilus 1,250 mg 02/07/24 09:00 02/09/24 07:53 Advanced Probiotic 625 Mg Capsule PO 03/08/24 08:59 1,250 mg DAILY LANEY Administration Levothyroxine Sodium 75 mcg 02/07/24 06:30 02/09/24 05:14 Levothyroxine Sodium 75 Mcg Tablet PO 03/08/24 06:29 75 mcg DAILYBB LANEY Administration Metoprolol Succinate 25 mg 02/07/24 09:00 02/09/24 07:54 Metoprolol Succ 25mg Ext Rel Tab PO 03/08/24 08:59 25 mg QAM LANEY Administration Pantoprazole Sodium 40 mg 02/07/24 09:00 02/09/24 07:54 Pantoprazole 40 Mg Tab PO 03/08/24 08:59 40 mg QAM LANEY Administration Prednisone 5 mg 02/07/24 09:00 02/09/24 07:53 Prednisone 5 Mg Tab PO 03/08/24 08:59 5 mg QAM LANEY Administration Trazodone HCl 50 mg 02/06/24 21:00 02/08/24 20:58 Trazodone Hcl 50 Mg Tab PO 03/07/24 20:59 50 mg HS LANEY Administration Valacyclovir HCl 1,000 mg 02/09/24 09:00 02/09/24 08:49 Valacyclovir Hcl 500 Mg Tablet PO 02/14/24 08:59 1,000 mg TID LANEY Administration
--- NOTE | 2024-02-10 16:17 | Hospitalist Progress Note ---
Date of Service February 10, 2024 Assessment & Plan (1) Acute ear pain: (2) Herpes zoster oticus: (3) Parotitis: (4) Bronchiectasis: (5) Rheumatoid arthritis: (6) History of IBS: (7) Ulcerative colitis: Plan Pt is an 83-year-old female with PMhx significant for rheumatoid arthritis, IBS/ulcerative colitis on 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, prednisone, Plaquenil, Interstitial pulmonary disease/bronchiectasis/asthma, hypertension, hypothyroidism presenting with left ear pain, left facial numbness/burning on day of admission. Patient initially suscpected to have shingles, however no rash and pain moved from left to right side. OMFS evaluated patient and suspects acute flare of arthritis, noting no dental or sinus disease contributing to process. #Fibrotic lung disease #Community acquired pneumonia, r/o #Immunocompromised Status History of bronchiectasis, interstitial pulmonary disease, bronchial asthma Pt presenting with ear and facial pain Coarse breath sounds on exam Chest XRAY with concern for infectious or inflammatory pneumonitis CT chest noting multilobar pneumonia Biofire negative Legionella pending Discontinue abx Oxygen supplementation as needed 2 step in am Pulmonology consulted, appreciate further recs -" fibrotic lung disease is likely secondary to rheumatoid arthritis and ulcerative colitis. Other possibilities include chronic nontuberculous Mycobacterium infection. Can consider sending AFB sputum to evaluate for nontuberculous Mycobacterium organisms, but she is unlikely to tolerate the long-term treatment for such an infection. She is relatively asymptomatic and thus I would not recommend any particular interventions at this time. I would encourage holding 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 and considering a different immunosuppressive agent as 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 could further induce pulmonary toxicity." -OP rheumatology follow up -Hold MTX #Acute TMJ arthritis #Right facial pain #Left ear pain, c/f herpes zoster oticus (low suspicion) Immunocompromised patient on 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, chronic prednisone for RA, ulcerative colitis Initially reporting left lower facial numbness, CT head negative Patient advised admitting provider that she did not have facial numbness but did have burning sensation on her left jewish, and rest of her lower face Continue IV acyclovir 150 mg every 12 hours US negative for inflammation of parotid gland Transition from IV acyclovir, to 10 day course for PO dispo -Valacyclovir 1000mg q8 hours PO VZV antibodies pending contact/droplet precautions Elevated CRP/ESR iso RA//UC Given change in distribution of pain and no rash, less likely shingles, will discontinue valacyclovir and contact precuations at this time #Atherosclerotic changes of the aorta Noted on CT imaging Continue Lipitor daily for atherosclerosis of the thoracic aorta #Chronic normocytic Anemia hgb 10-11 Continue to monitor Continue folate supplement #Weight Loss #Moderate Protein calorie malnutrition Per son, pt has lost lots of weight over the past few months Dietary consult Adjust diet to soft/minced and moist given jaw pain #Hypertension Continue metoprolol #rheumatoid arthritis Continue prednisone Hold Plaquenil and 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 in light of ongoing infection follow up with rheum op #History of ulcerative colitis, IBS No GI symptoms #Hypothyroidism Continue levothyroxine Diet: /mined and moist regular DVT prophylaxis: Heparin SQ q12 Dispo: PT/OT ordered: pending rehab Admission and Anticipated Discharge Date Admission Date: February 06, 2024 Subjective NAEO reports pain only with eating denies any other acute concerns Physical Exam Constitutional: WD/WN, vitals as above ENMT: no tenderness to palpation along jaw, but with open/closing palation around parotid/TMJ noted Respiratory: fine crackles, no resp distress Cardiovascular: RRR, no murmur, no edema Gastrointestinal (Abdomen): normal bowel sounds, soft, nontender, no hepatosplenomegaly Results & Data Results & Data Vital Signs (Past 12 Hours) Vital Signs Temp Pulse Resp BP Pulse Ox O2 Del Method O2 Flow Rate 02/10/24 15:30 36.4 C L 77 18 112/70 98 Nasal Cannula 2 Medications Administered Home Medications Medication Instructions Recorded Confirmed Last Taken folic acid 1 mg tablet 1 mg PO QAM 06/15/19 02/06/24 02/06/24 hydroxychloroquine 200 mg tablet 300 mg PO QAM 06/15/19 02/06/24 02/06/24 levothyroxine 75 mcg tablet 75 mcg PO QAM 06/15/19 02/06/24 02/06/24 pantoprazole 40 mg tablet,delayed 40 mg PO QAM #90 tabs 06/15/19 02/06/24 02/06/24 release prednisone 5 mg tablet 5 mg PO QAM #135 tabs 01/18/20 02/06/24 02/06/24 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 sodium 2.5 mg tablet 20 mg PO WK #48 tabs 04/13/21 02/06/24 02/06/24 denosumab 60 mg/mL subcutaneous 60 mg subcut UD PRN OSTEOPEROSIS 09/24/22 02/06/24 09/24/22 syringe (Prolia) fluocinonide 0.05 % topical 1 applic topical BID #30 grams 10/05/22 02/06/24 02/06/24 ointment metoprolol succinate 25 mg 25 mg PO QAM #90 tabs 09/06/23 02/06/24 02/06/24 tablet,extended release 24 hr atorvastatin 10 mg tablet 10 mg PO QAM 09/29/23 02/06/24 02/06/24 trazodone 50 mg tablet 50 mg PO HS 09/29/23 02/06/24 02/05/24 albuterol sulfate 2.5 mg/3 mL 2.5 mg continuous nebulization Q4H 02/06/2402/05/24 (0.083 %) solution for nebulization PRN Wheezing budesonide 1 mg/2 mL suspension 1 mg inhalation QAM 02/06/24 02/06/24 02/06/24 for nebulization Active Medications Generic Name Dose Route Start Last Admin Trade Name Freq PRN Reason Stop Dose Admin Acetaminophen 650 mg 02/06/24 19:07 02/09/24 20:50 Acetaminophen 325 Mg Tab PO 03/07/24 19:06 650 mg Q4H PRN Administration Pain or Fever Atorvastatin Calcium 10 mg 02/07/24 09:00 02/10/24 15:09 Atorvastatin 10 Mg Tab PO 03/08/24 08:59 Not Given QAM LANEY Folic Acid 1 mg 02/07/24 09:00 02/10/24 15:09 Folic Acid 1 Mg Tab PO 03/08/24 08:59 Not Given QAM LANEY Heparin Sodium (Porcine) 5,000 units 02/07/24 21:00 02/10/24 15:09 Heparin Sod 5,000 Unit/0.5 Ml Vial SQ 03/08/24 20:59 Not Given Q12 LANEY Lactobacillus Acidophilus 1,250 mg 02/07/24 09:00 02/10/24 15:10 Advanced Probiotic 625 Mg Capsule PO 03/08/24 08:59 Not Given DAILY LANEY Levothyroxine Sodium 75 mcg 02/07/24 06:30 02/10/24 15:09 Levothyroxine Sodium 75 Mcg Tablet PO 03/08/24 06:29 Not Given DAILYBB LANEY Metoprolol Succinate 25 mg 02/07/24 09:00 02/10/24 15:10 Metoprolol Succ 25mg Ext Rel Tab PO 03/08/24 08:59 Not Given QAM LANEY Pantoprazole Sodium 40 mg 02/07/24 09:00 02/10/24 15:10 Pantoprazole 40 Mg Tab PO 03/08/24 08:59 Not Given QAM LANEY Prednisone 5 mg 02/07/24 09:00 02/10/24 15:10 Prednisone 5 Mg Tab PO 03/08/24 08:59 Not Given QAM LANEY Trazodone HCl 50 mg 02/06/24 21:00 02/09/24 20:50 Trazodone Hcl 50 Mg Tab PO 03/07/24 20:59 50 mg HS LANEY Administration
[2024-02-11 06:55] LABS: Hemoglobin 11.4 g/dl (12.0-16.0); Mean Corpuscular Hemoglobin 28.6 pg (25.0-34.0); Mean Corpuscular Hgb Conc 31.7 g/dL (32.0-36.0); Mean Corpuscular Volume 90.5 fL (80.0-100.0); Mean Platelet Volume 10.8 fL (9.4-12.4); Platelet Count 256 K/uL (130-400); RDW Standard Deviation 53.3 fL (36.4-46.3); Red Blood Count 3.98 M/uL (4.20-5.40); White Blood Count 10.41 K/ul (4.8-10.8)
[2024-02-11 10:18] LABS: BUN Creatinine Ratio 35.9 (10-20); Calcium 8.6 mg/dl (8.6-10.3); Est GFR (Non-African American) 95.8 ml/min; Magnesium 1.7 mg/dl (1.7-2.4); Phosphorus 2.9 mg/dl (2.5-4.9); Potassium 3.9 mmol/L (3.5-5.1)
--- NOTE | 2024-02-11 12:11 | Hospitalist Progress Note ---
Date of Service February 11, 2024 Assessment & Plan (1) Acute ear pain: (2) Herpes zoster oticus: (3) Parotitis: (4) Bronchiectasis: (5) Rheumatoid arthritis: (6) History of IBS: (7) Ulcerative colitis: Plan Pt is an 83-year-old female with PMhx significant for rheumatoid arthritis, IBS/ulcerative colitis on 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, prednisone, Plaquenil, Interstitial pulmonary disease/bronchiectasis/asthma, hypertension, hypothyroidism presenting with left ear pain, left facial numbness/burning on day of admission. Patient initially suscpected to have shingles, however no rash and pain moved from left to right side. OMFS evaluated patient and suspects acute flare of arthritis, noting no dental or sinus disease contributing to process. #Fibrotic lung disease #Acute hypoxic resp failure, on NC 2L #Community acquired pneumonia, r/o #Immunocompromised Status History of bronchiectasis, interstitial pulmonary disease, bronchial asthma Pt presenting with ear and facial pain Coarse breath sounds on exam Chest XRAY with concern for infectious or inflammatory pneumonitis CT chest noting multilobar pneumonia, fibrotic lung disease Biofire negative; Legionella negative Discontinue abx Oxygen supplementation as needed Pulmonology consulted, appreciate further recs -" fibrotic lung disease is likely secondary to rheumatoid arthritis and ulcerative colitis. Other possibilities include chronic nontuberculous Mycobacterium infection. Can consider sending AFB sputum to evaluate for nontuberculous Mycobacterium organisms, but she is unlikely to tolerate the long-term treatment for such an infection. She is relatively asymptomatic and thus I would not recommend any particular interventions at this time. I would encourage holding 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 and considering a different immunosuppressive agent as 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 could further induce pulmonary toxicity." -OP rheumatology follow up -Hold MTX Will need OP pulm follow up #Acute TMJ arthritis #Right facial pain #Left ear pain, c/f herpes zoster oticus (low suspicion) Immunocompromised patient on 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, chronic prednisone for RA, ulcerative colitis Initially reporting left lower facial numbness, CT head negative Patient advised admitting provider that she did not have facial numbness but did have burning sensation on her left advent, and rest of her lower face US negative for inflammation of parotid gland CT without any bony abnormality, sinus involvement, dental involvement Discontinue antivirals at this time, VZV antibodies pending Elevated CRP/ESR iso RA//UC Given change in distribution of pain and no rash, less likely shingles, will discontinue valacyclovir and contact precautions at this time Minced and moist diet #Atherosclerotic changes of the aorta Noted on CT imaging Continue Lipitor daily for atherosclerosis of the thoracic aorta #Chronic normocytic Anemia hgb 10-11 Continue to monitor Continue folate supplement #Weight Loss #Moderate Protein calorie malnutrition Per son, pt has lost lots of weight over the past few months Dietary consult Adjust diet to soft/minced and moist given jaw pain #Hypertension Continue metoprolol #rheumatoid arthritis Continue prednisone Hold Plaquenil and 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 in light of ongoing infection follow up with rheum op #History of ulcerative colitis, IBS No GI symptoms #Hypothyroidism Continue levothyroxine Diet: /mined and moist regular DVT prophylaxis: Heparin SQ q12 Dispo: PT/OT ordered: pending rehab come tuesday Admission and Anticipated Discharge Date Admission Date: February 06, 2024 Subjective NAEO reports subjective improvement with texture change in diet, no acute concerns this am Physical Exam Constitutional: WD/WN, vitals as above Respiratory: diminshed, but otherwise no resp distress or cough noted Cardiovascular: RRR, no murmur, no edema Gastrointestinal (Abdomen): normal bowel sounds, soft, nontender, no hepatosplenomegaly Results & Data Results & Data Vital Signs (Past 12 Hours) Vital Signs Temp Pulse Pulse Resp BP Pulse Ox O2 Del Method 02/11/24 11:18 36.5 C 65 20 101/57 L 100 Nasal Cannula 02/11/24 07:30 36.9 C 75 20 108/65 97 Nasal Cannula 02/11/24 07:27 76 02/11/24 03:24 37.1 C 70 20 110/65 98 Nasal Cannula O2 Flow Rate 02/11/24 11:18 2 02/11/24 07:30 2 02/11/24 07:27 02/11/24 03:24 2 Laboratory Results Short CBC 02/11/24 Range/Units 05:33 WBC 10.41 (4.8-10.8) K/ul Hgb 11.4 L (12.0-16.0) g/dl Hct 36.0 L (37.0-47.0) % Plt Count 256 (130-400) K/uL BMP 02/11/24 05:33 Sodium 134 L Potassium 3.9 Chloride 98 Carbon Dioxide 27 BUN 14 Creatinine 0.39 L Glucose 89 Calcium 8.6 Medications Administered Home Medications Medication Instructions Recorded Confirmed Last Taken folic acid 1 mg tablet 1 mg PO QAM 06/15/19 02/06/24 02/06/24 hydroxychloroquine 200 mg tablet 300 mg PO QAM 06/15/19 02/06/24 02/06/24 levothyroxine 75 mcg tablet 75 mcg PO QAM 06/15/19 02/06/24 02/06/24 pantoprazole 40 mg tablet,delayed 40 mg PO QAM #90 tabs 06/15/19 02/06/24 02/06/24 release prednisone 5 mg tablet 5 mg PO QAM #135 tabs 01/18/20 02/06/24 02/06/24 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 sodium 2.5 mg tablet 20 mg PO WK #48 tabs 04/13/21 02/06/24 02/06/24 denosumab 60 mg/mL subcutaneous 60 mg subcut UD PRN OSTEOPEROSIS 09/24/22 02/06/24 09/24/22 syringe (Prolia) fluocinonide 0.05 % topical 1 applic topical BID #30 grams 10/05/22 02/06/24 02/06/24 ointment metoprolol succinate 25 mg 25 mg PO QAM #90 tabs 09/06/23 02/06/24 02/06/24 tablet,extended release 24 hr atorvastatin 10 mg tablet 10 mg PO QAM 09/29/23 02/06/24 02/06/24 trazodone 50 mg tablet 50 mg PO HS 09/29/23 02/06/24 02/05/24 albuterol sulfate 2.5 mg/3 mL 2.5 mg continuous nebulization Q4H 02/06/24 02/06/24 02/05/24 (0.083 %) solution for nebulization PRN Wheezing budesonide 1 mg/2 mL suspension 1 mg inhalation QAM 02/06/24 02/06/24 02/06/24 for nebulization Active Medications Generic Name Dose Route Start Last Admin Trade Name Freq PRN Reason Stop Dose Admin Acetaminophen 650 mg 02/06/24 19:07 02/09/24 20:50 Acetaminophen 325 Mg Tab PO 03/07/24 19:06 650 mg Q4H PRN Administration Pain or Fever Atorvastatin Calcium 10 mg 02/07/24 09:00 02/11/24 07:57 Atorvastatin 10 Mg Tab PO 03/08/24 08:59 10 mg QAM LANEY Administration Folic Acid 1 mg 02/07/24 09:00 02/11/24 07:58 Folic Acid 1 Mg Tab PO 03/08/24 08:59 1 mg QAM LANEY Administration Heparin Sodium (Porcine) 5,000 units 02/07/24 21:00 02/11/24 07:56 Heparin Sod 5,000 Unit/0.5 Ml Vial SQ 03/08/24 20:59 5,000 units Q12 LANEY Administration Lactobacillus Acidophilus 1,250 mg 02/07/24 09:00 02/11/24 07:58 Advanced Probiotic 625 Mg Capsule PO 03/08/24 08:59 1,250 mg DAILY LANEY Administration Levothyroxine Sodium 75 mcg 02/07/24 06:30 02/11/24 05:40 Levothyroxine Sodium 75 Mcg Tablet PO 03/08/24 06:29 75 mcg DAILYBB LANEY Administration Metoprolol Succinate 25 mg 02/07/24 09:00 02/11/24 07:58 Metoprolol Succ 25mg Ext Rel Tab PO 03/08/24 08:59 25 mg QAM LANEY Administration Pantoprazole Sodium 40 mg 02/07/24 09:00 02/11/24 07:59 Pantoprazole 40 Mg Tab PO 03/08/24 08:59 40 mg QAM LANEY Administration Prednisone 5 mg 02/07/24 09:00 02/11/24 07:59 Prednisone 5 Mg Tab PO 03/08/24 08:59 5 mg QAM LANEY Administration Trazodone HCl 50 mg 02/06/24 21:00 02/10/24 21:05 Trazodone Hcl 50 Mg Tab PO 03/07/24 20:59 50 mg HS LANEY Administration
--- NOTE | 2024-02-11 16:10 | Oral/Maxillofacial Consult ---
Date of Consultation February 09, 2024 Assessment & Plan (1) Bilateral myofascial pain: (2) TMJ arthralgia: (3) TMJ inflammation: History of Present Illness Reason for Consultation: Jaw and facial pain Attending Physician: Rosalia Garcia MD History of Present Illness Pt is an 83-year-old female with PMhx significant for rheumatoid arthritis, IBS/ulcerative colitis on 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, prednisone, Plaquenil, Interstitial pulmonary disease/bronchiectasis/asthma, hypertension, hypothyroidism presenting with left ear pain, left facial numbness/burning on day of admission. Patient initially suspected to have shingles, however no rash and pain moved from left to right side. I evaluated Mrs. Melgar and suspects an acute flare up of TMJ arthritis. I did not find any acute dental issues--periodontal infection, carious or abscessed teeth that could result in the pain Mrs Melgar is experiences at present on the right side. There is no acute sinus disease contributing to process. Oral Maxillofacial Surgery Exam February 08 ( afternoon) Present Complaint: Mrs Wyatt has pain right side of the face and over the EAC (right TMJ area) especially when eating and clenching her teeth together. Symptoms started on the left side and ear upon admission then abruptly changed to the right (?) Mrs Wyatt tells me the pain started a few days before the current admission. have been ongoing for a while. Oral Exam: Finding--No significant periodontal disease, no acute dental problems, actually teeth in good repair. there is no gingival tissue pathology or deep pocket formation. There is some gum recession lower anterior Overall no dental etiology to cause the current symptoms. No teeth will require removal. Imaging: The CT was reviewed, there were no abnormal findings regarding her teeth. The TMJ are well positioned and with evidence of moderate DJD and reduced joint space, The sinus and supporting bone all WNL CT SCAN OF THE NECK WITH IV CONTRAST CLINICAL HISTORY: Bilateral facial/parotid pain. COMPARISON STUDY: Ultrasound of the left parotid gland dated 02/06/2024. FINDINGS: Pharynx: The nasopharynx, oropharynx, and laryngeal pharynx are normal in appearance. The pharyngeal airway is widely patent. There is no evidence of mass lesion. The vocal cords are symmetric. The parapharyngeal fat is well maintained. The prevertebral/retropharyngeal soft tissues are within normal limits. Lymphadenopathy: No cervical lymphadenopathy is seen Thyroid: Normal in size and attenuation. Salivary glands: The parotid and submandibular glands are within normal limits. Brain parenchyma: The visualized brain parenchyma at the skull base is normal in appearance noting age-related involutional change. Vascular structures: The carotid arteries and jugular veins are patent. Skeletal structures: The skeletal structures are osteopenic. Imaged portions of the calvarium at the skull base are within normal limits. The cervical spine appears intact noting multilevel spondylosis. Arthritic change is seen in the temporomandibular joints. Orbits: The bony pelvis are intact. Orbital contents are normal as visualized noting bilateral ocular lens implants. Sinuses and mastoids: There is mucosal thickening and fluid within the sphenoid sinuses. The remaining paranasal sinuses are clear. There is a left mastoid effusion. The right mastoid air cells are well pneumatized. Lung apices: Fibrotic change is seen throughout the upper lobes. This is better chest on the 02/07/[address] IMPRESSION: 1. No acute abnormality is seen involving the neck. 2. Fibrotic change is present in the upper lungs. Correlate clinically for evidence of a superimposed pneumonia. Soft tissue: The floor of the mouth, tongue, hard/soft palate, posterior pharyngeal area all with in normal limits, no pathology or abnormal findings noted. No lesions noted that require follow up or Bx. Oral Care: Overall oral care is good Occlusion: Class I stable TMJ exam: Mrs Melgar has pain upon palpation of the right EAC area and the cheeks and angle of the jaw. She is also complaining of tenderness upon palpation of the external oblique ridge and vertical aspect of the lower jaw. There in pop or clicking due to the fact that she has restricted opening which I feel is part of the myofacial symptoms she presents with. She does have right side pain and a restricted ROM. tells me --No history of TMJ injury or dysfunction in the past. Treatment Plan: The symptoms that Mrs. Melgar is showing in my opinion are myofacial in nature. 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 Her pain is not consistent wit lugo neurologic Trigeminal neuralgia pattern. Zoster does not present with pain only upon chewing or touching the area or going from side to side. The teeth are not the cause based on the clinical or CT exam. I see no evidence of infection, effusion,swelling or skin rash to suggest Zoster. As far as treatment I would consider either heat vs cold therapy to the right alis of her face Soft non chew diet NSAIDS if tolerated. Usually in my opinion the acute phase will settle down with rest and conservative care. If symptoms continue I will suggest getting an MRI get a better picture of the muscles and soft tissues about the TMJ areas. Allergies Allergy/AdvReac Type Severity Reaction Status Date / Time No Known Allergies Allergy Verified 02/06/24 14:22 Home Medications Medication Instructions Recorded Confirmed Type folic acid 1 mg tablet 1 mg PO QAM 06/15/19 02/06/24 History hydroxychloroquine 200 mg tablet 300 mg PO QAM 06/15/19 02/06/24 History levothyroxine 75 mcg tablet 75 mcg PO QAM 06/15/19 02/06/24 History pantoprazole 40 mg tablet,delayed 40 mg PO QAM #90 tabs 06/15/19 02/06/24 History release prednisone 5 mg tablet 5 mg PO QAM #135 tabs 01/18/20 02/06/24 History 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 sodium 2.5 mg tablet 20 mg PO WK #48 tabs 04/13/21 02/06/24 History denosumab 60 mg/mL subcutaneous 60 mg subcut UD PRN OSTEOPEROSIS 09/24/22 02/06/24 History syringe (Prolia) fluocinonide 0.05 % topical 1 applic topical BID #30 grams 10/05/22 02/06/24 Rx ointment metoprolol succinate 25 mg 25 mg PO QAM #90 tabs 09/06/23 02/06/24 Rx tablet,extended release 24 hr atorvastatin 10 mg tablet 10 mg PO QAM 09/29/23 02/06/24 History trazodone 50 mg tablet 50 mg PO HS 09/29/23 02/06/24 History albuterol sulfate 2.5 mg/3 mL 2.5 mg continuous nebulization Q4H 02/06/24 02/06/24 History (0.083 %) solution for nebulization PRN Wheezing budesonide 1 mg/2 mL suspension 1 mg inhalation QAM 02/06/24 02/06/24 History for nebulization Patient History Medical History (Updated 02/11/24 @ 16:10 by Curt Barkley DMD) Rheumatoid lung disease Unintentional weight loss OVER THE PAST FEW MONTHS Age related osteoporosis Constipation REASON FOR UPCOMING PROCEDURE SOB (shortness of breath) on exertion ONGOING/NO CHANGE IN BASELINE History of recent fall LAST WEEK/[facility] EVAL/ 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 R/T SOME CURRENT MEDICATION / EVAL CONTINUES FOR CAUSE Mitral regurgitation PT DENIES HEART MURMUR History of squamous cell carcinoma History of basal cell carcinoma Asthma WELL CONTROLLED GERD without esophagitis Hiatal hernia Hypothyroidism Surgical History History of left cataract surgery History of right cataract surgery History of colonoscopy History of endoscopy History of cholecystectomy History of cardiac catheterization PT DENIES Family History Unknown Hypertension Father Diabetes Denies family history of Ovarian cancer Breast cancer Colorectal cancer Social History Smoking Status: Never smoker Second Hand Exposure: No; Do You Dip or Chew Tobacco: No; Tobacco Cessation Education Requested by Patient: No Hx Alcohol Use: No Hx Substance Use: No Preferred Language: Yi Communication Ability: Effective Curriculum And Instruction Director Required: No Beliefs That Will Affect Care: None Current Living Situation: Spouse Current Living Situation Comment: Lives at home with Other Information That Helps Us Care for You: No Feels Safe at Home: Yes Safety Concerns: Feels Safe At This Time Assistive Devices: Walker Results & Data Vital Signs (Past 12 Hours) Vital Signs Temp Pulse Pulse Resp BP Pulse Ox O2 Del Method 02/11/24 15:26 36.5 C 68 20 100/53 L 98 Nasal Cannula 02/11/24 14:26 71 02/11/24 11:18 36.5 C 65 20 101/57 L 100 Nasal Cannula 02/11/24 07:30 36.9 C 75 20 108/65 97 Nasal Cannula 02/11/24 07:27 76 O2 Flow Rate 02/11/24 15:26 2 02/11/24 14:26 02/11/24 11:18 2 02/11/24 07:30 2 02/11/24 07:27 PG Care Time/CCT Total # of Minutes Spent Total Time Spent with Patient: Total time spent is greater than 50% in coordination of care (as documented) at patient's floor/unit and/or counseling patient: Coding Level of Care Code 40221 INT INP/OBS CARE 2/55MIN Diagnoses Bilateral myofascial pain M79.18 Bilateral temporomandibular joint pain M26.623 Laterality: bilateral TMJ inflammation M26.69 (2) TMJ arthralgia Laterality: bilateral Qualified Code(s): M26.623 - Arthralgia of bilateral temporomandibular joint
--- NOTE | 2024-02-12 11:53 | Hospitalist Progress Note ---
Date of Service February 12, 2024 Assessment & Plan (1) Acute ear pain: (2) Herpes zoster oticus: (3) Parotitis: (4) Bronchiectasis: (5) Rheumatoid arthritis: (6) History of IBS: (7) Ulcerative colitis: Plan Pt is an 83-year-old female with PMhx significant for rheumatoid arthritis, IBS/ulcerative colitis on 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, prednisone, Plaquenil, Interstitial pulmonary disease/bronchiectasis/asthma, hypertension, hypothyroidism presenting with left ear pain, left facial numbness/burning on day of admission. Patient initially suspected to have shingles, however no rash and pain moved from left to right side. OMFS evaluated patient and suspects acute flare of arthritis, noting no dental or sinus disease contributing to process. Ultimately, patient found to likely be experiencing severe pain from TMJ arthralgia. Patient notes improvement after texture change for diet. Plan for dispo tomorrow to rehab. #Acute TMJ arthralgia #Bilateral myofascial pain r/o herpes zoster oticus (low suspicion) Immunocompromised patient on 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, chronic prednisone for RA, ulcerative colitis Initially reporting left lower facial numbness, CT head negative Patient advised admitting provider that she did not have facial numbness but did have burning sensation on her left jain, and rest of her lower face US negative for inflammation of parotid gland CT without any bony abnormality, sinus involvement, dental involvement Discontinue antivirals at this time, VZV antibodies pending Elevated CRP/ESR iso RA//UC Given change in distribution of pain and no rash, less likely shingles, will discontinue valacyclovir and contact precautions at this time Minced and moist diet #Fibrotic lung disease #Acute hypoxic resp failure, on NC 2L #Community acquired pneumonia, r/o #Immunocompromised Status History of bronchiectasis, interstitial pulmonary disease, bronchial asthma Pt presenting with ear and facial pain Coarse breath sounds on exam Chest XRAY with concern for infectious or inflammatory pneumonitis CT chest noting multilobar pneumonia, fibrotic lung disease Biofire negative; Legionella negative Discontinue abx Oxygen supplementation as needed Pulmonology consulted, appreciate further recs -" fibrotic lung disease is likely secondary to rheumatoid arthritis and ulcerative colitis. Other possibilities include chronic nontuberculous Mycobacterium infection. Can consider sending AFB sputum to evaluate for nontuberculous Mycobacterium organisms, but she is unlikely to tolerate the long-term treatment for such an infection. She is relatively asymptomatic and thus I would not recommend any particular interventions at this time. I would encourage holding 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 and considering a different immunosuppressive agent as 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 could further induce pulmonary toxicity." -OP rheumatology follow up -Hold MTX Will need OP pulm follow up #Atherosclerotic changes of the aorta Noted on CT imaging Continue Lipitor daily for atherosclerosis of the thoracic aorta #Chronic normocytic Anemia hgb 10-11 Continue to monitor Continue folate supplement #Weight Loss #Moderate Protein calorie malnutrition Per son, pt has lost lots of weight over the past few months Dietary consult Adjust diet to soft/minced and moist given jaw pain #Hypertension Continue metoprolol #rheumatoid arthritis Continue prednisone Hold Plaquenil and 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 in light of ongoing infection follow up with rheum op #History of ulcerative colitis, IBS No GI symptoms #Hypothyroidism Continue levothyroxine Diet: /mined and moist regular DVT prophylaxis: Heparin SQ q12 Dispo: PT/OT ordered: pending rehab come tuesday Admission and Anticipated Discharge Date Admission Date: February 06, 2024 Subjective NAEO Reports feeling happy over malt-o-meal with cinnamon; she was able to enjoy breakfast and noted improvement in pain Denies any new concerns this am Physical Exam Constitutional: WD/WN, vitals as above Respiratory: normal respiratory effort, lungs clear to auscultation Cardiovascular: RRR, no murmur, no edema Gastrointestinal (Abdomen): normal bowel sounds, soft, nontender, no hepatosplenomegaly Skin: no rashes, warm and dry Results & Data Results & Data Vital Signs (Past 12 Hours) Vital Signs Temp Pulse Pulse Resp BP BP Pulse Ox 02/12/24 10:49 37.2 C 67 18 86/46 L 92/46 L 94 02/12/24 07:45 02/12/24 07:30 37.4 C 83 20 100/60 96 02/12/24 05:31 70 02/12/24 04:00 37.3 C 67 20 101/51 L 92 02/12/24 00:16 36.7 C 82 20 104/59 L 92 O2 Del Method O2 Flow Rate 02/12/24 10:49 Room Air 02/12/24 07:45 Nasal Cannula 1 02/12/24 07:30 Nasal Cannula 1 02/12/24 05:31 02/12/24 04:00 Nasal Cannula 1 02/12/24 00:16 Room Air Medications Administered Home Medications Medication Instructions Recorded Confirmed Last Taken folic acid 1 mg tablet 1 mg PO QAM 06/15/19 02/06/24 02/06/24 hydroxychloroquine 200 mg tablet 300 mg PO QAM 06/15/19 02/06/24 02/06/24 levothyroxine 75 mcg tablet 75 mcg PO QAM 06/15/19 02/06/24 02/06/24 pantoprazole 40 mg tablet,delayed 40 mg PO QAM #90 tabs 06/15/19 02/06/24 02/06/24 release prednisone 5 mg tablet 5 mg PO QAM #135 tabs 01/18/20 02/06/24 02/06/24 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 sodium 2.5 mg tablet 20 mg PO WK #48 tabs 04/13/21 02/06/24 02/06/24 denosumab 60 mg/mL subcutaneous 60 mg subcut UD PRN OSTEOPEROSIS 09/24/22 02/06/24 09/24/22 syringe (Prolia) fluocinonide 0.05 % topical 1 applic topical BID #30 grams 10/05/22 02/06/24 02/06/24 ointment metoprolol succinate 25 mg 25 mg PO QAM #90 tabs 09/06/23 02/06/24 02/06/24 tablet,extended release 24 hr atorvastatin 10 mg tablet 10 mg PO QAM 09/29/23 02/06/24 02/06/24 trazodone 50 mg tablet 50 mg PO HS 09/29/23 02/06/24 02/05/24 albuterol sulfate 2.5 mg/3 mL 2.5 mg continuous nebulization Q4H 02/06/24 02/06/24 02/05/24 (0.083 %) solution for nebulization PRN Wheezing budesonide 1 mg/2 mL suspension 1 mg inhalation QAM 02/06/24 02/06/24 02/06/24 for nebulization Active Medications Generic Name Dose Route Start Last Admin Trade Name Freq PRN Reason Stop Dose Admin Acetaminophen 650 mg 02/06/24 19:07 02/12/24 08:28 Acetaminophen 325 Mg Tab PO 03/07/24 19:06 650 mg Q4H PRN Administration Pain or Fever Atorvastatin Calcium 10 mg 02/07/24 09:00 02/12/24 08:25 Atorvastatin 10 Mg Tab PO 03/08/24 08:59 10 mg QAM LANEY Administration Folic Acid 1 mg 02/07/24 09:00 02/12/24 08:25 Folic Acid 1 Mg Tab PO 03/08/24 08:59 1 mg QAM LANEY Administration Heparin Sodium (Porcine) 5,000 units 02/07/24 21:00 02/12/24 08:25 Heparin Sod 5,000 Unit/0.5 Ml Vial SQ 03/08/24 20:59 5,000 units Q12 LANEY Administration Lactobacillus Acidophilus 1,250 mg 02/07/24 09:00 02/12/24 08:25 Advanced Probiotic 625 Mg Capsule PO 03/08/24 08:59 1,250 mg DAILY LANEY Administration Levothyroxine Sodium 75 mcg 02/07/24 06:30 02/12/24 06:02 Levothyroxine Sodium 75 Mcg Tablet PO 03/08/24 06:29 75 mcg DAILYBB LANEY Administration Metoprolol Succinate 25 mg 02/07/24 09:00 02/12/24 08:25 Metoprolol Succ 25mg Ext Rel Tab PO 03/08/24 08:59 25 mg QAM LANEY Administration Pantoprazole Sodium 40 mg 02/07/24 09:00 02/12/24 08:25 Pantoprazole 40 Mg Tab PO 03/08/24 08:59 40 mg QAM LANEY Administration Prednisone 5 mg 02/07/24 09:00 02/12/24 08:25 Prednisone 5 Mg Tab PO 03/08/24 08:59 5 mg QAM LANEY Administration Trazodone HCl 50 mg 02/06/24 21:00 02/11/24 20:20 Trazodone Hcl 50 Mg Tab PO 03/07/24 20:59 50 mg HS LANEY Administration
--- NOTE | 2024-02-13 11:31 | Discharge Summary ---
Date of Service February 13, 2024 Admission HPI Per Admitting Provider 83-year-old female with history of rheumatoid arthritis, IBS/ulcerative colitis on 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, prednisone, Plaquenil, institutional pulmonary disease/bronchiectasis/asthma, hypertension, hypothyroidism presenting with left ear pain, left facial numbness with dysphagia this morning. Patient was at her usual state of health, until this morning when she woke up with severe left ear pain, associated with left facial numbness and difficulty swallowing. At the ER, patient afebrile, stable vital signs CT head no acute process On exam, patient seen resting bed, sitting up, comfortable, not in distress Reports left ear pain, but no associated hearing loss, tinnitus, discharge. No fevers or chills During my interview, patient clarifies that she did not have numbness over the left side of her face but more of burning sensation in the zoroastrian area and lower side of her face. Had intermittent dysphagia as well No cough, chest pain, shortness of breath, sputum production Discharge Data Allergies Allergy/AdvReac Type Severity Reaction Status Date / Time No Known Allergies Allergy Verified 02/06/24 14:22 Consultations 02/06/24 14:28 ED Decision to Admit Stat 02/06/24 21:02 Consult Pulmonology Routine 02/09/24 16:23 Consult Oromaxillofacial Surgery Routine Ordered Studies 02/06/24 12:23 CT head/brain wo con Stat 02/06/24 22:08 CT chest diagnostic wo con Routine US soft tissue head and neck Routine 02/09/24 08:45 CT soft tissue neck w con Routine Hospital Course (1) Acute ear pain: (2) Herpes zoster oticus: (3) Parotitis: (4) Bronchiectasis: (5) Rheumatoid arthritis: (6) History of IBS: (7) Ulcerative colitis: Plan Pt is an 83-year-old female with PMhx significant for rheumatoid arthritis, IBS/ulcerative colitis on 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, prednisone, Plaquenil, Interstitial pulmonary disease/bronchiectasis/asthma, hypertension, hypothyroidism presenting with left ear pain, left facial numbness/burning on day of admission. Patient initially suspected to have shingles, however no rash and pain moved from left to right side. OMFS evaluated patient and suspects acute flare of arthritis, noting no dental or sinus disease contributing to process. Ultimately, patient found to likely be experiencing severe pain from TMJ arthralgia. Patient notes improvement after texture change for diet. Plan for dispo tomorrow to rehab. #Acute TMJ arthralgia #Bilateral myofascial pain r/o herpes zoster oticus (low suspicion) Immunocompromised patient on 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, chronic prednisone for RA, ulcerative colitis Initially reporting left lower facial numbness, CT head negative Patient advised admitting provider that she did not have facial numbness but did have burning sensation on her left zoroastrian, and rest of her lower face US negative for inflammation of parotid gland CT without any bony abnormality, sinus involvement, dental involvement Discontinue antivirals at this time, VZV antibodies pending Elevated CRP/ESR iso RA//UC Given change in distribution of pain and no rash, less likely shingles, will discontinue valacyclovir and contact precautions at this time Minced and moist diet #Fibrotic lung disease #Acute hypoxic resp failure, on NC 2L #Community acquired pneumonia, r/o #Immunocompromised Status History of bronchiectasis, interstitial pulmonary disease, bronchial asthma Pt presenting with ear and facial pain Coarse breath sounds on exam Chest XRAY with concern for infectious or inflammatory pneumonitis CT chest noting multilobar pneumonia, fibrotic lung disease Biofire negative; Legionella negative Discontinue abx Oxygen supplementation as needed Pulmonology consulted, appreciate further recs -" fibrotic lung disease is likely secondary to rheumatoid arthritis and ulcerative colitis. Other possibilities include chronic nontuberculous Mycobacterium infection. Can consider sending AFB sputum to evaluate for nontuberculous Mycobacterium organisms, but she is unlikely to tolerate the long-term treatment for such an infection. She is relatively asymptomatic and thus I would not recommend any particular interventions at this time. I would encourage holding 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 and considering a different immunosuppressive agent as 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 could further induce pulmonary toxicity." -OP rheumatology follow up -Hold MTX Will need OP pulm follow up #Atherosclerotic changes of the aorta Noted on CT imaging Continue Lipitor daily for atherosclerosis of the thoracic aorta #Chronic normocytic Anemia hgb 10-11 Continue to monitor Continue folate supplement #Weight Loss #Moderate Protein calorie malnutrition Per son, pt has lost lots of weight over the past few months Dietary consult Adjust diet to soft/minced and moist given jaw pain #Hypertension Continue metoprolol #rheumatoid arthritis Continue prednisone Hold Plaquenil and 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 in light of ongoing infection follow up with rheum op #History of ulcerative colitis, IBS No GI symptoms #Hypothyroidism Continue levothyroxine Diet: /mined and moist regular DVT prophylaxis: Heparin SQ q12 Dispo: PT/OT ordered: pending rehab come tuesday Home Health Attestation I certify that this patient is under my care and that I, or a physicians printing bindery assistant working with me, had a face to-face encounter that meets the home health [id number] encounter requirements with this patient. The encounter with the patient was in whole, or in part, for the following medical condition, which is the primary reason for home health care (list medical condition): I certify that, based on my findings, the following services are medically necessary home health services: My clinical findings support the need for the above services because: Further, I certify that my clinical findings support that this patient is homebound (i.e. absences from home require considerable and taxing effort and are for medical reasons or taoist services or infrequently or of short duration when for other reasons) because: Certification for Home Health Services: Based on the above findings, I certify that this patient is confined to the home and needs intermittent care home care, physical therapy and/or speech therapy or continues to need occupational therapy. The patient is under my care, and I have initiated the establishment of the plan of care. This patient will be followed by a physician who will periodically review the plan of care. Discharge Plan Discharge Items Patient Disposition: [facility] Reason For Visit: HERPES ZOSTER, PAROTITIS Discharge Diagnosis: Acute Temporomandibular Joint (TMJ) Arthralgia Activity: Resume your previous activity Non-emergency contact: Primary Care Provider Call non-emergency contact if: you have any medication questions, your symptoms worsen, your pain is not controlled and you have a fever Follow-up/Referrals: Troy Belle MD [Primary Care Provider] - Diet: Regular Diet Texture: Dental soft (bite-sized) Diet Comment: Minced and Moist Addtl Attending Provider Instructions: You were admitted to the hospital secondary to Pending Studies at Discharge: No Stand-Alone Forms: My [facility] Skilled Items Patient informed of condition?: Yes DNR: No Discharge Level of Care: Skilled Communicable Disease: No Discharge Prognosis: Stable Lines: None Urinary Catheter: No Medications and DC Order Prescriptions: No Action metoprolol succinate 25 mg tablet extended release 24 hr 25 mg PO QAM Qty: 90 3RF fluocinonide 0.05 % ointment 1 applic topical BID Qty: 30 0RF Rx Instructions: Apply to areas of the arms twice daily x 2 weeks as needed for flaring. folic acid 1 mg tablet 1 mg PO QAM Patient Comments: hydroxychloroquine 200 mg tablet 300 mg PO QAM levothyroxine 75 mcg tablet 75 mcg PO QAM pantoprazole 40 mg tablet,delayed release (DR/EC) 40 mg PO QAM Qty: 90 prednisone 5 mg tablet 5 mg PO QAM Qty: 135 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 sodium 2.5 mg tablet 20 mg PO WK Qty: 48 Patient Comments: on Mondays Rx Instructions: Tuesday Prolia 60 mg/mL Syringe 60 mg SUBCUT UD PRN (Reason: OSTEOPEROSIS) Patient Comments: EVERY 6 TUE/SEPTEMBER 28 2022 Rx Instructions: Every 6 months - Pt has not had it for the year 2023 yet. albuterol sulfate 2.5 mg /3 mL (0.083 %) solution for nebulization 2.5 mg continuous nebulization Q4H PRN (Reason: Wheezing) budesonide 1 mg/2 mL suspension for nebulization 1 mg inhalation QAM trazodone 50 mg tablet 50 mg PO HS atorvastatin 10 mg tablet 10 mg PO QAM Krames/Other Patient Handouts: TMJ Help Healing Admission Data Admit Date/Time: 02/06/24 15:13 Attending Provider: Rosalia Garcia Admit Provider: Hema Diana Primary Care Provider: Troy Belle Other Providers: Hema Diana; Edmundo Turner; Mayank Del Rosario; Adriano Ferreira; Es Perales; Doris Chan; Kemi Peralta; Matthias Wheat; Scottie Alex; Anisa Barrgaan; [place]; [facility] [place]; Curt Barkley
--- NOTE | 2024-02-13 15:59 | Hospitalist Progress Note ---
Date of Service February 13, 2024 Assessment & Plan (1) Acute ear pain: (2) Herpes zoster oticus: (3) Parotitis: (4) Bronchiectasis: (5) Rheumatoid arthritis: (6) History of IBS: (7) Ulcerative colitis: Plan Shanna Melgar is an 83y/o F with PMHx significant for rheumatoid arthritis, IBS/ulcerative colitis [on 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, prednisone & Plaquenil], interstitial pulmonary disease/bronchiectasis/asthma, hypertension and hypothyroidism who presented with left ear pain, left facial numbness/burning on day of admission. Patient initially suspected to have shingles; however no rash and pain moved from left to right side. OMFS evaluated patient and suspects acute flare of arthritis, noting no dental or sinus disease contributing to process. Ultimately, patient found to likely be experiencing severe pain from TMJ arthralgia. Patient notes improvement after texture change for diet [minced + moist]. Acute TMJ Arthralgia Bilateral Myofascial Pain R/O Herpes Zoster Oticus (Low Suspicion) Immunocompromised patient on 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, chronic prednisone for RA, ulcerative colitis. Initially reporting left lower facial numbness, CT head negative. Patient advised admitting provider that she did not have facial numbness but did have burning sensation on her left christian, and rest of her lower face. US negative for inflammation of parotid gland; CT without any bony abnormality, sinus involvement or dental involvement. Given change in distribution of pain and no rash, less likely shingles; Discontinued valacyclovir and contact precautions. VZV antibodies still pending - follow. Elevated CRP/ESR in setting of RA & UC. Will need to continue minced and moist diet at time of d/c. Fibrotic Lung Disease Acute Hypoxic Respiratory Failure [On NC 2L] R/O Community Acquired Pneumonia Immunocompromised Status History of bronchiectasis, interstitial pulmonary disease & bronchial asthma. Pt presenting with ear and facial pain, coarse breath sounds on admission. CXR with concern for infectious or inflammatory pneumonitis. CT chest noting multilobar pneumonia, fibrotic lung disease. Biofire & Legionella both negative - ABX discontinued. Oxygen supplementation as needed. Pulmonology consulted, appreciate further recs: "fibrotic lung disease is likely secondary to rheumatoid arthritis and ulcerative colitis. Other possibilities include chronic nontuberculous Mycobacterium infection. Can consider sending AFB sputum to evaluate for nontuberculous Mycobacterium organisms, but she is unlikely to tolerate the long-term treatment for such an infection. She is relatively asymptomatic and thus I would not recommend any particular interventions at this time. I would encourage holding 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 and considering a different immunosuppressive agent as 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 could further induce pulmonary toxicity." Holding 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 given input above. Pt will need OP rheumatology and pulmonology follow-up appts. Atherosclerotic Changes of the Aorta Noted on CT imaging; Continue Lipitor daily for atherosclerosis of the thoracic aorta. Chronic Normocytic Anemia Baseline Hgb 10-11; Continue folate supplementation. Weight Loss & Moderate Protein Calorie Malnutrition Per son, pt has lost lots of weight over the past few months. Dietary consulted, diet adjusted to soft/minced and moist given jaw pain. Hypertension Continue metoprolol, closely monitor BP. Rheumatoid Arthritis Continue prednisone; Hold Plaquenil and 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 in light of ongoing infection. Pt will need follow-up with rheum as outpatient. History of Ulcerative Colitis, IBS: No GI complaints at this time. Hypothyroidism: Can continue [employer] levothyroxine. DVT Prophylaxis: SQ Heparin Code Status: FULL CODE PCP: Troy Belle MD Disposition: Plan to discharge patient to [facility] tomorrow. Patient seen in collaboration with Dr. Garcia. Please see addendum. I spent a total of 40 minutes coordinating, documenting, and providing care for this patient excluding time spent in the performance of separately billed services. This included personally reviewing all current laboratories and imaging studies, medical reconciliation, outpatient chart review and discussion with specialists. This chart was completed in part utilizing Speech Voice Recognition Software. Grammatical errors, random word insertions, pronoun errors, and incomplete sentences are an occasional consequence of this system due to software limitations, ambient noise, and hardware issues. Any formal questions or concerns about the content, text, or information contained within the body of this dictation should be directly addressed to the provider for clarification. Admission and Anticipated Discharge Date Admission Date: February 06, 2024 Supervising Physician Co-Signing Physician Notes I have seen and discussed the case with the collaborating advanced practitioner. I agree with the above PN. I have reviewed and confirmed the patients medical history, the findings on physical examination, and the patients diagnosis and treatment plan with German ERNANDEZ and agree with the information documented. Patient with TMJ arthralgia, improved on soft diet, pending dispo to rehab I spent a total of 15 minutes coordinating, documenting, and providing care for this patient excluding time spent in the performance of separately billed services. All of the aforementioned completed outside of collaborating with the assigned advanced practitioner for a full treatment plan. I have reviewed the advanced practitioner's documentation, and I agree with, and take responsibility for the plan of care Subjective Patient seen and examined at bedside in room W253-2. Patient reports significant improvement in her jaw pain. Mentions she enjoyed her breakfast this morning without difficulty. Patient denies any SOB, chest pain, abdominal pain or urinary/bowel habit issues. She has no concerns or complaints to offer at this time. Review of Systems Review of Systems: At least ten systems reviewed and negative, except as noted in the HPI. Physical Exam Physical Exam: General: WD/WN, vitals as above, NAD, sitting up in bed, pleasant, conversing appropriately.A+Ox3, euthymic affect. HEENT: Normocephalic, atraumatic. Normal inspection, PERRL, conjunctivae normal, anicteric sclerae, oropharynx normal. Respiratory: Normal respiratory effort, lungs clear to auscultation, no wheeze, rales, rhonchi. No accessory muscle use. Cardiovascular: Regular rate, rhythm, no murmur, normal peripheral pulses, no BLE edema. Vessels: No JVD. Abdomen/GI: Normal bowel sounds, soft, nontender, no hepatosplenomegaly. Extremities/Musculoskeletal: No cyanosis or clubbing, extremities motor strength intact, able to move all extremities. Neurologic: PERRL, EOMI, accommodation nl, no face palsy, no dysarthria, CN's II-XI not formally tested but appear grossly intact bilaterally. Skin: No rashes, normal color, warm/dry. Results & Data Results & Data Vital Signs (Past 12 Hours) Vital Signs Temp Pulse Pulse Resp BP BP Pulse Ox 02/13/24 15:26 36.4 C L 79 18 97/55 L 97 02/13/24 13:39 80 02/13/24 07:20 02/13/24 07:15 36.6 C 72 18 99/61 L 97 02/13/24 07:07 79 O2 Del Method O2 Flow Rate 02/13/24 15:26 Nasal Cannula 2 02/13/24 13:39 02/13/24 07:20 Nasal Cannula 2 02/13/24 07:15 Nasal Cannula 2 02/13/24 07:[address] 02/06/24 12:23 CT head/brain wo con CLINICAL HISTORY: L facial pain w/ numbness Technique: Contiguous axial CT images of the head were acquired from the base of the skull to the vertex without intravenous contrast administration. Images were viewed in brain, subdural and bone windows. Automated dose lowering techniques and/or adjustment according to patient size were utilized for this exam. Comparison: Comparison is made to CT head 09/29/2023 Findings: Areas of decreased attenuation are present in the periventricular and subcortical white matter bilaterally consistent with small vessel ischemic disease. Generalized cerebral atrophy with commensurate enlargement of the ventricles, sulci, and cisterns is also present. There is no acute intracranial hemorrhage or evidence of acute territorial infarction. No shift of the midline structures, mass effect, or extra-axial abnormalities are shown. Atherosclerotic calcifications are present in the intracranial segments of the internal carotid arteries. Bilateral sphenoid sinus thickening is seen. The orbits appear normal. There are no acute fractures of the calvaria or scalp swelling. Impression: No acute intracranial hemorrhage, no evidence of acute territorial infarction or other acute intracranial disease process. ACT 112: Negative or not required by law. Electronically signed by: Tavo Nelson M.D. 02/06/2024 1:29 PM Chest X-Ray 02/06/24 16:26 SINGLE VIEW CHEST CLINICAL HISTORY: Hypoxia. Crackles on physical examination FINDINGS: An AP, portable, upright chest radiograph is compared to chest x-ray and chest CT dated 09/29/2023. The examination is degraded by portable technique and patient rotation. The heart is enlarged noting atherosclerotic calcification of the thoracic aorta. There is pulmonary vascular congestion. Again seen are findings of chronic interstitial/fibrotic lung disease. There are small pleural effusions with dependent consolidation. No pneumothorax is identified. The skeletal structures are osteopenic. The bony thorax is grossly intact. IMPRESSION: 1. Cardiomegaly with pulmonary vascular congestion. 2. Layering pleural effusions with dependent consolidation. This is superimposed upon changes of chronic interstitial/fibrotic lung disease. Correlate clinically for evidence of a superimposed infectious/inflammatory pneumonitis. Radiographic follow-up to resolution is recommended. ACT 112: Negative or not required by law. Electronically signed by: Jamie Jacobs M.D. 02/06/2024 5:[address] 02/06/24 22:08 Exam(s): CT CHEST Without Contrast EXAM: CT Chest Without Intravenous Contrast CLINICAL HISTORY: Reason for exam: pleural effusion, bronchiectasis. TECHNIQUE: Axial computed tomography images of the chest without intravenous contrast. CTDI is 7.79 mGy and DLP is 240.93 mGy-cm. Automated exposure control was utilized for the study. A dose lowering technique was utilized adhering to the principles of ALARA. COMPARISON: No relevant prior studies available. FINDINGS: Trachea: Calcified tracheobronchial tree. Lungs: Peripheral bilateral airspace consolidations, consistent with multilobar pneumonia. Pleural space: Unremarkable. No pneumothorax. No significant effusion. Heart: Unremarkable. No cardiomegaly. No significant pericardial effusion. No significant coronary artery calcifications. Bones/joints: Degenerative changes of the spine. No acute fracture. No dislocation. Soft tissues: Unremarkable. Vasculature: Atherosclerotic changes of the aorta. No thoracic aortic aneurysm. Lymph nodes: Unremarkable. No enlarged lymph nodes. IMPRESSION: Peripheral bilateral airspace consolidations, consistent with multilobar pneumonia. Electronically signed by: Mikal Chaparro MD 02/07/24 01:04 AM Head/Neck Ultrasound 02/06/24 22:08 ULTRASOUND OF THE LEFT PAROTID GLAND CLINICAL HISTORY: Parotitis. COMPARISON STUDY: No priors. FINDINGS: Real-time grayscale and color-flow sonography of the left parotid gland is performed. The parotid gland is normal in size and homogeneous in echotexture. No hyperemia is shown on color imaging. No shadowing sialoliths are identified. The left sublingual gland is normal as imaged. No regional lymphadenopathy is seen. IMPRESSION: Normal sonographic examination of the left parotid gland. Dictated: 02/07/2024 8:05 AM Transcribed: 02/07/2024 8:23 AM Nuno [id number] [id number] Electronically signed by: Jamie Jacobs M.D. 02/07/2024 8:29 AM Soft Tissue Neck CT 02/09/24 08:45 CT SCAN OF THE NECK WITH IV CONTRAST CLINICAL HISTORY: Bilateral facial/parotid pain. COMPARISON STUDY: Ultrasound of the left parotid gland dated 02/06/2024. TECHNIQUE: Following the IV administration of 93 cc of Optiray 320, CT scan of the soft tissues of the neck was performed from the skull base to the upper chest. Images are reviewed in the axial, sagittal, and coronal planes. IV contrast was administered without complication. A dose lowering technique was utilized adhering to the principles of ALARA. FINDINGS: Pharynx: The nasopharynx, oropharynx, and laryngeal pharynx are normal in appearance. The pharyngeal airway is widely patent. There is no evidence of mass lesion. The vocal cords are symmetric. The parapharyngeal fat is well maintained. The prevertebral/retropharyngeal soft tissues are within normal limits. Lymphadenopathy: No cervical lymphadenopathy is seen Thyroid: Normal in size and attenuation. Salivary glands: The parotid and submandibular glands are within normal limits. Brain parenchyma: The visualized brain parenchyma at the skull base is normal in appearance noting age-related involutional change. Vascular structures: The carotid arteries and jugular veins are patent. Skeletal structures: The skeletal structures are osteopenic. Imaged portions of the calvarium at the skull base are within normal limits. The cervical spine appears intact noting multilevel spondylosis. Arthritic change is seen in the temporomandibular joints. Orbits: The bony pelvis are intact. Orbital contents are normal as visualized noting bilateral ocular lens implants. Sinuses and mastoids: There is mucosal thickening and fluid within the sphenoid sinuses. The remaining paranasal sinuses are clear. There is a left mastoid effusion. The right mastoid air cells are well pneumatized. Lung apices: Fibrotic change is seen throughout the upper lobes. This is better chest on the 02/07/[address] IMPRESSION: 1. No acute abnormality is seen involving the neck. 2. Fibrotic change is present in the upper lungs. Correlate clinically for evidence of a superimposed pneumonia. ACT 112: Negative or not required by law. Electronically signed by: Jamie Jacobs M.D. 02/09/2024 11:13 AM Medications Administered Acetaminophen (Acetaminophen 325 Mg Tab) 650 mg PO Q4H PRN PRN Reason: Pain or Fever Stop: 03/07/24 19:06 Last Admin: 02/13/24 08:19 Dose: 650 mg Documented By: Admin: 02/12/24 08:28 Dose: 650 mg Documented By: Admin: 02/09/24 20:50 Dose: 650 mg Documented By: MARIA ISABEL Admin: 02/09/24 07:52 Dose: 650 mg Documented By: Admin: 02/08/24 23:54 Dose: 650 mg Documented By: Admin: 02/07/24 05:28 Dose: 650 mg Documented By: ERIC Atorvastatin Calcium (Atorvastatin 10 Mg Tab) 10 mg PO QA [facility] Stop: 03/08/24 08:59 Last Admin: 02/13/24 08:09 Dose: 10 mg Documented By: Admin: 02/12/24 08:25 Dose: 10 mg Documented By: Admin: 02/11/24 07:57 Dose: 10 mg Documented By: ДМИТРИЙ Admin: 02/10/24 15:09 Dose: Not Given Documented By: Admin: 02/09/24 07:53 Dose: 10 mg Documented By: Admin: 02/08/24 08:05 Dose: 10 mg Documented By: Admin: 02/07/24 08:30 Dose: 10 mg Documented By: GILMAR Folic Acid (Folic Acid 1 Mg Tab) [facility] Stop: 03/08/24 08:59 Last Admin: 02/13/24 08:09 Dose: 1 mg Documented By: Admin: 02/12/24 08:25 Dose: 1 mg Documented By: Admin: 02/11/24 07:58 Dose: 1 mg Documented By: ДМИТРИЙ Admin: 02/10/24 15:09 Dose: Not Given Documented By: Admin: 02/09/24 07:54 Dose: 1 mg Documented By: Admin: 02/08/24 08:04 Dose: 1 mg Documented By: Admin: 02/07/24 08:30 Dose: 1 mg Documented By: GILMAR Heparin Sodium (Porcine) (Heparin Sod 5,000 Unit/0.5 Ml Vial) 5,000 units SQ Q12 [facility] Stop: 03/08/24 20:59 Last Admin: 02/13/24 08:09 Dose: 5,000 units Documented By: Admin: 02/12/24 21:36 Dose: 5,000 units Documented By: Admin: 02/12/24 08:25 Dose: 5,000 units Documented By: Admin: 02/11/24 20:20 Dose: 5,000 units Documented By: Admin: 02/11/24 07:56 Dose: 5,000 units Documented By: ДМИТРИЙ Admin: 02/10/24 21:05 Dose: 5,000 units Documented By: Admin: 02/10/24 15:09 Dose: Not Given Documented By: Admin: 02/09/24 20:49 Dose: 5,000 units Documented By: MARIA ISABEL Admin: 02/09/24 07:55 Dose: 5,000 units Documented By: Admin: 02/08/24 20:59 Dose: 5,000 units Documented By: Admin: 02/08/24 08:06 Dose: 5,000 units Documented By: Admin: 02/07/24 20:25 Dose: 5,000 units Documented By: DEEJAY Lactobacillus Acidophilus (Advanced Probiotic 625 Mg Capsule) 1,250 mg PO DAILY [facility] Stop: 03/08/24 08:59 Last Admin: 02/13/24 08:09 Dose: 1,250 mg Documented By: Admin: 02/12/24 08:25 Dose: 1,250 mg Documented By: Admin: 02/11/24 07:58 Dose: 1,250 mg Documented By: ДМИТРИЙ Admin: 02/10/24 15:10 Dose: Not Given Documented By: Admin: 02/09/24 07:53 Dose: 1,250 mg Documented By: Admin: 02/08/24 08:04 Dose: 1,250 mg Documented By: Admin: 02/07/24 08:30 Dose: 1,250 mg Documented By: GILMAR Levothyroxine Sodium (Levothyroxine Sodium 75 Mcg Tablet) 75 mcg PO DAILYBB [facility] Stop: 03/08/24 06:29 Last Admin: 02/13/24 05:00 Dose: 75 mcg Documented By: Admin: 02/12/24 06:02 Dose: 75 mcg Documented By: Admin: 02/11/24 05:40 Dose: 75 mcg Documented By: Admin: 02/10/24 15:09 Dose: Not Given Documented By: Admin: 02/09/24 05:14 Dose: 75 mcg Documented By: Admin: 02/08/24 06:07 Dose: 75 mcg Documented By: Admin: 02/07/24 05:28 Dose: 75 mcg Documented By: ERIC Metoprolol Succinate (Metoprolol Succ 25mg Ext Rel Tab) 25 mg PO QAM [facility] Stop: 03/08/24 08:59 Last Admin: 02/13/24 08:09 Dose: Not Given Documented By: Admin: 02/12/24 08:25 Dose: 25 mg Documented By: Admin: 02/11/24 07:58 Dose: 25 mg Documented By: ДМИТРИЙ Admin: 02/10/24 15:10 Dose: Not Given Documented By: Admin: 02/09/24 07:54 Dose: 25 mg Documented By: Admin: 02/08/24 08:05 Dose: 25 mg Documented By: Admin: 02/07/24 08:31 Dose: 25 mg Documented By: GILMAR Pantoprazole Sodium (Pantoprazole 40 Mg Tab) 40 mg PO QA [facility] Stop: 03/08/24 08:59 Last Admin: 02/13/24 08:09 Dose: 40 mg Documented By: Admin: 02/12/24 08:25 Dose: 40 mg Documented By: Admin: 02/11/24 07:59 Dose: 40 mg Documented By: ДМИТРИЙ Admin: 02/10/24 15:10 Dose: Not Given Documented By: Admin: 02/09/24 07:54 Dose: 40 mg Documented By: Admin: 02/08/24 08:05 Dose: 40 mg Documented By: Admin: 02/07/24 08:31 Dose: 40 mg Documented By: GILMAR Prednisone (Prednisone 5 Mg Tab) 5 mg PO QA [facility] Stop: 03/08/24 08:59 Last Admin: 02/13/24 08:08 Dose: 5 mg Documented By: Admin: 02/12/24 08:25 Dose: 5 mg Documented By: Admin: 02/11/24 07:59 Dose: 5 mg Documented By: ДМИТРИЙ Admin: 02/10/24 15:10 Dose: Not Given Documented By: Admin: 02/09/24 07:53 Dose: 5 mg Documented By: Admin: 02/08/24 08:04 Dose: 5 mg Documented By: Admin: 02/07/24 08:30 Dose: 5 mg Documented By: GILMAR Trazodone HCl (Trazodone Hcl 50 Mg Tab) 50 mg PO [facility] Stop: 03/07/24 20:59 Last Admin: 02/12/24 21:36 Dose: 50 mg Documented By: Admin: 02/11/24 20:20 Dose: 50 mg Documented By: Admin: 02/10/24 21:05 Dose: 50 mg Documented By: Admin: 02/09/24 20:50 Dose: 50 mg Documented By: MARIA ISABEL Admin: 02/08/24 20:58 Dose: 50 mg Documented By: Admin: 02/07/24 20:25 Dose: 50 mg Documented By: Admin: 02/06/24 20:51 Dose: 50 mg Documented By: ERIC Discontinued Medications Azithromycin (Azithromycin 250 Mg Tab) 500 mg PO [facility] Stop: 02/09/24 09:01 Last Admin: 02/08/24 08:03 Dose: 500 mg Documented By: Admin: 02/07/24 11:27 Dose: 500 mg Documented By: GILMAR Budesonide (Budesonide 0.5 Mg/2 Ml Vial (Pulmicort)) 1 mg INH [facility] Stop: 03/08/24 08:59 Last Admin: 02/07/24 07:35 Dose: 1 mg Documented By: SIMRAN Sodium Chloride (Nss) 1,000 mls @ 60 mls/hr IV .[id number] [facility] Stop: 02/07/24 11:46 Last Infusion: 02/07/24 15:48 Dose: Infused Documented By: Admin: 02/06/24 19:48 Dose: 60 mls/hr Documented By: ERIC Acyclovir Sodium 450 mg/ (Dextrose) 109 mls @ 100 mls/hr IV Q12H [facility]; Protocol Stop: 02/13/24 19:59 Last Infusion: 02/07/24 10:25 Dose: Infused Documented By: Admin: 02/07/24 09:17 Dose: 100 mls/hr Documented By: Infusion: 02/06/24 22:00 Dose: Infused Documented By: Admin: 02/06/24 20:51 Dose: 100 mls/hr Documented By: ERIC Ampicillin Sodium/Sulbactam Sodium 3,000 mg/ Sodium Chloride 100 mls @ 200 mls/hr IV Q6 [facility] Stop: 02/16/24 19:29 Last Infusion: 02/06/24 20:33 Dose: Infused Documented By: Admin: 02/06/24 19:48 Dose: 200 mls/hr Documented By: ERIC Ampicillin Sodium/Sulbactam Sodium 3,000 mg/ Sodium Chloride 100 mls @ 200 mls/hr IV Q12H [facility] Stop: 02/17/24 07:59 Last Infusion: 02/07/24 09:16 Dose: Infused Documented By: Admin: 02/07/24 08:26 Dose: 200 mls/hr Documented By: GILMAR Acyclovir Sodium 400 mg/ (Dextrose) 108 mls @ 100 mls/hr IV Q8H [facility]; Protocol Stop: 02/14/24 15:59 Last Infusion: 02/09/24 01:09 Dose: Infused Documented By: Admin: 02/08/24 23:58 Dose: 100 mls/hr Documented By: Infusion: 02/08/24 17:03 Dose: Infused Documented By: Admin: 02/08/24 15:50 Dose: 100 mls/hr Documented By: Infusion: 02/08/24 09:43 Dose: Infused Documented By: Admin: 02/08/24 08:33 Dose: 100 mls/hr Documented By: Infusion: 02/08/24 01:59 Dose: Infused Documented By: Admin: 02/08/24 00:52 Dose: 100 mls/hr Documented By: Infusion: 02/07/24 18:05 Dose: Infused Documented By: Admin: 02/07/24 16:58 Dose: 100 mls/hr Documented By: Ampicillin Sodium/Sulbactam Sodium 3,000 mg/ Sodium Chloride 100 mls @ 200 mls/hr IV Q6H [facility] Stop: 02/17/24 13:59 Last Infusion: 02/08/24 13:20 Dose: Infused Documented By: Admin: 02/08/24 12:50 Dose: 200 mls/hr Documented By: Infusion: 02/08/24 08:31 Dose: Infused Documented By: Admin: 02/08/24 08:01 Dose: 200 mls/hr Documented By: Infusion: 02/08/24 01:32 Dose: Infused Documented By: Admin: 02/08/24 00:52 Dose: 200 mls/hr Documented By: Infusion: 02/07/24 21:02 Dose: Infused Documented By: Admin: 02/07/24 20:22 Dose: 200 mls/hr Documented By: Infusion: 02/07/24 14:13 Dose: Infused Documented By: Admin: 02/07/24 13:42 Dose: 200 mls/hr Documented By: GILMAR Ioversol (Optiray 320 100ml) 93 ml IV ONCE ONE Stop: 02/09/24 10:36 Last Admin: 02/09/24 10:36 Dose: 93 ml Documented By: KATIE Ketorolac Tromethamine (Ketorolac Tromethamine 15 Mg/Ml Vial) 15 mg IV NOW ONE Stop: 02/06/24 14:27 Last Admin: 02/06/24 14:39 Dose: 15 mg Documented By: CHERYL Valacyclovir HCl (Valacyclovir Hcl 500 Mg Tablet) 1,000 mg PO TID [facility] Stop: 02/14/24 08:59 Last Admin: 02/10/24 15:11 Dose: Not Given Documented By: Admin: 02/10/24 15:10 Dose: Not Given Documented By: Admin: 02/09/24 20:49 Dose: 1,000 mg Documented By: MARIA ISABEL Admin: 02/09/24 13:13 Dose: 1,000 mg Documented By: Admin: 02/09/24 08:49 Dose: 1,000 mg Documented By: LOR (1) Acute ear pain Laterality: unspecified laterality Qualified Code(s): H92.09 - Otalgia, unspecified ear (4) Bronchiectasis Bronchiectasis type: uncomplicated Qualified Code(s): J47.9 - Bronchiectasis, uncomplicated (5) Rheumatoid arthritis Rheumatoid arthritis location: unspecified site Rheumatoid factor presence: unspecified presence Qualified Code(s): M06.9 - Rheumatoid arthritis, unspecified (7) Ulcerative colitis Digestive disease complication type: without complication Ulcerative colitis location: unspecified ulcerative colitis location Qualified Code(s): K51.90 - Ulcerative colitis, unspecified, without complications
--- NOTE | 2024-02-14 11:28 | Discharge Summary ---
Date of Service February 14, 2024 Admission HPI Per Admitting Provider 83-year-old female with history of rheumatoid arthritis, IBS/ulcerative colitis on 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, prednisone, Plaquenil, institutional pulmonary disease/bronchiectasis/asthma, hypertension, hypothyroidism presenting with left ear pain, left facial numbness with dysphagia this morning. Patient was at her usual state of health, until this morning when she woke up with severe left ear pain, associated with left facial numbness and difficulty swallowing. At the ER, patient afebrile, stable vital signs CT head no acute process On exam, patient seen resting bed, sitting up, comfortable, not in distress Reports left ear pain, but no associated hearing loss, tinnitus, discharge. No fevers or chills During my interview, patient clarifies that she did not have numbness over the left side of her face but more of burning sensation in the episcopal area and lower side of her face. Had intermittent dysphagia as well No cough, chest pain, shortness of breath, sputum production Admission Exam Per Admitting Provider General- oriented x 3, not in distress, speaks in sentences with no effort or accessory muscle use Head- atraumatic Eyes- PERRL, EOMI, anicteric ENT- oropharynx clear Left ear: No auricular erythema/edema/tenderness Positive for cerumen, no discharge No facial erythema/edema/tenderness/rashes Left parotid gland area: Mild edema, mild tenderness Neck- supple, no JVD, no adenopathy, no thyromegaly; carotids +2/2, no bruits appreciated Lungs- Positive crackles at the bases, no wheezing Heart- normal rate, regular rhythm; no murmur, no gallop, no rub appreciated Abdomen- normal bowel sounds, nondistended, soft, nontender, no masses or hepatosplenomegaly Extremities- no pretibial edema, no calf tenderness; peripheral pulses intact Neuro- alert, oriented x 3; CN 2-12 grossly intact; motor 5/5 bilaterally;sensation 100% on all extremities; no other gross focal neurologic deficits Skin- warm & dry Principal Diagnosis Acute TMJ Arthralgia Discharge Exam General: WD/WN, vitals as above, NAD, sitting up in bed, pleasant, conversing appropriately. A+Ox3, euthymic affect. HEENT: Normocephalic, atraumatic. Normal inspection, PERRL, conjunctivae normal, anicteric sclerae, oropharynx normal. Respiratory: Normal respiratory effort, lungs clear to auscultation, no wheeze, rales, rhonchi. No accessory muscle use. Cardiovascular: Regular rate, rhythm, no murmur, normal peripheral pulses, no BLE edema. Vessels: No JVD. Abdomen/GI: Normal bowel sounds, soft, nontender, no hepatosplenomegaly. Extremities/Musculoskeletal: No cyanosis or clubbing, extremities motor strength intact, able to move all extremities. Neurologic: PERRL, EOMI, accommodation nl, no face palsy, no dysarthria, CN's II-XI not formally tested but appear grossly intact bilaterally. Skin: No rashes, normal color, warm/dry. Discharge Data Allergies Allergy/AdvReac Type Severity Reaction Status Date / Time No Known Allergies Allergy Verified 02/06/24 14:22 Consultations 02/06/24 14:28 ED Decision to Admit Stat 02/06/24 21:02 Consult Pulmonology Routine 02/09/24 16:23 Consult Oromaxillofacial Surgery Routine Ordered Studies 02/06/24 12:23 CT head/brain wo con Stat 02/06/24 22:08 CT chest diagnostic wo con Routine US soft tissue head and neck Routine 02/09/24 08:45 CT soft tissue neck w con Routine Hospital Course (1) Acute ear pain: (2) Herpes zoster oticus: (3) Parotitis: (4) Bronchiectasis: (5) Rheumatoid arthritis: (6) History of IBS: (7) Ulcerative colitis: Sindy Melgar is an 83y/o F with PMHx significant for rheumatoid arthritis, IBS/ulcerative colitis [on 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, prednisone & Plaquenil], interstitial pulmonary disease/bronchiectasis/asthma, hypertension and hypothyroidism who presented with left ear pain, left facial numbness/burning on day of admission. Acute TMJ Arthralgia Bilateral Myofascial Pain R/O Herpes Zoster Oticus (Low Suspicion) Immunocompromised patient on 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, chronic prednisone for RA, ulcerative colitis. Initially reporting left lower facial numbness, CT head negative. Patient advised admitting provider that she did not have facial numbness but did have burning sensation on her left episcopal, and rest of her lower face. Patient initially suspected to have shingles; however, no rash and pain moved from left to right side. US negative for inflammation of parotid gland; CT without any bony abnormality, sinus involvement or dental involvement. Given change in distribution of pain and no rash, less likely shingles; contact precautions and valacyclovir were discontinued. Elevated CRP/ESR likely in setting of RA & UC. OMFS evaluated patient and suspected acute flare of arthritis, noting no dental or sinus disease contributing to process. Ultimately, patient found to likely be experiencing severe pain from TMJ arthralgia. Patient noted improvement in pain after texture change for diet [minced + moist], which is to be continued following discharge. VZV antibodies still pending at time of discharge. Fibrotic Lung Disease Immunocompromised Status Acute Hypoxic Respiratory Failure [On NC 2L] R/O Community Acquired Pneumonia History of bronchiectasis, interstitial pulmonary disease & bronchial asthma. Pt presented with ear and facial pain, coarse breath sounds on admission. CXR with concern for infectious or inflammatory pneumonitis. CT chest noted multilobar pneumonia, fibrotic lung disease. Biofire & Legionella were both negative. Patient initially treated with course of IV Unasyn and azithromycin; however, both were stopped following the pulmonology consult on 02/06. Per Dr. Del Rosario's documentation, "fibrotic lung disease is likely secondary to rheumatoid arthritis and ulcerative colitis. Other possibilities include chronic nontuberculous Mycobacterium infection. Can consider sending AFB sputum to evaluate for nontuberculous Mycobacterium organisms, but she is unlikely to tolerate the long-term treatment for such an infection. She is relatively asymptomatic and thus I would not recommend any particular interventions at this time. I would encourage holding 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 and considering a different immunosuppressive agent as 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 could further induce pulmonary toxicity." The patient's 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 was ultimately held following his recommendation secondary to concern for pulmonary toxicity. Patient is to follow-up with [facility] in the outpatient setting to discuss either restarting this medication or to consider starting a different immunosuppressive agent. She has followed with Dr. Aidan Finn at [facility] in the past, therefore the referral is being sent to that office. Patient also to follow-up with [facility] Pulmonology in the outpatient setting after discharge. She has followed with Dr. Javier Green at [facility] in the past, therefore the referral is being sent to that office. Patient has been on 2L via [place] throughout her admission; [facility] to continue adjusting her oxygenation support and will ultimately address the patient's home oxygenation requirements prior to her leaving the facility. Atherosclerotic Changes of the Aorta: Noted on CT imaging during admission, patient can continue Lipitor daily for atherosclerosis of the thoracic aorta. Chronic Normocytic Anemia Baseline Hgb 10-11, Hgb remained stable throughout admission. Patient to continue folate supplementation at time of discharge. Weight Loss & Moderate Protein Calorie Malnutrition: Patient had lost lots of weight over the past few months per her son. Dietary was consulted and her diet was adjusted to soft/minced and moist given jaw pain - will continue this diet at time of discharge. Hypertension: BP remained stable throughout hospitalized, can continue metoprolol succinate at time of discharge. Rheumatoid Arthritis Can continue prednisone and Plaquenil at time of discharge. Methotrexate on hold until rheumatology follow-up appointment 2/2 pulmonary toxicity given patient's prior history of fibrotic lung disease. History of Ulcerative Colitis, IBS: No GI complaints noted throughout her hospitalization. Hypothyroidism: Can continue [employer] levothyroxine at time of discharge. PCP: Troy Belle MD Disposition: Patient being discharged to [facility] today for further rehabilitation services. Patient seen in collaboration with Dr. Garcia. Please see addendum. I spent a total of 45 minutes coordinating, documenting, and providing care for this patient excluding time spent in the performance of separately billed services. This included personally reviewing all current laboratories and imaging studies, medical reconciliation, outpatient chart review and discussion with specialists. This chart was completed in part utilizing Speech Voice Recognition Software. Grammatical errors, random word insertions, pronoun errors, and incomplete sentences are an occasional consequence of this system due to software limitations, ambient noise, and hardware issues. Any formal questions or concerns about the content, text, or information contained within the body of this dictation should be directly addressed to the provider for clarification. Home Health Attestation I certify that this patient is under my care and that I, or a physicians physician assistant surgery working with me, had a face to-face encounter that meets the home health [id number] encounter requirements with this patient. The encounter with the patient was in whole, or in part, for the following medical condition, which is the primary reason for home health care (list medical condition): I certify that, based on my findings, the following services are medically necessary home health services: My clinical findings support the need for the above services because: Further, I certify that my clinical findings support that this patient is homebound (i.e. absences from home require considerable and taxing effort and are for medical reasons or yarsani services or infrequently or of short duration when for other reasons) because: Certification for Home Health Services: Based on the above findings, I certify that this patient is confined to the home and needs intermittent fpc care, physical therapy and/or speech therapy or continues to need occupational therapy. The patient is under my care, and I have initiated the establishment of the plan of care. This patient will be followed by a physician who will periodically review the plan of care. Total Time Total Time Spent Total Time Spent (In Minutes): 45 Discharge Plan Discharge Items Patient Disposition: Transfer Long-Term Fac Reason For Visit: HERPES ZOSTER, PAROTITIS Discharge Diagnosis: Acute Temporomandibular Joint (TMJ) Arthritis Activity: Resume your previous activity Non-emergency contact: Primary Care Provider Call non-emergency contact if: you have any medication questions, your symptoms worsen, your pain is not controlled and you have a fever Follow-up/Referrals: Aidan Finn MD [Physician] - (Follow-up appointment needed 2/2 previous dx of RA.) Javier Green MD [Outside Practitioners] - (Follow-up pulmonary evaluation needed 2/2 interstitial lung disease.) Troy Belle MD [Primary Care Provider] - Diet: Regular Diet Texture: Dental soft (bite-sized) Diet Comment: Minced and Moist Addtl Attending Provider Instructions: You were admitted to the hospital for further work-up after presenting with left ear pain and left-sided facial numbness. It was initially suspected that you may of had shingles and we started you on antiviral medication. However, further work-up for shingles was ultimately negative and the antiviral medication was subsequently stopped. Throughout the course of your hospitalization, you developed pain in your jaw. Therefore, we had Dr. Barkley from [employer] evaluate you. Ultimately, Dr. Barkley diagnosed you with an acute flare-up of temporomandibular (TMJ) arthritis. You were also found to have pneumonia while you were admitted. We treated you with IV antibiotics and you were seen by Dr. Del Rosario from Pulmonology. Please follow-up with [facility] within the next few weeks. You will be contacted soon by the Pulmonary Medicine office at [facility] to schedule a follow-up appointment. We stopped your 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 while you were admitted as well. Please follow-up with [facility] within the next week to discuss restarting this medication. Do not restart your 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 until you follow-up with Rheumatology. You will be contacted soon by the Rheumatology office at [facility] to schedule a follow-up appointment. Please follow-up with your primary care provider (PCP) within the next week. You are being discharged from the hospital to [facility] for further rehabilitation therapy. Seek medical attention if you have: * temperature above 101 * chest pain or trouble breathing * abdominal pain, nausea, vomiting * diarrhea, dark stools or bloody stool * any unanswered questions or concerns Call 911 if symptoms are severe. Please take good care of yourself. It has been a pleasure taking care of you. If you have any questions regarding your recent hospitalization please contact [facility] and request latoya Hospitalist @ [phone]. Pending Studies at Discharge: Yes Studies:: Varicella-Zoster IgG and IgM Antibodies Stand-Alone Forms: My [facility] Skilled Items Patient informed of condition?: Yes DNR: No Discharge Level of Care: Skilled Communicable Disease: No Discharge Prognosis: Stable Lines: None Urinary Catheter: No Medications and DC Order Prescriptions: Continued metoprolol succinate 25 mg tablet extended release 24 hr 25 mg PO QAM Qty: 90 3RF fluocinonide 0.05 % ointment 1 applic topical BID Qty: 30 0RF Rx Instructions: Apply to areas of the arms twice daily x 2 weeks as needed for flaring. folic acid 1 mg tablet 1 mg PO QAM Patient Comments: hydroxychloroquine 200 mg tablet 300 mg PO QAM levothyroxine 75 mcg tablet 75 mcg PO QAM pantoprazole 40 mg tablet,delayed release (DR/EC) 40 mg PO QAM Qty: 90 prednisone 5 mg tablet 5 mg PO QAM Qty: 135 Prolia 60 mg/mL Syringe 60 mg SUBCUT UD PRN (Reason: OSTEOPEROSIS) Patient Comments: EVERY 6 MON/DUE SEPTEMBER 28 2022 Rx Instructions: Every 6 months - Pt has not had it for the year 2023 yet. albuterol sulfate 2.5 mg /3 mL (0.083 %) solution for nebulization 2.5 mg continuous nebulization Q4H PRN (Reason: Wheezing) budesonide 1 mg/2 mL suspension for nebulization 1 mg inhalation QAM trazodone 50 mg tablet 50 mg PO HS atorvastatin 10 mg tablet 10 mg PO QAM Held 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 sodium 2.5 mg tablet 20 mg PO WK Qty: 48 Hold Instructions: Discuss with Communication Studies Professor given fibrotic lung disease Patient Comments: on Mondays Rx Instructions: Tuesday Discharge Orders: Discharge Order (Routine); Ordered 02/14/24 Ordered By: Rosalia Figueroa/Other Patient Handouts: TMJ Help Healing Admission Data Admit Date/Time: 02/06/24 15:13 Attending Provider: Rosalia Garcia Admit Provider: Hema Diana Primary Care Provider: Troy Belle Other Providers: Hema Diana; Edmundo Turner; Mayank Del Rosario; Adriano Ferreira; Es Perales; Doris Chan; Kemi Peralta; Matthias Wheat; Scottie Alex; Anisa Barragan; [facility]; [facility]; Curt Barkley Other Interventions: Discharge Summary Assessment (RN) Last Done: 02/14/24 12:31 Supervising Physician Co-Signing Physician Notes I have seen and discussed the case with the collaborating advanced practitioner. I agree with the above PN. I have reviewed and confirmed the patients medical history, the findings on physical examination, and the patients diagnosis and treatment plan with German ERNANDEZ and agree with the information documented. Patient with TMJ arthralgia. Exam patient calm at bedside, eating breakfast CV RRR Resp fine bibasilar crackles stable from prior exam MSK moving all extremities equally patient to continue soft diet and advance as tolerated iso TMJ arthralgia patient will need rheum follow up for ILD and MTX continuation v cessation patient will need pulm follow up given new O2 requirement and mgmt of lung disease rest as above I spent a total of 15 minutes coordinating, documenting, and providing care for this patient excluding time spent in the performance of separately billed services. All of the aforementioned completed outside of collaborating with the assigned advanced practitioner for a full treatment plan. I have reviewed the advanced practitioner's documentation, and I agree with, and take responsibility for the plan of care
== END 2024-02-14 14:36 | DRG 157 ==
LOC: ED 10:55 → SUATTDRO 15:13 → 3E 15:13 → 2W 02-07 15:46

== ENCOUNTER 2024-03-17 11:49 | Inpatient (IN) ==
--- OUTSIDE RECORDS SUMMARY | 2024-03-17 11:54 | External Medical Summary | Summary of Care ---
Author Name Unknown Organization [facility] Address [address] [place] [address] Phone [phone] Care Team Providers Care Welt Pocket Machine Operator Name Role Phone Troy Belel MD Primary Care Provider [phone] Reason for Visit * Reason Onset Date Comments Order Request 02/27/2024 prolia Encounter Details Date Type Department Care Team (Late st Contact Info) Description 02/27/2024 Telephone Rheumatology [facility] [address] [facility], [place] [address] Aidan Finn MD [address] [place] [address] Order Request (prolia) Allergies No known active allergiesdocumented as of this encounter (statuses as of 02/27/2024) Medications Medication Sig Dispensed Refills Start Date [...] in the morning 30 Tablet 10/01/2023 Active traZODone HCl 50 MG Oral Tablet [...] for Wheezing. 120 mL 11 01/27/2024 Active Hospital, Clinic, or Other Facility Administered Medication Ordered Dose Route Frequency Start Date End Date Status Denosumab (Prolia) subcut inj 60 mgIndications:Senile osteoporosis 60 mg SC ONCE 02/27/2024 02/27/2024 Ended documented as of this encounter (statuses as of 02/27/2024) Active Problems Problem Noted Date Diagnosed Date [...] as of this encounter (statuses as of 02/27/2024) Resolved Problems Problem Noted Date Diagnosed Date Resolved Date Atherosclerosis of aorta 11/24/202202/2023 Atherosclerosis of coronary artery of alutiiq heart without angina pectoris 11/24/2022 07/01/2023 Constipation 08/26/2022 07/01/2023 Encounter for long-term (cur rent) use of medications 09/08/2020 07/01/2023 COPD, severity to be determined 03/05/2020 11/03/2021 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 (Household - for ages [...] Telephone Encounter - Aidan Finn MD - 02/27/2024 1:07 PM EDT signed * Telephone Encounter - Elba Christianson LPN - 02/27/2024 11:33 AM EDT Chart reviewed and labs noted to be within normal limits. Patient has been seen within the last 12 months by a Rheumatology provider. Prolia authorization approved and updated in referral. Last injection has been > 6 months and 1 day. CAM orders pended for signature. documented in this encounter Plan of Treatment Upcoming Encounters Date Type Department Care Team (Late st Contact Info) Description 03/01/2024 9:40 AM EDT Office Visit Family Practice [facility] [address] [facility] [place] [address] Enrique Butcher MD [address] [facility] [place] [address] 03/29/2024 9:40 AM EDT Office Visit Pulmonary Medicine, [facility] [address] [facility] [place] [address] Javier Green MD [address] [place] [facility] [place] [address] 09/04/2024 1:30 PM EST Nurse Only Rheumatology [address] [place] [address] Pf, Nurse Rheum [address] [place] [address] [place] [address] 03/07/2025 10:40 AM EDT Office Visit Rheumatology [address] [place] [address] Aidan Finn MD [address] [place] [address] [place] [address] Health Maintenance Due Date Last Done Comments [...] D LEVEL ONCE IN A LIFETIME-USE SMARTSET# [id number] Completed 07/26/2023, 12/30/2020, 12/21/2019 HPV (Gardasil) Vaccine [...] of this encounter Visit Diagnoses Diagnosis Senile osteoporosis- Primary documented in this encounter Care Teams Welt Pocket Machine Operator Relationship Specialty Start Date End Date Troy Belle MD [address] [place] [address] PCP - General Family Medicine 07/01/23 documented as of this encounter
--- OUTSIDE RECORDS SUMMARY | 2024-03-17 11:54 | External Medical Summary | Summary of Care ---
Author Name Unknown Organization [facility] Address [address] [place] [address] Phone [phone] Care Team Providers Care Boat Engines Installer Name Role Phone Troy Belle MD Primary Care Provider [phone] Reason for Visit * Reason Onset Date Comments Rheum Follow Up Recheck RA Medication Administration 02/27/2024 Prolia Encounter Details Date Type Department Care Team (Late st Contact Info) Description 02/27/2024 11:00 AM EDT Office Visit Rheumatology [facility] [address] [place] [address] Aidan Finn MD [facility] [employer] [place] [address] Rheumatoid arthritis involving multiple sites with positive rheumatoid factor (HCC)*; Interstitial pulmonary disease (HCC); Encounter for long-term (current) use of medications; Senile osteoporosis Allergies No known active allergiesdocumented [...] 100 Tablet 2 12/31/2023 12/31/19 25 Active Budesonide 1 MG/2ML Inhalation Suspension (Pulmicort)Indica [...] for Wheezing. 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 (Household - for ages [...] Sign Reading Time Taken Comments Blood Pressure 140/84 02/27/2024 10:57 AM EDT Pulse - - Temperature 36.9 C (98.4 F) 02/27/2024 10:57 AM E DT Respiratory Rate - - Oxygen Saturation - - Inhaled Oxygen Concentration - - Weight 44.8 kg (98 lb 12.8 oz) 02/27/2024 10:57 AM EDT Height - - Body Mass Index 18.07 09/13/2023 11:40 AM EST documented in this encounter Progress Notes * Elba Christianson LPN - 02/27/2024 11:47 AM EDT Shanna Melgar presents today for administration of Prolia. She understands the benefits and risks of this treatment. An educational pamphlet was given to the patient. Prolia 60 mg was administered subcutaneously. The patient tolerated the procedure without problems. She will return in 6 months for the next injection and evaluation. Elba Christianson LPN * Aidan Finn MD - 02/27/2024 11:05 AM EDT Images from the original note were not included. Assessment and Plan Rheumatoid arthritis involving multiple sites with positive rheumatoid factor (HCC) Interstitial pulmonary disease (HCC) Encounter for long-term (current) use of medications Senile osteoporosis Discussed several things with the patient and her daughter. Will contact Pulmonology to discuss herCT changes and the discontinuation of 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 and question need for different autoimmune suppressive agent versus watching. She does have some disease activity of the right hand. She is due for Prolia and will give that today. Will set up follow-up appointments for her Prolia today and will arrange RA follow-up once discussion with Pulmonology occurs. Addendum: After the appointment I did speak with the physician Dr. Rojas who took care of her at the assisted as the discharge summary was not in the chart. He reports that while at the [facility] her dyspnea was not getting better even on oxygen so they did start her on 60 mg of steroids and discharge her on that dose. Rheumatology Synopsis: [facility] RA SYNOPSIS Date of RA Diagnosis: 07/25/07 (04/12/2023 1:00 PM) Current Treatment: MTX; HCQ (04/12/2023 1:00 PM) 2010 Classification Criteria: Y (04/12/2023 1:00 PM) Seropositive or seronegative: Seropositive (04/12/2023 1:00 PM) RF and/or CCP: Dual Positive (04/12/2023 1:00 PM) Disease activity: Uncontrolled Patient History History of Present Illness HPI:83 year old female presented to rheumatology clinic for Rheum Follow Up (Recheck RA) and Medication Administration (Prolia) She is here with her daughter. Was in the hospital recently for ongoing right sided Jaw pain and ongoing lung issues - cough, decreased O2, THOMASON. 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 She has been off this since January. The daughter mentions that she was started on prednisone while at the assisted after her discharge. They are not sure the dose of steroids. The daughter also says that she was on oxygen while at the hospital and assisted but now she is not using oxygen. She has not had any falls. She is seeing the head golf coach in March. The discharge summary from did assisted was not scanned into the system yet. ROS: Review of Systems was asked and the following other significant symptoms are present: THOMASON, joint pain/swelling Rheumatology History Subjective Patient's past history, medications, and allergies were reviewed. Objective Physical Exam BP 140/84 | Temp 36.9 C (98.4 F) (Infrared ) | Wt 44.8 kg (98 lb 12.8 oz) | BMI 18.07 kg/m | BSA 1.4 m Constitutional: frail, elderly female, NAD HEENT: dry oral mucosa noted Eyes: sclera and conjunctiva normal Neck: supple, no adenopathy CV: normal rate, normal rhythm Chest: Coarse breath sounds heard throughout with some dry crackles at the bases, some rhonchi as well Abdomen: normal: soft, bowel sounds normal, no masses, tenderness or organomegaly Musculoskeletal: She has synovitis of the right 2nd and 3rd PIP with tenderness at this joints as well as tenderness at the MCPs 2 through 5 of the right hand she also has some swelling to the left 2nd PIP without tenderness. Thoracic kyphosis noted. Adequate muscle strength MSK/Joint exam (Homunculus) MSK Exam findings: Homunculus exam Studies: Labs and Imaging studies reviewed with pertinent findings noted below: Disease Treatment Response CDAI Scoring Patient Global: 60 mm Provider Global: 30 mm Tender (MIRANDA-28): 6 / 28 Swollen (MIRANDA-28): 3 CDAI: 18 CDAI (Clinical Disease Activity Index) [facility] Outcomes measures: Serial CDAI: Synopsis SmartLink 02/27/2024 11:00 04/12/2023 13:00 CDAI CDAI 18 29 - Serial CDAI: - Yes - Remission: - No - low disease activity Currently on csDMARD: Yes Currently on Biologic DMARD: No Vaccination status: COVID: Vaccine and/or Health maintenance status Incomplete Influenza:Vaccine complete for this season Pneumococcal:Vaccine Series complete Zoster:Vaccine Series Complete Last Hepatitis and TB testing: Hepatitis B: Not Tested, results not available Hepatitis C: Not Tested, results not available PPD or TB-Gold: Not Tested, results not available No results found for: "HBSAG", "HEPB", "HCVAB" No results found for: "TB GOLD AG NIL", "TB GOLD MITOGEN NIL", "PPD INDURATION", "PPD-OUTSIDE LAB","QUANTIFERON GOLD TB", "QUANTIFERON-TB PLUS", "QUANTIFERON-TB PLUS,1T", "QUANTIFERON-TB PLUS,4T" Wrap-Up Follow-up: Return in about 6 months (around 08/29/2024). | Check-out note: With nurses in 6 months + 1 day for prolia, then 1 yr + 2 days with me for prolia/RA documented in this encounter Nursing Notes * Juventino Mensah LPN - 02/27/2024 10:52 AM EDT Chief Complaint Patient presents with Rheum Follow Up Recheck RA documented in this encounter Plan of Treatment Upcoming Encounters Date Type Department Care Team (Late st Contact Info) Description 03/01/2024 9:40 AM EDT Office Visit Family Practice [facility] [address] [place] [address] Enrique Butcher MD [address] [facility] [place] [address] 03/29/2024 9:40 AM EDT Office Visit Pulmonary Medicine, [facility] [address] [place] [address] Javier Green MD [address] [place] [place] [address] 09/04/2024 1:30 PM EST Nurse Only Rheumatology [address] [place] [address] Pf, Nurse Rheum [address] [place] [address] [place] [address] 03/07/2025 10:40 AM EDT Office Visit Rheumatology [address] [place] [id number] Aidan Finn MD [address] [place] [address] [place] [address] Health Maintenance Due Date Last Done Comments [...] D LEVEL ONCE IN A LIFETIME-USE SMARTSET# [id number] Completed 07/26/2023, 12/30/2020, 12/21/2019 HPV (Gardasil) Vaccine [...] involving multiple sites with positive rheumatoid factor (HCC)- Primary Interstitial pulmonary disease (HCC) Postinflammatory pulmonary fibrosis Encounter for long-term (current) use of medications Encounter for long-term (current) use of other medications Senile osteoporosis documented in this encounter Administered Medications Inactive Administered Medications - up to 3 most recent administrations Medication Order MAR Action Action Date Dose Rate Site Denosumab (Prolia) subcut inj 60 mg 60 mg, Subcutaneous, ONCE, On 02/27/24 at 1345, For 1 dose Given 02/27/2024 1:10 PM EDT 60 mg Arm L eft Upper documented in this encounter Care Teams Boat Engines Installer Relationship Specialty Start Date End Date Troy Belle MD [address] [place] [address] PCP - General Family Medicine 07/01/23 documented as of this encounter
--- OUTSIDE RECORDS SUMMARY | 2024-03-17 11:54 | External Medical Summary | Summary of Care ---
Author Name Unknown Organization [facility] Address [address] [place] [address] Phone [phone] Care Team Providers Care Loading Unit Operator Powder Charging Name Role Phone Troy Belle MD Primary Care Provider [phone] Encounter Details Date Type Department Care Team (Late st Contact Info) Description 02/24/2024 Population Health External Data Unspecified Department Allergies No known active allergiesdocumented as of this encounter (statuses as of 02/24/2024) Medications Medication Sig Dispensed Refills Start Date [...] as of this encounter (statuses as of 02/24/2024) Active Problems Problem Noted Date Diagnosed Date [...] as of this encounter (statuses as of 02/24/2024) Resolved Problems Problem Noted Date Diagnosed Date Resolved Date Atherosclerosis of aorta 11/24/202202/2023 Atherosclerosis of coronary artery of [place] heart without angina pectoris 11/24/2022 07/01/2023 Constipation 08/26/2022 07/01/2023 Encounter for long-term (cur rent) use of medications 09/08/2020 07/01/2023 COPD, severity to be determined 03/05/2020 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 10/24/2018 07/01/2023 Mild intermittent asthma with exacerbation 10/07/2017 12/14/2018 RA (rheumatoid arthritis) History of shingles 07/01/20 23 Overview: left upper chest/upper arm History of solitary pulmonary nodule 07/01/2023 Overview: CT scan 08/2106 documented as of this encounter (statuses as of 02/24/2024) Immunizations Name Administration Dates Next Due COVID-19 [...] 02/27/2024 11:00 AM EDT Office Visit Rheumatology [place] [id number] [facility] [place] [address] Aidan Finn MD [facility] [address] [employer] [place] [address] 03/01/2024 9:40 AM EDT Office Visit Family Practice [facility] [address] [place] [address] Enrique Butcher MD [address] [place] [address] 03/29/2024 9:40 AM EDT Office Visit Pulmonary Medicine, [facility] [address] [address] Javier Green MD [address] [place] [address] Health Maintenance Due Date Last Done Comments Depression Screening 11/03/2022 11/03/2021 COVID-19 Vaccine (2022-24 season) 2023 04/29/2023, 11/11/2021, 03/24/2021, Additional history [...] D LEVEL ONCE IN A LIFETIME-USE SMARTSET# [id number] Completed 07/26/2023, 12/30/2020, 12/21/2019 HPV (Gardasil) Vaccine [...] filedocumented as of this encounter Care Teams Loading Unit Operator Powder Charging Relationship Specialty Start Date End Date Troy Belle MD [address] [place] [address] PCP - General Family Medicine 07/01/23 documented as of this encounter
--- OUTSIDE RECORDS SUMMARY | 2024-03-17 11:54 | External Medical Summary | Summary of Care ---
Author Name Unknown Organization [facility] Address [address] [place] [address] Phone [phone] Care Team Providers Care Composition Worker Name Role Phone Troy Belle MD Primary Care Provider [phone] Reason for Visit * Reason Onset Date Comments Rheum Follow Up Recheck RA Medication Administration 02/27/2024 Prolia Encounter Details Date Type Department Care Team (Late st Contact Info) Description 02/27/2024 11:00 AM EDT Office Visit Rheumatology [facility] [address] [place] [address] Aidan Finn MD [facility] [place] [address] Rheumatoid arthritis involving multiple sites with positive [...] aorta 11/24/202202/2023 Atherosclerosis of coronary artery of [place] heart without angina pectoris 11/24/2022 07/01/2023 Constipation 08/26/2022 07/01/2023 Encounter for long-term (cur rent) use of medications 09/08/2020 07/01/2023 COPD, severity to be determined 03/05/2020 11/03/2021 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 (Household - for [...] in this encounter Progress Notes * Elba Chrisitanson LPN - 02/27/2024 11:47 AM EDT Shanna [...] who took care of her at the skilled nursing as the discharge summary was not in the chart. He reports that while at the [facility] her dyspnea was not getting better even on oxygen so they did start her on 60 mg of steroids and discharge her on that dose. Rheumatology Synopsis: [facility] RA SYNOPSIS Date of RA Diagnosis: 07/25/07 [...] was started on prednisone while at the skilled nursing after her discharge. They are not sure the dose of steroids. The daughter also says that she was on oxygen while at the hospital and skilled nursing but now she is not using oxygen. She has not had any falls. She is seeing the cake former in March. The discharge summary from did skilled nursing was not scanned into the system yet. [...] CDAI: 18 CDAI (Clinical Disease Activity Index) [facility] Outcomes measures: Serial CDAI: Synopsis SmartLink 02/27/2024 [...] 9:40 AM EDT Office Visit Family Practice [facility] [address] [place] [address] Enrique Butcher MD 132 [facility] [place] [address] 03/29/2024 9:40 AM EDT Office Visit Pulmonary Medicine, [facility] [address] [place] [address] Javier Green MD [address] [place] [address] 09/04/2024 1:30 PM EST Nurse Only Rheumatology [address] [place] [address] Pf, Nurse Rheum [address] [place] [address] [place] [address] 03/07/2025 10:40 AM EDT Office Visit Rheumatology [address] [place] [id number] Aidan Finn MD [address] [place] [address] [place] [address] Health Maintenance Due Date Last Done Comments [...] D LEVEL ONCE IN A LIFETIME-USE SMARTSET# [id number] Completed 07/26/2023, 12/30/2020, 12/21/2019 HPV (Gardasil) Vaccine [...] medications Senile osteoporosis documented in this encounter Care Teams Composition Worker Relationship Specialty Start Date End Date Troy Belle MD [address] [place] [address] PCP - General Family Medicine 07/01/23 documented as of this encounter
--- OUTSIDE RECORDS SUMMARY | 2024-03-17 11:54 | External Medical Summary | Summary of Care ---
Author Name Unknown Organization [facility] Address [address] [place] [address] Phone [phone] Care Team Providers Care Tool Shaper Setup Operator Name Role Phone Troy Belle MD Primary Care Provider [phone] Reason for Visit * Reason Comments Hospital Follow-Up Pt here for hospital f/u jaw pain and COPD was then at [facility] for 5 days. Encounter Details Date Type Department Care Team (Late st Contact Info) Description 03/01/2024 9:40 AM EDT Office Visit Family Practice [facility] [address] [facility] [place] [address] Enrique Butcher MD [address] [place] [address] Pressure injury of skin of sacral region, unspecified injury stage*; Bronchiectasis with (acute) exacerbation (HCC); Chronic midline low back pain without sciatica; Skin tear of right elbow without complication, subsequent encounter Allergies No known active allergiesdocumented as of this encounter (statuses as of 03/01/2024) Medications Medication Sig Dispensed Refills Start Date [...] the morning 90 Tablet 3 09/06/2023 Active traZODone HCl 50 MG Oral Tablet (Desyrel) Take 1 Tablet by mouth at bedtime. 30 Tablet 11 12/30/2023 Active Levothyroxine Sodium 75 MCG Oral Tablet (Levoxyl) TAKE 1 TABLET BY MOUTH DAILY AT LEAST 30 MINUTES PRIOR TO FIRST MEAL OF THE DAY OR OTHER MEDICATIONS 100 Tablet 2 12/31/2023 5 Active Budesonide 1 MG/2ML Inhalation Suspension (Pulmicort)Indicat [...] for Wheezing. 120 mL 11 01/27/2024 Active Calmoseptine 0.44-20.6 % External Ointment (Menthol-Zinc Oxide) Apply topically to affected area. 02/22/2024 Active Allevyn Sacrum External Pad Apply 1 Each topically to affected area in the morning. 10 Each 2 03/01/2024 Active Ferrous Sulfate 325 (65 Fe) MG Oral Tablet Delayed Release 325 mg orally daily in the morning 30 Tablet 10/01/2023 4 Discontinue d(Medicatio n List Clean Up) Albuterol Sulfate (2.5 MG/3ML) 0.083% Inhalation Nebulization Solution (Proventil)Indicat ions:Bronchiectasi s with (acute) exacerbation (HCC) Inhale 1 Vial via nebulizer every 4 hours as needed for Wheezing. 120 mL 1 01/24/2024 4 Discontinue d(Medicatio n List Clean Up) documented as of this encounter (statuses as of 03/01/2024) Active Problems Problem Noted Date Diagnosed Date BMI less than 19,adult 02/29/2024 Ulcerative colitis without complications 024 Irritable bowel syndrome with diarrhea 3 Interstitial pulmonary disease 10/29/2022 HTN, goal below 140/90 08/26/2022 Gastroesophageal reflux disease without esophagi tis 08/26/2022 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 factor 07/06/2022 Senile osteoporosis 03/05/2020 Mild persistent asthma without complication 02/22 Acquired hypothyroidism documented as of this encounter (statuses as of 03/01/2024) Resolved Problems Problem Noted Date Diagnosed Date Resolved Date Loss of weight 01/18/2024 02/29/2024 Atherosclerosis of aorta 11/24/202202/2023 Bronchiectasis with (acute) exacerbation 11/24/2022 02/29/2024 Atherosclerosis of coronary artery of upper [place] heart without angina pectoris 11/24/2022 07/01/2023 Constipation 08/26/2022 07/01/2023 Encounter for long-term (cur rent) use of medications 09/08/2020 07/01/2023 COPD, severity to be determined 03/05/2020 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5mg (Moderna) 11/11/2021 PPD 02/23/2024,02/14/2024,02/14/2018 Pneumococcal Conjugate Vacc, 13 Valent (Prevnar) 05/02/2015 Pneumococcal Polysaccharide PPV23 (Pneumovax) 05/10/2016,05/23/2002 Season Influenza, Quad, PF, Adjuvanted, 65+ Yrs, IM (FLUAD) 04/05/2020 Seasonal Influenza Virus Vac cine, Unspecified Formulation 04/21/2023,04/26/2022,05/01/2018 Seasonal Influenza, Quadriva lent Hd (Fluzone Hd) [...] Sign Reading Time Taken Comments Blood Pressure 148/68 03/01/2024 9:54 AM EDT Pulse 98 03/01/2024 9:54 AM EDT Temperature 37.5 C (99.5 F) 03/01/2024 9:54 AM ED T Respiratory Rate 16 03/01/2024 9:54 AM EDT Oxygen Saturation 93% 03/01/2024 9:54 AM EDT Inhaled Oxygen Concentration - - Weight - - Height - - Body Mass Index - - documented in this encounter Progress Notes * Enrique Butcher MD - 03/01/2024 10:24 AM EDT Images from the original note were not included. History of Present Illness Shanna Melgar is a 83 year old female that presents for Hospital Follow-Up (Pt here for hospital f/u jaw pain and COPD was then at [facility] for 5 days. ) Patient had a weeks back stay at hospital due to exac of ILD/bronchiectasis and then went to short term [facility] care at [facility] [place] and was subsequently transitioned to [facility] where she is now staying with the plan to be there halfway. Her issues for which she was hospitalized are resolved. She is here with her daughter today who hasconcerns about entirely different matters altogether. She recently had her prolia injection at her auditing manager's office and has had some back pain and muscle spasms since. She also has pain at thebottom of her tailbone and \\has been told by staff at the [facility] she has an open area there. Also has a healing skin patch right upper arm that was sustained from a skin tear at the hospital. She would like that to be checked also. Physical Exam BP 148/68 (BP Site: Left Arm, BP Position: Sitting, BP Cuff Size: Regular) | Pulse 98 | Temp 37.5 C (99.5 F) (Tympanic) | Resp 16 | SpO2 93% AAOx3 Normal affect NCAT/ PERRL Neck supple Throat clear RRR Lungs with faint rhonchi bilatearlly Abd soft +BS Ext warm and well perfused No gross neuro deficits Very slow to stand from seated position Frail posture with kyphoscoliosis Slow gait Stage II pressure ulcer at base of coccyx, no drainage, mild local erythema, no malodor I have reviewed most recent labs None Assessment and Plan Pressure injury of skin of sacral region, unspecified injury stage - area appears clean and is not infected. Stage II ulcer as there is discoloration around the sore,albeit it mild. Given allevyn sacral pads and should change those daily. Can continue to apply calmoseptine. Bronchiectasis with (acute) exacerbation (HCC) - resolved exac. Ok to turn back the albuterol nebs to BID Chronic midline low back pain without sciatica - since recent prolia. Recommend tylenol and should get better in another week or so Skin tear of right elbow without complication, subsequent encounter - emollients only, nearly healed up. Wrap-Up 3 months prn sooner Time: I spent a total of 40-54 minutes (exact time 42 mins) on the date of service in preparation, delivery, and documentation of the care provided to Shanna Melgar excluding any time spent in the performance of separately billed services. documented in this encounter Plan of Treatment Upcoming Encounters Date Type Department Care Team (Late st Contact Info) Description 03/29/2024 9:40 AM EDT Office Visit Pulmonary Medicine, [facility] [address] [facility] [place] [address] [facility] [place] [address] 06/11/2024 4:40 PM EST Office Visit Family Practice [facility] [address] [facility] [place] [address] Enrique Butcher MD [address] [facility] [place] [address] 09/04/2024 1:30 PM EST Nurse Only Rheumatology [address] [place] [address] Pf, Nurse Rheum [address] [facility] [place] [address] 03/07/2025 10:40 AM EDT Office Visit Rheumatology [facility] [place] [address] [facility] [place] [address] Aidan Finn MD [address] [facility] [place] [address] Health Maintenance Due Date Last Done Comments Adult Wellness Visit 2004 Depression Screening 11/03/2022 11/03/2021 COVID-19 Vaccine ( season) 2024 04/29/2023, 11/11/2021, 03/24/2021, Additional history exists Postponed from 06/24/2023 (Patient Declined After Education) Influenza Vaccine (FLU shot) (#1) 2024 04/21/2023, 04/21/2023, 04/26/2022, Additional history exists TSH 07/26/2024 07/26/2023, 07/0 01/2023, 12/21/2022, Additional history exists DXA Scan 06/27/2025 06/27/2023, 1210/2022, 12/16/2020, Additional history exists Albumin/Creatinine Ratio 11/24/2025 11/24/2022 DTaP,Tdap,and Td Vaccines (2 - Td or Tdap) 03/16/2030 03/16/2020 Pneumococcal Vaccine: 65+ Years Completed 05/10/2016, 05/02/2015, 05/23/2002 Zoster Vaccines Completed 01/08/2020, 08/28/2019 VITAMIN D LEVEL ONCE IN A LIFETIME-USE SMARTSET# [id number] Completed 07/26/2023, 12/30/2020, 12/21/2019 HPV (Gardasil) Vaccine [...] as of this encounter Visit Diagnoses Diagnosis Pressure injury of skin of sacral region, unspecified injury stage- Primary Bronchiectasis with (acute) exacerbation (HCC) Chronic midline low back pain without sciatica Skin tear of right elbow without complication, subsequent encounter documented in this encounter Care Teams Tool Shaper Setup Operator Relationship Specialty Start Date End Date Troy Belle MD [address] [facility] [place] [address] PCP - General Family Medicine 07/01/23 documented as of this encounter"
--- NOTE | 2024-03-17 12:25 | Emergency Department Note ---
Impression & Plan COVID-19, Generalized weakness, Acute dyspnea, Leukocytosis, Elevated procalcitonin ED Provider Note HISTORY OF PRESENT ILLNESS: Patient is an 83-year-old female presenting with shortness of breath. Patient reportedly has been feeling very unwell for the last week. She has been too weak and sick to get up out of bed. She reports that yesterday she started feeling short of breath and tested positive for COVID yesterday evening. Her oxygen saturations have been in the low 90s and as low as 85% in the last 48 hours. She became tachypneic and has had a repetitive nonproductive cough and given her symptoms, she was referred to the emergency department. Patient has had diarrhea for the last 3 days. [facility] have recently tested positive for COVID. Patient does not wear any supplemental oxygen at baseline. Denies any DVT or PE history. She is not on any anticoagulation. She did take a nebulizer treatment prior to arrival in the emergency department. ROS: as above PHYSICAL EXAM: Constitutional: Patient appears in no acute distress. HENT: Head: Normocephalic and atraumatic. Eyes: EOMI, PERRL Mouth/Throat: Mucous membranes moist. Neck: Trachea midline. Neck supple. Cardiovascular: Tachycardic with regular rhythm. No murmurs, rubs or gallops. Intact distal pulses. Pulmonary/Chest: No respiratory distress. Breath sounds clear and equal bilaterally. No wheezes or rales. Abdominal: Abdomen soft, no tenderness, rebound or guarding. Musculoskeletal: No edema, tenderness or deformity noted. Skin: Warm and dry. No rash, erythema, pallor or cyanosis Psychiatric: Appropriate mood and affect for situation. Neurological: Alert and keenly responsive. CN II-XII grossly intact, moving all extremities equally and fully. MDM: - Vitals signs showed tachycardia and tachypnea. - History obtained via parent and patient's children. History as above. - Chronic conditions affecting care: rheumatoid arthritis; COPD; GERD; hypothyroidism - Differential diagnoses include, but are not limited to: Congestive heart failure; acute coronary syndrome; COPD/asthma exacerbation; pulmonary edema; pulmonary embolism; pneumonia; pneumothorax; viral syndrome - Order placed for continuous cardiac monitoring. At this time, monitor showed rate of 94 bpm with normal sinus rhythm, per my interpretation. - External medical records reviewed. Discharge summary dated 02/14/2024 was reviewed. Patient was admitted that time for acute TMJ arthralgia. - EKG interpreted by myself showed normal sinus rhythm. Rate tachycardic at 102 bpm. QT 364. No acute ischemic changes. - Laboratory workup interpreted by myself showed leukocytosis (WBC 19.61) with elevated neutrophils; normal PT/INR; hyponatremia (Na 123); elevated troponin (27.4); elevated BNP (213); elevated procalcitonin (1.03) - CXR negative for pneumonia, per my interpretation. However, radiology notes an asymmetric airspace opacity at the left lung base which could be nonspecific in the setting of the patient's chronic lung disease. - COVID positive - UA ordered. - Patient technically meets sepsis criteria at this time. Empirically given IV rocephin, given patient's elevated WBC and procalcitonin. UA not yet obtained, but possibly source. - Discussion was had with cyanide case hardener about patient's case and need for admission - Hospitalist, Dr. Beasley, consulted for admission - Patient admitted to [facility] service for further evaluation and management. ASSESSMENT AND PLAN: Diagnosis: Generalized weakness; acute dyspnea; leukocytosis; procalcitonin; COVID-19 infection Plan: admit Past Med/Surg History Problem List (Updated 03/17/24 @ 17:02 by Mary Ellen Beasley MD) COVID-19 Coronary artery calcification Encounter for pre-operative examination Vitamin D deficiency, unspecified (Acute) Pulmonary hypertension (Acute) Palpitations Chest pain PVCs (premature ventricular contractions) Dyspnea on exertion Medical History (Updated 03/17/24 @ 17:02 by Mary Ellen Beasley MD) TMJ inflammation TMJ arthralgia Bilateral myofascial pain Fibrotic lung diseases Ulcerative colitis History of IBS Rheumatoid arthritis Bronchiectasis Parotitis Herpes zoster oticus Acute ear pain Facial numbness Rheumatoid lung disease Unintentional weight loss OVER THE PAST FEW MONTHS Age related osteoporosis Constipation REASON FOR UPCOMING PROCEDURE SOB (shortness of breath) on exertion ONGOING/NO CHANGE IN BASELINE History of recent fall LAST WEEK/[place] EVAL/ 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 R/T SOME CURRENT MEDICATION / EVAL CONTINUES FOR CAUSE Mitral regurgitation PT DENIES HEART MURMUR History of squamous cell carcinoma History of basal cell carcinoma Asthma WELL CONTROLLED GERD without esophagitis Hiatal hernia Hypothyroidism Surgical History History of left cataract surgery History of right cataract surgery History of colonoscopy History of endoscopy History of cholecystectomy History of cardiac catheterization PT DENIES Family History Unknown Hypertension Father Diabetes Denies family history of Ovarian cancer Breast cancer Colorectal cancer Social History Smoking Status: Never smoker Second Hand Exposure: No; Do You Dip or Chew Tobacco: No; Hx Alcohol Use: No Hx Substance Use: No Preferred Language: Yakut Communication Ability: Effective Correspondence Representative Required: No Beliefs That Will Affect Care: Muslim Current Living Situation: Spouse Current Living Situation Comment: Lives at home with Feels Safe at Home: Yes Assistive Devices: Walker Allergies Allergies Allergy/AdvReac Type Severity Reaction Status Date / Time No Known Allergies Allergy Verified 03/17/24 15:58 Home Meds Home Medications Medication Instructions Recorded Confirmed acetaminophen 325 mg tablet 650 mg PO Q6 Fever Or Pain 03/17/24 03/17/24 (Tylenol) acetaminophen 500 mg tablet 1,000 mg PO BID PRN Pain 03/17/24 03/17/24 (Tylenol Extra Strength) albuterol sulfate 2.5 mg/3 mL 2.5 mg continuous nebulization BID 03/17/24 03/17/24 (0.083 %) solution for nebulization PRN Shortness Of Breath Or Wheezing atorvastatin 10 mg tablet 10 mg PO HS 03/17/24 03/17/24 budesonide 1 mg/2 mL suspension 1 mg inhalation QAM 03/17/24 03/17/24 for nebulization foam bandage 5" X 5" (Allevyn 03/17/24 03/17/24 Adhesive Dressing) folic acid 1 mg tablet 1 mg PO DAILY 03/17/24 03/17/24 hydroxychloroquine 100 mg tablet 100 mg PO QAM 03/17/24 03/17/24 hydroxychloroquine 200 mg tablet 200 mg PO QAM 03/17/24 03/17/24 lanolin-mineral oil lotion 1 applic topical DAILY 03/17/24 03/17/24 (Eucerin Original lotion) levothyroxine 75 mcg tablet 75 mcg PO DAILY 03/17/24 03/17/24 menthol 0.44 %-zinc oxide 20.6 % 1 applic topical QS 03/17/24 03/17/24 topical ointment (Calmoseptine) metoprolol succinate 25 mg 25 mg PO QAM 03/17/24 03/17/24 tablet,extended release 24 hr pantoprazole 40 mg tablet,delayed 40 mg PO QAM 03/17/24 03/17/24 release prednisone 20 mg tablet 60 mg PO DAILY 03/17/24 03/17/24 prednisone 5 mg tablet 5 mg PO QAM 03/17/24 03/17/24 trazodone 50 mg tablet 50 mg PO HS 03/17/24 03/17/24 Results & Data (ED) Vital Signs Vital Signs - 24 hr 03/17/24 11:53 03/17/24 12:36 03/17/24 12:45 Temperature 36.7 C Temperature Source Temporal Artery Scan Pulse Rate 106 H 103 H Pulse Rhythm Regular Respiratory Rate 28 H 17 Respiratory Effort / Characteristics Short of Breath Respiratory Depth Shallow Blood Pressure 125/70 Blood Pressure Mean 88 Pulse Oximetry 91 91 95 Oxygen Delivery Method Room Air Room Air Room Air Oxygen Flow Rate 0 Sepsis Recent Fever Within 48 Hours No Sepsis New/Unexplained Change in Mental Status N/A Sepsis Action Taken by Nursing No Action Required 03/17/24 12:45 03/17/24 13:06 03/17/24 13:42 Temperature Temperature Source Pulse Rate 85 102 H 91 H Pulse Rhythm Respiratory Rate 18 34 H Respiratory Effort / Characteristics Respiratory Depth Blood Pressure 123/67 120/82 Blood Pressure Mean 85 94 Pulse Oximetry 94 93 Oxygen Delivery Method Room Air Oxygen Flow Rate Sepsis Recent Fever Within 48 Hours Sepsis New/Unexplained Change in Mental Status Sepsis Action Taken by Nursing 03/17/24 14:00 03/17/24 15:00 03/17/24 15:00 Temperature Temperature Source Pulse Rate 76 94 H 94 H Pulse Rhythm Respiratory Rate 20 20 12 Respiratory Effort / Characteristics Respiratory Depth Blood Pressure 126/71 127/75 127/75 Blood Pressure Mean 82 89 89 Pulse Oximetry 94 93 94 Oxygen Delivery Method Oxygen Flow Rate Sepsis Recent Fever Within 48 Hours Sepsis New/Unexplained Change in Mental Status Sepsis Action Taken by Nursing Laboratory Data 03/17/24 12:41 03/17/24 12:41 Lab Results 03/17/24 03/17/24 03/17/24 Range/Units 12:41 13:10 14:28 WBC 19.61 H (4.8-10.8) K/ul RBC 4.35 (4.20-5.40) M/uL Hgb 12.7 (12.0-16.0) g/dl Hct 38.1 (37.0-47.0) % MCV 87.6 (80.0-100.0) fL MCH 29.2 (25.0-34.0) pg MCHC 33.3 (32.0-36.0) g/dL RDW Std Deviation 51.3 H (36.4-46.3) fL RDW Coeff of Chantel 15.9 H (11.5-14.5) % Plt Count 299 (130-400) K/uL MPV 10.4 (9.4-12.4) fL Immature Gran % (Auto) 0.7 % Neut % (Auto) 96.0 % Lymph % (Auto) 1.3 % [place] % (Auto) 1.8 % Eos % (Auto) 0.0 % Baso % (Auto) 0.2 % Neut # (Auto) 18.84 H (1.40-6.50) K/uL Lymph # (Auto) 0.26 L (1.20-3.40) K/uL [place] # (Auto) 0.35 (0.11-0.59) K/uL Eos # (Auto) 0.00 (0.00-0.50) K/uL Baso # (Auto) 0.03 (0.00-0.20) K/uL Immature Gran # (Auto) 0.13 (0.01-0.20) K/uL Hypersegmented Neuts 1+ Rouleaux 1+ PT 10.8 (9.0-12.0) Seconds INR 1.0 (0.9-1.1) VBG pH 7.44 H (7.36-7.41) VBG pCO2 39 (38-50) mmHg VBG pO2 31 mmHg VBG HCO3 27 mmol/L VBG O2 Saturation < 60.0 % VBG Base Excess 2.3 mEq/L Sodium 132 L (136-145) mmol/L Potassium 3.7 (3.5-5.1) mmol/L Chloride 95 L (98-107) mmol/L Carbon Dioxide 29 (21-32) mmol/L Anion Gap 8 (3-11) BUN 16 (6-23) mg/dl Creatinine 0.46 L (0.6-1.2) mg/dl Est Cr Clr Drug Dosing 53.1 ml/min Est GFR ( Amer) 105.1 ml/min Est GFR (Non-Af Amer) 90.7 ml/min BUN/Creatinine Ratio 34.8 H (10-20) Glucose 179 H (70-99(Fasting)) mg/dl Calcium 8.6 (8.6-10.3) mg/dl Magnesium 1.9 (1.7-2.4) mg/dl Total Bilirubin 0.6 (0.2-1.0) mg/dl AST 14 (13-39) U/L ALT 15 (7-52) U/L Alkaline Phosphatase 104 (34-104) U/L Troponin I High Sens 27.4 H 23.3 H (0-14) pg/ml B-Natriuretic Peptide 213 H (0-100) pg/ml Total Protein 7.2 (6.0-8.3) gm/dl Albumin 2.9 L (3.4-5.0) gm/dl Globulin 4.3 H (2.5-4.0) gm/dl Albumin/Globulin Ratio 0.7 L (0.9-2) Procalcitonin 1.03 H (0-0.5) ng/ml Adenovirus (PCR) Not Detected (NotDetected) B. pertussis DNA (PCR) Not Detected (NotDetected) B.parapertussis DNA PCR Not Detected (NotDetected) C. pneumoniae DNA (PCR) Not Detected (NotDetected) Coronavirus OC43 (PCR) Not Detected (NotDetected) Coronavirus HKU1 (PCR) Not Detected (NotDetected) Coronavirus 229E (PCR) Not Detected (NotDetected) SARS-CoV-2 (PCR) DETECTED A (NotDetected) Coronavirus NL63 (PCR) Not Detected (NotDetected) Human Metapneumovir PCR Not Detected (NotDetected) Influenza Type A (PCR) Not Detected (NotDetected) Influenza Type B (PCR) Not Detected (NotDetected) M. pneumoniae (PCR) Not Detected (NotDetected) Parainfluenza 1 (PCR) Not Detected (NotDetected) Parainfluenza 2 (PCR) Not Detected (NotDetected) Parainfluenza 3 (PCR) Not Detected (NotDetected) Parainfluenza 4 (PCR) Not Detected (NotDetected) RSV (PCR) Not Detected (NotDetected) Entero/Rhino (PCR) Not Detected (NotDetected) Administered Medications Discontinued Medications Ceftriaxone Sodium (Rocephin) 2,000 mg in 50 mls @ 100 mls/hr IV NOW STA Stop: 03/17/24 15:50 Last Infusion: 03/17/24 16:13 Dose: Infused Documented By: [facility] Admin: 03/17/24 15:32 Dose: 100 mls/hr Documented By: [facility] Imaging Data Radiologist's Impression: Chest X-Ray 03/17/24 12:07 SINGLE VIEW CHEST CLINICAL HISTORY: Dyspnea. Covid. FINDINGS: An AP, portable, upright chest radiograph is compared to chest x-ray and chest CT dated 02/06/2024. The heart is mildly enlarged noting atherosclerotic calcification of the thoracic aorta. The pulmonary vasculature is noncongested. Changes of severe chronic interstitial/fibrotic lung disease are again seen throughout both lungs. Asymmetric airspace opacities at the left lung base are nonspecific. This could be part of the patient's fibrotic lung disease. A superimposed infectious/inflammatory pneumonitis is not excluded. Small pleural effusions are identified. No pneumothorax is seen. The skeletal structures are osteopenic. The bony thorax is grossly intact. Cholecystectomy clips are seen in the right upper quadrant. IMPRESSION: 1. Cardiomegaly without clear radiographic evidence of congestive failure. 2. Changes of severe chronic interstitial/fibrotic lung disease are similar to previous. 3. Asymmetric airspace opacities at the left lung base are nonspecific and could be part of the patient's chronic lung disease. Correlate clinically for evidence of a superimposed infectious/inflammatory pneumonitis. 4. Small pleural effusions. ACT 112: Negative or not required by law. Electronically signed by: Jamie Jacobs M.D. 03/17/2024 1:05 PM Discharge Plan Visit Data Chief Complaint: Shortness of Breath/Dyspnea Stated Complaint: DIFFICULTY BREATHING, COVID+, LOW O2 SAT ED Provider: Aimee Alba Discharge Problem: COVID-19, Generalized weakness, Acute dyspnea, Leukocytosis, Elevated procalcitonin Forms Stand Alone Forms: [facility] [employer] Prescriptions Prescriptions: No Action acetaminophen [Tylenol] 325 mg Tablet 650 mg PO Q6 albuterol sulfate 2.5 mg /3 mL (0.083 %) solution for nebulization 2.5 mg continuous nebulization BID PRN (Reason: Shortness Of Breath Or Wheezing) trazodone 50 mg tablet 50 mg PO HS atorvastatin 10 mg tablet 10 mg PO HS prednisone 20 mg tablet 60 mg PO DAILY prednisone 5 mg tablet 5 mg PO QAM acetaminophen [Tylenol Extra Strength] 500 mg Tablet 1,000 mg PO BID PRN (Reason: Pain) levothyroxine 75 mcg tablet 75 mcg PO DAILY pantoprazole 40 mg tablet,delayed release (DR/EC) 40 mg PO QAM folic acid 1 mg Tablet 1 mg PO DAILY metoprolol succinate 25 mg tablet extended release 24 hr 25 mg PO QAM hydroxychloroquine 200 mg tablet 200 mg PO QAM Rx Instructions: Take with 100 mg tab to = 300 mg (DME) Allevyn Adhesive Dressing 5 X 5 " Bandage TOPICAL Rx Instructions: Daily Eucerin Original Lotion 1 applic TOPICAL DAILY Rx Instructions: Apply arm & trunk budesonide 1 mg/2 mL suspension for nebulization 1 mg inhalation QAM menthol-zinc oxide [Calmoseptine] 0.44-20.6 % Ointment 1 applic TOPICAL QS Rx Instructions: Apply to coccyx hydroxychloroquine 100 mg tablet 100 mg PO QAM Rx Instructions: Give with 200 mg to = 300 mg Referrals Referrals: Troy Belle MD [Primary Care Provider] -
[2024-03-17 13:02] LABS: Hematocrit (blood only) 38.1 % (37.0-47.0); Hemoglobin 12.7 g/dl (12.0-16.0); Mean Corpuscular Hemoglobin 29.2 pg (25.0-34.0); Mean Corpuscular Hgb Conc 33.3 g/dL (32.0-36.0); Mean Corpuscular Volume 87.6 fL (80.0-100.0); Mean Platelet Volume 10.4 fL (9.4-12.4); Platelet Count 299 K/uL (130-400); RDW Coefficient of Variation 15.9 % (11.5-14.5); RDW Standard Deviation 51.3 fL (36.4-46.3); Red Blood Count 4.35 M/uL (4.20-5.40); White Blood Count 19.61 K/ul (4.8-10.8)
--- NOTE | 2024-03-17 13:06 | XRay Report ---
SINGLE VIEW CHEST CLINICAL HISTORY: Dyspnea. Covid. FINDINGS: An AP, portable, upright chest radiograph is compared to chest x-ray and chest CT dated 01/22. The heart is mildly enlarged noting atherosclerotic calcification of the thoracic aorta. The pulmonary vasculature is noncongested. Changes of severe chronic interstitial/fibrotic lung disease a re again seen throughout both lungs. Asymmetric airspace opacities at the left lung base are nonspeci fic. This could be part of the patient's fibrotic lung disease. A superimposed infectious/inflammator y pneumonitis is not excluded. Small pleural effusions are identified. No pneumothorax is seen. The s keletal structures are osteopenic. The bony thorax is grossly intact. Cholecystectomy clips are seen in the right upper quadrant. IMPRESSION: 1. Cardiomegaly without clear radiographic evidence of congestive failure. 2. Changes of severe chronic interstitial/fibrotic lung disease are similar to previous. 3. Asymmetric airspace opacities at the left lung base are nonspecific and could be part of the patie nt's chronic lung disease. Correlate clinically for evidence of a superimposed infectious/inflammator y pneumonitis. 4. Small pleural effusions. ACT 112: Negative or not required by law. Electronically signed by: Jamie Jacobs M.D. 03/17/2024 1:05 PM
[2024-03-17 13:14] LABS: Prothrombin Time 10.8 Seconds (9.0-12.0)
[2024-03-17 13:18] LABS: Base Excess VBG 2.3 mEq/L; HCO3 VBG 27 mmol/L; Oxygen Saturation VBG < 60.0 %; PCO2 VBG 39 mmHg (38-50); PO2 VBG 31 mmHg; pH VBG 7.44 (7.36-7.41)
[2024-03-17 13:20] LABS: Albumin Globulin Ratio 0.7 (0.9-2); Albumin Level 2.9 gm/dl (3.4-5.0); BUN Creatinine Ratio 34.8 (10-20); Bilirubin,Total 0.6 mg/dl (0.2-1.0); Calcium 8.6 mg/dl (8.6-10.3); Creatinine Clr Calc Pharmacy 53.1 ml/min; Est GFR (African American) 105.1 ml/min; Est GFR (Non-African American) 90.7 ml/min; Globulin 4.3 gm/dl (2.5-4.0); Magnesium 1.9 mg/dl (1.7-2.4); Potassium 3.7 mmol/L (3.5-5.1); Total Protein 7.2 gm/dl (6.0-8.3)
[2024-03-17 13:25] LABS: Basophils # (auto) 0.03 K/uL (0.00-0.20); Basophils % (auto) 0.2 %; Hypersegmented Neutrophils 1+; Immature Granulocytes # (auto) 0.13 K/uL (0.01-0.20); Immature Granulocytes % (auto) 0.7 %; Lymphocytes # (auto) 0.26 K/uL (1.20-3.40); Lymphocytes % (auto) 1.3 %; Monocytes # (auto) 0.35 K/uL (0.11-0.59); Monocytes % (auto) 1.8 %; Neutrophils # (auto) 18.84 K/uL (1.40-6.50); Rouleaux 1+
[2024-03-17 13:26] LABS: Troponin I High Sensitivity 27.4 pg/ml (0-14)
[2024-03-17 13:49] LABS: Adenovirus PCR Not Detected (NotDetected); Bordetella parapertussis PCR Not Detected (NotDetected); Bordetella pertussis PCR Not Detected (NotDetected); Chlamydia pneumoniae PCR Not Detected (NotDetected); Coronavirus 229E PCR Not Detected (NotDetected); Coronavirus CoV-2 (COVID19)PCR DETECTED (NotDetected); Coronavirus HKU1 PCR Not Detected (NotDetected); Coronavirus NL63 PCR Not Detected (NotDetected); Coronavirus OC43PCR Not Detected (NotDetected); Human Metapneumovirus PCR Not Detected (NotDetected); Influenza A PCR Not Detected (NotDetected); Influenza B PCR Not Detected (NotDetected); Mycoplasma pneumoniae PCR Not Detected (NotDetected); Parainfluenza Virus 1 PCR Not Detected (NotDetected); Parainfluenza Virus 2 PCR Not Detected (NotDetected); Parainfluenza Virus 3 PCR Not Detected (NotDetected); Parainfluenza Virus 4 PCR Not Detected (NotDetected); Respiratory Syncytial VirusPCR Not Detected (NotDetected); Rhinovirus/Enterovirus PCR Not Detected (NotDetected)
[2024-03-17] MEDS: cefTRIAXone SODIUM 2,000 MG/50 ML BAG IV STA (15:32)
[2024-03-17] MEDS ORDERED: ALBUTEROL 0.083% NEBU SOLN 3 ML VIAL NEB PRN (17:04)
--- NOTE | 2024-03-17 17:05 | History & Physical Report ---
Date of Service March 17, 2024 Assessment & Plan (1) COVID-19: Plan Infection due to COVID-19 virus Pneumonia due to COVID-19 virus Sepsis likely secondary to COVID infection Likely superimposed bacterial pneumonia Underlying fibrotic lung disease Patient coming in with weakness/poor appetite for 1 week and shortness of breath and productive cough of yellow sputum since 2 days ago [employer]. Admitting WBC elevated [patient on steroid as well], procalcitonin elevated, patient was given a dose of Rocephin in the ED. Patient was noted to be on room air. Admitting Pulse elevated. Continue with high-dose steroid that patient is already taking, no need for remdesivir for now, continue with Rocephin. Bl and sputum Cx sent. Mucomyst/guaifenesin/incentive spirometer/albuterol. Consider pulmonology if with worsening respiratory status. Sacral ulcer, unstageable: WOCN. No s/s infection noted. Mild hyponatremia: Likely secondary to poor appetite, monitor daily. Mild troponin elevation: Flat trend around 25, likely secondary to acute illness. Likely demand ischemia. Pt w/ no chest pain. EKG w/ sinus tach. DVT prophylaxis: Heparin subcu DNR/DNI History of Present Illness Chief Complaint: Shortness of breath and cough Primary Care Provider: Troy Belle MD 83-year-old lady with PMH of rheumatoid arthritis on 5 mg steroid daily, IBS/ulcerative colitis (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 stopped during last admission given fibrotic lung disease], ILD, prednisone 60 Mg daily (since end of January per patient's daughter], bronchiectasis, asthma, HTN, hypothyroidism presented with shortness of breath and productive cough of yellowish sputum since 2 days ago [employer]. Patient also reports of having decreased appetite and increasing weakness since 1 week ago [employer]. There is COVID outbreak in [facility] and patient tested positive for COVID last night and hence sent to the ED. She was noted to be hypoxic in high 80s at [facility] per pt's son at bedside. Pt saturating well on RA at bedside exam. Patient denies fever or sore throat or chest pain or abdominal pain or acute changes in bowel or bladder habits. She did report 1 episode of diarrhea. She denies nausea or vomiting. Medications were reviewed with the patient and her son and daughter at bedside. After discharge last admission, prednisone 60 mg daily has been added per pat ient's daughter since end of January. Plan of care discussed in detail with them, they voiced understanding and were agreeable to plan. DNR/DNI as per my discussion with the patient and her family at bedside. Allergies Allergy/AdvReac Type Severity Reaction Status Date / Time No Known Allergies Allergy Verified 03/17/24 15:58 Home Medications Medication Instructions Recorded Confirmed Type acetaminophen 325 mg tablet 650 mg PO Q6 Fever Or Pain 03/17/24 03/17/24 History (Tylenol) acetaminophen 500 mg tablet 1,000 mg PO BID PRN Pain 03/17/24 03/17/24 History (Tylenol Extra Strength) albuterol sulfate 2.5 mg/3 mL 2.5 mg continuous nebulization BID 03/17/24 03/17/24 History (0.083 %) solution for nebulization PRN Shortness Of Breath Or Wheezing atorvastatin 10 mg tablet 10 mg PO HS 03/17/24 03/17/24 History budesonide 1 mg/2 mL suspension 1 mg inhalation QAM 03/17/24 03/17/24 History for nebulization foam bandage 5" X 5" (Allevyn 03/17/24 03/17/24 History Adhesive Dressing) folic acid 1 mg tablet 1 mg PO DAILY 03/17/24 03/17/24 History hydroxychloroquine 100 mg tablet 100 mg PO QAM 03/17/24 03/17/24 History hydroxychloroquine 200 mg tablet 200 mg PO QAM 03/17/24 03/17/24 History lanolin-mineral oil lotion 1 applic topical DAILY 03/17/24 03/17/24 History (Eucerin Original lotion) levothyroxine 75 mcg tablet 75 mcg PO DAILY 03/17/24 03/17/24 History menthol 0.44 %-zinc oxide 20.6 % 1 applic topical QS 03/17/24 03/17/24 History topical ointment (Calmoseptine) metoprolol succinate 25 mg 25 mg PO QAM 03/17/24 03/17/24 History tablet,extended release 24 hr pantoprazole 40 mg tablet,delayed 40 mg PO QAM 03/17/24 03/17/24 History release prednisone 20 mg tablet 60 mg PO DAILY 03/17/24 03/17/24 History prednisone 5 mg tablet 5 mg PO QAM 03/17/24 03/17/24 History trazodone 50 mg tablet 50 mg PO HS 03/17/24 03/17/24 History Past Med/Surg History Problem List (Updated 03/17/24 @ 17:02 by Mary Ellen Beasley MD) COVID-19 Coronary artery calcification Encounter for pre-operative examination Vitamin D deficiency, unspecified (Acute) Pulmonary hypertension (Acute) Palpitations Chest pain PVCs (premature ventricular contractions) Dyspnea on exertion Medical History (Updated 03/17/24 @ 17:02 by Mary Ellen Beasley MD) TMJ inflammation TMJ arthralgia Bilateral myofascial pain Fibrotic lung diseases Ulcerative colitis History of IBS Rheumatoid arthritis Bronchiectasis Parotitis Herpes zoster oticus Acute ear pain Facial numbness Rheumatoid lung disease Unintentional weight loss OVER THE PAST FEW MONTHS Age related osteoporosis Constipation REASON FOR UPCOMING PROCEDURE SOB (shortness of breath) on exertion ONGOING/NO CHANGE IN BASELINE History of recent fall LAST WEEK/[place] EVAL/ 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 R/T SOME CURRENT MEDICATION / EVAL CONTINUES FOR CAUSE Mitral regurgitation PT DENIES HEART MURMUR History of squamous cell carcinoma History of basal cell carcinoma Asthma WELL CONTROLLED GERD without esophagitis Hiatal hernia Hypothyroidism Surgical History History of left cataract surgery History of right cataract surgery History of colonoscopy History of endoscopy History of cholecystectomy History of cardiac catheterization PT DENIES Family History Unknown Hypertension Father Diabetes Denies family history of Ovarian cancer Breast cancer Colorectal cancer Social History Smoking Status: Never smoker Second Hand Exposure: No; Do You Dip or Chew Tobacco: No; Hx Alcohol Use: No Hx Substance Use: No Preferred Language: Malay Communication Ability: Effective 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 Physical Exam Physical Exam: GENERAL: Alert and awake. NAD, on RA, appears frail/ill/weak. HEENT: No pallor, no icterus. Pupils equal, round and reactive to light. Oral mucosa moist. NECK: No JVD, no neck masses. HEART: S1 and S2 heard. Regular rate and rhythm. Tachycardia. No murmur, no gallop. RESPIRATORY SYSTEM: Normal AP diameter. No accessory muscle use. No wheezing, b/l dry crackles. ABDOMEN: Soft, bowel sounds present, nontender, no distention. CENTRAL NERVOUS SYSTEM: No facial droop. Speech is clear. Obeys simple commands. Moves extremities. EXTREMITIES: trace ble edema, no erythema seen. Sacral ulcer, unstageable. Results & Data Results & Data Vital Signs (Past 12 Hours) Vital Signs Temp Pulse Resp BP Pulse Ox O2 Del Method O2 Flow Rate 03/17/24 15:00 94 H 12 127/75 94 03/17/24 15:00 94 H 20 127/75 93 03/17/24 14:00 76 20 126/71 94 03/17/24 13:42 91 H 34 H 120/82 93 03/17/24 13:06 102 H 03/17/24 12:45 85 18 123/67 94 Room Air 03/17/24 12:45 95 Room Air 0 03/17/24 12:36 103 H 17 91 Room Air 03/17/24 11:53 36.7 C 106 H 28 H 125/70 91 Room Air
[2024-03-17] MEDS ORDERED: ALUMINUM/MAGNESIUM SUSP 30 ML UDC PO PRN (17:09)
[2024-03-17] MEDS ORDERED: MAGNESIUM HYDROXIDE SUSP 30 ML UDC PO PRN (17:09)
[2024-03-17] MEDS: ALBUT/IPRATROP 3MG/0.5MG NEB 3 ML VIAL ONE (19:33)
[2024-03-17] MEDS: ACETYLCYSTEINE 20% INHAL SOLN 4ML ***DISPENSED BY RESP. INH SCH (19:35)
[2024-03-17] MEDS: ALBUT/IPRATROP 3MG/0.5MG NEB 3 ML VIAL NEB SCH (19:35)
[2024-03-17] MEDS: guaiFENesin 600 MG TABCR PO SCH (22:17)
[2024-03-17] MEDS: ATORVASTATIN 10 MG TAB PO SCH (22:17)
[2024-03-17] MEDS: HEPARIN SOD 5,000 UNIT/0.5 ML VIAL SQ SCH (22:18)
[2024-03-17] MEDS: traZODone HCL 50 MG TAB PO SCH (22:18)
[2024-03-17] MEDS: MENTHOL-ZINC OXIDE 360 APPLN/120 GM TUBE EXT SCH (22:24)
[2024-03-18] MEDS: ACETAMINOPHEN 325 MG TAB PO PRN (03:52)
[2024-03-18 04:07] LABS: Hematocrit (blood only) 38.6 % (37.0-47.0); Hemoglobin 12.8 g/dl (12.0-16.0); Mean Corpuscular Hgb Conc 33.2 g/dL (32.0-36.0); Mean Corpuscular Volume 87.3 fL (80.0-100.0); Mean Platelet Volume 11.1 fL (9.4-12.4); Platelet Count 223 K/uL (130-400); RDW Coefficient of Variation 15.7 % (11.5-14.5); RDW Standard Deviation 50.5 fL (36.4-46.3); Red Blood Count 4.42 M/uL (4.20-5.40); White Blood Count 12.87 K/ul (4.8-10.8)
[2024-03-18 04:26] LABS: Calcium 7.2 mg/dl (8.6-10.3); Creatinine Clr Calc Pharmacy 62.6 ml/min; Est GFR (Non-African American) 95.8 ml/min; Magnesium 2.1 mg/dl (1.7-2.4); Phosphorus 2.4 mg/dl (2.5-4.9); Potassium 4.5 mmol/L (3.5-5.1)
[2024-03-18 04:48] LABS: Appearance Urine Cloudy (Clear); Bacteria Urine Automated None Seen (None Seen); Bilirubin Urine Negative (Negative); Blood Urine Negative (Negative); Cast Urine Automated 0-2 /lpf (0-2); Color Urine Yellow; Glucose Urine UA Negative (Negative); Ketones Urine Trace (Negative); Leukocyte Esterase Urine 2+ (Negative); Nitrite Urine Negative (Negative); Protein Urine 1+ (Negative); Specific Gravity Urine 1.026 (1.000-1.030); Urobilinogen Urine Negative (Negative); WBC Urine Automated >50 /hpf (0-5); pH Urine 6.5 (4.5-7.5)
[2024-03-18] MEDS: LEVOTHYROXINE SODIUM 75 MCG TABLET PO SCH (07:41)
[2024-03-18] MEDS: EUCERIN CR 120 GM JAR TOP SCH (08:15)
[2024-03-18] MEDS: CEFDINIR 300 MG CAP PO SCH (08:16)
[2024-03-18] MEDS: FOLIC ACID 1 MG TAB PO SCH (08:16)
[2024-03-18] MEDS: AZITHROMYCIN 250 MG TAB PO SCH (08:16)
[2024-03-18] MEDS: METOPROLOL SUCC 25MG EXT REL TAB PO SCH (08:17)
[2024-03-18] MEDS: PANTOprazole 40 MG TAB PO SCH (08:17)
[2024-03-18] MEDS: ADVANCED PROBIOTIC 625 MG CAPSULE PO SCH (08:17)
[2024-03-18] MEDS: predniSONE 20 MG TAB PO SCH (08:17)
[2024-03-18] MEDS: REMDESIVIR 200 MG in SODIUM CHLORIDE 0.9% 210 ML IV STA (08:18)
[2024-03-18] MEDS ORDERED: HYDROXYCHLOROQUINE SULFATE 200 MG TAB PO SCH (09:00)
[2024-03-18] MEDS ORDERED: ALBUTEROL 0.083% NEBU SOLN 3 ML VIAL NEB PRN (09:26)
--- NOTE | 2024-03-18 11:38 | Hospitalist Progress Note ---
Date of Service March 18, 2024 Assessment & Plan (1) Acute hypoxemic respiratory failure due to COVID-19: (2) Secondary bacterial pneumonia: (3) Interstitial pulmonary fibrosis: (4) Bronchiectasis: (5) Pulmonary hypertension: (6) PVCs (premature ventricular contractions): Plan Patient critically ill and high risk for severe COVID disease and respiratory failure in the setting of chronic interstitial lung disease. Start IV remdesivir Continue steroids Continue oxygen support Antitussives and mucolytics Patient potentially has a secondary bacterial pneumonia with slightly increased procalcitonin, however, procalcitonin can also be elevated with COVID-19. Will transition to oral Omnicef and Zithromax to cover for possible bacterial bronchitis/pneumonia and Continue nebulizers Continue other home medications Laboratory monitoring for remdesivir Attempted to call son and , no answer Admission and Anticipated Discharge Date Admission Date: March 17, 2024 Subjective Patient reports that her breathing feels a little bit better this morning. Still with significant cough Physical Exam Physical Exam: Constitutional: Alert, ill in appearance HEENT: Mucous membranes moist. Lungs: decreased, diffuse crackles throughout, chronic. Few scattered rhonchi CV: S1-S2, irregular Abdomen: Soft, nontender, nondistended Extremities: No significant edema Neuro: No focal deficits, generalized weakness Psych: Cooperative, normal mood Results & Data Results & Data Vital Signs (Past 12 Hours) Vital Signs Temp Pulse Pulse Pulse Resp BP BP 03/18/24 10:48 91 H 18 130/66 03/18/24 08:27 03/18/24 07:21 85 03/18/24 07:13 113 H 22 03/18/24 06:09 84 22 03/18/24 06:00 88 20 127/63 03/18/24 06:00 03/18/24 04:28 37.6 C H 03/18/24 04:03 126 H 22 146/92 H 03/18/24 03:51 37.8 C H 03/18/24 03:30 124 H 22 148/77 H 03/18/24 03:28 03/18/24 03:28 03/18/24 03:00 03/18/24 03:00 94 H 34 H 125/65 03/18/24 02:39 109 H 33 H 03/18/24 01:00 107 H 33 H 114/59 L 03/18/24 00:54 109 H 03/18/24 00:00 112 H 34 H 99/62 L Pulse Ox Pulse Ox O2 Del Method O2 Del Method O2 Flow Rate O2 Flow Rate 03/18/24 10:48 99 Nasal Cannula 2 03/18/24 08:27 Nasal Cannula 2 03/18/24 07:21 03/18/24 07:13 98 Nasal Cannula 1 03/18/24 06:09 97 Nasal Cannula 1 03/18/24 06:00 98 Nasal Cannula 1 03/18/24 06:00 99 Nasal Cannula 2 03/18/24 04:28 03/18/24 04:03 98 Nasal Cannula 2 03/18/24 03:51 03/18/24 03:30 94 Nasal Cannula 2 03/18/24 03:28 88 L Nasal Cannula 2 03/18/24 03:28 88 L Room Air 03/18/24 03:00 98 Nasal Cannula 2 03/18/24 03:00 90 03/18/24 02:39 92 03/18/24 01:00 93 03/18/24 00:54 03/18/24 00:00 94 Diagnostic Findings Reviewed imaging, laboratory and diagnostic studies. Pertinent findings as below. WBCs 12.8 Phosphorus 2.4 Troponins unremarkable BNP 213 Procalcitonin 1.03 (4) Bronchiectasis Bronchiectasis type: uncomplicated Qualified Code(s): J47.9 - Bronchiectasis, uncomplicated
[2024-03-18] MEDS: ALBUT/IPRATROP 3MG/0.5MG NEB 3 ML VIAL NEB SCH ×2 (11:45→19:24)
[2024-03-18] MEDS ORDERED: BUDESONIDE 0.5 MG/2 ML VIAL (PULMICORT) INH SCH (11:45)
[2024-03-18] MEDS: BUDESONIDE 0.5 MG/2 ML VIAL (PULMICORT) INH SCH ×2 (11:45→11:49)
[2024-03-18] MEDS ORDERED: ALBUT/IPRATROP 3MG/0.5MG NEB 3 ML VIAL NEB SCH (13:00)
[2024-03-18] MEDS ORDERED: cefTRIAXone SODIUM 2,000 MG/50 ML BAG IV SCH (16:00)
[2024-03-19 06:43] LABS: Alanine Aminotransferase 10 U/L (7-52); Aspartate Aminotransferase 14 U/L (13-39)
--- NOTE | 2024-03-19 09:13 | Hospitalist Progress Note ---
Date of Service March 19, 2024 Assessment & Plan (1) Acute hypoxemic respiratory failure due to COVID-19: (2) Secondary bacterial pneumonia: (3) Interstitial pulmonary fibrosis: (4) Bronchiectasis: (5) Pulmonary hypertension: (6) PVCs (premature ventricular contractions): Plan Patient remains critically ill with oxygen requirement, malaise, shortness of breath due to COVID 19 pneumonia and respiratory failure. Continue remdesivir Continue steroids Continue mucolytic's and antitussives Therapies Case management to help coordinate return to [facility] Phone conversation update to daughter Nydia, Admission and Anticipated Discharge Date Admission Date: March 17, 2024 Subjective Patient states she still feels weak. Still a bit short of breath. Still fatigued. Nursing reports no acute issues overnight. Physical Exam Physical Exam: Constitutional: Alert, frail, weak, moderately ill in appearance HEENT: Mucous membranes moist. Lungs: Decreased breath sounds, diffuse crackles throughout, baseline, some coarse rhonchi CV: S1-S2, regular Abdomen: Soft, nontender, nondistended Extremities: Trace ankle edema Neuro: No focal deficits Psych: Cooperative, normal mood Results & Data Results & Data Vital Signs (Past 12 Hours) Vital Signs Temp Pulse Pulse Resp BP Pulse Ox O2 Del Method 03/19/24 07:42 37.2 C 95 H 16 152/72 H 95 Nasal Cannula 03/19/24 07:42 88 18 95 Nasal Cannula 03/19/24 07:27 Nasal Cannula 03/19/24 07:11 125 H 03/19/24 02:24 37.1 C 103 H 16 157/68 H 97 Nasal Cannula 03/18/24 22:05 75 03/18/24 21:30 Nasal Cannula 03/18/24 21:18 36.8 C 95 H 20 138/75 100 Nasal Cannula O2 Flow Rate 03/19/24 07:42 2 03/19/24 07:42 2 03/19/24 07:27 2 03/19/24 07:11 03/19/24 02:24 2 03/18/24 22:05 03/18/24 21:30 2 03/18/24 21:18 2 Diagnostic Findings [facility] Blood culture no significant growth to date LFTs stable Urinalysis negative for evidence of infection (4) Bronchiectasis Bronchiectasis type: uncomplicated Qualified Code(s): J47.9 - Bronchiectasis, uncomplicated
[2024-03-19] MEDS: FUROSEMIDE INJ 20 MG/2 ML VIAL IV ONE (11:06)
[2024-03-19] MEDS: REMDESIVIR 100 MG in SODIUM CHLORIDE 0.9% 230 ML IV SCH (12:04)
[2024-03-20 07:57] LABS: BUN Creatinine Ratio 35.9 (10-20); Calcium 7.9 mg/dl (8.6-10.3); Creatinine Clr Calc Pharmacy 61.3 ml/min; Est GFR (Non-African American) 95.8 ml/min; Potassium 3.7 mmol/L (3.5-5.1)
[2024-03-20] MEDS: BENZONATATE 100 MG CAPSULE PO PRN (09:08)
[2024-03-20] MEDS: PNEUMOCOCCAL VACCINE (PCV20) 20-VAL CONJ-DIP CRM/PF 0.5 ML SYR IM ONE (11:02)
--- NOTE | 2024-03-20 12:04 | Hospitalist Progress Note ---
Date of Service March 20, 2024 Assessment & Plan (1) Acute hypoxemic respiratory failure due to COVID-19: (2) Secondary bacterial pneumonia: (3) Interstitial pulmonary fibrosis: (4) Bronchiectasis: (5) Pulmonary hypertension: (6) PVCs (premature ventricular contractions): Plan Patient is a 3-year-old female with acute hypoxic respiratory failure due to COVID-19 Continue with a 5-day course of IV remdesivir Continue steroids Continue supportive care with oxygen titrate as able Continue antitussives and mucolytics Continue course of antibiotics for presumed secondary bacterial infection Anticipate potential return to [facility] once remdesivir complete and respiratory status improves Admission and Anticipated Discharge Date Admission Date: March 17, 2024 Subjective Patient states she still feels a bit short of breath and weak. Nursing reports to titrate up to 4 L nasal cannula from 2 L overnight Physical Exam Physical Exam: Constitutional: Alert, frail HEENT: Mucous membranes moist. Lungs: Decreased breath sounds, diffuse crackles throughout, no wheezes CV: S1-S2, regular Abdomen: Soft, nontender, nondistended Extremities: No significant edema Neuro: No focal deficits, generalized weakness Psych: Cooperative, normal mood Results & Data Results & Data Vital Signs (Past 12 Hours) Vital Signs Temp Pulse Resp BP Pulse Ox O2 Del Method O2 Flow Rate 03/20/24 08:15 36.7 C 87 19 124/71 98 Nasal Cannula 4 03/20/24 07:07 87 18 98 Nasal Cannula 4 03/20/24 07:00 Nasal Cannula Laboratory Results Reviewed imaging, laboratory and diagnostic studies. Pertinent findings as below. Sodium 135 Bicarb 34 Calcium 7.9 (4) Bronchiectasis Bronchiectasis type: uncomplicated Qualified Code(s): J47.9 - Bronchiectasis, uncomplicated
[2024-03-20] MEDS: CALCIUM GLUCONATE 1,000 MG/60 ML BAG IV SCH (12:45)
[2024-03-21 08:57] LABS: BUN Creatinine Ratio 60.9 (10-20); Calcium 7.8 mg/dl (8.6-10.3); Creatinine Clr Calc Pharmacy 103.9 ml/min; Est GFR (African American) 132.1 ml/min; Est GFR (Non-African American) 113.9 ml/min; Potassium 3.4 mmol/L (3.5-5.1)
[2024-03-21] MEDS: POTASSIUM CHLORIDE CRTAB 20 MEQ TABCR PO STA (11:32)
--- NOTE | 2024-03-21 13:33 | Hospitalist Progress Note ---
Date of Service March 21, 2024 Assessment & Plan (1) Acute hypoxemic respiratory failure due to COVID-19: Plan: Presented with weakness and poor appetite for 1 week and also noted to have shortness of breath productive cough 2 days prior to admission Was found to have COVID-19 virus infection Has been started on IV antibiotic for possible pneumonia secondary superimposed bacteria Has been started on remdesivir and she is already on high-dose steroids Has been on nebulized bronchodilators and other symptomatic medications for cough Gradually improving (2) Secondary bacterial pneumonia: Plan: As above (3) Interstitial pulmonary fibrosis: Plan: History of interstitial pulmonary fibrosis which is making her symptoms worse and recovery delayed Will continue current oxygen (4) Bronchiectasis: (5) Pulmonary hypertension: (6) PVCs (premature ventricular contractions): Plan Progress note from prior hospitalist: Patient is a 3-year-old female with acute hypoxic respiratory failure due to COVID-19 Continue with a 5-day course of IV remdesivir Continue steroids Continue supportive care with oxygen titrate as able Continue antitussives and mucolytics Continue course of antibiotics for presumed secondary bacterial infection [facility] and respiratory status improves Admission and Anticipated Discharge Date Admission Date: March 17, 2024 Subjective 03/21/2024 The patient was seen and examined in medical floor She has been complaining of cough with occasional shortness of breath but overall feeling better since admission Denies any fever and/or chills Generally weak without any nausea nor vomiting Review of Systems Review of Systems: All systems reviewed and are unremarkable except as noted below Physical Exam Physical Exam: Lying in bed without any acute distress but has minimal cough Constitutional: + ill appearing and + thin Eyes: PERRL, conjunctivae normal, anicteric sclerae ENMT: external ear and nose normal, oropharynx normal Neck: trachea midline, no thyromegaly Respiratory: + respiratory distress (Minimal shortnes s of breath at rest with cough) Cardiovascular: Rate/Rhythm: regular rate, regular rhythm and + tachycardic Heart Sounds: normal S1, normal S2 and + murmur Extremities: no edema Gastrointestinal (Abdomen): Inspection/Auscultation: normal bowel sounds; abdomen not distended Percussion/Palpation: abdomen soft; abdomen nontender Musculoskeletal: No acute arthritis involving any of the joint Neurologic: normal touch/pain/proprioception and moves all extremities; no focal motor deficits Lymphatic: no cervical or axillary lymphadenopathy Results & Data Results & Data Vital Signs (Past 12 Hours) Vital Signs Temp Pulse Resp BP Pulse Ox O2 Del Method O2 Flow Rate 03/21/24 09:01 103 H 03/21/24 08:16 37.1 C 114 H 22 147/68 H 94 Nasal Cannula 4 03/21/24 08:00 Nasal Cannula 4 03/21/24 07:19 104 H 18 98 Nasal Cannula 4 Laboratory Results BMP 03/21/24 08:00 Sodium 132 L Potassium 3.4 L Chloride 94 L Carbon Dioxide 31 BUN 14 Creatinine 0.23 L Glucose 119 H Calcium 7.8 L Medications Administered Current Inpatient Medications Acetaminophen (Acetaminophen 325 Mg Tab) 650 mg PO Q4H PRN PRN Reason: Pain or Fever Stop: 04/16/24 17:08 Last Admin: 03/20/24 12:12 Dose: 650 mg Acetylcysteine (Acetylcysteine 20% Inhal Soln 4ml Dispensed By Resp.) 5 ml INH Q12R [facility] Stop: 04/16/24 20:59 Last Admin: 03/21/24 07:18 Dose: 5 ml Al Hydrox/Mg Hydrox/Simethicone (Aluminum/Magnesium Susp 30 Ml Udc) 15 ml PO Q4H PRN PRN Reason: Dyspepsia Stop: 04/16/24 17:08 Albuterol (Albuterol 0.083% Nebu Soln 3 Ml Vial) 2.5 mg NEB Q4H PRN; Protocol PRN Reason: Shortness Of Breath Or Wheezing Stop: 04/16/24 17:03 Albuterol (Albut/Ipratrop 3mg/0.5mg Neb 3 Ml Vial) 3 ml NEB BIDR [facility]; Protocol Stop: 04/17/24 18:59 Last Admin: 03/21/24 07:18 Dose: 3 ml Atorvastatin Calcium (Atorvastatin 10 Mg Tab) 10 mg PO HS [facility] Stop: 04/16/24 20:59 Last Admin: 03/20/24 20:34 Dose: 10 mg Azithromycin (Azithromycin 250 Mg Tab) 500 mg PO QAM [facility] Stop: 03/25/24 08:59 Last Admin: 03/21/24 08:11 Dose: 500 mg Benzonatate (Benzonatate 100 Mg Capsule) 100 mg PO TID PRN PRN Reason: Cough Stop: 04/17/24 09:25 Last Admin: 03/20/24 09:08 Dose: 100 mg Budesonide (Budesonide 0.5 Mg/2 Ml Vial (Pulmicort)) 1 mg INH QDR [facility] Stop: 04/17/24 11:44 Last Admin: 03/21/24 07:19 Dose: 1 mg Cefdinir (Cefdinir 300 Mg Cap) 300 mg PO BID [facility]; Protocol Stop: 03/25/24 08:59 Last Admin: 03/21/24 08:11 Dose: 300 mg Folic Acid (Folic Acid 1 Mg Tab) 1 mg PO DAILY [facility] Stop: 04/17/24 08:59 Last Admin: 03/21/24 08:11 Dose: 1 mg Guaifenesin (Guaifenesin 600 Mg Tabcr) 600 mg PO Q12 [facility] Stop: 04/16/24 20:59 Last Admin: 03/21/24 08:12 Dose: 600 mg Heparin Sodium (Porcine) (Heparin Sod 5,000 Unit/0.5 Ml Vial) 5,000 units SQ Q12 [facility] Stop: 04/16/24 20:59 Last Admin: 03/21/24 08:11 Dose: 5,000 units Hydrocodone Bit/Homatropine Methylb (Hydrocodone/Homatropine Syrup 5mg/1.5mg 5ml Udp) 5 ml PO Q6H PRN PRN Reason: Cough Stop: 04/01/24 09:25 Hydroxychloroquine Sulfate (Hydroxychloroquine Sulfate 200 Mg Tab) 200 mg PO QAM [facility] Stop: 04/17/24 08:59 Remdesivir 100 mg/ Sodium (Chloride) 250 mls @ 250 mls/hr IV Q24H [facility] Stop: 03/22/24 12:59 Last Admin: 03/21/24 13:11 Dose: 250 mls/hr Lactobacillus Acidophilus (Advanced Probiotic 625 Mg Capsule) 1,250 mg PO DAILY [facility] Stop: 04/17/24 08:59 Last Admin: 03/21/24 08:12 Dose: 1,250 mg Levothyroxine Sodium (Levothyroxine Sodium 75 Mcg Tablet) 75 mcg PO DAILYBB [facility] Stop: 04/17/24 06:29 Last Admin: 03/21/24 06:09 Dose: 75 mcg Magnesium Hydroxide (Magnesium Hydroxide Susp 30 Ml Udc) 30 ml PO Q12H PRN PRN Reason: Constipation Stop: 04/16/24 17:08 Metoprolol Succinate (Metoprolol Succ 25mg Ext Rel Tab) 25 mg PO QAM [facility] Stop: 04/17/24 08:59 Last Admin: 03/21/24 08:16 Dose: 25 mg Multi-Ingredient Cream (Eucerin Cr 120 Gm Jar) 1 appln TOP DAILY [facility] Stop: 04/17/24 08:59 Last Admin: 03/21/24 08:12 Dose: 1 appln Pantoprazole Sodium (Pantoprazole 40 Mg Tab) 40 mg PO QAM [facility] Stop: 04/17/24 08:59 Last Admin: 03/21/24 08:11 Dose: 40 mg Prednisone (Prednisone 20 Mg Tab) 60 mg PO DAILY [facility] Stop: 04/17/24 08:59 Last Admin: 03/21/24 08:11 Dose: 60 mg Trazodone HCl (Trazodone Hcl 50 Mg Tab) 50 mg PO HS [facility] Stop: 04/16/24 20:59 Last Admin: 03/20/24 20:37 Dose: 50 mg (4) Bronchiectasis Bronchiectasis type: uncomplicated Qualified Code(s): J47.9 - Bronchiectasis, uncomplicated
--- NOTE | 2024-03-21 15:42 | Electrocardiogram Report ---
Test Reason : Blood Pressure : */* mmHG Vent. Rate : 102 BPM Atrial Rate : 102 BPM P-R Int : 122 ms QRS Dur : 78 ms QT Int : 364 ms P-R-T Axes : 88 12 11 degrees QTcB Int : 474 ms Sinus tachycardia with Premature atrial complexes Nonspecific ST and T wave abnormality Abnormal ECG When compared with ECG of 06-Feb-2024 11:39, No significant change was found Confirmed by Deisi Crawford (Aydin) on 03/17/2024 2:34:29 PM Referred By: REFERRED SELF Confirmed By: Deisi Crawford
[2024-03-22] MEDS: POTASSIUM CHLORIDE CRTAB 20 MEQ TABCR PO STA (09:14)
[2024-03-22 09:52] LABS: BUN Creatinine Ratio 47.4 (10-20); Calcium 8.1 mg/dl (8.6-10.3); Creatinine Clr Calc Pharmacy 62.9 ml/min; Est GFR (Non-African American) 96.6 ml/min; Potassium 3.9 mmol/L (3.5-5.1)
[2024-03-22 10:04] LABS: Magnesium 1.7 mg/dl (1.7-2.4); Phosphorus 1.4 mg/dl (2.5-4.9)
[2024-03-22] MEDS ORDERED: SODIUM PHOSPHATE 3 MMOL/1 ML 5 ML VIAL IV ONE (10:50)
[2024-03-22] MEDS: FUROSEMIDE INJ 20 MG/2 ML VIAL IV ONE (11:18)
[2024-03-22] MEDS: SODIUM PHOSPHATE 21 MMOL in SODIUM CHLORIDE 0.9% 500 ML IV ONE (12:38)
--- NOTE | 2024-03-22 17:03 | Hospitalist Progress Note ---
Date of Service March 22, 2024 Assessment & Plan (1) Acute hypoxemic respiratory failure due to COVID-19: Plan: Presented with weakness and poor appetite for 1 week and also noted to have shortness of breath productive cough 2 days prior to admission Was found to have COVID-19 virus infection Has been started on IV antibiotic for possible pneumonia secondary superimposed bacteria Has been started on remdesivir and she is already on high-dose steroids Has been on nebulized bronchodilators and other symptomatic medications for cough Gradually improving Less cough and less shortness of breath at rest Saturating normally with 3 L of nasal cannula oxygen Will ask for PT and OT evaluation and plan for discharge in a few days (2) Secondary bacterial pneumonia: Plan: As above (3) Interstitial pulmonary fibrosis: Plan: History of interstitial pulmonary fibrosis which is making her symptoms worse and recovery delayed Will continue current oxygen Will need 2 steps O2 saturation test prior to discharge (4) Bronchiectasis: (5) Pulmonary hypertension: (6) PVCs (premature ventricular contractions): Plan Progress note from prior hospitalist: Patient is a 3-year-old female with acute hypoxic respiratory failure due to COVID-19 Continue with a 5-day course of IV remdesivir Continue steroids Continue supportive care with oxygen titrate as able Continue antitussives and mucolytics Continue course of antibiotics for presumed secondary bacterial infection [facility] and respiratory status improves Admission and Anticipated Discharge Date Admission Date: March 17, 2024 Subjective 03/21/2024 The patient was seen and examined in medical floor She has been complaining of cough with occasional shortness of breath but overall feeling better since admission Denies any fever and/or chills Generally weak without any nausea nor vomiting 03/22/2024 The patient was seen and examined in medical floor and in the COVID room in presence of the daughter She has been feeling a little better Still has cough and shortness of breath at rest and requiring 3 L to maintain saturation Review of Systems Review of Systems: All systems reviewed and are unremarkable except as noted below Physical Exam Physical Exam: Lying in bed without any acute distress but has minimal cough Constitutional: + ill appearing and + thin Eyes: PERRL, conjunctivae normal, anicteric sclerae ENMT: external ear and nose normal, oropharynx normal Neck: trachea midline, no thyromegaly Respiratory: + respiratory distress (Minimal shortnes s of breath at rest with cough) Cardiovascular: Rate/Rhythm: regular rate, regular rhythm and + tachycardic Heart Sounds: normal S1, normal S2 and + murmur Extremities: no edema Gastrointestinal (Abdomen): Inspection/Auscultation: normal bowel sounds; abdomen not distended Percussion/Palpation: abdomen soft; abdomen nontender Musculoskeletal: No acute arthritis involving any of the joint Neurologic: normal touch/pain/proprioception and moves all extremities; no focal motor deficits Lymphatic: no cervical or axillary lymphadenopathy Results & Data Results & Data Vital Signs (Past 12 Hours) Vital Signs Temp Pulse Resp BP Pulse Ox O2 Del Method O2 Flow Rate 03/22/24 13:43 36.4 C L 94 H 18 98/62 L 99 Nasal Cannula 3 03/22/24 08:15 Nasal Cannula 3 03/22/24 07:56 37.3 C 125 H 18 132/67 95 Nasal Cannula 4 03/22/24 07:25 97 H 20 99 Nasal Cannula 4 Laboratory Results BMP 03/22/24 09:06 Sodium 131 L Potassium 3.9 Chloride 93 L Carbon Dioxide 34 H BUN 18 Creatinine 0.38 L Glucose 150 H Calcium 8.1 L Medications Administered Current Inpatient Medications Acetaminophen (Acetaminophen 325 Mg Tab) 650 mg PO Q4H PRN PRN Reason: Pain or Fever Stop: 04/16/24 17:08 Last Admin: 03/20/24 12:12 Dose: 650 mg Acetylcysteine (Acetylcysteine 20% Inhal Soln 4ml Dispensed By Resp.) 5 ml INH Q12R [facility] Stop: 04/16/24 20:59 Last Admin: 03/22/24 07:23 Dose: Not Given Al Hydrox/Mg Hydrox/Simethicone (Aluminum/Magnesium Susp 30 Ml Udc) 15 ml PO Q4H PRN PRN Reason: Dyspepsia Stop: 04/16/24 17:08 Albuterol (Albuterol 0.083% Nebu Soln 3 Ml Vial) 2.5 mg NEB Q4H PRN; Protocol PRN Reason: Shortness Of Breath Or Wheezing Stop: 04/16/24 17:03 Albuterol (Albut/Ipratrop 3mg/0.5mg Neb 3 Ml Vial) 3 ml NEB BIDR [facility]; Protocol Stop: 04/17/24 18:59 Last Admin: 03/22/24 07:23 Dose: 3 ml Atorvastatin Calcium (Atorvastatin 10 Mg Tab) 10 mg PO HS [facility] Stop: 04/16/24 20:59 Last Admin: 03/21/24 19:59 Dose: 10 mg Azithromycin (Azithromycin 250 Mg Tab) 500 mg PO QAM [facility] Stop: 03/25/24 08:59 Last Admin: 03/22/24 07:59 Dose: 500 mg Benzonatate (Benzonatate 100 Mg Capsule) 100 mg PO TID PRN PRN Reason: Cough Stop: 04/17/24 09:25 Last Admin: 03/20/24 09:08 Dose: 100 mg Budesonide (Budesonide 0.5 Mg/2 Ml Vial (Pulmicort)) 1 mg INH QDR [facility] Stop: 04/17/24 11:44 Last Admin: 03/22/24 07:23 Dose: 1 mg Cefdinir (Cefdinir 300 Mg Cap) 300 mg PO BID [facility]; Protocol Stop: 03/25/24 08:59 Last Admin: 03/22/24 07:59 Dose: 300 mg Folic Acid (Folic Acid 1 Mg Tab) 1 mg PO DAILY [facility] Stop: 04/17/24 08:59 Last Admin: 03/22/24 08:00 Dose: 1 mg Guaifenesin (Guaifenesin 600 Mg Tabcr) 600 mg PO Q12 [facility] Stop: 04/16/24 20:59 Last Admin: 03/22/24 08:00 Dose: 600 mg Heparin Sodium (Porcine) (Heparin Sod 5,000 Unit/0.5 Ml Vial) 5,000 units SQ Q12 [facility] Stop: 04/16/24 20:59 Last Admin: 03/22/24 08:00 Dose: 5,000 units Hydrocodone Bit/Homatropine Methylb (Hydrocodone/Homatropine Syrup 5mg/1.5mg 5ml Udp) 5 ml PO Q6H PRN PRN Reason: Cough Stop: 04/01/24 09:25 Hydroxychloroquine Sulfate (Hydroxychloroquine Sulfate 200 Mg Tab) 200 mg PO QAM [facility] Stop: 04/17/24 08:59 Lactobacillus Acidophilus (Advanced Probiotic 625 Mg Capsule) 1,250 mg PO DAILY [facility] Stop: 04/17/24 08:59 Last Admin: 03/22/24 08:00 Dose: 1,250 mg Levothyroxine Sodium (Levothyroxine Sodium 75 Mcg Tablet) 75 mcg PO DAILYBB [facility] Stop: 04/17/24 06:29 Last Admin: 03/22/24 05:27 Dose: 75 mcg Magnesium Hydroxide (Magnesium Hydroxide Susp 30 Ml Udc) 30 ml PO Q12H PRN PRN Reason: Constipation Stop: 04/16/24 17:08 Metoprolol Succinate (Metoprolol Succ 25mg Ext Rel Tab) 25 mg PO BID [facility] Stop: 04/21/24 20:59 Multi-Ingredient Cream (Eucerin Cr 120 Gm Jar) 1 appln TOP DAILY [facility] Stop: 04/17/24 08:59 Last Admin: 03/22/24 08:09 Dose: 1 appln Pantoprazole Sodium (Pantoprazole 40 Mg Tab) 40 mg PO QAM [facility] Stop: 04/17/24 08:59 Last Admin: 03/22/24 08:00 Dose: 40 mg Prednisone (Prednisone 20 Mg Tab) 60 mg PO DAILY [facility] Stop: 04/17/24 08:59 Last Admin: 03/22/24 08:00 Dose: 60 mg Trazodone HCl (Trazodone Hcl 50 Mg Tab) 50 mg PO HS [facility] Stop: 04/16/24 20:59 Last Admin: 03/21/24 20:01 Dose: 50 mg (4) Bronchiectasis Bronchiectasis type: uncomplicated Qualified Code(s): J47.9 - Bronchiectasis, uncomplicated
[2024-03-22] MEDS: METOPROLOL SUCC 25MG EXT REL TAB PO SCH (20:21)
[2024-03-23 07:02] LABS: BUN Creatinine Ratio 51.9 (10-20); Calcium 7.8 mg/dl (8.6-10.3); Creatinine Clr Calc Pharmacy 88.5 ml/min; Est GFR (African American) 125.3 ml/min; Est GFR (Non-African American) 108.1 ml/min; Magnesium 1.9 mg/dl (1.7-2.4); Potassium 4.2 mmol/L (3.5-5.1)
[2024-03-23] MEDS ORDERED: SODIUM PHOSPHATE 3 MMOL/1 ML 5 ML VIAL IV ONE (08:11)
[2024-03-23] MEDS: SODIUM PHOSPHATE 21 MMOL in SODIUM CHLORIDE 0.9% 500 ML IV ONE (09:57)
--- NOTE | 2024-03-23 15:07 | Hospitalist Progress Note ---
Date of Service March 23, 2024 Assessment & Plan (1) Acute hypoxemic respiratory failure due to COVID-19: Plan: Presented with weakness and poor appetite for 1 week and also noted to have shortness of breath productive cough 2 days prior to admission Was found to have COVID-19 virus infection Has been started on IV antibiotic for possible pneumonia secondary superimposed bacteria Has been started on remdesivir and she is already on high-dose steroids Has been on nebulized bronchodilators and other symptomatic medications for cough Gradually improving Less cough and less shortness of breath at rest Saturating normally with 3 L of nasal cannula oxygen Will ask for PT and OT evaluation and plan for discharge in a few days Clinically little better today and has been requiring 2 L to maintain saturation Remains weak and lethargic. And is still not at his baseline to be discharged (2) Secondary bacterial pneumonia: Plan: As above (3) Interstitial pulmonary fibrosis: Plan: History of interstitial pulmonary fibrosis which is making her symptoms worse and recovery delayed Will continue current oxygen Will need 2 steps O2 saturation test prior to discharge (4) Bronchiectasis: (5) Pulmonary hypertension: (6) PVCs (premature ventricular contractions): Plan Progress note from prior hospitalist: Patient is a 3-year-old female with acute hypoxic respiratory failure due to COVID-19 Continue with a 5-day course of IV remdesivir Continue steroids Continue supportive care with oxygen titrate as able Continue antitussives and mucolytics Continue course of antibiotics for presumed secondary bacterial infection Anticipate potential return to [facility] once remdesivir complete and respiratory status improves Admission and Anticipated Discharge Date Admission Date: March 17, 2024 Subjective 03/21/2024 The patient was seen and examined in medical floor She has been complaining of cough with occasional shortness of breath but o verall feeling better since admission Denies any fever and/or chills Generally weak without any nausea nor vomiting 03/22/2024 The patient was seen and examined in medical floor and in the COVID room in presence of the daughter She has been feeling a little better Still has cough and shortness of breath at rest and requiring 3 L to maintain saturation 03/23/2024 The patient was seen and examined in medical floor She has been vomiting a lot and is better today with decreasing cough and shortness of breath She has been improving gradually She is not yet at her baseline to be discharged Review of Systems Review of Systems: All systems reviewed and are unremarkable except as noted below Physical Exam Physical Exam: Lying in bed without any acute distress but has minimal cough Constitutional: + ill appearing and + thin Eyes: PERRL, conjunctivae normal, anicteric sclerae ENMT: external ear and nose normal, oropharynx normal Neck: trachea midline, no thyromegaly Respiratory: + respiratory distress (Minimal shortnes s of breath at rest with cough) Cardiovascular: Rate/Rhythm: regular rate, regular rhythm and + tachycardic Heart Sounds: normal S1, normal S2 and + murmur Extremities: no edema Gastrointestinal (Abdomen): Inspection/Auscultation: normal bowel sounds; abdomen not distended Percussion/Palpation: abdomen soft; abdomen nontender Neurologic: normal touch/pain/proprioception and moves all extremities; no focal motor deficits Lymphatic: no cervical or axillary lymphadenopathy Results & Data Results & Data Vital Signs (Past 12 Hours) Vital Signs Temp Pulse Resp BP Pulse Ox O2 Del Method O2 Flow Rate 03/23/24 08:00 Nasal Cannula 2 03/23/24 07:40 36.9 C 91 H 16 113/74 91 Room Air 03/23/24 07:06 95 H 20 96 Nasal Cannula 2 Laboratory Results BMP 03/23/24 05:45 Sodium 136 Potassium 4.2 Chloride 97 L Carbon Dioxide 36 H BUN 14 Creatinine 0.27 L Glucose 84 Calcium 7.8 L Medications Administered Current Inpatient Medications Acetaminophen (Acetaminophen 325 Mg Tab) 650 mg PO Q4H PRN PRN Reason: Pain or Fever Stop: 04/16/24 17:08 Last Admin: 03/20/24 12:12 Dose: 650 mg Acetylcysteine (Acetylcysteine 20% Inhal Soln 4ml Dispensed By Resp.) 5 ml INH Q12R [facility] Stop: 04/16/24 20:59 Last Admin: 03/23/24 07:04 Dose: 5 ml Al Hydrox/Mg Hydrox/Simethicone (Aluminum/Magnesium Susp 30 Ml Udc) 15 ml PO Q4H PRN PRN Reason: Dyspepsia Stop: 04/16/24 17:08 Albuterol (Albuterol 0.083% Nebu Soln 3 Ml Vial) 2.5 mg NEB Q4H PRN; Protocol PRN Reason: Shortness Of Breath Or Wheezing Stop: 04/16/24 17:03 Albuterol (Albut/Ipratrop 3mg/0.5mg Neb 3 Ml Vial) 3 ml NEB BIDR [facility]; Protocol Stop: 04/17/24 18:59 Last Admin: 03/23/24 07:04 Dose: 3 ml Atorvastatin Calcium (Atorvastatin 10 Mg Tab) 10 mg PO HS [facility] Stop: 04/16/24 20:59 Last Admin: 03/22/24 20:20 Dose: 10 mg Azithromycin (Azithromycin 250 Mg Tab) 500 mg PO QAM [facility] Stop: 03/25/24 08:59 Last Admin: 03/23/24 08:16 Dose: 500 mg Benzonatate (Benzonatate 100 Mg Capsule) 100 mg PO TID PRN PRN Reason: Cough Stop: 04/17/24 09:25 Last Admin: 03/20/24 09:08 Dose: 100 mg Budesonide (Budesonide 0.5 Mg/2 Ml Vial (Pulmicort)) 1 mg INH QDR [facility] Stop: 04/17/24 11:44 Last Admin: 03/23/24 07:04 Dose: 1 mg Cefdinir (Cefdinir 300 Mg Cap) 300 mg PO BID [facility]; Protocol Stop: 03/25/24 08:59 Last Admin: 03/23/24 08:16 Dose: 300 mg Folic Acid (Folic Acid 1 Mg Tab) 1 mg PO DAILY [facility] Stop: 04/17/24 08:59 Last Admin: 03/23/24 08:16 Dose: 1 mg Guaifenesin (Guaifenesin 600 Mg Tabcr) 600 mg PO Q12 [facility] Stop: 04/16/24 20:59 Last Admin: 03/23/24 08:16 Dose: 600 mg Heparin Sodium (Porcine) (Heparin Sod 5,000 Unit/0.5 Ml Vial) 5,000 units SQ Q12 [facility] Stop: 04/16/24 20:59 Last Admin: 03/23/24 08:17 Dose: 5,000 units Hydrocodone Bit/Homatropine Methylb (Hydrocodone/Homatropine Syrup 5mg/1.5mg 5ml Udp) 5 ml PO Q6H PRN PRN Reason: Cough Stop: 04/01/24 09:25 Hydroxychloroquine Sulfate (Hydroxychloroquine Sulfate 200 Mg Tab) 200 mg PO QAM [facility] Stop: 04/17/24 08:59 Lactobacillus Acidophilus (Advanced Probiotic 625 Mg Capsule) 1,250 mg PO DAILY [facility] Stop: 04/17/24 08:59 Last Admin: 03/23/24 08:16 Dose: 1,250 mg Levothyroxine Sodium (Levothyroxine Sodium 75 Mcg Tablet) 75 mcg PO DAILYBB [facility] Stop: 04/17/24 06:29 Last Admin: 03/23/24 05:16 Dose: 75 mcg Magnesium Hydroxide (Magnesium Hydroxide Susp 30 Ml Udc) 30 ml PO Q12H PRN PRN Reason: Constipation Stop: 04/16/24 17:08 Metoprolol Succinate (Metoprolol Succ 25mg Ext Rel Tab) 25 mg PO BID [facility] Stop: 04/21/24 20:59 Last Admin: 03/23/24 08:16 Dose: 25 mg Multi-Ingredient Cream (Eucerin Cr 120 Gm Jar) 1 appln TOP DAILY [facility] Stop: 04/17/24 08:59 Last Admin: 03/23/24 08:17 Dose: 1 appln Pantoprazole Sodium (Pantoprazole 40 Mg Tab) 40 mg PO QAM [facility] Stop: 04/17/24 08:59 Last Admin: 03/23/24 08:16 Dose: 40 mg Prednisone (Prednisone 20 Mg Tab) 60 mg PO DAILY [facility] Stop: 04/17/24 08:59 Last Admin: 03/23/24 08:16 Dose: 60 mg Trazodone HCl (Trazodone Hcl 50 Mg Tab) 50 mg PO HS [facility] Stop: 04/16/24 20:59 Last Admin: 03/22/24 20:20 Dose: 50 mg (4) Bronchiectasis Bronchiectasis type: uncomplicated Qualified Code(s): J47.9 - Bronchiectasis, uncomplicated
[2024-03-24 06:18] LABS: Basophils # (auto) 0.02 K/uL (0.00-0.20); Basophils % (auto) 0.1 %; Hematocrit (blood only) 31.9 % (37.0-47.0); Hemoglobin 10.7 g/dl (12.0-16.0); Immature Granulocytes # (auto) 0.08 K/uL (0.01-0.20); Immature Granulocytes % (auto) 0.5 %; Lymphocytes # (auto) 1.45 K/uL (1.20-3.40); Lymphocytes % (auto) 9.8 %; Mean Corpuscular Hemoglobin 29.5 pg (25.0-34.0); Mean Corpuscular Hgb Conc 33.5 g/dL (32.0-36.0); Mean Corpuscular Volume 87.9 fL (80.0-100.0); Monocytes # (auto) 0.45 K/uL (0.11-0.59); Neutrophils # (auto) 12.81 K/uL (1.40-6.50); Neutrophils % (auto) 86.6 %; Platelet Count 255 K/uL (130-400); RDW Coefficient of Variation 15.3 % (11.5-14.5); RDW Standard Deviation 49.4 fL (36.4-46.3); Red Blood Count 3.63 M/uL (4.20-5.40); White Blood Count 14.81 K/ul (4.8-10.8)
[2024-03-24 06:24] LABS: Calcium 7.9 mg/dl (8.6-10.3); Creatinine Clr Calc Pharmacy 95.6 ml/min; Est GFR (African American) 128.5 ml/min; Est GFR (Non-African American) 110.9 ml/min; Magnesium 1.9 mg/dl (1.7-2.4); Phosphorus 2.6 mg/dl (2.5-4.9); Potassium 3.9 mmol/L (3.5-5.1)
--- NOTE | 2024-03-24 11:38 | XRay Report ---
XR chest 1V portable CLINICAL HISTORY: CHF/Pneumonia COMPARISON STUDY: Chest CT February 06, 2024. Chest radiograph March 17, 2024. FINDINGS: There is no pneumothorax. Small bilateral pleural effusions are present. Diffuse interstiti al thickening is noted. Multifocal airspace opacities, greater within the left lung, are again noted. Left lung opacities have slightly increased. Cardiomediastinal silhouette is stable. IMPRESSION: 1. Multifocal airspace opacities, right within the left lung, slightly increased since prior exam. Th e findings may reflect multifocal pneumonia superimposed upon interstitial lung disease. 2. No pneumothorax. Small bilateral pleural effusions. ACT 112: Negative or not required by law. Electronically signed by: To Parson M.D. 03/24/2024 11:36 AM
--- NOTE | 2024-03-24 16:22 | Hospitalist Progress Note ---
Date of Service March 24, 2024 Assessment & Plan (1) Acute hypoxemic respiratory failure due to COVID-19: Plan: Presented with weakness and poor appetite for 1 week and also noted to have shortness of breath productive cough 2 days prior to admission Was found to have COVID-19 virus infection Has been started on IV antibiotic for possible pneumonia secondary superimposed bacteria Has been started on remdesivir and she is already on high-dose steroids Has been on nebulized bronchodilators and other symptomatic medications for cough Gradually improving Less cough and less shortness of breath at rest Saturating normally with 3 L of nasal cannula oxygen Will ask for PT and OT evaluation and plan for discharge in a few days Clinically little better today and has been requiring 2 L to maintain saturation Remains weak and lethargic. And is still not at his baseline to be discharged Will continue with the Hycodan as needed and stop Mucomyst nebulized solution and guaifenesin Strongly advised to participate more in physical therapy Repeat chest x-ray showed multifocal airspace opacities within the left lung slightly increased from prior-will continue current antibiotic (2) Secondary bacterial pneumonia: Plan: As above (3) Interstitial pulmonary fibrosis: Plan: History of interstitial pulmonary fibrosis which is making her symptoms worse and recovery delayed Will continue current oxygen Will need 2 steps O2 saturation test prior to discharge (4) Bronchiectasis: (5) Pulmonary hypertension: (6) PVCs (premature ventricular contractions): Plan Progress note from prior hospitalist: Patient is a 3-year-old female with acute hypoxic respiratory failure due to COVID-19 Continue with a 5-day course of IV remdesivir Continue steroids Continue supportive care with oxygen titrate as able Continue antitussives and mucolytics Continue course of antibiotics for presumed secondary bacterial infection [facility] and respiratory status improves Admission and Anticipated Discharge Date Admission Date: March 17, 2024 Subjective 03/21/2024 The patient was seen and examined in medical floor She has been complaining of cough with occasional shortness of breath but overall feeling better since admission Denies any fever and/or chills Generally weak without any nausea nor vomiting 03/22/2024 The patient was seen and examined in medical floor and in the COVID room in presence of the daughter She has been feeling a little better Still has cough and shortness of breath at rest and requiring 3 L to maintain saturation 03/23/2024 The patient was seen and examined in medical floor She has been vomiting a lot and is better today with decreasing cough and shortness of breath She has been improving gradually She is not yet at her baseline to be discharged 03/24/2024 Patient was seen and examined in medical floor and in the COVID room She has been feeling much better but is still has significant cough Has been requiring only 1 L to maintain saturation Getting physical therapy Review of Systems Review of Systems: All systems reviewed and are unremarkable except as noted below Physical Exam Physical Exam: Lying in bed without any acute distress but has minimal cough Constitutional: + ill appearing and + thin Eyes: PERRL, conjunctivae normal, anicteric sclerae ENMT: external ear and nose normal, oropharynx normal Neck: trachea midline, no thyromegaly Respiratory: + respiratory distress (Minimal shortnes s of breath at rest with cough) Cardiovascular: Rate/Rhythm: regular rate, regular rhythm and + tachycardic Heart Sounds: normal S1, normal S2 and + murmur Extremities: no edema Gastrointestinal (Abdomen): Inspection/Auscultation: normal bowel sounds; abdomen not distended Percussion/Palpation: abdomen soft; abdomen nontender Neurologic: normal touch/pain/proprioception and moves all extremities; no focal motor deficits Lymphatic: no cervical or axillary lymphadenopathy Results & Data Results & Data Vital Signs (Past 12 Hours) Vital Signs Temp Pulse Resp BP Pulse Ox O2 Del Method O2 Flow Rate 03/24/24 14:31 36.5 C 74 16 127/69 96 Nasal Cannula 1 03/24/24 10:13 Nasal Cannula 2 03/24/24 07:13 87 18 97 Nasal Cannula 2 03/24/24 07:05 36.3 C L 66 16 122/58 L 98 Nasal Cannula 2 Laboratory Results Short CBC 03/24/24 Range/Units 05:29 WBC 14.81 H (4.8-10.8) K/ul Hgb 10.7 L (12.0-16.0) g/dl Hct 31.9 L (37.0-47.0) % Plt Count 255 (130-400) K/uL BMP 03/24/24 05:29 Sodium 135 L Potassium 3.9 Chloride 98 Carbon Dioxide 35 H BUN 15 Creatinine 0.25 L Glucose 122 H Calcium 7.9 L Medications Administered Current Inpatient Medications Acetaminophen (Acetaminophen 325 Mg Tab) 650 mg PO Q4H PRN PRN Reason: Pain or Fever Stop: 04/16/24 17:08 Last Admin: 03/20/24 12:12 Dose: 650 mg Al Hydrox/Mg Hydrox/Simethicone (Aluminum/Magnesium Susp 30 Ml Udc) 15 ml PO Q4H PRN PRN Reason: Dyspepsia Stop: 04/16/24 17:08 Albuterol (Albuterol 0.083% Nebu Soln 3 Ml Vial) 2.5 mg NEB Q4H PRN; Protocol PRN Reason: Shortness Of Breath Or Wheezing Stop: 04/16/24 17:03 Albuterol (Albut/Ipratrop 3mg/0.5mg Neb 3 Ml Vial) 3 ml NEB BIDR [facility]; Protocol Stop: 04/17/24 18:59 Last Admin: 03/24/24 07:12 Dose: 3 ml Atorvastatin Calcium (Atorvastatin 10 Mg Tab) 10 mg PO HS [facility] Stop: 04/16/24 20:59 Last Admin: 03/23/24 20:10 Dose: 10 mg Benzonatate (Benzonatate 100 Mg Capsule) 100 mg PO TID PRN PRN Reason: Cough Stop: 04/17/24 09:25 Last Admin: 03/24/24 10:53 Dose: 100 mg Budesonide (Budesonide 0.5 Mg/2 Ml Vial (Pulmicort)) 1 mg INH QDR [facility] Stop: 04/17/24 11:44 Last Admin: 03/24/24 07:12 Dose: 1 mg Cefdinir (Cefdinir 300 Mg Cap) 300 mg PO BID [facility]; Protocol Stop: 03/25/24 08:59 Last Admin: 03/24/24 08:33 Dose: 300 mg Folic Acid (Folic Acid 1 Mg Tab) 1 mg PO DAILY [facility] Stop: 04/17/24 08:59 Last Admin: 03/24/24 08:33 Dose: 1 mg Heparin Sodium (Porcine) (Heparin Sod 5,000 Unit/0.5 Ml Vial) 5,000 units SQ Q12 [facility] Stop: 04/16/24 20:59 Last Admin: 03/24/24 08:32 Dose: 5,000 units Hydrocodone Bit/Homatropine Methylb (Hydrocodone/Homatropine Syrup 5mg/1.5mg 5ml Udp) 5 ml PO Q6H PRN PRN Reason: Cough Stop: 04/01/24 09:25 Hydroxychloroquine Sulfate (Hydroxychloroquine Sulfate 200 Mg Tab) 200 mg PO QAM [facility] Stop: 04/17/24 08:59 Lactobacillus Acidophilus (Advanced Probiotic 625 Mg Capsule) 1,250 mg PO DAILY [facility] Stop: 04/17/24 08:59 Last Admin: 03/24/24 08:33 Dose: 1,250 mg Levothyroxine Sodium (Levothyroxine Sodium 75 Mcg Tablet) 75 mcg PO DAILYBB [facility] Stop: 04/17/24 06:29 Last Admin: 03/24/24 05:39 Dose: 75 mcg Magnesium Hydroxide (Magnesium Hydroxide Susp 30 Ml Udc) 30 ml PO Q12H PRN PRN Reason: Constipation Stop: 04/16/24 17:08 Metoprolol Succinate (Metoprolol Succ 25mg Ext Rel Tab) 25 mg PO BID [facility] Stop: 04/21/24 20:59 Last Admin: 03/24/24 10:53 Dose: 25 mg Multi-Ingredient Cream (Eucerin Cr 120 Gm Jar) 1 appln TOP DAILY [facility] Stop: 04/17/24 08:59 Last Admin: 03/24/24 08:33 Dose: 1 appln Pantoprazole Sodium (Pantoprazole 40 Mg Tab) 40 mg PO QAM [facility] Stop: 04/17/24 08:59 Last Admin: 03/24/24 08:33 Dose: 40 mg Prednisone (Prednisone 20 Mg Tab) 60 mg PO DAILY [facility] Stop: 04/17/24 08:59 Last Admin: 03/24/24 08:33 Dose: 60 mg Trazodone HCl (Trazodone Hcl 50 Mg Tab) 50 mg PO HS [facility] Stop: 04/16/24 20:59 Last Admin: 03/23/24 20:10 Dose: 50 mg (4) Bronchiectasis Bronchiectasis type: uncomplicated Qualified Code(s): J47.9 - Bronchiectasis, uncomplicated
--- NOTE | 2024-03-25 15:42 | Hospitalist Progress Note ---
Date of Service March 25, 2024 Assessment & Plan (1) Acute hypoxemic respiratory failure due to COVID-19: Plan: Presented with weakness and poor appetite for 1 week and also noted to have shortness of breath productive cough 2 days prior to admission Was found to have COVID-19 virus infection Has been started on IV antibiotic for possible pneumonia secondary superimposed bacteria Has been started on remdesivir and she is already on high-dose steroids Has been on nebulized bronchodilators and other symptomatic medications for cough Gradually improving Less cough and less shortness of breath at rest Saturating normally with 3 L of nasal cannula oxygen Will ask for PT and OT evaluation and plan for discharge in a few days Clinically little better today and has been requiring 2 L to maintain saturation Remains weak and lethargic. And is still not at his baseline to be discharged Will continue with the Hycodan as needed and stop Mucomyst nebulized solution and guaifenesin Strongly advised to participate more in physical therapy Repeat chest x-ray showed multifocal airspace opacities within the left lung slightly increased from prior-will continue current antibiotic Clinically stable with some swelling of the legs likely secondary to immobility Will try small dose of Lasix which will improve shortness of breath and cough Will need to have more physical therapy likely discharge on Tuesday- (2) Secondary bacterial pneumonia: Plan: As above Has been getting antibiotic as above (3) Interstitial pulmonary fibrosis: Plan: History of interstitial pulmonary fibrosis which is making her symptoms worse and recovery delayed Will continue current oxygen Will need 2 steps O2 saturation test prior to discharge (4) Bronchiectasis: (5) Pulmonary hypertension: (6) PVCs (premature ventricular contractions): Plan Progress note from prior hospitalist: Patient is a 3-year-old female with acute hypoxic respiratory failure due to COVID-19 Continue with a 5-day course of IV remdesivir Continue steroids Continue supportive care with oxygen titrate as able Continue antitussives and mucolytics Continue course of antibiotics for presumed secondary bacterial infection [facility] and respiratory status improves Admission and Anticipated Discharge Date Admission Date: March 17, 2024 Subjective 03/21/2024 The patient was seen and examined in medical floor She has been complaining of cough with occasional shortness of breath but overall feeling better since admission Denies any fever and/or chills Generally weak without any nausea nor vomiting 03/22/2024 The patient was seen and examined in medical floor and in the COVID room in presence of the daughter She has been feeling a little better Still has cough and shortness of breath at rest and requiring 3 L to maintain saturation 03/23/2024 The patient was seen and examined in medical floor She has been vomiting a lot and is better today with decreasing cough and shortness of breath She has been improving gradually She is not yet at her baseline to be discharged 03/24/2024 Patient was seen and examined in medical floor and in the COVID room She has been feeling much better but is still has significant cough Has been requiring only 1 L to maintain saturation Getting physical therapy 03/25/2024 Patient was seen and examined in medical floor. She has been feeling better but still has profound weakness and cough Has been saturating on 1 L Denies any chest pain or palpitation Review of Systems Review of Systems: All systems reviewed and are unremarkable except as noted below Physical Exam Physical Exam: Lying in bed without any acute distress but has minimal cough Constitutional: + ill appearing and + thin Eyes: PERRL, conjunctivae normal, anicteric sclerae ENMT: external ear and nose normal, oropharynx normal Neck: trachea midline, no thyromegaly Respiratory: + respiratory distress (Minimal shortnes s of breath at rest with cough) Cardiovascular: Rate/Rhythm: regular rate, regular rhythm and + tachycardic Heart Sounds: normal S1, normal S2 and + murmur Extremities: + edema Gastrointestinal (Abdomen): Inspection/Auscultation: normal bowel sounds; abdomen not distended Percussion/Palpation: abdomen soft; abdomen nontender Neurologic: normal touch/pain/proprioception and moves all extremities; no focal motor deficits Lymphatic: no cervical or axillary lymphadenopathy Results & Data Results & Data Vital Signs (Past 12 Hours) Vital Signs Temp Pulse Resp BP BP Pulse Ox O2 Del Method 03/25/24 15:11 36.8 C 71 15 107/66 97 Nasal Cannula 03/25/24 10:14 Nasal Cannula 03/25/24 08:05 36.2 C L 88 16 110/62 91 Nasal Cannula 03/25/24 07:08 70 18 98 Nasal Cannula O2 Flow Rate 03/25/24 15:11 1 03/25/24 10:14 1 03/25/24 08:05 1 03/25/24 07:08 1 Medications Administered Current Inpatient Medications Acetaminophen (Acetaminophen 325 Mg Tab) 650 mg PO Q4H PRN PRN Reason: Pain or Fever Stop: 04/16/24 17:08 Last Admin: 03/20/24 12:12 Dose: 650 mg Al Hydrox/Mg Hydrox/Simethicone (Aluminum/Magnesium Susp 30 Ml Udc) 15 ml PO Q 4H PRN PRN Reason: Dyspepsia Stop: 04/16/24 17:08 Albuterol (Albuterol 0.083% Nebu Soln 3 Ml Vial) 2.5 mg NEB Q4H PRN; Protocol PRN Reason: Shortness Of Breath Or Wheezing Stop: 04/16/24 17:03 Albuterol (Albut/Ipratrop 3mg/0.5mg Neb 3 Ml Vial) 3 ml NEB BIDR [facility]; Protocol Stop: 04/17/24 18:59 Last Admin: 03/25/24 07:07 Dose: 3 ml Atorvastatin Calcium (Atorvastatin 10 Mg Tab) 10 mg PO HS [facility] Stop: 04/16/24 20:59 Last Admin: 03/24/24 20:29 Dose: 10 mg Benzonatate (Benzonatate 100 Mg Capsule) 100 mg PO TID PRN PRN Reason: Cough Stop: 04/17/24 09:25 Last Admin: 03/25/24 08:29 Dose: 100 mg Budesonide (Budesonide 0.5 Mg/2 Ml Vial (Pulmicort)) 1 mg INH QDR [facility] Stop: 04/17/24 11:44 Last Admin: 03/25/24 07:07 Dose: 1 mg Folic Acid (Folic Acid 1 Mg Tab) 1 mg PO DAILY [facility] Stop: 04/17/24 08:59 Last Admin: 03/25/24 08:28 Dose: 1 mg Heparin Sodium (Porcine) (Heparin Sod 5,000 Unit/0.5 Ml Vial) 5,000 units SQ Q12 [facility] Stop: 04/16/24 20:59 Last Admin: 03/25/24 08:29 Dose: 5,000 units Hydrocodone Bit/Homatropine Methylb (Hydrocodone/Homatropine Syrup 5mg/1.5mg 5ml Udp) 5 ml PO Q6H PRN PRN Reason: Cough Stop: 04/01/24 09:25 Hydroxychloroquine Sulfate (Hydroxychloroquine Sulfate 200 Mg Tab) 200 mg PO QAM [facility] Stop: 04/17/24 08:59 Lactobacillus Acidophilus (Advanced Probiotic 625 Mg Capsule) 1,250 mg PO DAILY [facility] Stop: 04/17/24 08:59 Last Admin: 03/25/24 08:28 Dose: 1,250 mg Levothyroxine Sodium (Levothyroxine Sodium 75 Mcg Tablet) 75 mcg PO DAILYBB [facility] Stop: 04/17/24 06:29 Last Admin: 03/25/24 06:17 Dose: 75 mcg Magnesium Hydroxide (Magnesium Hydroxide Susp 30 Ml Udc) 30 ml PO Q12H PRN PRN Reason: Constipation Stop: 04/16/24 17:08 Metoprolol Succinate (Metoprolol Succ 25mg Ext Rel Tab) 25 mg PO BID [facility] Stop: 04/21/24 20:59 Last Admin: 03/25/24 08:28 Dose: 25 mg Multi-Ingredient Cream (Eucerin Cr 120 Gm Jar) 1 appln TOP DAILY [facility] Stop: 04/17/24 08:59 Last Admin: 03/25/24 08:29 Dose: 1 appln Pantoprazole Sodium (Pantoprazole 40 Mg Tab) 40 mg PO QAM [facility] Stop: 04/17/24 08:59 Last Admin: 03/25/24 08:29 Dose: 40 mg Prednisone (Prednisone 20 Mg Tab) 60 mg PO DAILY [facility] Stop: 04/17/24 08:59 Last Admin: 03/25/24 08:28 Dose: 60 mg Trazodone HCl (Trazodone Hcl 50 Mg Tab) 50 mg PO HS [facility] Stop: 04/16/24 20:59 Last Admin: 03/24/24 21:10 Dose: 50 mg (4) Bronchiectasis Bronchiectasis type: uncomplicated Qualified Code(s): J47.9 - Bronchiectasis, uncomplicated
[2024-03-25] MEDS: FUROSEMIDE INJ 20 MG/2 ML VIAL IV ONE (16:26)
[2024-03-25] MEDS: HYDROcodone/HOMATROPINE SYRUP 5MG/1.5MG 5ML UDP PO PRN (16:26)
--- NOTE | 2024-03-26 14:07 | Hospitalist Progress Note ---
Date of Service March 26, 2024 Assessment & Plan (1) Acute hypoxemic respiratory failure due to COVID-19: Plan: Presented with weakness and poor appetite for 1 week and also noted to have shortness of breath productive cough 2 days prior to admission Was found to have COVID-19 virus infection Has been started on IV antibiotic for possible pneumonia secondary superimposed bacteria Has been started on remdesivir and she is already on high-dose steroids Has been on nebulized bronchodilators and other symptomatic medications for cough Gradually improving Less cough and less shortness of breath at rest Saturating normally with 3 L of nasal cannula oxygen Will ask for PT and OT evaluation and plan for discharge in a few days Clinically little better today and has been requiring 2 L to maintain saturation Remains weak and lethargic. And is still not at his baseline to be discharged Will continue with the Hycodan as needed and stop Mucomyst nebulized solution and guaifenesin Strongly advised to participate more in physical therapy Repeat chest x-ray showed multifocal airspace opacities within the left lung slightly increased from prior-will continue current antibiotic Clinically stable with some swelling of the legs likely secondary to immobility Will try small dose of Lasix which will improve shortness of breath and cough Will need to have more physical therapy likely discharge on Tuesday- Will need to continue overall physical therapy for improvement Minimal cough otherwise no shortness of breath at rest Has been requiring 1.5 L to maintain saturation (2) Secondary bacterial pneumonia: Plan: As above Has been getting antibiotic as above (3) Interstitial pulmonary fibrosis: Plan: History of interstitial pulmonary fibrosis which is making her symptoms worse and recovery delayed Will continue current oxygen Will need 2 steps O2 saturation test prior to discharge (4) Bronchiectasis: (5) Pulmonary hypertension: (6) PVCs (premature ventricular contractions): Plan Progress note from prior hospitalist: Patient is a 3-year-old female with acute hypoxic respiratory failure due to COVID-19 Continue with a 5-day course of IV remdesivir Continue steroids Continue supportive care with oxygen titrate as able Continue antitussives and mucolytics Continue course of antibiotics for presumed secondary bacterial infection Anticipate potential return to [facility] once remdesivir complete and respiratory status improves Admission and Anticipated Discharge Date Admission Date: March 17, 2024 Subjective 03/21/2024 The patient was seen and examined in medical floor She has been complaining of cough with occasional shortness of breath but overall feeling better since admission Denies any fever and/or chills Generally weak without any nausea nor vomiting 03/22/2024 The patient was seen and examined in medical floor and in the COVID room in presence of the daughter She has been feeling a little better Still has cough and shortness of breath at rest and requiring 3 L to maintain saturation 03/23/2024 The patient was seen and examined in medical floor She has been vomiting a lot and is better today with decreasing cough and shortness of breath She has been improving gradually She is not yet at her baseline to be discharged 03/24/2024 Patient was seen and examined in medical floor and in the COVID room She has been feeling much better but is still has significant cough Has been requiring only 1 L to maintain saturation Getting physical therapy 03/25/2024 Patient was seen and examined in medical floor. She has been feeling better but still has profound weakness and cough Has been saturating on 1 L Denies any chest pain or palpitation 03/26/2024 The patient was seen and examined in medical floor in the COVID room She feels a little better the cough is decreased but remains extremely lethargic Strongly advised to more physical therapy Likely discharge tomorrow Review of Systems Review of Systems: All systems reviewed and are unremarkable except as noted below Physical Exam Physical Exam: Lying in bed without any acute distress but has minimal cough Constitutional: + ill appearing and + thin Eyes: PERRL, conjunctivae normal, anicteric sclerae ENMT: external ear and nose normal, oropharynx normal Neck: trachea midline, no thyromegaly Respiratory: + respiratory distress (Minimal shortnes s of breath at rest with cough) Cardiovascular: Rate/Rhythm: regular rate, regular rhythm and + tachycardic Heart Sounds: normal S1, normal S2 and + murmur Extremities: + edema Gastrointestinal (Abdomen): Inspection/Auscultation: normal bowel sounds; abdomen not distended Percussion/Palpation: abdomen soft; abdomen nontender Neurologic: normal touch/pain/proprioception and moves all extremities; no focal motor deficits Lymphatic: no cervical or axillary lymphadenopathy Results & Data Results & Data Vital Signs (Past 12 Hours) Vital Signs Temp Pulse Resp BP Pulse Ox O2 Del Method O2 Flow Rate 03/26/24 09:00 Nasal Cannula 1.5 03/26/24 07:21 75 18 98 Nasal Cannula 1 03/26/24 06:57 36.6 C 81 14 151/69 H 95 Room Air Medications Administered Current Inpatient Medications Acetaminophen (Acetaminophen 325 Mg Tab) 650 mg PO Q4H PRN PRN Reason: Pain or Fever Stop: 04/16/24 17:08 Last Admin: 03/20/24 12:12 Dose: 650 mg Al Hydrox/Mg Hydrox/Simethicone (Aluminum/Magnesium Susp 30 Ml Udc) 15 ml PO Q4H PRN PRN Reason: Dyspepsia Stop: 04/16/24 17:08 Albuterol (Albuterol 0.083% Nebu Soln 3 Ml Vial) 2.5 mg NEB Q4H PRN; Protocol PRN Reason: Shortness Of Breath Or Wheezing Stop: 04/16/24 17:03 Albuterol (Albut/Ipratrop 3mg/0.5mg Neb 3 Ml Vial) 3 ml NEB BIDR LANEY; Protocol Stop: 04/17/24 18:59 Last Admin: 03/26/24 07:21 Dose: 3 ml Atorvastatin Calcium (Atorvastatin 10 Mg Tab) 10 mg PO HS LANEY Stop: 04/16/24 20:59 Last Admin: 03/25/24 21:31 Dose: 10 mg Benzonatate (Benzonatate 100 Mg Capsule) 100 mg PO TID PRN PRN Reason: Cough Stop: 04/17/24 09:25 Last Admin: 03/25/24 21:37 Dose: 100 mg Budesonide (Budesonide 0.5 Mg/2 Ml Vial (Pulmicort)) 1 mg INH QDR LANEY Stop: 04/17/24 11:44 Last Admin: 03/26/24 07:21 Dose: 1 mg Folic Acid (Folic Acid 1 Mg Tab) 1 mg PO DAILY LANEY Stop: 04/17/24 08:59 Last Admin: 03/26/24 08:16 Dose: 1 mg Heparin Sodium (Porcine) (Heparin Sod 5,000 Unit/0.5 Ml Vial) 5,000 units SQ Q12 LANEY Stop: 04/16/24 20:59 Last Admin: 03/26/24 08:16 Dose: 5,000 units Hydrocodone Bit/Homatropine Methylb (Hydrocodone/Homatropine Syrup 5mg/1.5mg 5ml Udp) 5 ml PO Q6H PRN PRN Reason: Cough Stop: 04/01/24 09:25 Last Admin: 03/25/24 16:26 Dose: 5 ml Hydroxychloroquine Sulfate (Hydroxychloroquine Sulfate 200 Mg Tab) 200 mg PO QAM LANEY Stop: 04/17/24 08:59 Lactobacillus Acidophilus (Advanced Probiotic 625 Mg Capsule) 1,250 mg PO DAILY LANEY Stop: 04/17/24 08:59 Last Admin: 03/26/24 08:15 Dose: 1,250 mg Levothyroxine Sodium (Levothyroxine Sodium 75 Mcg Tablet) 75 mcg PO DAILYBB LANEY Stop: 04/17/24 06:29 Last Admin: 03/26/24 06:05 Dose: 75 mcg Magnesium Hydroxide (Magnesium Hydroxide Susp 30 Ml Udc) 30 ml PO Q12H PRN PRN Reason: Constipation Stop: 04/16/24 17:08 Metoprolol Succinate (Metoprolol Succ 25mg Ext Rel Tab) 25 mg PO BID LANEY Stop: 04/21/24 20:59 Last Admin: 03/26/24 08:16 Dose: 25 mg Multi-Ingredient Cream (Eucerin Cr 120 Gm Jar) 1 appln TOP DAILY LANEY Stop: 04/17/24 08:59 Last Admin: 03/26/24 08:18 Dose: 1 appln Pantoprazole Sodium (Pantoprazole 40 Mg Tab) 40 mg PO QAM LANEY Stop: 04/17/24 08:59 Last Admin: 03/26/24 08:14 Dose: 40 mg Prednisone (Prednisone 20 Mg Tab) 60 mg PO DAILY LANEY Stop: 04/17/24 08:59 Last Admin: 03/26/24 08:15 Dose: 60 mg Trazodone HCl (Trazodone Hcl 50 Mg Tab) 50 mg PO HS LANEY Stop: 04/16/24 20:59 Last Admin: 03/25/24 21:37 Dose: 50 mg (4) Bronchiectasis Bronchiectasis type: uncomplicated Qualified Code(s): J47.9 - Bronchiectasis, uncomplicated
[2024-03-27 09:25] LABS: Basophils # (auto) 0.02 K/uL (0.00-0.20); Basophils % (auto) 0.1 %; Eosinophils # (auto) 0.01 K/uL (0.00-0.50); Eosinophils % (auto) 0.1 %; Hematocrit (blood only) 40.4 % (37.0-47.0); Hemoglobin 13.2 g/dl (12.0-16.0); Immature Granulocytes % (auto) 0.7 %; Lymphocytes # (auto) 1.46 K/uL (1.20-3.40); Mean Corpuscular Hgb Conc 32.7 g/dL (32.0-36.0); Mean Corpuscular Volume 88.8 fL (80.0-100.0); Mean Platelet Volume 11.7 fL (9.4-12.4); Monocytes # (auto) 0.46 K/uL (0.11-0.59); Monocytes % (auto) 3.2 %; Neutrophils # (auto) 12.52 K/uL (1.40-6.50); Neutrophils % (auto) 85.9 %; Platelet Count 220 K/uL (130-400); RDW Coefficient of Variation 15.6 % (11.5-14.5); RDW Standard Deviation 50.6 fL (36.4-46.3); Red Blood Count 4.55 M/uL (4.20-5.40); White Blood Count 14.57 K/ul (4.8-10.8)
[2024-03-27 09:42] LABS: BUN Creatinine Ratio 32.6 (10-20); Calcium 8.7 mg/dl (8.6-10.3); Creatinine Clr Calc Pharmacy 55.6 ml/min; Est GFR (African American) 107.5 ml/min; Est GFR (Non-African American) 92.7 ml/min; Magnesium 2.2 mg/dl (1.7-2.4); Phosphorus 2.2 mg/dl (2.5-4.9); Potassium 3.9 mmol/L (3.5-5.1)
--- NOTE | 2024-03-27 13:32 | XRay Report ---
XR chest 1V portable HISTORY: 83 years-old Female sob acute shortness of breath COMPARISON: 03/24/2024 TECHNIQUE: AP view of the chest FINDINGS: Chronic silhouette is mildly enlarged, unchanged. The patient is rotated toward the left. Small pleur al effusions redemonstrated. Bilateral mixed interstitial and alveolar opacities redemonstrated with consolidation most pronounced in the left midlung and left lung base, not significant changed. Cholec ystectomy. Bones appear grossly intact. IMPRESSION: 1. Chronic interstitial lung disease with probable superimposed pneumonia. Consolidation is again mos t pronounced in the left lung base. 2. Small pleural effusions. ACT 112: Negative or not required by law. The above report was generated using voice recognition software. It may contain grammatical, syntax o r spelling errors. Electronically signed by: Byron Interiano M.D. 03/27/2024 1:30 PM
--- NOTE | 2024-03-27 14:38 | Hospitalist Progress Note ---
Date of Service March 27, 2024 Assessment & Plan (1) Acute hypoxemic respiratory failure due to COVID-19: Plan: This is an 83 yr old F who has significant PMH of Interstitial lung disease, mild persistent asthma, HTN, GERD, Ulcerative colitis, osteoporosis, RA Presented with weakness and poor appetite for 1 week and also noted to have shortness of breath productive cough 2 days prior to admission Was found to have COVID-19 virus infection Has been started on IV antibiotic for possible pneumonia secondary superimposed bacteria treated with 7 day course of azithro/cefnidir Tx with remdesivir and on chronic 60mg prednisone Has been on nebulized bronchodilators and other symptomatic medications for cough CXR 03/24 showed multifocal airspace opacities within the left lung slightly increased from prior-will continue current antibiotic XR 03/27 - unchanged from previous Small dose lasix given 03/25 Pt continues to remain very weak, continue PT/OT she will need rehab (2) Secondary bacterial pneumonia: Plan: As above Has been getting antibiotic as above (3) Interstitial pulmonary fibrosis: Plan: History of interstitial pulmonary fibrosis which is making her symptoms worse and recovery delayed Will continue current oxygen Will need 2 steps O2 saturation test prior to discharge DNR/DNI PCP: [facility] Dis[facility]: admitted to med/surg, PT/Ot recommends rehab, pt medically stable for rehab when able A total of 46 minutes was spent coordinating, documenting, and providing care for this patient excluding time spent in the performance of separately billed services. This included personally viewing all current laboratories and imaging studies, medication reconciliation, outpatient chart review, and discussion with specialists. I discussed with Daughter Nydia over the phone and she agrees with above. (4) Bronchiectasis: (5) Pulmonary hypertension: (6) PVCs (premature ventricular contractions): Admission and Anticipated Discharge Date Admission Date: March 17, 2024 Supervising Physician Co-Signing Physician Notes Attending addendum: The patient was seen and examined in medical floor She has been stable in bed and complains some cough Remains weak and lethargic and has been requiring 2 L to maintain saturation On examination No apparent distress at rest Hemodynamically stable with blood pressure on the upper side at 152/65 Chest examination showed bilateral crackles Other examinations unremarkable Her labs,medications and imaging studies reviewed Significant lung fibrosis with COVID-19 infection Finish the course of antibiotic Will need cough suppressants occasional and continue with the high-dose steroid Agree with assessment plan as outlined above by Kimberly Shah PA-C and take the full responsibility of the care Total time spent in the patient assessment, examination and review [address] Barrett Kenney Pt was seen and examined in 300. F/U COVID. She c/o not feeling well today. She c/o SOB and ill feeling. She denies f/c/s, chest pain, n/v/d. Intake poor. She is unsure if moving bowels. Nurse at bedside said she helped her with her breakfast and encouraged her to d rink. Review of Systems Review of Systems: All systems reviewed & are unremarkable except as noted in HPI & below Physical Exam Physical Exam: Gen: thin, fraile, elderly, F, sitting up in bed, A&O x 3 basics only HEENT: Normocephalic, atraumatic, conjunctivae moist, sclerae anicteric, mucous membranes moist. Lung: Clear to Auscultation bilaterally but poor inspiratory effort, no wheezes/rales/rhonchi Heart: Regular rate, regular rhythm, no murmurs, rubs, or gallops Abdomen: Soft, NT, ND +BS x 4 Extremities: No edema Skin: Warm, no rash, dry but negative turgor. Results & Data Results & Data Vital Signs (Past 12 Hours) Vital Signs Temp Pulse Resp BP Pulse Ox O2 Del Method O2 Flow Rate 03/27/24 07:44 Nasal Cannula 2 03/27/24 07:40 77 16 98 Nasal Cannula 2 03/27/24 07:24 36.4 C L 66 17 152/65 H 100 Nasal Cannula 2 Diagnostic Findings Chest X-Ray 03/17/24 12:07 SINGLE VIEW CHEST CLINICAL HISTORY: Dyspnea. Covid. FINDINGS: An AP, portable, upright chest radiograph is compared to chest x-ray and chest CT dated 02/06/2024. The heart is mildly enlarged noting atherosclerotic calcification of the thoracic aorta. The pulmonary vasculature is noncongested. Changes of severe chronic interstitial/fibrotic lung disease are again seen throughout both lungs. Asymmetric airspace opacities at the left lung base are nonspecific. This could be part of the patient's fibrotic lung disease. A superimposed infectious/inflammatory pneumonitis is not excluded. Small pleural effusions are identified. No pneumothorax is seen. The skeletal structures are osteopenic. The bony thorax is grossly intact. Cholecystectomy clips are seen in the right upper quadrant. IMPRESSION: 1. Cardiomegaly without clear radiographic evidence of congestive failure. 2. Changes of severe chronic interstitial/fibrotic lung disease are similar to previous. 3. Asymmetric airspace opacities at the left lung base are nonspecific and could be part of the patient's chronic lung disease. Correlate clinically for evidence of a superimposed infectious/inflammatory pneumonitis. 4. Small pleural effusions. ACT 112: Negative or not required by law. Electronically signed by: Jamie Jacobs M.D. 03/17/2024 1:05 PM Chest X-Ray 03/24/24 11:04 XR chest 1V portable CLINICAL HISTORY: CHF/Pneumonia COMPARISON STUDY: Chest CT February 06, 2024. Chest radiograph March 17, 2024. FINDINGS: There is no pneumothorax. Small bilateral pleural effusions are present. Diffuse interstitial thickening is noted. Multifocal airspace opacities, greater within the left lung, are again noted. Left lung opacities have slightly increased. Cardiomediastinal silhouette is stable. IMPRESSION: 1. Multifocal airspace opacities, right within the left lung, slightly increased since prior exam. The findings may reflect multifocal pneumonia superimposed upon interstitial lung disease. 2. No pneumothorax. Small bilateral pleural effusions. ACT 112: Negative or not required by law. Electronically signed by: To Parson M.D. 03/24/2024 11:36 AM Chest X-Ray 03/27/24 11:57 XR chest 1V portable HISTORY: 83 years-old Female sob acute shortness of breath COMPARISON: 03/24/2024 TECHNIQUE: AP view of the chest FINDINGS: Chronic silhouette is mildly enlarged, unchanged. The patient is rotated toward the left. Small pleural effusions redemonstrated. Bilateral mixed interstitial and alveolar opacities redemonstrated with consolidation most pronounced in the left midlung and left lung base, not significant changed. Cholecystectomy. Bones appear grossly intact. IMPRESSION: 1. Chronic interstitial lung disease with probable superimposed pneumonia. Consolidation is again most pronounced in the left lung base. 2. Small pleural effusions. ACT 112: Negative or not required by law. The above report was generated using voice recognition software. It may contain grammatical, syntax or spelling errors. Electronically signed by: Byron Interiano M.D. 03/27/2024 1:30 PM (4) Bronchiectasis Bronchiectasis type: uncomplicated Qualified Code(s): J47.9 - Bronchiectasis, uncomplicated
--- NOTE | 2024-03-28 13:02 | Hospitalist Progress Note ---
<Statement entered by Gustavo Stokes, DO - 03/28/24 14:40> I have seen and examined the patient and have discussed the case with the provider above. I have reviewed the advanced practitioner's documentation, and I agree with, and take responsibility for that plan of care. 15 minutes spent in review of records, coordination of care and valuation the patient. Patient reports chronic shortness of breath. Lungs decreased breath sounds, prolonged expiratory phase, diffuse crackles throughout, baseline Patient with acute infectious lung disease, COVID/secondary bacterial pneumonia in the setting of severe interstitial lung disease. Anticipate patient will need long-term oxygen support Plan of care as outlined below Date of Service March 28, 2024 Assessment & Plan (1) Acute hypoxemic respiratory failure due to COVID-19: Plan: This is an 83 yr old F who has significant PMH of Interstitial lung disease, mild persistent asthma, HTN, GERD, Ulcerative colitis, osteoporosis, RA Presented with weakness and poor appetite for 1 week and also noted to have shortness of breath productive cough 2 days prior to admission Was found to have COVID-19 virus infection Has been started on IV antibiotic for possible pneumonia secondary superimposed bacteria treated with 7 day course of azithro/cefnidir Tx with remdesivir and on chronic 60mg prednisone Has been on nebulized bronchodilators and other symptomatic medications for c ough CXR 03/24 showed multifocal airspace opacities within the left lung slightly increased from prior-will continue current antibiotic XR 03/27 - unchanged from previous Small dose lasix given 03/25 Pt continues to remain very weak, continue PT/OT she will need rehab (2) Secondary bacterial pneumonia: Plan: As above s/p oral azithromycin and cefnidir (3) Interstitial pulmonary fibrosis: Plan: History of interstitial pulmonary fibrosis which is making her symptoms worse and recovery delayed Will continue current oxygen In February while at [facility] for short term rehab, provider there placed on prednisone 60mg daily due to on going respiratory symptoms in setting of fibrosis at baseline pt is on 5mg of prednisone for RA and UC, will work on tapering back down to 5mg, but slowly given the duration she has been on high dose steroids DNR/DNI PCP: [facility] Dispo: admitted to med/surg, PT/Ot recommends rehab, pt medically stable for rehab when able, will check cbc, bmp in a.m. A total of 42 minutes was spent coordinating, documenting, and providing care for this patient excluding time spent in the performance of separately billed services. This included personally viewing all current laboratories and imaging studies, medication reconciliation, outpatient chart review, and discussion with specialists. (4) Bronchiectasis: (5) Pulmonary hypertension: (6) PVCs (premature ventricular contractions): Admission and Anticipated Discharge Date Admission Date: March 17, 2024 Subjective Pt was seen and examined in 300. F/U COVID. She continues to state she doesn't feel well and c/o SOB. She denies f/c/s, chest pain, n/v/d, abd pain. Review of Systems Review of Systems: All systems reviewed & are unremarkable except as noted in HPI & below Physical Exam Physical Exam: Gen: thin, fraile, elderly, F, sitting up in bed, A&O x 3 basics only HEENT: Normocephalic, atraumatic, conjunctivae moist, sclerae anicteric, mucous membranes moist. Lung: Clear to Auscultation bilaterally but poor inspiratory effort, no wheezes/rales/rhonchi Heart: Regular rate, regular rhythm, no murmurs, rubs, or gallops Abdomen: Soft, NT, ND +BS x 4 Extremities: No edema Skin: Warm, no rash, dry but negative turgor. Results & Data Results & Data Vital Signs (Past 12 Hours) Vital Signs Temp Pulse Resp BP Pulse Ox O2 Del Method O2 Flow Rate 03/28/24 08:05 36.5 C 88 18 123/70 94 Nasal Cannula 2 03/28/24 07:49 36.5 C 80 16 121/72 96 Nasal Cannula 1 03/28/24 07:45 Nasal Cannula 2 03/28/24 07:31 78 19 96 Nasal Cannula 2 Medications Administered Current Inpatient Medications Acetaminophen (Acetaminophen 325 Mg Tab) 650 mg PO Q4H PRN PRN Reason: Pain or Fever Stop: 04/16/24 17:08 Last Admin: 03/28/24 08:00 Dose: 650 mg Al Hydrox/Mg Hydrox/Simethicone (Aluminum/Magnesium Susp 30 Ml Udc) 15 ml PO Q4H PRN PRN Reason: Dyspepsia Stop: 04/16/24 17:08 Albuterol (Albuterol 0.083% Nebu Soln 3 Ml Vial) 2.5 mg NEB Q4H PRN; Protocol PRN Reason: Shortness Of Breath Or Wheezing Stop: 04/16/24 17:03 Albuterol (Albut/Ipratrop 3mg/0.5mg Neb 3 Ml Vial) 3 ml NEB BIDR LANEY; Protocol Stop: 04/17/24 18:59 Last Admin: 03/28/24 07:30 Dose: 3 ml Atorvastatin Calcium (Atorvastatin 10 Mg Tab) 10 mg PO HS LANEY Stop: 04/16/24 20:59 Last Admin: 03/27/24 22:24 Dose: 10 mg Benzonatate (Benzonatate 100 Mg Capsule) 100 mg PO TID PRN PRN Reason: Cough Stop: 04/17/24 09:25 Last Admin: 03/25/24 21:37 Dose: 100 mg Budesonide (Budesonide 0.5 Mg/2 Ml Vial (Pulmicort)) 1 mg INH QDR LANEY Stop: 04/17/24 11:44 Last Admin: 03/28/24 07:30 Dose: 1 mg Folic Acid (Folic Acid 1 Mg Tab) 1 mg PO DAILY LANEY Stop: 04/17/24 08:59 Last Admin: 03/28/24 08:08 Dose: 1 mg Heparin Sodium (Porcine) (Heparin Sod 5,000 Unit/0.5 Ml Vial) 5,000 units SQ Q12 LANEY Stop: 04/16/24 20:59 Last Admin: 03/28/24 09:17 Dose: 5,000 units Hydrocodone Bit/Homatropine Methylb (Hydrocodone/Homatropine Syrup 5mg/1.5mg 5ml Udp) 5 ml PO Q6H PRN PRN Reason: Cough Stop: 04/01/24 09:25 Last Admin: 03/25/24 16:26 Dose: 5 ml Hydroxychloroquine Sulfate (Hydroxychloroquine Sulfate 200 Mg Tab) 200 mg PO QA M LANEY Stop: 04/17/24 08:59 Lactobacillus Acidophilus (Advanced Probiotic 625 Mg Capsule) 1,250 mg PO DAILY LANEY Stop: 04/17/24 08:59 Last Admin: 03/28/24 09:19 Dose: 1,250 mg Levothyroxine Sodium (Levothyroxine Sodium 75 Mcg Tablet) 75 mcg PO DAILYBB LANEY Stop: 04/17/24 06:29 Last Admin: 03/28/24 05:36 Dose: 75 mcg Magnesium Hydroxide (Magnesium Hydroxide Susp 30 Ml Udc) 30 ml PO Q12H PRN PRN Reason: Constipation Stop: 04/16/24 17:08 Metoprolol Succinate (Metoprolol Succ 25mg Ext Rel Tab) 25 mg PO BID LANEY Stop: 04/21/24 20:59 Last Admin: 03/28/24 08:07 Dose: 25 mg Multi-Ingredient Cream (Eucerin Cr 120 Gm Jar) 1 appln TOP DAILY LANEY Stop: 04/17/24 08:59 Last Admin: 03/28/24 09:17 Dose: 1 appln Pantoprazole Sodium (Pantoprazole 40 Mg Tab) 40 mg PO QAM LANEY Stop: 04/17/24 08:59 Last Admin: 03/28/24 08:07 Dose: 40 mg Prednisone (Prednisone 20 Mg Tab) 60 mg PO DAILY LANEY Stop: 04/17/24 08:59 Last Admin: 03/28/24 08:08 Dose: 60 mg Trazodone HCl (Trazodone Hcl 50 Mg Tab) 50 mg PO HS LANEY Stop: 04/16/24 20:59 Last Admin: 03/27/24 22:24 Dose: 50 mg (4) Bronchiectasis Bronchiectasis type: uncomplicated Qualified Code(s): J47.9 - Bronchiectasis, uncomplicated
[2024-03-28] MEDS: guaiFENesin 600 MG TABCR PO SCH (20:10)
[2024-03-29 06:04] LABS: BUN Creatinine Ratio 36.4 (10-20); Calcium 7.9 mg/dl (8.6-10.3); Creatinine Clr Calc Pharmacy 72.4 ml/min; Est GFR (African American) 117.3 ml/min; Est GFR (Non-African American) 101.2 ml/min; Potassium 4.4 mmol/L (3.5-5.1)
[2024-03-29 07:06] VITALS: TEMP 97.9
[2024-03-29 07:24] VITALS: PULSE 70; RESP 21; O2SAT 95
[2024-03-29 08:14] LABS: Basophils # (auto) 0.02 K/uL (0.00-0.20); Basophils % (auto) 0.1 %; Eosinophils # (auto) 0.01 K/uL (0.00-0.50); Eosinophils % (auto) 0.1 %; Hematocrit (blood only) 38.2 % (37.0-47.0); Hemoglobin 12.7 g/dl (12.0-16.0); Immature Granulocytes # (auto) 0.18 K/uL (0.01-0.20); Immature Granulocytes % (auto) 1.1 %; Lymphocytes # (auto) 1.68 K/uL (1.20-3.40); Lymphocytes % (auto) 9.8 %; Mean Corpuscular Hemoglobin 28.9 pg (25.0-34.0); Mean Corpuscular Hgb Conc 33.2 g/dL (32.0-36.0); Mean Platelet Volume 10.7 fL (9.4-12.4); Monocytes # (auto) 0.51 K/uL (0.11-0.59); Neutrophils # (auto) 14.73 K/uL (1.40-6.50); Neutrophils % (auto) 85.9 %; Platelet Count 221 K/uL (130-400); RDW Coefficient of Variation 15.2 % (11.5-14.5); RDW Standard Deviation 48.9 fL (36.4-46.3); Red Blood Count 4.39 M/uL (4.20-5.40); White Blood Count 17.13 K/ul (4.8-10.8)
[2024-03-29] MEDS: predniSONE 10 MG TABLET PO SCH (10:44)
--- NOTE | 2024-03-29 10:50 | Electrocardiogram Report ---
Test Reason : Blood Pressure : */* mmHG Vent. Rate : 86 BPM Atrial Rate : 86 BPM P-R Int : 112 ms QRS Dur : 82 ms QT Int : 356 ms P-R-T Axes : 77 13 12 degrees QTcB Int : 426 ms Sinus rhythm with Premature supraventricular complexes Otherwise normal ECG When compared with ECG of 17-Mar-2024 12:34, Non-specific change in ST segment in Inferior leads Confirmed by Eric Washington ([id number] on 03/29/2024 10:49:50 AM Referred By: REFERRED SELF Confirmed By: Eric Washington
--- NOTE | 2024-03-29 13:26 | Discharge Summary ---
<Statement entered by Gustavo tSokes, - 03/29/24 14:16> I have seen and examined the patient and have discussed the case with the provider above. I have reviewed the advanced practitioner's documentation, and I agree with, and take responsibility for that plan of care. 4 min spent in coordinating care/discharge with MITALI Discharge plan of care as outlined below Discharge Summary Date of Service March 29, 2024 Principal Dx & Hospital Course #1 = Principal Diagnosis (1) Acute hypoxemic respiratory failure due to COVID-19: (2) Secondary bacterial pneumonia: (3) Interstitial pulmonary fibrosis: (4) Bronchiectasis: (5) Pulmonary hypertension: (6) PVCs (premature ventricular contractions): Plan This is an 83 yr old F who has significant PMH of Interstitial lung disease, mild persistent asthma, HTN, GERD, Ulcerative colitis, osteoporosis, RA and other medical problems who presented from a [facility] with acute hypoxic respiratory failure in setting of COVID-19 virus infection and secondary pneumonia. CXR 03/24 showed multifocal airspace opacities within the left lung slightly increased from prior and antibiotics were continued. Completed 7 day azithromycin and cefdinir course as well as 5 day Remdesivir during admission. Had been continued on 60mg prednisone since February rehab stay due to ongoing respiratory symptoms in setting of pulm fibrosis but baseline prednisone is 5mg for RA and UC. Began a long taper yesterday to transition patient back to baseline 5mg dose. Respiratory status improved from admission and has been weaned off of oxygen. Saturating at 95% on room air. Has significant lung disease at baseline. Follow up with PCP and pulm follow up as scheduled. Hemodynamically stable at time of discharge to rehab at [facility]. Notes For Next Care Provider Medication Changes From Visit Prednisone taper, mucolytics and cough suppressants PRN Admission HPI Per Admitting Provider 83-year-old lady with PMH of rheumatoid arthritis on 5 mg steroid daily, IBS/ulcerative colitis (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 stopped during last admission given fibrotic lung disease], ILD, prednisone 60 Mg daily (since end of January per patient's daughter], bronchiectasis, asthma, HTN, hypothyroidism presented with shortness of breath and productive cough of yellowish sputum since 2 days ago [employer]. Patient also reports of having decreased appetite and increasing weakness since 1 week ago [employer]. There is COVID outbreak in [facility] and patient tested positive for COVID last night and hence sent to the ED. She was noted to be hypoxic in high 80s at [facility] [place] per pt's son at bedside. Pt saturating well on RA at bedside exam. Patient denies fever or sore throat or chest pain or abdominal pain or acute changes in bowel or bladder habits. She did report 1 episode of diarrhea. She denies nausea or vomiting. Medications were reviewed with the patient and her son and daughter at bedside. After discharge last admission, prednisone 60 mg daily has been added per patient's daughter since end of January. Plan of care discussed in detail with them, they voiced understanding and were agreeable to plan. DNR/DNI as per my discussion with the patient and her family at bedside. Admission Exam Per Admitting Provider GENERAL: Alert and awake. NAD, on RA, appears frail/ill/weak. HEENT: No pallor, no icterus. Pupils equal, round and reactive to light. Oral mucosa moist. NECK: No JVD, no neck masses. HEART: S1 and S2 heard. Regular rate and rhythm. Tachycardia. No murmur, no gallop. RESPIRATORY SYSTEM: Normal AP diameter. No accessory muscle use. No wheezing, b/l dry crackles. ABDOMEN: Soft, bowel sounds present, nontender, no distention. CENTRAL NERVOUS SYSTEM: No facial droop. Speech is clear. Obeys simple c ommands. Moves extremities. EXTREMITIES: trace ble edema, no erythema seen. Sacral ulcer, unstageable. Discharge Exam Gen: thin, frail, elderly, F, sitting up in bed, A&O x 3 basics only but flat affect HEENT: Normocephalic, atraumatic, conjunctivae moist, sclerae anicteric, mucous membranes moist Lung: decreased breath sounds bilaterally, prolonged expiratory phase, bibasilar crackles, baseline Heart: Regular rate, regular rhythm Abdomen: Soft, NT, ND +BS x 4 Extremities: No edema Skin: Warm, no rash, dry but negative turgor. Updated Medication List Medication Instructions Recorded Confirmed Type acetaminophen 325 mg tablet 650 mg PO Q6 Fever Or Pain 03/17/24 03/17/24 History (Tylenol) acetaminophen 500 mg tablet 1,000 mg PO BID PRN Pain 03/17/24 03/17/24 History (Tylenol Extra Strength) albuterol sulfate 2.5 mg/3 mL 2.5 mg continuous nebulization BID 03/17/24 03/17/24 History (0.083 %) solution for nebulization PRN Shortness Of Breath Or Wheezing atorvastatin 10 mg tablet 10 mg PO HS 03/17/24 03/17/24 History budesonide 1 mg/2 mL suspension 1 mg inhalation QAM 03/17/24 03/17/24 History for nebulization foam bandage 5" X 5" (Allevyn 03/17/24 03/17/24 History Adhesive Dressing) folic acid 1 mg tablet 1 mg PO DAILY 03/17/24 03/17/24 History hydroxychloroquine 100 mg tablet 100 mg PO QAM 03/17/24 03/17/24 History hydroxychloroquine 200 mg tablet 200 mg PO QAM 03/17/24 03/17/24 History lanolin-mineral oil lotion 1 applic topical DAILY 03/17/24 03/17/24 History (Eucerin Original lotion) levothyroxine 75 mcg tablet 75 mcg PO DAILY 03/17/24 03/17/24 History menthol 0.44 %-zinc oxide 20.6 % 1 applic topical QS 03/17/24 03/17/24 History topical ointment (Calmoseptine) metoprolol succinate 25 mg 25 mg PO QAM 03/17/24 03/17/24 History tablet,extended release 24 hr pantoprazole 40 mg tablet,delayed 40 mg PO QAM 03/17/24 03/17/24 History release trazodone 50 mg tablet 50 mg PO HS 03/17/24 03/17/24 History benzonatate 100 mg capsule 100 mg PO TID PRN cough #14 caps 03/29/24 Rx guaifenesin 600 mg tablet, 600 mg PO Q12 #10 tabs 03/29/24 Rx extended release 12 hr (Mucinex) hydrocodone-homatropine 5 mg-1.5 5 ml PO Q6H PRN cough #473 mL 03/29/24 Rx mg/5 mL oral syrup (Hydromet) ipratropium 0.5 mg-albuterol 3 mg 3 ml NEB BIDR PRN shortness of 03/29/24 Rx (2.5 mg base)/3 mL nebulization breath or wheezing #90 mL soln prednisone 10 mg tablet 50 mg (5 x 10 mg) PO DAILY #70 tabs 03/29/24 Rx Hospital Stay Data Consultations 03/17/24 16:22 ED Decision to Admit Stat Pending Results Patient Have Any Pending Studies at Discharge: No Discharge Instructions Given to Patient (Per Discharging Provider) You were admitted to hospital secondary shortness of breath and hypoxia 2/2 covid 19 and secondary bacterial pneumonia. CXR 03/24 showed multifocal airspace opacities within the left lung slightly increased from prior. Completed 7 day course of azithromycin and cefdinir during admission as well as Remdesivir course. Weaned off of oxygen and saturating at 95% on room air. MEDICATION CHANGES: Continue Mucinex BID, Hydromet cough syrup and Tessalon Pearles as needed for cough. Continue Duonebs BID as needed for SOB or wheezing. Continue prednisone taper - 50mg x 5 days, 40mg x 5 days, 30mg x 5 days, 20mg x 5 days, 10mg x 5 days and then resume home 5mg daily PENDING TEST RESULTS: None RECOMMENDATIONS FOR FOLLOW-UP: Follow up with PCP and pulmonary service as scheduled. Continue medication regimen as scheduled aside from changes noted above. OTHER INSTRUCTIONS: Seek medical attention if you have: * temperature above 101 * chest pain or trouble breathing * abdominal pain, nausea, vomiting * diarrhea, dark stools or bloody stools * any unanswered questions or concerns Call 911 if symptoms are severe. Please take good care of yourself. Call if you have any questions or problems. You can reach a [facility] hospitalist on duty at [facility] 24 hours a day by calling [phone]. Total Time Total Time Spent Total Time Spent (In Minutes): 50
[2024-03-29 13:47] VITALS: BP 121/67
== END 2024-03-29 14:20 | DRG 177 ==
LOC: ED 11:49 → EDINP 17:09 → SUATTDRO 17:09 → 2W 03-18 20:25 → 3E 03-19 22:34